=== PATIENT | female | born 1965 | race Caucasian/White ===

== ENCOUNTER 2024-05-05 08:36 | Emergency (ER) | payer OTHER, SELFPAY ==
[2024-05-05 08:41] VITALS: BP 135/113; PULSE 97; TEMP 36.6; O2SAT 93; BMI 23.3
--- NOTE | 2024-05-05 09:03 | ED_ITS ---
HPI - Extremity Problem General Chief complaint: Extremity Problem, Nontraumatic Stated complaint: UPPER EXTREMITY PAIN Time Seen by Provider: 05/05/24 08:42 Source: patient and caregiver Mode of arrival: walk-in Limitations: no limitations History of Present Illness HPI Narrative: 58-year-old female presents to the emergency department for pain in her right tricep area. She has had it for 1 to 2 weeks and there was no specific injury recently. She had broken her collarbone about a year and a half ago and did not have surgery for it. She has been seen for this issue twice at another emergency department and she states that they told her to take a muscle relaxer. She does not have pain in the neck or clavicular area. Related Data Previous Rx's ?Medication ?Instructions ?Recorded acetaminophen 300 mg-codeine 30 mg 1 tab PO Q6H PRN pain 5 days #20 05/05/24 tablet tabs Allergies Allergy/AdvReac Type Severity Reaction Status Date / Time Penicillins AdvReac Mild Hives Verified 05/05/24 08:46 Review of Systems ROS Narrative A ten point review of systems is negative except as noted above. PFSH PFSH Social History Little interest or pleasure in doing things: not at all Feeling down, depressed, or hopeless: not at all Exam Narrative Exam Narrative: Nurses note and vital signs reviewed and patient is not hypoxic. General: The patient appears well and in no apparent distress. Patient is resting comfortably on cart. Skin: Warm, dry, no pallor noted. There is no rash noted. Head: Normocephalic, atraumatic Eye: Normal conjunctiva, no drainage Ears, Nose, Mouth, and Throat: oral mucosa is moist. Nares patent. Cardiovascular: Regular Rate and Rhythm Respiratory: Patient is in no distress, no accessory muscle use, lungs are clear to auscultation, no wheezing, rales or rhonchi Back: non-tender GI: Soft and nontender Musculoskeletal: The right arm is examined. There is no bruise or rash or abrasions. Her right shoulder, right elbow, and right wrist all have full range of motion. Radial pulse 2+. There is no bruising swelling or mass in the tricep area. Neurological: A&O, normal speech Psychiatric: Cooperative Constitutional Vital Signs, click to edit/add: Last Vital Signs Temp 97.9 F 05/05/24 08:41 Pulse 97 H 05/05/24 08:41 Resp 18 05/05/24 08:41 BP 135/113 H 05/05/24 08:41 Pulse Ox 93 L 05/05/24 08:41 O2 Del Method Room Air 05/05/24 08:41 Course Vital Signs Vital signs: Vital Signs Temperature 97.9 F 05/05/24 08:41 Pulse Rate 97 H 05/05/24 08:41 Respiratory Rate 18 05/05/24 08:41 Blood Pressure 135/113 H 05/05/24 08:41 Pulse Oximetry 93 L 05/05/24 08:41 Oxygen Delivery Method Room Air 05/05/24 08:41 Temperature 97.9 F 05/05/24 08:41 Pulse Rate 97 H 05/05/24 08:41 Respiratory Rate 18 05/05/24 08:41 Blood Pressure 135/113 H 05/05/24 08:41 Pulse Oximetry 93 L 05/05/24 08:41 Oxygen Delivery Method Room Air 05/05/24 08:41 MDM - Extremity (Nontraumatic) MDM Narrative Medical decision making narrative: X-rays negative. She also had an x-ray of her right shoulder which showed an old clavicular fracture. She is placed in a sling, application checked by me and found to be appropriate, she is neurovascular intact. She was cautioned about using range of motion so that she does not get a frozen shoulder and she is going to follow-up with the orthopedist to whom she was referred a few days ago. Treatment diagnosis and follow-up were discussed with the patient. Differential Diagnosis Differential diagnosis: Likely other (Fracture, muscle strain, shoulder arthritis) Imaging Data Right humerus: Radiologist's impression: ITS Impressions Humerus X-Ray 05/05/24 10:11 IMPRESSION: No acute abnormality Electronically authenticated by: YANIRA APARICIO Date: 05/05/2024 10:34 Discharge Plan Discharge Chief Complaint: Extremity Problem, Nontraumatic Clinical Impression: Arm pain, right Patient Disposition: Home, Self-Care Time of Disposition Decision: 10:42 Condition: Good Mode of Transportation: Private Vehicle Prescriptions / Home Meds: New acetaminophen-codeine 300-30 mg tablet 1 tab PO Q6H PRN (Reason: pain) 5 Days Qty: 20 0RF Print Language: Japanese Instructions: Arm Pain (ED) Referrals: Duane,Adrianne, [employer] [Primary Care Provider] - 1 week
--- NOTE | 2024-05-05 10:11 | XR_ITS ---
[address] [address] Patient Name: ZANE CARLOS MRN: [id number] date: 1965 Sex: F Assigned Patient Location: ER Current Patient Location: ER Accession/Order Number: [id number] Exam Date: 05/05/2024 10:05 Report Date: 05/05/2024 10:34 At the request of: YANIV WELSH Procedure: XR humerus RT PROCEDURE: XR humerus RT COMPARISON: None. HISTORY: Atraumatic pain FINDINGS: BONES:No acute fracture or dislocation. Remote right clavicle and posterior lateral rib fractures SOFT TISSUES:Negative. No visible soft tissue swelling. EFFUSION:None visible. OTHER: Negative. XR/XR humerus RT IMPRESSION: No acute abnormality Electronically authenticated by: YANIRA APARICIO Date: 05/05/2024 10:34
== END 2024-05-05 10:55 | disposition home or self-care (01) ==
PROVIDERS: Emergency Provider Emergency Medicine; PCP Nurse Practitioner
DX: M79.621 Pain in right upper arm (principal)
CPT/HCPCS: 73060; 99283

== ENCOUNTER 2024-05-06 06:36 | Emergency (ER) | payer OTHER, SELFPAY ==
[2024-05-06] VITALS (14 sets, daily range): BP systolic 117–121; BP diastolic 74–86; PULSE 91–99; TEMP 36.7; O2SAT 92–94; BMI 23.3
--- NOTE | 2024-05-06 06:40 | CT_ITS ---
The [address] [address] Patient Name: ZANE CARLOS MRN: [id number] date: 1965 Sex: F Assigned Patient Location: ED.MAIN Current Patient Location: Accession/Order Number: [id number] Exam Date: 05/06/2024 07:02 Report Date: 05/06/2024 07:43 At the request of: RIK BENAVIDES Procedure: CT stroke head/brain wo con EXAM: CT cervical spine wo con, CT stroke head/brain wo con HISTORY: Fall. Altered mental status. COMPARISON: None. TECHNIQUE: Contiguous transaxial images obtained from skullbase through cervical spine without administration of intravenous contrast. Coronal and sagittal reformations were obtained. Dose reduction: mA and/or kV are were adjusted by automated exposure control software based upon patients height and weight. FINDINGS: There is straightening of the cervical spine with mild loss of cervical lordosis. There is no prevertebral soft tissue swelling or acute cervical spine fracture. There is multilevel degenerative disc disease of the cervical spine that is most pronounced from C4-5 through C6-7 where it is severe. There is minimal anterolisthesis of C3 on C4 and minimal retrolisthesis of C4 on C5 and C5 on C6. There is uncovertebral joint osteoarthritis, most pronounced at C4-5, C5-6, and C6-7. There is atlantodental articulation osteoarthritis. There is multilevel and bilateral facet joint osteoarthritis. Uncovertebral and facet joint osteoarthritis contribute to neural foraminal narrowing. Neural foraminal narrowing is noted on the right from C3-4 through C6-7. Neural foraminal narrowing is noted on the left from C3-4 through C6-7. There is atlantodental articulation osteoarthritis. There is bilateral carotid artery atherosclerosis. There is upper lobe centrilobular and paraseptal emphysema with left apical pleural parenchymal scarring. CT/CT stroke head/brain wo con IMPRESSION: 1. No acute cervical spine fracture. 2. Multilevel degenerative disc disease of the cervical spine that is most pronounced from C4-5 to C6-7 where it is severe. There are associated minimal degenerative listheses as described. 3. Uncovertebral and facet joint osteoarthritis contribute to neural foraminal narrowing from C3-4 through C6-7 bilaterally. 4. Carotid artery atherosclerosis. EXAM: CT stroke head/brain wo con HISTORY: Fall. Altered mental status. TECHNIQUE: Contiguous transaxial images were obtained from skull base to vertex without administration of intravenous contrast. Dose reduction: mA and/or kV are were adjusted by automated exposure control software based upon patients height and weight. FINDINGS: There is no focal scalp soft tissue swelling or acute calvarial fracture. The visualized globes and orbits are grossly normal. Visualized paranasal sinuses are clear. Bilateral mastoid air cells are clear. The ventricles and sulci are normal and symmetric bilaterally. There is no intraparenchymal hemorrhage, extraaxial fluid collection, mass lesion, or acute large territory ischemia by noncontrast CT. There is intracranial atherosclerosis. IMPRESSION: 1. No acute intracranial hemorrhage or acute large territory ischemia by noncontrast CT. 2. Intracranial atherosclerosis. If the patient has a focal neurologic deficit or there is clinical suspicion for acute cerebrovascular accident, brain MRI would be recommended for further evaluation. Electronically authenticated by: ALFREDO CERON Date: 05/06/2024 07:43
--- NOTE | 2024-05-06 06:40 | ECG_ITS ---
The [facility] Test Date: 2024-05-06 Pat Name: ZANE CARLOS Department: Room: - Gender: Female Packing Checker: : 1965 Requested By: [id number] Order Number: [id number] Reading MD: ALEXANDER GILLIAM Measurements Intervals [place] Rate: 91 P: 45 MO: 164 QRS: 17 QRSD: 78 T: 37 QT: 342 QTc: 391 Interpretive Statements 1100 Sinus rhythm 8102 Low QRS voltage in chest leads 9120 atypical ECG No previous ECG available for comparison Electronically Signed On 05-07-2024 16:31:48 EST by ALEXANDER GILLIAM
--- NOTE | 2024-05-06 06:40 | XR_ITS ---
The [address] [address] Patient Name: ZANE CARLOS MRN: [id number] date: 1965 Sex: F Assigned Patient Location: ED.MAIN Current Patient Location: ER Accession/Order Number: [id number] Exam Date: 05/06/2024 07:17 Report Date: 05/06/2024 07:32 At the request of: RIK BENAVIDES Procedure: XR chest 1V EXAMINATION: XR chest 1V HISTORY: AMS COMPARISON: No relevant comparison available. TECHNIQUE: AP portable FINDINGS: LUNGS: Mild bibasilar infiltrates, left greater than right VASCULATURE: No increased pulmonary vasculature. PLEURA: No pneumothorax, effusion, or pleural thickening. CARDIAC: No cardiomegaly or cardiac silhouette abnormality. MEDIASTINUM: No visible mass or adenopathy. BONES: Remote right mid clavicle and right posterior rib fractures OTHER: Negative. XR/XR chest 1V IMPRESSION: Mild bibasilar infiltrates, left greater than right Electronically authenticated by: YANIRA APARICIO Date: 05/06/2024 07:32
--- NOTE | 2024-05-06 06:43 | CT_ITS ---
The [address] [address] Patient Name: ZANE CARLOS MRN: [id number] date: 1965 Sex: F Assigned Patient Location: ER Current Patient Location: ER Accession/Order Number: [id number] Exam Date: 05/06/2024 07:02 Report Date: 05/06/2024 07:43 At the request of: RIK BENAVIDES Procedure: CT cervical spine wo con EXAM: CT cervical spine wo con, CT stroke head/brain wo con HISTORY: Fall. Altered mental status. COMPARISON: None. TECHNIQUE: Contiguous transaxial images obtained from skullbase through cervical spine without administration of intravenous contrast. Coronal and sagittal reformations were obtained. Dose reduction: mA and/or kV are were adjusted by automated exposure control software based upon patients height and weight. FINDINGS: There is straightening of the cervical spine with mild loss of cervical lordosis. There is no prevertebral soft tissue swelling or acute cervical spine fracture. There is multilevel degenerative disc disease of the cervical spine that is most pronounced from C4-5 through C6-7 where it is severe. There is minimal anterolisthesis of C3 on C4 and minimal retrolisthesis of C4 on C5 and C5 on C6. There is uncovertebral joint osteoarthritis, most pronounced at C4-5, C5-6, and C6-7. There is atlantodental articulation osteoarthritis. There is multilevel and bilateral facet joint osteoarthritis. Uncovertebral and facet joint osteoarthritis contribute to neural foraminal narrowing. Neural foraminal narrowing is noted on the right from C3-4 through C6-7. Neural foraminal narrowing is noted on the left from C3-4 through C6-7. There is atlantodental articulation osteoarthritis. There is bilateral carotid artery atherosclerosis. There is upper lobe centrilobular and paraseptal emphysema with left apical pleural parenchymal scarring. CT/CT cervical spine wo con IMPRESSION: 1. No acute cervical spine fracture. 2. Multilevel degenerative disc disease of the cervical spine that is most pronounced from C4-5 to C6-7 where it is severe. There are associated minimal degenerative listheses as described. 3. Uncovertebral and facet joint osteoarthritis contribute to neural foraminal narrowing from C3-4 through C6-7 bilaterally. 4. Carotid artery atherosclerosis. EXAM: CT stroke head/brain wo con HISTORY: Fall. Altered mental status. TECHNIQUE: Contiguous transaxial images were obtained from skull base to vertex without administration of intravenous contrast. Dose reduction: mA and/or kV are were adjusted by automated exposure control software based upon patients height and weight. FINDINGS: There is no focal scalp soft tissue swelling or acute calvarial fracture. The visualized globes and orbits are grossly normal. Visualized paranasal sinuses are clear. Bilateral mastoid air cells are clear. The ventricles and sulci are normal and symmetric bilaterally. There is no intraparenchymal hemorrhage, extraaxial fluid collection, mass lesion, or acute large territory ischemia by noncontrast CT. There is intracranial atherosclerosis. IMPRESSION: 1. No acute intracranial hemorrhage or acute large territory ischemia by noncontrast CT. 2. Intracranial atherosclerosis. If the patient has a focal neurologic deficit or there is clinical suspicion for acute cerebrovascular accident, brain MRI would be recommended for further evaluation. Electronically authenticated by: ALFREDO CERON Date: 05/06/2024 07:43
--- NOTE | 2024-05-06 06:46 | ED.AMS1 ---
HPI - Altered Mental Status General Chief Complaint: Altered Mental Status Stated Complaint: GENERAL WEAKNESS Time Seen by Provider: 05/06/24 06:40 Source: patient Mode of arrival: ambulance History of Present Illness HPI narrative: 58-year-old female to the emergency department with chief complaint of altered mental status. EMS reports that the patient was found lying on the floor in her home. Her called 911. She had slurred speech and was not responding appropriately. She seemed to be very tired. She was in this emergency department yesterday for arm pain and was prescribed Tylenol with codeine. Patient denies any pain or injury. Related Data Previous Rx's ?Medication ?Instructions ?Recorded acetaminophen 300 mg-codeine 30 mg 1 tab PO Q6H PRN pain 5 days #20 05/05/24 tablet tabs Allergies Allergy/AdvReac Type Severity Reaction Status Date / Time Penicillins AdvReac Mild Hives Verified 05/06/24 06:44 Review of Systems ROS Status of ROS 10 or more systems reviewed and unremarkable except as noted in history and below PFSH PFSH Social History Little interest or pleasure in doing things: not at all Feeling down, depressed, or hopeless: not at all Exam Narrative Exam Narrative: VITALS: I have reviewed the triage vital signs. GENERAL: Well developed, well appearing adult female in no acute distress. NEURO: Alert and oriented x1. Slurred speech. Slow to respond. Moves all extremities. Face is symmetric and expressive. Motor strength and sensation are grossly intact in the upper and lower extremities bilaterally. EYES: PERRL. No scleral icterus or conjunctival injection. No discharge. HENT: Normocephalic, atraumatic. Hearing is grossly intact. Nares grossly patent and without discharge. Mucous membranes moist. NECK: No JVD. Patient moves neck without restriction. No midline cervical, thoracic, or lumbar tenderness. CARDIO: Rhythm regular. Normal rate. No murmur, rub, or gallop. Pulses equal bilaterally in the upper and lower extremity. No lower extremity edema. PULM: Lungs clear to auscultation in all clement. No wheezes, rales, or rhonchi. No conversational dyspnea. No splinting, stridor, or accessory muscle use. GI/: Abdomen is soft and non-tender. Normoactive bowel sounds. EXTREMITIES: Symmetric muscle bulk. No joint swelling. No clubbing, cyanosis, or deformity. SKIN: Warm and dry. Normal turgor. No rash or lesions appreciated. PSYCH: Strange affect Constitutional Vital Signs, click to edit/add: Last Vital Signs Temp 98.0 F 05/06/24 06:39 Pulse 92 H 05/06/24 06:39 Resp 16 05/06/24 06:39 BP 117/86 05/06/24 06:39 Pulse Ox 94 L 05/06/24 06:39 O2 Del Method Room Air 05/06/24 06:39 Course Vital Signs Vital signs: Vital Signs Temperature 98.0 F 05/06/24 06:39 Pulse Rate 92 H 05/06/24 06:39 Respiratory Rate 16 05/06/24 06:39 Blood Pressure 117/86 05/06/24 06:39 Pulse Oximetry 94 L 05/06/24 06:39 Oxygen Delivery Method Room Air 05/06/24 06:39 Temperature 98.0 F 05/06/24 06:39 Pulse Rate 92 H 05/06/24 06:39 Respiratory Rate 16 05/06/24 06:39 Blood Pressure 117/86 05/06/24 06:39 Pulse Oximetry 94 L 05/06/24 06:39 Oxygen Delivery Method Room Air 05/06/24 06:39 MDM - Altered Mental Status MDM Narrative Medical decision making narrative: 58-year-old female to the emergency department with chief complaint of altered mental status, found lying on the ground at home. Vital stable, the patient is afebrile. She has no evidence of traumatic injury on exam. CT head and cervical spine ordered. Basic labs. Chest x-ray. Care was signed out to Dr. Garrison. Medical Records Attestation: I reviewed the patient's medical records. Discharge Plan Discharge Chief Complaint: Altered Mental Status Clinical Impression: Altered mental status Patient Disposition: Still a Patient Prescriptions / Home Meds: No Action acetaminophen-codeine 300-30 mg tablet 1 tab PO Q6H PRN (Reason: pain) 5 Days Qty: 20 0RF Print Language: Malian Referrals: Adrianne Zepeda DE[employer] CLAIM EXAMINER [Primary Care Provider] - 1 week
--- OUTSIDE RECORDS SUMMARY | 2024-05-06 06:51 | XMS_ITS | CCD ---
Author Organization [facility] CliniSyal Care Team Providers Care Bag Worker Name Role Phone Jocelyn Walden Primary Care Provider [phone] Braden Lebron Attending Provider Jocelyn Walden Primary Care Unavailable Jai Neil Attending Unavailable Jai Neil Admitting Unavailable Jocelyn Walden MD Primary Care Provider [phone] Jocelyn Walden MD Unavailable [phone] [employer] SCRUB NURSE, Yoselin Unavailable Jocelyn Walden MD Primary Care Provider Jocelyn Clement RN Unavailable Unavailable Kampfer LOAN INSPECTOR-OPERATIONS OFFICER AFLOAT, Yoselin A Primary Care Provider JOE DICK Referring Unavailable KAMPFER, YOSELIN A Primary Care Unavailable JOE DICK Referring Unavailable KAMPFER, YOSELIN A Primary Care Unavailable LETTYFERYOSELIN Attending Unavailable KAMJOSIE, YOSELIN Referring Unavailable JOCELYN WALDEN Attending Unavailable YOSELIN ALEGRIA Attending Unavailable NEEL RODRIGUEZ Attending Unavailab le YOSELIN ALEGRIA Attending Unavailable KAMPFER, YOSELIN Referring Unavailable KAMPFER, YOSELIN Attending Unavailable KAMPYOSELIN MCKEON Attending Unavailable BRODY BERGER Attending Unavailable JOCELYN WALDEN Referring Unavailable JOCELYN WALDEN Primary Care Unavailable JOCELYN WALDEN Primary Care Unavailable JOE DICK Attending Unavailable NENO LANE Admitting Unavailable CARDIOLOGY, [facility] Consulting Unavailable JEREMÍAS QUINTERO Admitting Unavailable JEREMÍAS QUINTERO Attending Unavailable JOCELYN WALDEN Referring Unavailable JOCELYN WALDEN Primary Care Unavailable KAMPFER, YOSELIN A Primary Care Unavailable BRADEN POPE Attending Unavailable YOSELIN ALEGRIA Primary Care Unavailable YOSELIN ALEGRIA Primary Care Unavailable JEREMÍAS QUINTERO Attending Unavailable JEREMÍAS QUINTERO Referring Unavailable JOCELYN WALDEN Primary Care Unavailable AMERICO HECTOR Attending Unavailable JOCELYN WALDEN Primary Care Unavailable Unavailable Unavailable Unavailable Allergies Allergy Classification Reported Allergen(s) Allergy Type Date of Onset Reaction(s) Facility (20 sources) Penicillins; Translations: [Penicillins] Allergy to substance 08-21-2018 [facility] Medications Current Medications Medication Drug Class(es) Dates Sig (Normalized) Sig (Original) acetaminophen 325 mg oral tablet (1 source) Start: 03-06-2024 take 1 tablet by mouth every four hours as needed for headache and fever and pain 650 mg, oral, Every 4 hours PRN, headaches, temperature greater than 38 C, mild pain - pain scale 1-3, Starting on Sat03/06/24 at 1017, Scheduling/ADT, [Warning: Total Acetaminophen not to exceed more than 4 grams (4000 mg) in 24 hours] [id number] 200 actuat albuterol 0.09 mg/actuat metered dose inhaler (20 sources) beta2-Adrenergic Agonist Start: 09-11-2023 End: 03-18-2024 take 1 puff(s) by inhalation every four hours for wheezing albuterol HFA 90 mcg/act inhaler Indications: Chronic obstructive pulmonary disease, unspecified (CMS/HCC) Inhale 1 puff every 4 (four) hours if needed for wheezing 54 g 1 03/18/2024 Active Start: 06-12-2020 Albuterol Sulf ate Active 1 INH INHALATION EVERY 4-6 HOURS 8.5 June 12, 2020 1:00am albuterol 108 (90 Base) MCG/ACT inhaler (1 source) take 1 puff(s) by inhalation every four hours for wheezing albuterol 108 (90 Base) MCG/ACT inhaler Inhale 1 puff every 4 (four) hours if needed for shortness of breath or wheezing. 0 Active amitriptyline hydrochloride 25 mg oral tablet (20 sources) Tricyclic Antidepressant Start: take 1 tablet by mouth once daily at bedtime amitriptyline (Elavil) 25 MG tablet Indications: Moderate episode of recurrent major depressive disorder (CMS/HCC) TAKE 1 TABLET BY MOUTH EVERY DAY AT BEDTIME FOR 90 DAYS 90 tablet 06/24/2023 Active Start: 05-27-2023 take 1 tablet by mona th once daily at bedtime amitriptyline (Elavil) 25 MG tablet Indications: Moderate episode of recurrent major depressive disorder (HCC) (CMS/HCC) TAKE 1 TABLET BY MOUTH EVERY DAY AT BEDTIME FOR 90 DAYS 90 tablet 1 05/27/2023 Active Start: 02-15-2022 amitriptyline (ELAVIL) 10 mg tablet Indications: Fibromyalgia One capsule at 8 PM each night 30 tablet 2 02/15/2022 Active apixaban 5 mg oral tablet (14 sources) Factor Xa Inhibitor Start: 03-07-2024 take 1 tablet by mouth in the morning, then take 1 tablet by mouth at bedtime apixaban (ELIQUIS) 5 mg tablet Take 1 tablet (5 mg total) by mouth in the morning and 1 tablet (5 mg total) before bedtime. 60 tablet 03/07/2024 Active ARIPiprazole 10 mg oral tablet (20 sources) Atypical Antipsychotic Start: 04-10-2024 ARIPiprazole (Abilify) 10 MG tablet Indications: Moderate episode of recurrent major depressive disorder (CMS/HCC) TAKE 1 TABLET EVERY MORNING 90 tablet 1 04/10/2024 Active Start: 01-08-2020 End: 04-10-2024 ARIPiprazole (Abilify) 10 MG tablet Indications: Moderate episode of recurrent major depressive disorder (CMS/HCC) TAKE 1 TABLET EVERY MORNING 90 tablet 1 11/21/2023 Active aspirin 325 mg delayed release oral tablet (18 sources) Platelet Aggregation Inhibitor, Nonsteroidal Anti-inflammatory Drug Start: 03-06-2024 take 325 mg by mouth once daily 325 mg, oral, Daily, First dose on Sat03/06/24 at 1045, Do not crush or chew. Start: 01-08-2020 End: 09-07-2023 take 1 tablet by mouth in the morning aspirin 325 MG tablet Indications: Type 2 diabetes mellitus with diabetic peripheral angiopathy without gangrene, without long-term current use of insulin (CMS/HCC) Take 1 tablet (325 mg) by mouth in the morning. 90 tablet 1 03/11/2023 09/07/2023 Active aspirin 500 mg / caffeine 32.5 mg oral tablet (2 sources) Platelet Aggregation Inhibitor, Nonsteroidal Anti-inflammatory Drug, Central Nervous System Stimulant, Methylxanthine Start: 01-08-2020 End: 06-13-2020 Aspirin-Caffeine (Dex Back And Body) 500-32.5 mg Tablet Active 1 TAB PO As Directed January 08, 2020 1:47pm atorvastatin 10 mg oral tablet (1 source) HMG-CoA Reductase Inhibitor Start: 03-06-2024 take 10 mg by mouth once daily 10 mg, oral, Nightly, First dose on Sat03/06/24 at 2200, Look-alike/sound-ali ke medication - verify indication for use. busPIRone hydrochloride 15 mg oral tablet (20 sources) Start: 12-18-2023 End: 03-11-2024 take 1 tablet by mouth in the morning busPIRone (Buspar) 15 MG tablet Indications: Anxiety Take 1 tablet (15 mg) by mouth in the morning and 1 tablet (15 mg) before bedtime. 180 tablet 1 03/11/2024 Active Start: 07-30-2020 End: 10-12-2023 busPIRone (Buspar) 15 MG tab let Indications: Anxiety TAKE 1 TABLET IN THE MORNING AND 1 TABLET BEFORE BEDTIME. 180 tablet 1 04/15/2023 10/12/2023 Active Start: 01-08-2020 End: 06-13-2020 take 15 mg by mouth twice daily Buspirone Active 15 MG PO Twice daily January 08, 2020 1:41pm calcium carbonate 1250 mg oral tablet (1 source) Start: 07-30-2020 Calcium Carbonate (Oyster Shell Calcium 500) 500 mg calcium (1,250 mg) Tablet Active 500 MG PO Twice daily July 30, 2020 12:00am 100 ml calcium gluconate 20 mg/ml injection (1 source) Start: 03-06-2024 take 4-4.3 mg intravenously every hour as needed 2,000 mg, intravenous, at 50 mL/hr, Administer over 2 Hours, As needed, ionized calcium 4 to 4.3 mg/dL, Starting on Sat03/06/24 at 1017, Scheduling/ADT, IV Administration of calcium via a central or deep vein preferred. Avoid administration in small hand veins VESICANT (RED) calcium gluconate 3,000 mg in sodium chloride 0.9 % 100 mL IVPB (1 source) Start: 03-06-2024 take 3.5-3.9 mg intravenously every hour as needed 3,000 mg, intravenous, at 43.3 mL/hr, Administer over 3 Hours, As needed, ionized calcium 3.5 to 3.9 mg/dL, Starting on Sat03/06/24 at 1017, Scheduling/ADT, IV Administration of calcium via a central or deep vein preferred. Avoid administration in small hand veins VESICANT (RED) calcium gluconate 4,000 mg in sodium chloride 0.9 % 250 mL IVPB (1 source) Start: 03-06-2024 take 3.4 mg intravenously every hour as needed 4,000 mg, intravenous, at 72.5 mL/hr, Administer over 4 Hours, As needed, ionized calcium 3.4 mg/dL or less, Starting on Sat03/06/24 at 1017, Scheduling/ADT, IV administration of calcium via a central or deep vein is preferred. Avoid administration in small hand veins. VESICANT (RED) cholecalciferol 0.025 mg oral tablet (20 sources) Vitamin D Start: 05-14-2023 cholecalciferol (Vitamin D3) 25 MCG (1000 UT) tablet Indications: Fibromyalgia TAKE 1 TABLET EVERY MORNING 90 tablet 1 05/14/2023 Active diazePAM 5 mg oral tablet (1 source) Benzodiazepine Start: 06-13-2020 take 5 mg by mouth four times daily Diazepam Active 5 MG PO Four times daily 30 June 13, 2020 1:00am 24 hr dilTIAZem hydrochloride 180 mg extended release oral capsule (16 sources) Calcium Channel Vika Start: 03-08-2024 take 1 capsule by mouth every twenty-four hours in the morning dilTIAZem CD (CARDIZEM CD) 180 mg 24 hr capsule Take 1 capsule (180 mg total) by mouth in the morning. 30 capsule 03/08/2024 Active Start: 03-06-2024 End: 03-06-2024 180 mg, oral, Daily, First d ose (after last reorder) on Sat03/06/24 at 1300, Hold for systolic blood pressure less than 100 or heart rate less than 60 Look-alike/sound-alike medication - verify indication for use. Do not crush or chew. dilTIAZem (CARDIZEM) infusion 125 mg/125 mL in sodium chloride 0.7% (1 mg/mL premix) (1 source) Start: 03-06-2024 5-15 mg/hr (5- 15 mL/hr), intravenous, Continuous, Starting on Sat03/06/24 at 0635, Initiate diltiazem infusion at 5 mg/hr. Titrate by 5 mg/hr every 15 minutes to achieve heart rate less than 110 hold if sbp docusate sodium 50 mg / sennosides, mcfp 8.6 mg oral tablet (2 sources) Start: 03-06-2024 take 1 tablet by mona every twelve hours as needed for constipation 1 tablet, oral, Every 12 hours PRN, constipation, Starting on Sat03/06/24 at 1017, Scheduling/ADT Start: 06-12-2020 take 2 tablets by mo [facility] twice daily Sennosides-Docusate Sodium (Stool Softener-Stimulant Laxat) 8.6-50 mg Tablet Active 2 TAB PO Twice daily June 12, 2020 1:00am available over the counter - may discontinue once pain meds reduced/ discontinued DULoxetine 60 mg delayed release oral capsule (20 sources) Serotonin and Norepinephrine Reuptake Inhibitor Start: 04-10-2024 DULoxetine (Cymbalta ) [address] capsule Indications: Lumbosacral spondylosis without myelopathy , Anxiety , Episode of recurrent major depressive disorder, unspecified depression episode severity (CMS/HCC) TAKE 1 CAPSULE EVERY MORNING AND TAKE 1 CAPSULE BEFORE BEDTIME. DO NOT CRUSH OR CHEW 180 capsule 1 04/10/2024 Active Start: 02-03-2024 End: 04-10-2024 take 1 capsule by mouth in the morning DULoxetine (Cymbalta) [address] capsule Indications: Lumbosacral spondylosis without myelopathy , Anxiety , Episode of recurrent major depressive disorder, unspecified depression episode severity (CMS/HCC) Take 1 capsule (60 mg) by mouth in the morning and 1 capsule (60 mg) before bedtime. Do not crush or chew.. 180 capsule 1 02/03/2024 04/10/2024 Discontinued Start: 02-03-2024 take 1 capsule by mo [facility] in the morning DULoxetine (Cymbalta) [address] capsule Indications: Lumbosacral spondylosis without myelopathy , Anxiety , Episode of recurrent major depressive disorder, unspecified depression episode severity (CMS/HCC) Take 1 capsule (60 mg) by mouth in the morning and 1 capsule (60 mg) before bedtime. Do not crush or chew.. 180 capsule 1 02/03/2024 Active Start: 12-04-2023 End: 02-03-2024 take 1 capsule by mouth in the morning DULoxetine (Cymbalta) [address] capsule Indications: Lumbosacral spondylosis without myelopathy , Anxiety , Episode of recurrent major depressive disorder, unspecified depression episode severity (CMS/HCC) Take 1 capsule (60 mg) by mouth in the morning and 1 capsule (60 mg) before bedtime. Do not crush or chew.. 180 capsule 1 12/04/2023 02/03/2024 Discontinued (Reorder) Start: 01-08-2020 End: 10-12-2023 DULoxetine (Cymbalta) [address] capsule Indications: Lumbosacral spondylosis without myelopathy , Anxiety , Episode of recurrent major depressive disorder, unspecified depression episode severity (CMS/HCC) TAKE 1 CAPSULE IN THE MORNING AND 1 CAPSULE BEFORE BEDTIME 180 capsule 1 04/15/2023 10/12/2023 Active 0.6 ml enoxaparin sodium 100 mg/ml prefilled syringe (3 sources) Low Molecular Weight Heparin Start: 03-07-2024 60 mg (rounded from 57.7 mg = 1 mg/kg 57.7 kg), subcutaneous, Every 12 hours, First dose (after last reorder) on Sat03/07/24 at 1800, Scheduling/ADT, Look-alike/sound-alike medication - verify indication for use. Start: 03-06-2024 End: 03-07-2024 70 mg (rounded from 72.6 mg = 1 mg/kg 72.6 kg), subcutaneous, Every 12 hours, First dose on Sat03/06/24 at 1030, Scheduling/ADT, Look-alike/sound-alike medication - verify indication for use. Ergocalciferol (1 source) Provitamin D2 Compound Start: 07-30-2020 take 1000 [IU] by mouth once daily Ergocalciferol (Vitamin D2) Active 1000 UNIT PO Daily July 30, 2020 12:00am escitalopram 10 mg oral tablet (20 sources) Serotonin Reuptake Inhibitor Start: 03-06-2024 take 20 mg by mouth once daily 20 mg, oral, Daily, First dose on Sat03/06/24 at 1045, Look-alike/sound-ali ke medication - verify indication for use. Start: 01-08-2020 End: 01-16-2024 escitalopram (Lexapro) 20 MG tablet Indications: Moderate episode of recurrent major depressive disorder (CMS/HCC) TAKE 1 TABLET EVERY MORNING 90 tablet 1 01/16/2024 Active ferrous sulfate 325 mg oral tablet (20 sources) Start: 04-30-2023 take 1 tablet by mouth once daily ferrous sulfate 325 (65 Fe) MG tablet Indications: Iron deficiency anemia, unspecified iron deficiency anemia type TAKE 1 TABLET BY MOUTH EVERY DAY FOR 90 DAYS 90 tablet 1 04/30/2023 Active fluconazole 150 mg oral tablet (2 sources) Azole Antifungal Start: 02-03-2024 End: 02-03-2024 take 1 tablet by mouth once fluconazole (Diflucan) 150 MG tablet Indications: Candidiasis Take 1 tablet (150 mg) by mouth 1 (one) time for 1 dose 1 tablet 02/03/2024 02/03/2024 Active Start: 12-31-2023 End: 12-31-2023 take 1 tablet by mouth once fluconazole (Diflucan) 150 MG tablet Indications: Candidiasis Take 1 tablet (150 mg) by mouth 1 (one) time for 1 dose 1 tablet 12/31/2023 12/31/2023 Active 60 actuat fluticasone propionate 0.25 mg/actuat / salmeterol 0.05 mg/actuat dry powder inhaler (20 sources) Corticosteroid, beta2-Adrenergic Agonist Start: 01-01-2024 End: 02-19-2024 take 1 puff(s) by inhalation in the morning Fluticasone-Salmeterol 250-50 MCG/ACT aerosol powder Indications: COPD (chronic obstructive pulmonary disease) with chronic bronchitis (CMS/HCC) Inhale 1 puff in the morning and 1 puff before bedtime. 180 each 1 01/03/2024 Active Start: 10-01-2023 End: 01-01-2024 Fluticasone-Salmeterol (Wixe la Inhub) 250-50 MCG/ACT aerosol powder Indications: COPD (chronic obstructive pulmonary disease) with chronic bronchitis (CMS/HCC) Inhale 1 Inhalation in the morning and 1 Inhalation before bedtime. 3 each 10/01/2023 01/01/2024 Discontinued gabapentin 400 mg oral capsule (20 sources) Anti-epileptic Agent Start: 06-12-2020 End: 02-05-2024 gabapentin (Neurontin) 400 MG capsule Indications: Lumbosacral spondylosis without myelopathy TAKE 1 CAPSULE IN THE MORNING, 1 CAPSULE IN THE EVENING, AND 1 CAPSULE BEFORE BEDTIME. 270 capsule 1 08/27/2023 Active Start: 01-08-2020 End: 06-13-2020 take 800 mg by mouth three times daily Gabapentin Active 800 MG PO Three times daily January 08, 2020 1:41pm glucagon (rdna) 1 mg injection (1 source) Antihypoglycemic Agent Start: 03-06-2024 1 mg, i ntramuscular, As needed, low blood sugar, blood glucose less than 70 mg/dL and unconscious or NPO without IV access., Starting on Sat03/06/24 at 1017, Scheduling/ADT, If conscious and not NPO, immediately follow with meal tray or high protein (7Grams) snack if tray not available. If NPO, initiate IV 5% Dextrose/Water at 100 mL/hr and contact prescriber for additional orders. If blood glucose is not greater than 70 mg/dL after initial treatment, repeat treatment. 150 ml glucose 50 mg/ml injection (3 sources) Start: 03-06-2024 15 g, oral, As needed, low blood sugar, blood glucose less than 70 mg/dL, Starting on Sat03/06/24 at 1017, Scheduling/ADT, If patient conscious and taking PO. If blood glucose is not greater than 70 mg/dL after initial treatment, repeat treatment. Start: 03-06-2024 25 mL, intrave nous, As needed, low blood sugar, blood glucose less than 70 mg/dL and unconscious or NPO with IV access, Starting on Sat03/06/24 at 1017, Scheduling/ADT, Push over 1-3 minutes STAT. If conscious and not NPO, immediately follow with meal tray or high protein (7 grams) snack if tray not available. If NPO, initiate 5% dextrose in water at 100 mL/hr and contact prescriber for additional orders. If blood glucose is not greater than 70 mg/dL after initial treatment, repeat treatment. VESICANT (RED) Warning: HYPERTONIC solution. Start: 03-06-2024 take 70 mg intraveno usly every hour 100 mL/hr, intravenous, Continuous PRN, blood glucose less than 70 mg/dL, Starting on Sat03/06/24 at 1017, Scheduling/ADT, Use immediately following dextrose 50% or glucagon treatment for patients who are unconscious or NPO. Contact prescriber for additional orders. If blood glucose is not greater than 70 mg/dL after initial treatment, repeat treatment. 12 hr guaiFENesin 600 mg extended release oral tablet (1 source) Start: 08-03-2020 take 1 tablet by mouth twice daily, then take 1 tablet by mouth every twelve hours Guaifenesin (Mucinex) 600 mg Tablet Extended Release 12hr Active 600 MG PO Twice daily 22 02August 03, 2020 12:00am hydrOXYzine pamoate 50 mg oral capsule (20 sources) Antihistamine Start: 02-01-2023 hydrOXYzine pa moate (Vistaril) 50 MG capsule Indications: Anxiety TAKE 1 CAPSULE EVERY 8 HOURS 270 capsule 1 09/23/2023 Active Start: 01-08-2020 End: 06-13-2020 take 50 mg by mouth three times daily Hydroxyzine Pamoate Active 50 MG PO Three times daily January 08, 2020 1:41pm ibuprofen 800 mg oral tablet (20 sources) Nonsteroidal Anti-inflammatory Drug Start: 05-01-2024 take 1 tablet by mouth every six hours as needed for pain ibuprofen (MOTRIN) 800 mg tablet Take 1 tablet (800 mg total) by mouth every 6 (six) hours as needed for pain. 21 tablet 05/01/2024 Active Start: 09-11-2023 End: 12-26-2023 take 1 tablet by mouth three times daily as needed for pain ibuprofen (IBU) 800 MG tablet Indications: Cervical radiculopathy , Cervical spine pain Take 1 tablet (800 mg) by mouth 3 (three) times a day as needed for mild pain 270 tablet 12/26/2023 Active Start: 05-27-2023 End: 08-25-2023 take 1 tablet by mouth three times daily as needed for pain ibuprofen 800 MG tablet Indications: Cervical spine pain Take 1 tablet (800 mg) by mouth 3 (three) times a day as needed for mild pain 270 tablet 0 05/27/2023 08/25/2023 Active Start: 01-08-2020 take 800 mg by mouth three times daily Ibuprofen Active 800 MG PO Three times daily January 08, 2020 1:41pm 3 ml insulin lispro 100 unt/ml pen injector (2 sources) Insulin Analog Start: 03-07-2024 inject 400 mg by subcutaneous injection once daily, then inject 2 [IU] by subcutaneous injection 15 minutes after mealtime 2-8 Units, subcutaneous, Nightly, First dose on 03/07/24 at 2200, Bedtime hyperglycemia dosing. For blood glucose 201-250 mg/dL, give 2 units. For blood glucose 251-300 mg/dL, give 4 units. For blood glucose 301-350 mg/dL, give 6 units. For blood glucose 351-400 mg/dL, give 8 units. Give even if NPO or meals skipped. Do NOT give more often then every 4 hours when NPO. Notify prescriber if blood glucose greater than 400 mg/dL. Look-alike/sound-alike medication - verify indication for use. Prime with 2 units of insulin prior to administration. Prandial/supplemental Insulin. Pre-filled pens stable 28 days at room temperature. Insulin lispro should be administered within 15 minutes before or immediately after a meal. Start: 03-07-2024 inject 400 mg by sub cutaneous injection three times daily at mealtime, then inject 2 [IU] by subcutaneous injection 15 minutes after mealtime 2-10 Units, subcutaneous, 3 times daily with meals, First dose on 03/07/24 at 1200, Daytime hyperglycemia dosing. For blood glucose 151-200 mg/dL, give 2 units. For blood glucose 201-250 mg/dL, give 4 units. For blood glucose 251-300 mg/dL, give 6 units. For blood glucose 301-350 mg/dL, give 8 units. For blood glucose 351-400 mg/dL, give 10 units. Give even if NPO or meals skipped. Do NOT give more often then every 4 hours when NPO. Notify prescriber if blood glucose greater than 400 mg/dL. Look-alike/sound-alike medication - verify indication for use. Prime with 2 units of insulin prior to administration. Prandial/supplemental Insulin. Pre-filled pens stable 28 days at room temperature. Insulin lispro should be administered within 15 minutes before or immediately after a meal. levalbuterol 0.417 mg/ml inhalation solution (1 source) beta2-Adrenergic Agonist Start: 03-06-2024 take 1.25 mg by inhalation every six hours as needed for wheezing and dyspnea 1.25 mg, nebulization, Every 6 hours PRN, wheezing, shortness of breath, Starting on Sat03/06/24 at 1017, Scheduling/ADT, Ordered in place of albuterol due to: tachycardia, Implement INPATIENT/ED Bronchodilator Clinical Practice Guidelines? Yes levoFLOXacin 750 mg oral tablet (1 source) Quinolone Antimicrobial Start: 08-03-2020 take 750 mg by mouth every twenty-four hours Levofloxacin Active 750 MG PO Q24H 3 August 03, 2020 12:00am levothyroxine sodium 0.075 mg oral tablet (20 sources) l-Thyroxine Start: 03-06-2024 75 mcg, oral, Daily, First dose on Sat03/06/24 at 1045, Look-alike/sound-al kecia medication. Verify indication for use Administer on empty stomach at least ONE hour before or TWO hours after food Enteral Feeding: For 7 days or less of tube feeding- do NOT hold tube feedings, after 7 days- hold tube feedings ONE hour before and ONE hour after administration DOES NOT APPLY TO NEONATES Monitor thyroid function tests weekly Start: 05-14-2023 levothyroxine (Synthroid, Levoxyl) 75 MCG tablet Indications: Acquired hypothyroidism (CMS/HCC) TAKE 1 TABLET EVERY MORNING BEFORE A MEAL 90 tablet 3 12/23/2023 Active Start: 05-18-2020 take 175 ug by mouth once daily Levothyroxine Active 175 MCG PO Daily May 18, 2020 5:06pm Start: 01-08-2020 End: 05-18-2020 take 150 ug by mouth once daily Levothyroxine Discontinued 150 MCG PO Daily January 08, 2020 1:41pm May 18, 2020 4:22pm lidocaine 0.05 mg/mg medicated patch (1 source) Antiarrhythmic, Amide Local Anesthetic Start: 05-01-2024 apply 1 dose transdermal route once daily, then apply 1 dose transdermal route every twelve hours lidocaine (LIDODERM) 5 % Indications: Closed displaced fracture of right clavicle, unspecified part of clavicle, sequela Place 1 patch on the skin daily. Remove & Discard patch within 12 hours or as directed by MD Gomez patch 05/01/2024 Active 50 ml magnesium sulfate 40 mg/ml injection (2 sources) Start: 03-06-2024 2,000 mg, intravenous, at 25 mL/hr, Administer over 120 Minutes, As needed, Magnesium level 1.7 to 1.9 mg/dL, or Ionized Magnesium level 0.45 to 0.5 mmol/L., Starting on Sat03/06/24 at 1017, Scheduling/ADT, Recheck magnesium level 4 hours after infusion complete. With each magnesium result continue the replacement orders as needed. Start: 03-06-2024 4,000 mg, intr avenous, at 25 mL/hr, Administer over 240 Minutes, As needed, Magnesium level 1.6 mg/dL or less, or Ionized Magnesium level 0.44 mmol/L or less, Starting on Sat03/06/24 at 1017, Scheduling/ADT, Recheck magnesium level 4 hours after infusion complete. With each magnesium result continue the replacement orders as needed. metFORMIN hydrochloride 500 mg oral tablet (20 sources) Biguanide Start: 10-09-2023 End: 03-11-2024 take 1 tablet by mouth in the morning metFORMIN (Glucophage) 500 MG tablet Indications: Type 2 diabetes mellitus with diabetic peripheral angiopathy without gangrene, without long-term current use of insulin (CMS/HCC) Take 1 tablet (500 mg) by mouth in the morning and 1 tablet (500 mg) in the evening. Take with meals. 180 tablet 1 03/11/2024 Active Start: 06-10-2023 metFORMIN (Glu cophage) 500 MG tablet Indications: Type 2 diabetes mellitus with diabetic peripheral angiopathy without gangrene, without long-term current use of insulin (CMS/HCC) TAKE 1 TABLET IN THE MORNING AND 1 TABLET IN THE EVENING WITH MEALS. 180 tablet 0 06/10/2023 Active Start: 01-08-2020 End: 06-10-2023 metFORMIN (Glucophage) 500 M G tablet Indications: Type 2 diabetes mellitus with diabetic peripheral angiopathy without gangrene, without long-term current use of insulin (CMS/HCC) TAKE 1 TABLET IN THE MORNING AND 1 TABLET IN THE EVENING WITH MEALS. 180 tablet 0 01/14/2023 06/10/2023 Discontinued methocarbamol 500 mg oral tablet (20 sources) Muscle Relaxant Start: 02-15-2022 take 1 tablet by mouth once daily at bedtime methocarbamoL (ROBAXIN) 500 mg tablet Indications: Fibromyalgia Take 1 tablet (500 mg total) by mouth once daily at bedtime. 30 tablet 5 02/15/2022 Active methylPREDNISolone (2 sources) Corticosteroid Start: 05-03-2024 methylPREDNISolone (MEDROL, VEDA,) 4 mg tablet follow package directions 21 tablet 05/03/2024 Active Start: 03-06-2024 End: 03-06-2024 125 mg, intravenous, Once, O n 03/06/24 at 0630, For 1 dose, May alter blood glucose or insulin requirements. Look-alike/sound-alike medication - verify indication for use. metroNIDAZOLE 500 mg oral tablet (6 sources) Nitroimidazole Antimicrobial Start: 02-03-2024 End: 02-10-2024 take 1 tablet by mouth in the morning metroNIDAZOLE (Flagyl) 500 MG tablet Indications: Bacterial vaginosis Take 1 tablet (500 mg) by mouth in the morning and 1 tablet (500 mg) before bedtime. Do all this for 7 days. 14 tablet 02/03/2024 02/10/2024 Active Start: 12-31-2023 End: 01-07-2024 take 1 tablet by mouth in the morning metroNIDAZOLE (Flagyl) 500 MG tablet Indications: Bacterial vaginosis Take 1 tablet (500 mg) by mouth in the morning and 1 tablet (500 mg) before bedtime. Do all this for 7 days. 14 tablet 12/31/2023 01/07/2024 Active omeprazole 40 mg delayed release oral capsule (20 sources) Proton Pump Inhibitor Start: 10-29-2023 End: 03-25-2024 omeprazole (PriLOSEC) [address] capsule Indications: Gastroesophageal reflux disease without esophagitis TAKE 1 CAPSULE EVERY MORNING BEFORE A MEAL (DO NOT CRUSH OR CHEW) 90 capsule 1 03/25/2024 Active Start: 01-08-2020 End: 10-12-2023 take 1 capsule by mouth before mealtime omeprazole (PriLOSEC) [address] capsule Indications: Gastroesophageal reflux disease without esophagitis Take 1 capsule (40 mg) by mouth in the morning. Take before meals. 90 capsule 3 10/12/2022 10/12/2023 Active ondansetron 4 mg disintegrating oral tablet (1 source) Serotonin-3 Receptor Antagonist Start: 03-06-2024 take 1 tablet by mouth (buccal) every six hours as needed for nausea and vomiting 4 mg, buccal, Every 6 hours PRN, nausea, vomiting, Starting on Sat03/06/24 at 1017, Scheduling/ADT 12 hr orphenadrine citrate 100 mg extended release oral tablet (1 source) Muscle Relaxant Start: 05-01-2024 take 1 tablet by mouth twice daily as needed for pain orphenadrine (NORFLEX) 100 mg 12 hr tablet Indications: Closed displaced fracture of right clavicle, unspecified part of clavicle, sequela Take 1 tablet (100 mg total) by mouth 2 (two) times a day as needed for pain. 14 tablet 05/01/2024 Active oxyCODONE hydrochloride 5 mg oral tablet (1 source) Opioid Agonist Start: 06-13-2020 take 5 mg by mouth every six hours Oxycodone Active 5 MG PO Every 6 hours 70 14 June 13, 2020 pantoprazole 40 mg delayed release oral tablet (1 source) Proton Pump Inhibitor Start: 03-06-2024 40 mg, oral, Daily, First dose on Sat03/06/24 at 1030, Look-alike/sound-al kecia medication - verify indication for use. If patient is receiving enteral feeding, consider alternative PPI or continue IV pantoprazole until the delayed-release tablet can be taken orally, Indication: GERD Potassium Chloride (3 sources) Start: 03-06-2024 potassium chloride (K-TAB,KLOR-CON) CR tablet 30-40 mEq Start: 03-06-2024 End: 03-06-2024 40 mEq, oral, Once, On Sat05/06/23 at 0115, For 1 dose, Do not crush or chew. Start: 08-03-2020 take 20 mEq by mouth twice aureliano ly Potassium Chloride Active 20 MEQ PO Twice daily 60 August 03, 2020 12:00am simvastatin 10 mg oral tablet (20 sources) HMG-CoA Reductase Inhibitor Start: 01-08-2020 simvastatin (Zocor) 10 MG tablet Indications: Hyperlipidemia, unspecified hyperlipidemia type (CMS/HCC) TAKE 1 TABLET AT BEDTIME 90 tablet 1 10/24/2023 Active sulfamethoxazole 800 mg / trimethoprim 160 mg oral tablet (1 source) Dihydrofolate Reductase Inhibitor Antibacterial, Sulfonamide Antimicrobial Start: 04-22-2024 End: 04-29-2024 take 1 tablet by mouth once in the morning sulfamethoxazole-tr imethoprim (BACTRIM DS) 800-160 mg per tablet Take 1 tablet by mouth in the morning and 1 tablet before bedtime. Do all this for 7 days. 14 tablet 04/22/2024 04/29/2024 Active zolpidem tartrate 10 mg oral tablet (5 sources) gamma-Aminobutyric Acid-ergic Agonist Start: 07-30-2020 take 10 mg by mouth once daily at bedtime Zolpidem Active 10 MG PO Daily at bedtime July 30, 2020 12:00am Start: 01-08-2020 End: 06-13-2020 take 10 mg by mouth once daily at bedtime Zolpidem Active 10 MG PO Daily at bedtime January 08, 2020 1:41pm End: 03-06-2024 take 1 tablet by mouth once daily as needed for sleep zolpidem (AMBIEN) 5 mg tablet Take 1 tablet (5 mg total) by mouth nightly as needed for sleep. 03/06/2024 Discontinued Completed/Discontinued Medications Medication Drug Class(es) Dates Sig (Normalized) Sig (Original) acetaminophen 325 mg / HYDROcodone bitartrate 5 mg oral tablet (1 source) Opioid Agonist Start: 05-31-2020 End: 06-13-2020 take 1 tablet by mouth every four to six hours Hydrocodone-Acetami nophen ([place]) 5-325 mg tablet Discontinued 1 TAB PO EVERY 4-6 HOURS 50 May 31, 2020 June 13, 2020 12:46pm albuterol 0.833 mg/ml / ipratropium bromide 0.167 mg/ml inhalation solution (1 source) Anticholinergic, beta2-Adrenergic Agonist Start: 03-06-2024 End: 03-06-2024 3 mL, nebulization, Once, On Sat03/06/24 at 0130, For 1 dose, Implement INPATIENT/ED Bronchodilator Clinical Practice Guidelines? Yes azithromycin 500 mg oral tablet (1 source) Macrolide Antimicrobial Start: 06-12-2020 End: 07-30-2020 take 500 mg by mouth once daily Azithromycin Discontinued 500 MG PO Daily 5 June 12, 2020 1:00am July 30, 2020 11:29pm bumetanide 2 mg oral tablet (14 sources) Loop Diuretic Start: 06-13-2020 End: 03-16-2024 Bumetanide Discontinued 2 MG PO As Directed 0 June 13, 2020 12:45pm July 30, 2020 11:41pm take one tab twice daily for 5 days then once a day until you see your PCP Start: 01-08-2020 End: 06-13-2020 take 2 mg by mouth once daily Bumetanide Active 2 MG P O Daily January 08, 2020 1:41pm cyclobenzaprine hydrochloride 10 mg oral tablet (3 sources) Muscle Relaxant Start: 07-30-2020 End: 07-30-2020 Cyclobenzaprine Discontinued MG TABLET July 30, 2020 12:00am July 30, 2020 11:42pm Start: 01-08-2020 take 10 mg by mouth twice daily Cyclobenzaprine Active 10 MG PO Twice daily January 08, 2020 1:41pm iohexoL (OMNIPAQUE) 350 mg iodine/mL injection 100 mL (1 source) Start: 03-06-2024 End: 03-06-2024 100 mL, intravenous, Once in imaging, contrast, Starting on Sat03/06/24 at 0441, For 1 dose, VESICANT (RED) lisinopril 5 mg oral tablet (20 sources) Angiotensin Converting Enzyme Inhibitor Start: 04-09-2023 End: 04-08-2024 take 1 tablet by mouth in the morning lisinopril 5 MG tablet Indications: Essential hypertension (CMS/HCC) Take 1 tablet (5 mg) by mouth in the morning. 30 tablet 04/09/2023 03/16/2024 Discontinued (Med list cleanup) Start: 01-08-2020 End: 03-07-2024 take 10 mg by mouth once daily Lisinopril Active 10 MG PO Daily January 08, 2020 1:41pm magnesium oxide 400 mg oral tablet (2 sources) Start: 03-06-2024 End: 03-06-2024 take 400 mg by mouth once 400 mg, oral, Once, On Sat03/06/24 at 0115, For 1 dose Start: 08-03-2020 take 400 mg by mouth once satinder y Magnesium Oxide Active 400 MG PO Daily August 03, 2020 12:00am meloxicam 15 mg oral tablet (4 sources) Nonsteroidal Anti-inflammatory Drug Start: 03-13-2022 End: 03-06-2024 meloxicam (MOBIC) 15 mg tablet Indications: Fibromyalgia One tablet daily with food 30 tablet 2 03/13/2022 03/06/2024 Discontinued Start: 01-29-2020 End: 05-18-2020 take 15 mg by mouth once daily Meloxicam Discontinued 15 MG PO Daily January 29, 2020 3:13pm May 18, 2020 4:22pm 1 ml morphine sulfate 4 mg/ml injection (1 source) Opioid Agonist Start: 03-06-2024 End: 03-06-2024 4 mg, intravenous, Once, On Sat03/06/24 at 0355, For 1 dose, Look-alike/sound-alike medication - verify indication for use. predniSONE 10 mg oral tablet (3 sources) Start: 03-16-2024 End: 03-21-2024 take 1 tablet by mouth in the morning predniSONE (Deltasone) 10 MG tablet Indications: Nasal congestion Take 1 tablet (10 mg) by mouth in the morning and 1 tablet (10 mg) before bedtime. Do all this for 5 days. 10 tablet 03/16/2024 03/21/2024 Start: 06-12-2020 End: 07-30-2020 Prednisone Discontinued 10 M G PO Daily June 12, 2020 1:00am July 30, 2020 11:27pm 4tab x3day, then 3tab x3day, then 2tab x3day, then 1tab x3day 1000 ml sodium chloride 9 mg/ml injection (5 sources) Start: 03-06-2024 End: 03-07-2024 take 125 mL intravenously every hour 125 mL/hr, intravenous, Continuous, Starting on Sat03/06/24 at 1130, For 1 day Start: 03-06-2024 End: 03-06-2024 1,000 mL, intravenous, at 98 4 mL/hr, Administer over 61 Minutes, Once, On Sat03/06/24 at 0705, For 1 dose Start: 03-06-2024 End: 03-06-2024 80 mL, intravenous, Once in imaging, pre/post contrast, Starting on Sat03/06/24 at 0441, For 1 dose Start: 03-06-2024 10 mL, intrave nous, As needed, line care, Starting on Sat03/06/24 at 0441 Problems Active Problems Problem Classification Problem Date Documented Date Episodic/Chronic Alcohol-related disorders (1 source) Alcohol intoxication Onset: 03-05-2024 Chronic Alcohol-related disorders (2 sources) Alcohol intoxication; Translations: [Alcohol use, unspecified with intoxication, uncomplicated] Onset: 03-05-2024 03-06-2024 Episodic Anxiety disorders (20 sources) Anxiety; Translations: [Anxiety disorder, unspecified] Onset: 10-31-2022 10-31-2022 Chronic Cardiac dysrhythmias (16 sources) Atrial fibrillation; Translations: [Unspecified atrial fibrillation] Onset: 03-05-2024 03-06-2024 Chronic Cardiac dysrhythmias (1 source) Tachycardia, unspecified; Translations: [Tachycardia, unspecified] Onset: 03-05-2024 Episodic Chronic obstructive pulmonary disease and bronchiectasis (20 sources) Chronic obstructive lung disease; Translations: [Chronic obstructive pulmonary disease, unspecified] Onset: 08-05-2020 Resolved: 09-11-2023 06-09-2020 Chronic Chronic ulcer of skin (20 sources) Non-pressure chronic ulcer of other part of left foot with fat layer exposed; Translations: [Ulcer of other part of foot] Onset: 08-29-2017 Resolved: 12-11-2022 12-11-2022 Chronic Deficiency and other anemia (8 sources) Anemia; Translations: [Anemia, unspecified] Onset: 03-16-2024 08-03-2020 Episodic Diabetes mellitus with complications (20 sources) Type 2 diabetes mellitus with peripheral angiopathy; Translations: [Type 2 diabetes mellitus with diabetic peripheral angiopathy without gangrene] Onset: 10-12-2022 06-08-2023 Chronic Diabetes mellitus without complication (20 sources) Diabetes mellitus; Translations: [Type 2 diabetes mellitus without complications] Onset: 06-22-2016 Resolved: 09-11-2023 12-11-2022 Chronic Disorders of lipid metabolism (20 sources) Hyperlipidemia; Translations: [Hyperlipidemia, unspecified] Onset: 10-31-2022 10-31-2022 Chronic Diverticulosis and diverticulitis (20 sources) Diverticulosis of colon; Translations: [Diverticulosis of large intestine without perforation or abscess without bleeding] Onset: 10-31-2022 10-31-2022 Chronic Epilepsy; convulsions (7 sources) Neurological finding; Translations: [Unspecified convulsions] Onset: 03-05-2024 03-07-2024 Episodic Esophageal disorders (20 sources) Gastroesophageal reflux disease without esophagitis; Translations: [Gastro-esophageal reflux disease without esophagitis] Onset: 10-12-2022 10-12-2022 Chronic Essential hypertension (20 sources) Hypertensive disorder; Translations: [Essential (primary) hypertension] Onset: 10-31-2022 06-09-2020 Chronic Fracture of upper limb (20 sources) Closed fracture of shaft of clavicle; Translations: [Displaced fracture of shaft of right clavicle, initial encounter for closed fracture] Onset: 10-31-2022 Resolved: 09-11-2023 10-31-2022 Episodic Immunizations and screening for infectious disease (1 source) Raised antibody titer; Translations: [Raised antibody titer] Onset: 01-16-2023 Episodic Inflammatory diseases of female pelvic organs (2 sources) Bacterial vaginosis; Translations: [Acute vaginitis] 12-31-2023 Episodic Mood disorders (20 sources) Recurrent major depressive episodes, moderate ; Translations: [Major depressive disorder, recurrent, moderate] Onset: 10-31-2022 10-31-2022 Chronic Mycoses (2 sources) Candidiasis; Translations: [Candidiasis, unspecified] 12-31-2023 Episodic Nonmalignant breast conditions (2 sources) Breast lump; Translations: [Unspecified lump in unspecified breast] Onset: 03-05-2024 03-06-2024 Episodic Other aftercare (2 sources) Post-discharge follow-up; Translations: [Encounter for follow-up examination after completed treatment for conditions other than malignant neoplasm] 03-11-2024 Episodic Other circulatory disease (20 sources) Raynaud's disease; Translations: [Raynaud's syndrome without gangrene] Onset: 10-31-2022 10-31-2022 Chronic Other circulatory disease (20 sources) Thromboangiitis obliterans; 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]] Onset: 10-31-2022 10-31-2022 Chronic Other congenital anomalies (20 sources) Congenital anomaly of spine; Translations: [Other congenital malformations of spine, not associated with scoliosis] Onset: 10-31-2022 10-31-2022 Chronic Other connective tissue disease (1 source) Pain in upper limb Onset: 05-03-2024 Episodic Other liver diseases (20 sources) Steatosis of liver; Translations: [Fatty (change of) liver, not elsewhere classified] Onset: 10-31-2022 10-31-2022 Chronic Other liver diseases (1 source) Liver cyst; Translations: [Other specified diseases of liver] 03-06-2024 Chronic Other liver diseases (1 source) Other specified diseases of liver; Translations: [Other specified diseases of liver] Onset: 03-05-2024 Chronic Other nervous system disorders (1 source) Other chronic pain; Translations: [Other chronic pain] Onset: 05-03-2024 Chronic Other non-traumatic joint disorders (1 source) Pain in right shoulder; Translations: [Pain in right shoulder] Onset: 05-03-2024 Episodic Other non-traumatic joint disorders (1 source) Shoulder pain Onset: 05-01-2024 Episodic Other nutritional; endocrine; and metabolic disorders (2 sources) Weight loss; Translations: [Abnormal weight loss] 03-11-2024 Episodic Other screening for suspected conditions (not mental disorders or infectious disease) (8 sources) MRI scan abnormal; Translations: [Abnormal findings on diagnostic imaging of other specified body structures] Onset: 03-16-2024 01-08-2020 Chronic Other upper respiratory disease (2 sources) Nasal congestion; Translations: [Nasal congestion] 03-16-2024 Episodic Residual codes; unclassified (1 source) MRI scan abnormal; Translations: [Abnormal magnetic resonance imaging study] Episodic Residual codes; unclassified (1 source) Disorientation, unspecified; Translations: [Disorientation, unspecified] Onset: 04-22-2024 Episodic Residual codes; unclassified (1 source) Clouded consciousness Onset: 04-22-2024 Episodic Respiratory failure; insufficiency; arrest (adult) (16 sources) Acute respiratory failure; Translations: [Acute respiratory failure with hypoxia] Onset: 03-06-2024 Resolved: 04-09-2024 06-09-2020 Episodic Secondary malignancies (8 sources) Secondary malignant neoplastic disease; Translations: [Secondary malignant neoplasm of unspecified site] Onset: 03-16-2024 05-31-2020 Chronic Spondylosis; intervertebral disc disorders; other back problems (20 sources) Lumbar spondylosis; Translations: [Spondylosis without myelopathy or radiculopathy, lumbar region] Onset: 07-24-2022 05-22-2023 Chronic Systemic lupus erythematosus and connective tissue disorders (20 sources) Lupus erythematosus; Translations: [Systemic lupus erythematosus, unspecified] Onset: 06-22-2016 07-31-2020 Chronic Thyroid disorders (20 sources) Hypothyroidism; Translations: [Hypothyroidism, unspecified] Onset: 10-31-2022 06-09-2020 Chronic Unclassified (20 sources) Patient on antidepressant monitoring plan Onset: 11-11-2023 11-11-2023 Unclassified (1 source) ill Onset: 03-05-2024 Urinary tract infections (1 source) Urinary tract infection, site not specified; Translations: [Urinary tract infection, site not specified] Onset: 04-22-2024 Episodic Past or Other Problems Problem Classification Problem Date Documented Date Episodic/Chronic Congestive heart failure; nonhypertensive (20 sources) Acute diastolic heart failure; Translations: [Acute diastolic (congestive) heart failure] Onset: 08-05-2020 Resolved: 12-11-2022 08-03-2020 Chronic Deficiency and other anemia (2 sources) Iron deficiency anemia; Translations: [Iron deficiency anemia, unspecified] 12-30-2023 Episodic Fluid and electrolyte disorders (18 sources) Disorder of electrolytes; Translations: [Other disorders of electrolyte and fluid balance, not elsewhere classified] Onset: 03-16-2024 Resolved: 04-09-2024 06-13-2020 Episodic Gastritis and duodenitis (20 sources) Gastritis; Translations: [Gastritis, unspecified, without bleeding] Onset: 10-31-2022 10-31-2022 Episodic Menopausal disorders (20 sources) Premature menopause; Translations: [Asymptomatic premature menopause] Onset: 10-31-2022 Resolved: 09-11-2023 10-31-2022 Chronic Mood disorders (20 sources) Mood disorders Onset: 12-01-2019 Resolved: 09-10-2023 12-01-2019 Other acquired deformities (20 sources) Lumbar spondylolisthesis; Translations: [Spondylolisthesis, lumbar region] Onset: 10-31-2022 06-11-2020 Episodic Other connective tissue disease (20 sources) Fibromyalgia; Translations: [Fibromyalgia] Onset: 10-31-2022 10-31-2022 Episodic Other female genital disorders (2 sources) Vaginal discharge; Translations: [Other specified noninflammatory disorders of vagina] 12-30-2023 Episodic Other lower respiratory disease (2 sources) Cough; Translations: [Subacute cough] 12-30-2023 Episodic Other nutritional; endocrine; and metabolic disorders (20 sources) Hypomagnesemia; Translations: [Hypomagnesemia] Onset: 10-31-2022 Resolved: 04-09-2024 10-31-2022 Chronic Other nutritional; endocrine; and metabolic disorders (20 sources) Morbid obesity; Translations: [Morbid (severe) obesity due to excess calories] Onset: 10-31-2022 Resolved: 09-11-2023 10-31-2022 Chronic Other nutritional; endocrine; and metabolic disorders (20 sources) Obese class I; Translations: [Obesity, unspecified] Onset: 03-06-2020 Resolved: 09-11-2023 12-11-2022 Chronic Pneumonia (except that caused by tuberculosis or sexually transmitted disease) (8 sources) Infective pneumonia; Translations: [Pneumonia, unspecified organism] Onset: 03-16-2024 Resolved: 04-09-2024 07-31-2020 Episodic Residual codes; unclassified (20 sources) History of hysterectomy for benign disease; Translations: [Acquired absence of both cervix and uterus] Onset: 10-31-2022 10-31-2022 Episodic Residual codes; unclassified (20 sources) Insomnia; Translations: [Insomnia, unspecified] Onset: 04-01-2018 12-11-2022 Episodic Spondylosis; intervertebral disc disorders; other back problems (20 sources) Disorder of sacrum; Translations: [Sacrococcygeal disorders, not elsewhere classified] Onset: 11-13-2022 Resolved: 09-11-2023 05-22-2023 Episodic Results Test Name Value Interpretation Reference Range Facility XR CLAVICLE RTon 05-01-2024 XR CLAVICLE RT XR CLAVICLE RT History: Right shoulder pain, decreased range of motion. History of clavicular fracture. EXAM: Right clavicle 2 views COMPARISON: 06/21/2021, 02/22/2021. IMPRESSION: Nonunion displaced mid right clavicle fracture, approximately 2.4 cm displacement, similar to prior exam. Minimal callus formation. No acute fracture or dislocation. No osseous destruction. 038 Finalized by Kade Coronado MD on 05/01/2024 2:36 PM Normal [facility] XR SHOULDER RT MIN 2 VWSon 1 07-02-2023 XR SHOULDER RT MIN 2 VWS XR SHOULDER RT MIN 2 VWS Comparison March 02, 2021 XR SHOULDER RT MIN 2 VWS injury remote injury in 2020 with diminished range of motion and pain Impression: 1. Stable appearance of fracture morphology of the clavicle which is not healed. Glenohumeral joint unremarkable. AC joint unremarkable.. Stable positioning and alignment. 950 Finalized by Fabio Mckoy MD on 05/01/2024 2:34 PM Normal [facility] ACETAMINOPHENon 04-22-2024 Acetaminophen [Mass/Vol] 2.8 ug/mL Low 10.0-30.0 [facility] Comment on above: Result Comment: Refe rence ranges are for therapeutic limits. Performed By: #### H A1C #### [facility] ([id number]) [address] [place] [address], [address] [place] [address] #### CMP, 11346-3, 71208-3, 73787-3, 98951-8, 5643-2, CBCA #### [facility] ([id number]) [address] [place] [address], [place] [address] AMMONIAon 04-22-2024 Ammonia (P) [Moles/Vol] 18 umol/L Normal 11-35 [facility] Comment on above: Performed By: #### H A1C #### [facility] ([id number]) [address] [place] [address], [address] [place] [address] #### CMP, 31099-7, 92284-7, 96507-5, 50287-7, 5643-2, CBCA #### [facility] ([id number]) [address] [place] [address]20 CBC AND AUTO DIFFon 12-18-20 24 ABSOLUTE BASOPHIL 0.1 X10E9/L Normal 0.0-0.2 [facility] Comment on above: Performed By: #### H A1C #### [facility] ([id number]) [address], [address] [place] [address] #### CMP, 07860-4, 62317-2, 20991-7, 06743-6, 5643-2, CBCA #### [facility] ([id number]) [address] [place] [address] 51098 ABSOLUTE NEUTROPHIL 4.9 X10E9/L Normal 1.5-6.6 [facility] Comment on above: Performed By: #### H A1C #### [facility] ([id number]) [address] [place] [address], [address] [place] [address] #### CMP, 36705-3, 31075-0, 73758-0, 54786-4, 5643-2, CBCA #### [facility] ([id number]) [address] [place] [address]34 Basophils/100 WBC (Bld) 1.2 % Normal [facility] Comment on above: Performed By: #### H A1C #### [facility] ([id number]) [address] [place] [address], [address] [place] [address] #### CMP, 20725-5, 55546-8, 02066-8, 98254-4, 5643-2, CBCA #### [facility] ([id number]) [address] [place] [address] Eosinophils (Bld) [#/Vol] 0.5 10*3/uL High 0.0-0.4 [facility] Comment on above: Performed By: #### H A1C #### [facility] ([id number]) [address], [address] [place] [address] #### CMP, 01298-3, 20485-4, 73787-5, 53312-9, 5643-2, CBCA #### [facility] ([id number]) [address] [place] [address]952 Eosinophils/100 WBC (Bld) 6.0 % Normal [facility] Comment on above: Performed By: #### H A1C #### [facility] ([id number]) [address], [address] [place] [address] #### CMP, 47109-9, 12193-7, 29976-7, 97419-2, 5643-2, CBCA #### [facility] ([id number]) [address] [place] [address] Erythrocyte distribution width (RBC) [Ratio] 14.8 % Normal 11.5-15.0 [facility] Comment on above: Performed By: #### H A1C #### [facility] ([id number]) [address] [place] [address], [address] [place] [address] #### CMP, 59867-2, 97802-6, 35888-9, 52619-0, 5643-2, CBCA #### [facility] ([id number]) [address] [place] [address] 14989 Hematocrit (Bld) [Volume fraction] 38.2 % Normal 35-47 [facility] Comment on above: Performed By: #### H A1C #### [facility] ([id number]) [address] [place] [address], [address] [place] [address] #### CMP, 27024-0, 24716-4, 44419-6, 44967-6, 5643-2, CBCA #### [facility] ([id number]) [address] [place] [address] 11918 Hemoglobin (Bld) [Mass/Vol] 12.5 g/dL Normal 11.7-15. 5 [facility] Comment on above: Performed By: #### H A1C #### [facility] ([id number]) [address], [address] [place] [address] #### CMP, 45440-3, 63590-5, 78974-8, 66447-5, 5643-2, CBCA #### [facility] ([id number]) [address] [place] [address] 21818 Lymphocytes (Bld) [#/Vol] 2.0 10*3/uL Normal 1.0-3.5 [facility] Comment on above: Performed By: #### H A1C #### [facility] ([id number]) [address], [address] [place] [address] #### CMP, 39024-6, 81326-3, 00230-1, 25519-8, 5643-2, CBCA #### [facility] ([id number]) [address] [place] [address] 99153 Lymphocytes/100 WBC (Bld) 25.7 % Normal [facility] Comment on above: Performed By: #### H A1C #### [facility] ([id number]) [address], [address] [place] [address] #### CMP, 87036-3, 52412-7, 43315-9, 71920-7, 5643-2, CBCA #### [facility] ([id number]) [address] [place] [address] 77545 MCH (RBC) [Entitic mass] 29.6 pg Normal 27-34 [facility] Comment on above: Performed By: #### H A1C #### [facility] ([id number]) [address], [address] [place] [address] #### CMP, 77386-0, 18924-1, 01154-0, 26457-9, 5643-2, CBCA #### [facility] ([id number]) [address] [place] [address] 68500 MCHC (RBC) [Mass/Vol] 32.6 g/dL Normal 32-36 [facility] Comment on above: Performed By: #### H A1C #### [facility] ([id number]) [address] [place] [address], [address] [place] [address] #### CMP, 74371-6, 21587-2, 50797-6, 18672-0, 5643-2, CBCA #### [facility] ([id number]) [address] [place] [address] 02432 MCV (RBC) [Entitic vol] 91 fL Normal 80-100 [facility] Comment on above: Performed By: #### H A1C #### [facility] ([id number]) [address] [place] [address], [address] [place] [address] #### CMP, 84502-1, 18126-7, 08843-2, 47372-0, 5643-2, CBCA #### [facility] ([id number]) [address] [place] [address] 70766 Monocytes (Bld) [#/Vol] 0.4 10*3/uL Normal 0-0.9 [facility] Comment on above: Performed By: #### H A1C #### [facility] ([id number]) [address] [place] [address], [address] [place] [address] #### CMP, 77056-4, 70589-9, 00600-5, 49269-3, 5643-2, CBCA #### [facility] ([id number]) [address] [place] [address] 68617 Monocytes/100 WBC (Bld) 5.1 % Normal [facility] Comment on above: Performed By: #### H A1C #### [facility] ([id number]) [address], [address] [place] [address] #### CMP, 38046-2, 24827-9, 59744-9, 90963-4, 5643-2, CBCA #### [facility] ([id number]) [address] [place] [address] 91372 Neutrophils/100 WBC (Bld) 62.0 % Normal [facility] Comment on above: Performed By: #### H A1C #### [facility] ([id number]) [address], [address] [place] [address] #### CMP, 89971-7, 82859-1, 95456-7, 17437-8, 5643-2, CBCA #### [facility] ([id number]) [address] [place] [address] 99145 Platelet mean volume (Bld) [Entitic vol] 7.2 fL Normal 7-12 [facility] Comment on above: Performed By: #### H A1C #### [facility] ([id number]) [address], [address] [place] [address] #### CMP, 99191-9, 51463-8, 21018-8, 75014-7, 5643-2, CBCA #### [facility] ([id number]) [address] [place] [address] 52386 Platelets (Bld) [#/Vol] 337 10*3/uL Normal 150-450 [facility] Comment on above: Performed By: #### H A1C #### [facility] ([id number]) [address], [address] [place] [address] #### CMP, 77966-7, 33817-6, 57938-1, 08294-0, 5643-2, CBCA #### [facility] ([id number]) [address] [place] [address] 71997 RBC COUNT 4.22 X10E12/L Normal 3.80-5.20 [facility] Comment on above: Performed By: #### H A1C #### [facility] ([id number]) [address] [place] [address], [address] [place] [address] #### CMP, 87528-3, 52066-9, 58411-1, 66092-8, 5643-2, CBCA #### [facility] ([id number]) [address] [place] [address] 56986 WBC (Bld) [#/Vol] 7.9 10*3/uL Normal 4.0-11.0 [facility] Comment on above: Performed By: #### H A1C #### [facility] ([id number]) [address] [place] [address], [address] [place] [address] #### CMP, 88398-1, 14021-1, 38457-3, 48874-4, 5643-2, CBCA #### [facility] ([id number]) [address] [place] [address] 61077 COMPREHENSIVE METABOLIC PANE Noe 04-22-2024 Albumin [Mass/Vol] 3.7 g/dL Normal 3.2-5.3 [facility] Comment on above: Performed By: #### H A1C #### [facility] ([id number]) [address] [place] [address], [address] [place] [address] #### CMP, 20037-9, 90478-5, 26871-2, 42745-0, 5643-2, CBCA #### [facility] ([id number]) [address] [place] [address] 82797 ALP [Catalytic activity/Vol] 87 U/L Normal 39-130 [facility] Comment on above: Performed By: #### H A1C #### [facility] ([id number]) [address] [facility], [address] [place] [address] #### CMP, 00358-4, 82131-8, 80760-4, 92861-9, 5643-2, CBCA #### [facility] ([id number]) [address] [place] [address] 68495 ALT [Catalytic activity/Vol] 20 U/L Normal 0-31 [facility] Comment on above: Performed By: #### H A1C #### [facility] ([id number]) [address] [place] [address], [address] [place] [address] #### CMP, 68060-0, 04156-9, 65324-8, 35450-9, 5643-2, CBCA #### [facility] ([id number]) [address] [place] [address] 87119 Anion gap [Moles/Vol] 11 mmol/L Normal 5-15 [facility] Comment on above: Performed By: #### H A1C #### [facility] ([id number]) [address] [place] [address], [address] [place] [address] #### CMP, 89484-1, 87556-0, 69357-9, 80567-3, 5643-2, CBCA #### [facility] ([id number]) [address] [place] [address] 67973 AST [Catalytic activity/Vol] 22 U/L Normal 0-41 [facility] Comment on above: Performed By: #### H A1C #### [facility] ([id number]) [facility] [facility], [address] [place] [address] #### CMP, 91490-9, 22912-8, 70519-0, 86077-1, 5643-2, CBCA #### [facility] ([id number]) [address] [place] [address] 02315 Bilirubin [Mass/Vol] 0.4 mg/dL Normal 0.3-1.2 [facility] Comment on above: Performed By: #### H A1C #### [facility] ([id number]) [address] [facility], [address] [place] [address] #### CMP, 26595-1, 01569-0, 22719-4, 24762-8, 5643-2, CBCA #### [facility] ([id number]) [address] [place] [address] 85243 Calcium [Mass/Vol] 9.1 mg/dL Normal 8.5-10.5 [facility] Comment on above: Performed By: #### H A1C #### [facility] ([id number]) [address] [facility], [address] [place] [address] #### CMP, 70357-5, 89721-7, 12077-4, 59099-3, 5643-2, CBCA #### [facility] ([id number]) [address] [place] [address] 40962 Chloride [Moles/Vol] 103 mmol/L Normal 98-109 [facility] Comment on above: Performed By: #### H A1C #### [facility] ([id number]) [address] [facility], [address] [place] [address] #### CMP, 90521-7, 51186-4, 44927-9, 58845-7, 5643-2, CBCA #### [facility] ([id number]) [address] [place] [address] 55301 CO2 [Moles/Vol] 24 mmol/L Normal 22-32 [facility] Comment on above: Performed By: #### H A1C #### [facility] ([id number]) [address], [address] [place] [address] #### CMP, 75572-5, 73880-6, 69544-4, 54037-8, 5643-2, CBCA #### [facility] ([id number]) [address] [place] [address] Creatinine [Mass/Vol] 0.98 mg/dL Normal 0.40-1.00 [facility] Comment on above: Result Comment: METH OD TRACEABLE TO IDMS STANDARD Performed By: #### H A1C #### [facility] ([id number]) [address] [facility], [address] [place] [address] #### CMP, 38466-3, 15689-1, 09748-8, 95463-3, 5643-2, CBCA #### [facility] ([id number]) [address] [place] [address] 89529 GFR/1.73 sq M.predicted among non-blacks MDRD (S/P/Bld) [Vol rate/Area] 66 mL/min/{1.73_m2} Normal >59 [facility] Comment on above: Result Comment: Reported eGFR is based on the CKD-EPI 2020 equation that does not use a race coefficient. Performed By: #### H A1C #### [facility] ([id number]) [address], [address] [place] [address] #### CMP, 79670-4, 69054-0, 84517-1, 71402-9, 5643-2, CBCA #### [facility] ([id number]) [address] [place] [address] 01712 Glucose [Mass/Vol] 106 mg/dL High 65-99 [facility] Comment on above: Performed By: #### H A1C #### [facility] ([id number]) [address], [address] [place] [address] #### CMP, 83673-3, 49420-6, 87981-0, 72991-7, 5643-2, CBCA #### [facility] ([id number]) [address] [place] [address] 51850 Potassium [Moles/Vol] 3.9 mmol/L Normal 3.5-5.0 [facility] Comment on above: Performed By: #### H A1C #### [facility] ([id number]) [address] [facility], [address] [place] [address] #### CMP, 51705-3, 80527-7, 98138-0, 55816-3, 5643-2, CBCA #### [facility] ([id number]) [address] [place] [address] 14632 Protein [Mass/Vol] 6.9 g/dL Normal 6.0-8.0 [facility] Comment on above: Performed By: #### H A1C #### [facility] ([id number]) [address] [facility], [address] [place] [address] #### CMP, 19109-7, 16799-5, 06578-4, 13537-3, 5643-2, CBCA #### [facility] ([id number]) [address] [place] [address] 83905 Sodium [Moles/Vol] 138 mmol/L Normal 134-146 [facility] Comment on above: Performed By: #### H A1C #### [facility] ([id number]) [address] [facility], [address] [place] [address] #### CMP, 28156-7, 91778-7, 93455-2, 02675-2, 5643-2, CBCA #### [facility] ([id number]) [address] [place] [address] 40211 Urea nitrogen [Mass/Vol] 35 mg/dL High 5-23 [facility] Comment on above: Performed By: #### H A1C #### [facility] ([id number]) [address], [address] [place] [address] #### CMP, 17389-3, 63241-7, 45750-7, 55647-0, 5643-2, CBCA #### [facility] ([id number]) [address] [place] [address], [place] [address] CT BRAIN WO CONTon 4 CT BRAIN WO CONT CT BRAIN WO CONT STUDY: CT HEAD WITHOUT CONTRAST CLINICAL HISTORY: Mental status change. Confusion. COMPARISON: 03/06/2024 TECHNIQUE: CT head was performed without contrast utilizing 2.5 mm axial reconstruction with images reviewed in bone and brain windows. Automated exposure control was utilized. FINDINGS: Noncontrast CT scan examination of the brain revealed normal ventricular size and configuration. There is no evidence of mass, mass effect or midline shift is no evidence of intracranial bleeding. Satisfactory hector-white matter differentiation is appreciated. 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 Otherwise, sinuses and mastoid air cells are well-aerated and without focal abnormalities. Mild vascular calcification is visualized bilaterally. If there is persistent concern, MRI may be more helpful in further evaluation. IMPRESSION: 1. No evidence of an acute intracranial process. No interval change since prior study. All CT scans at this facility use dose modulation, iterative reconstruction, and/or weight based dosing when appropriate to reduce radiation dose to as low as reasonably achievable. 081 Finalized by Shavonne Jimenez MD on 04/22/2024 7:34 PM Normal [facility] DRUG SCREEN, URINEon 024 AMPHETAMINE/METHAMP Negative [facility]G [facility] Comment on above: Result Comment: AMPH /METH screening cut off = 1000 ng/mL Performed By: #### H A1C #### [facility] ([id number]) [address], [address] [place] [address] #### CMP, 20683-6, 02718-2, 01237-0, 49884-8, 5643-2, CBCA #### [facility] ([id number]) [address] [place] [address] 83914 BARBITURATES Negative Normal NEG [facility] Comment on above: Result Comment: Meryl iturates screening cut off value = 200 ng/mL Performed By: #### H A1C #### [facility] ([id number]) [address] [facility], [address] [place] [address] #### CMP, 28000-3, 47348-6, 76011-6, 09191-4, 5643-2, CBCA #### [facility] ([id number]) [address] [place] [address] 81068 BENZODIAZEPINES Negative Normal NEG [facility] Comment on above: Result Comment: Maged odiazepines screening cut off value = 200 ng/mL Performed By: #### H A1C #### [facility] ([id number]) [address] [facility], [address] [place] [address] #### CMP, 41814-2, 88951-0, 82256-6, 46634-8, 5643-2, CBCA #### [facility] ([id number]) [address] [place] [address] 17790 CANNABINOIDS Negative Normal NEG [facility] Comment on above: Result Comment: Anil abinoids/THC screening cut off value = 50 ng/mL Performed By: #### H A1C #### [facility] ([id number]) [address] [facility], [address] [place] [address] #### CMP, 17694-2, 46415-3, 28733-7, 14576-4, 5643-2, CBCA #### [facility] ([id number]) [address] [place] [address] 65822 COCAINE METABOLITE Negative Normal NEG [facility] Comment on above: Result Comment: Coca ine screening cut off value = 300 ng/mL Performed By: #### H A1C #### [facility] ([id number]) [address] [place] [address], [address] [place] [address] #### CMP, 03680-3, 12977-5, 68933-6, 85075-9, 5643-2, CBCA #### [facility] ([id number]) [address] [place] [address] 33754 ECSTASY Negative Normal NEG [facility] Comment on above: Result Comment: Ecst asy screening cut off value = 500 ng/mL This report is intended for use in clinical monitoring or management of patients. Performed By: #### H A1C #### [facility] ([id number]) [address] [place] [address], [address] [place] [address] #### CMP, 10383-4, 88612-5, 43660-5, 23266-3, 5643-2, CBCA #### [facility] ([id number]) [address] [place] [address] 99152 METHADONE Negative Normal NEG [facility] Comment on above: Result Comment: Meth adone screening cut off value = 300 ng/mL. Performed By: #### H A1C #### [facility] ([id number]) [address] [place] [address], [address] [place] [address] #### CMP, 61754-9, 38489-3, 08979-4, 82908-6, 5643-2, CBCA #### [facility] ([id number]) [address] [place] [address] 22167 OPIATES Negative Normal NEG [facility] Comment on above: Result Comment: Opia shruti screening cut off value = 300 ng/mL NOTE: This test is used for the detection of codeine, hydrocodone (>1000 ng/mL), morphine and hydromorphone (>900 ng/mL) in urine. Performed By: #### H A1C #### [facility] ([id number]) [address] [place] [address], [address] [place] [address] #### CMP, 92276-5, 88848-8, 31546-5, 91522-4, 5643-2, CBCA #### [facility] ([id number]) [address] [place] [address] 65788 OXYCODONE Negative Normal NEG [facility] Comment on above: Result Comment: Oxyc odone screening cut off value = 300 ng/mL NOTE: This test is used for the detection of oxycodone and oxymorphone in urine. Performed By: #### H A1C #### [facility] ([id number]) [address] [place] [address], [address] [place] [address] #### CMP, 19848-3, 96692-0, 35891-1, 00830-7, 5643-2, CBCA #### [facility] ([id number]) [address] [place] [address] 31416 PHENCYCLIDINE Negative Normal NEG [facility] Comment on above: Result Comment: Phen cyclidine screening cut off value = 25 ng/mL Performed By: #### H A1C #### [facility] ([id number]) [address] [place] [address], [address] [place] [address] #### CMP, 80467-8, 61689-3, 25309-2, 68749-7, 5643-2, CBCA #### [facility] ([id number]) [address] [place] [address] 06136 ETHANOLon 04-22-2024 Ethanol [Mass/Vol] mg/dL Normal 0.00-0.08 [facility] Comment on above: Result Comment: This report is intended for use in clinical monitoring or management of patients. Performed By: #### H A1C #### [facility] ([id number]) [address] [place] [address], [address] [place] [address] #### CMP, 55829-4, 09802-5, 11721-6, 28135-8, 5643-2, CBCA #### [facility] ([id number]) [address] [place] [address] 06469 Lactate (P violette) [Moles/Vol]o n 04-22-2024 LACTATE W/REFLEX 1.9 mmol/L Normal 0.4-2.0 [facility] Comment on above: Result Comment: Result did not trigger repeat Lactate, re-order if needed. Performed By: #### H A1C #### [facility] ([id number]) [address] [facility], [address] [place] [address] #### CMP, 52989-1, 37989-3, 80021-9, 57635-6, 5643-2, CBCA #### [facility] ([id number]) [address] [place] [address] 56702 MAGNESIUMon 04-22-2024 Magnesium [Mass/Vol] 1.5 mg/dL Low 1.8-2.6 [facility] Comment on above: Performed By: #### H A1C #### [facility] ([id number]) [address] [facility], [address] [place] [address] #### CMP, 47383-7, 98462-8, 75944-9, 60576-4, 5643-2, CBCA #### [facility] ([id number]) [address] [place] [address] 52217 Salicylates [Mass/Vol]on SALICYLATE <4.0 Normal 2.0-25.0 [facility] Comment on above: Result Comment: Refe rence ranges are for therapeutic limits. Performed By: #### H A1C #### [facility] ([id number]) [address], [address] [place] [address] #### CMP, 38093-3, 31961-2, 04979-5, 43277-2, 5643-2, CBCA #### [facility] ([id number]) [address] [place] [address] 18588 Troponin I.cardiac High sens itivity method [Mass/Vol]on 04-22-2024 1 HOUR TROP I, HIGH SENSITIVITY 3 ng/L Normal <16 [facility] Comment on above: Performed By: #### H A1C #### [facility] ([id number]) [address] [place] [address], [address] [place] [address] #### CMP, 66794-2, 66674-9, 85770-6, 76932-0, 5643-2, CBCA #### [facility] ([id number]) [address] [place] [address] 89449 TROPONIN I, HIGH SENSITIVITY 3 ng/L Normal <16 [facility] Comment on above: Performed By: #### H A1C #### [facility] ([id number]) [address] [place] [address], [address] [place] [address] #### CMP, 36630-8, 91406-7, 58103-0, 71755-7, 5643-2, CBCA #### [facility] ([id number]) [address] [place] [address] 04222 URINE CULTUREon 04-22-2024 Bacteria identified Cx Nom (U) CULTURE RESULTS <10,000 ORGANISMS/ML NORMAL URO GENITAL CLEMENTE Normal [facility] Comment on above: Performed By: #### H A1C #### [facility] ([id number]) [address] [facility], [address] [place] [address] #### CMP, 28508-6, 30565-8, 22438-6, 51927-2, 5643-2, CBCA #### [facility] ([id number]) [address] [place] [address] 41442 URN MACROSCOPIC NURon 2023 BILIRUBIN EMMANUEL Negative Normal NEG [facility] Comment on above: Performed By: #### H A1C #### [facility] ([id number]) [address] [place] [address], [address] [place] [address] #### CMP, 37850-7, 36941-6, 22635-6, 20231-9, 5643-2, CBCA #### [facility] ([id number]) [address] [place] [address] 91532 BLOOD/HGB EMMANUEL Negative Normal NEG [facility] Comment on above: Performed By: #### H A1C #### [facility] ([id number]) [address] [place] [address], [address] [place] [address] #### CMP, 04728-0, 39027-9, 07719-8, 65010-1, 5643-2, CBCA #### [facility] ([id number]) [address] [place] [address] 85406 GLUCOSE EMMANUEL Negative Normal NEG [facility] Comment on above: Performed By: #### H A1C #### [facility] ([id number]) [address] [place] [address], [address] [place] [address] #### CMP, 33202-8, 27167-0, 54742-3, 57246-2, 5643-2, CBCA #### [facility] ([id number]) [address] [place] [address] 82985 KETONES EMMANUEL Negative Normal NEG [facility] Comment on above: Performed By: #### H A1C #### [facility] ([id number]) [address] [place] [address], [address] [place] [address] #### CMP, 50336-6, 79601-9, 05505-4, 38360-4, 5643-2, CBCA #### [facility] ([id number]) [address] [place] [address] 97163 LEUKOCYTE ESTERASE EMMANUEL Small Abnormal NEG [facility] Comment on above: Performed By: #### H A1C #### [facility] ([id number]) [address] [place] [address], [address] [place] [address] #### CMP, 94656-8, 26018-5, 34958-1, 64003-1, 5643-2, CBCA #### [facility] ([id number]) [address] [place] [address] 15315 NITRITE EMMANUEL Negative Normal NEG [facility] Comment on above: Performed By: #### H A1C #### [facility] ([id number]) [address] [place] [address], [address] [place] [address] #### CMP, 73493-2, 21323-2, 79208-5, 52182-5, 5643-2, CBCA #### [facility] ([id number]) [address] [place] [address] 30090 PH EMMANUEL 6.5 Normal 5.0-8.5 [facility] Comment on above: Performed By: #### H A1C #### [facility] ([id number]) [address] [place] [address], [address] [place] [address] #### CMP, 09331-9, 24346-7, 27421-4, 07998-3, 5643-2, CBCA #### [facility] ([id number]) [address] [place] [address] 70386 PROTEIN EMMANUEL 30 mg/dL Abnormal NEG [facility] Comment on above: Performed By: #### H A1C #### [facility] ([id number]) [address] [place] [address], [address] [place] [address] #### CMP, 44903-5, 28718-3, 32032-0, 82740-1, 5643-2, CBCA #### [facility] ([id number]) [address] [place] [address] 65590 SPECIFIC GRAVITY EMMANUEL 1.025 Normal 1.003-1 .03 5 [facility] Comment on above: Performed By: #### H A1C #### [facility] ([id number]) [address], [address] [place] [address] #### CMP, 66029-5, 64694-5, 69714-0, 24656-0, 5643-2, CBCA #### [facility] ([id number]) [address] [place] [address] 11649 UROBILINOGEN EMMANUEL 0.2 eu/dL Normal <1.1 [facility] Comment on above: Performed By: #### H A1C #### [facility] ([id number]) [address] [facility], [address] [place] [address] #### CMP, 79921-3, 81540-9, 28386-5, 62138-8, 5643-2, CBCA #### [facility] ([id number]) [address] [place] [address] 28987 VENOUS BLOOD GASon 4 BREN'S TEST Normal [facility] Comment on above: Performed By: #### H A1C #### [facility] ([id number]) [address], [address] [place] [address] #### CMP, 32161-8, 64173-5, 99629-0, 41082-6, 5643-2, CBCA #### [facility] ([id number]) [address] [place] [address] 08028 Base excess Calc (Bld) [Moles/Vol] 0.0 mmol/L Normal 0.0-2.0 [facility] Comment on above: Performed By: #### H A1C #### [facility] ([id number]) [address] [facility], [address] [place] [address] #### CMP, 20729-0, 25261-1, 24791-1, 37321-1, 5643-2, CBCA #### [facility] ([id number]) [address] [place] [address] 83986 Body temperature 98.6 [degF] Normal 37.0 [facility] Comment on above: Performed By: #### H A1C #### [facility] ([id number]) [address] [facility], [address] [place] [address] #### CMP, 63341-6, 43771-5, 37509-9, 61335-3, 5643-2, CBCA #### [facility] ([id number]) [address] [place] [address] 38988 HCO3 (Bld) [Moles/Vol] 25.5 mmol/L High 20.0-24.0 [facility] Comment on above: Performed By: #### H A1C #### [facility] ([id number]) [address] [facility], [address] [place] [address] #### CMP, 31166-9, 34622-3, 99051-4, 93418-0, 5643-2, CBCA #### [facility] ([id number]) [address] [place] [address] 83642 INSP. O2 CONC. 21 % Normal [facility] Comment on above: Performed By: #### H A1C #### [facility] ([id number]) [address], [address] [place] [address] #### CMP, 01363-0, 63656-7, 87488-5, 94161-4, 5643-2, CBCA #### [facility] ([id number]) [address] [place] [address] 93412 Oxygen saturation in Blood 82.0 % Normal >80.0 [facility] Comment on above: Performed By: #### H A1C #### [facility] ([id number]) [address] [facility], [address] [place] [address] #### CMP, 92069-2, 92890-2, 45754-5, 98356-3, 5643-2, CBCA #### [facility] ([id number]) [address] [place] [address] 53676 OXYGEN SOURCE RoomAir Normal [facility] Comment on above: Performed By: #### H A1C #### [facility] ([id number]) [address] [facility], [address] [place] [address] #### CMP, 52264-2, 07404-5, 25432-3, 51551-4, 5643-2, CBCA #### [facility] ([id number]) [address] [place] [address] 61645 PCO2, VENOUS 42.7 MMHG Normal 35-50 [facility] Comment on above: Performed By: #### H A1C #### [facility] ([id number]) [address] [facility], [address] [place] [address] #### CMP, 33399-0, 45211-5, 93136-7, 25675-7, 5643-2, CBCA #### [facility] ([id number]) [address] [place] [address] 44332 PH, VENOUS 7.384 Normal 7.320-7.42 0 [facility] Comment on above: Performed By: #### H A1C #### [facility] ([id number]) [address] [facility], [address] [place] [address] #### CMP, 45926-1, 44021-3, 19982-3, 10084-3, 5643-2, CBCA #### [facility] ([id number]) [address] [place] [address] PO2, VENOUS 47 MMHG Normal 30-50 [facility] Comment on above: Performed By: #### H A1C #### [facility] ([id number]) [address] [place] [address], [address] [place] [address] #### CMP, 33660-6, 91237-3, 14853-2, 84020-3, 5643-2, CBCA #### [facility] ([id number]) [address] [place] [address] 99481 SAMPLE SITE N/A Normal [facility] Comment on above: Performed By: #### H A1C #### [facility] ([id number]) [address] [place] [address], [address] [place] [address] #### CMP, 21006-4, 93294-3, 21296-3, 36276-1, 5643-2, CBCA #### [facility] ([id number]) [address] [place] [address] 33649 SAMPLE TYPE VENOUS Normal [facility] Comment on above: Performed By: #### H A1C #### [facility] ([id number]) [address] [place] [address], [address] [place] [address] #### CMP, 38261-8, 10717-1, 91136-4, 34863-0, 5643-2, CBCA #### [facility] ([id number]) [address] [place] [address] 65600 XR CHEST 1 VWon 04-22-2024 XR CHEST 1 VW XR CHEST 1 VW Single view chest XR CHEST 1 VW History: confusion Comparison: March 06 Impression: * Prominent bronchovascular markings similar prior study. This appears to be chronic process without focal consolidation. 950 Finalized by Fabio Mckoy MD on 04/22/2024 7:19 PM Normal [facility] BI MAMMOGRAM SCREENING TOMOS YNTHESIS BILATERALon 03-10-2024 BI MAMMOGRAM SCREENING TOMOSYNTHESIS BILATERAL This is a summary report. The complete report is available in the patient's medical record. If you cannot access the medical record, please contact the sending organization for a detailed fax or copy. Examination: BI MAMMOGRAM SCREENING TOMOSYNTHESIS BILATERAL Clinical History: screening Technique: Screening digital mammography study of both breasts was performed with 2-D and 3-D tomosynthesis imaging. Study was compared to the prior exam dated 12/13/2022. Findings: There is no evidence of interval dominant spiculated mass, grouped microcalcificatio ns, or skin thickening which would be suggestive of malignancy. A few benign-appearing calcifications are seen bilaterally. IMPRESSION: Impression: No specific evidence of malignancy seen in either breast. BIRADS 2 - Benign DENSITY: There are scattered areas of fibroglandular density FOLLOW-UP: Routine Screening Mamm ELECTRONICALLY SIGNED BY: Ovi Gaxiola M.D. Normal Not Available CBC AND AUTO DIFFon 03-07-20 24 ABSOLUTE BASOPHIL 0.0 X10E9/L Normal 0.0-0.2 [facility] Comment on above: Performed By: #### H A1C #### [facility] ([id number]) [address] [facility], [address] [place] [address] #### CMP, 41863-7, 40364-1, 87165-4, 93900-0, 5643-2, CBCA #### [facility] ([id number]) [address] [place] [address] 35707 ABSOLUTE NEUTROPHIL 7.2 X10E9/L High 1.5-6.6 [facility] Comment on above: Performed By: #### H A1C #### [facility] ([id number]) [address] [facility], [address] [place] [address] #### CMP, 25467-3, 61966-1, 25904-0, 55937-6, 5643-2, CBCA #### [facility] ([id number]) [address] [place] [address] 16522 Basophils/100 WBC (Bld) 0.1 % Normal [facility] Comment on above: Performed By: #### H A1C #### [facility] ([id number]) [address], [address] [place] [address] #### CMP, 52369-0, 41615-7, 58108-4, 86780-6, 5643-2, CBCA #### [facility] ([id number]) [address] [place] [address] 22392 Eosinophils (Bld) [#/Vol] 0.0 10*3/uL Normal 0.0-0.4 [facility] Comment on above: Performed By: #### H A1C #### [facility] ([id number]) [address], [address] [place] [address] #### CMP, 21460-2, 92636-8, 43744-9, 84050-2, 5643-2, CBCA #### [facility] ([id number]) [address] [place] [address] 98013 Eosinophils/100 WBC (Bld) 0.0 % Normal [facility] Comment on above: Performed By: #### H A1C #### [facility] ([id number]) [address], [address] [place] [address] #### CMP, 50412-9, 52402-0, 68171-1, 81346-8, 5643-2, CBCA #### [facility] ([id number]) [address] [place] [address] 24926 Erythrocyte distribution width (RBC) [Ratio] 14.6 % Normal 11.5-15.0 [facility] Comment on above: Performed By: #### H A1C #### [facility] ([id number]) [address], [address] [place] [address] #### CMP, 85236-2, 72414-2, 61370-3, 64244-4, 5643-2, CBCA #### [facility] ([id number]) [address] [place] [address] 78063 Hematocrit (Bld) [Volume fraction] 37.4 % Normal 35-47 [facility] Comment on above: Performed By: #### H A1C #### [facility] ([id number]) [address], [address] [place] [address] #### CMP, 26222-9, 08697-4, 57588-0, 56806-3, 5643-2, CBCA #### [facility] ([id number]) [address] [place] [address] 60856 Hemoglobin (Bld) [Mass/Vol] 12.3 g/dL Normal 11.7-15. 5 [facility] Comment on above: Performed By: #### H A1C #### [facility] ([id number]) [address], [address] [place] [address] #### CMP, 53514-9, 74591-4, 83281-3, 72579-0, 5643-2, CBCA #### [facility] ([id number]) [address] [place] [address] 42489 Lymphocytes (Bld) [#/Vol] 0.8 10*3/uL Low 1.0-3.5 [facility] Comment on above: Performed By: #### H A1C #### [facility] ([id number]) [address], [address] [place] [address] #### CMP, 38384-0, 43040-0, 29965-8, 41057-5, 5643-2, CBCA #### [facility] ([id number]) [address] [place] [address] 33626 Lymphocytes/100 WBC (Bld) 9.1 % Normal [facility] Comment on above: Performed By: #### H A1C #### [facility] ([id number]) [address], [address] [place] [address] #### CMP, 28313-4, 67048-1, 65306-0, 12152-9, 5643-2, CBCA #### [facility] ([id number]) [address] [place] [address] 91229 MCH (RBC) [Entitic mass] 30.9 pg Normal 27-34 [facility] Comment on above: Performed By: #### H A1C #### [facility] ([id number]) [address] [facility], [address] [place] [address] #### CMP, 28974-2, 70636-1, 89630-7, 51967-4, 5643-2, CBCA #### [facility] ([id number]) [address] [place] [address] 83939 MCHC (RBC) [Mass/Vol] 33.0 g/dL Normal 32-36 [facility] Comment on above: Performed By: #### H A1C #### [facility] ([id number]) [address], [address] [place] [address] #### CMP, 06727-0, 24158-6, 28284-6, 39104-7, 5643-2, CBCA #### [facility] ([id number]) [address] [place] [address] 75224 MCV (RBC) [Entitic vol] 94 fL Normal 80-100 [facility] Comment on above: Performed By: #### H A1C #### [facility] ([id number]) [address], [address] [place] [address] #### CMP, 72279-1, 99252-5, 45765-1, 80187-6, 5643-2, CBCA #### [facility] ([id number]) [address] [place] [address] 74340 Monocytes (Bld) [#/Vol] 0.6 10*3/uL Normal 0-0.9 [facility] Comment on above: Performed By: #### H A1C #### [facility] ([id number]) [address] [facility], [address] [place] [address] #### CMP, 75083-2, 65995-5, 29942-1, 67112-5, 5643-2, CBCA #### [facility] ([id number]) [address] [place] [address] 33532 Monocytes/100 WBC (Bld) 6.9 % Normal [facility] Comment on above: Performed By: #### H A1C #### [facility] ([id number]) [address] [facility], [address] [place] [address] #### CMP, 51629-8, 74479-1, 96899-6, 87063-6, 5643-2, CBCA #### [facility] ([id number]) [address] [place] [address] 90790 Neutrophils/100 WBC (Bld) 83.9 % Normal [facility] Comment on above: Performed By: #### H A1C #### [facility] ([id number]) [address], [address] [place] [address] #### CMP, 38271-0, 29464-4, 19745-1, 44314-5, 5643-2, CBCA #### [facility] ([id number]) [address] [place] [address] 28891 Platelet mean volume (Bld) [Entitic vol] 7.5 fL Normal 7-12 [facility] Comment on above: Performed By: #### H A1C #### [facility] ([id number]) [address] [facility], [address] [place] [address] #### CMP, 88928-0, 75382-6, 39353-4, 54021-0, 5643-2, CBCA #### [facility] ([id number]) [address] [place] [address] 82089 Platelets (Bld) [#/Vol] 367 10*3/uL Normal 150-450 [facility] Comment on above: Performed By: #### H A1C #### [facility] ([id number]) [address] [facility], [address] [place] [address] #### CMP, 88034-3, 20424-3, 59583-1, 22107-0, 5643-2, CBCA #### [facility] ([id number]) [address] [place] [address] 26770 RBC COUNT 3.99 X10E12/L Normal 3.80-5.20 [facility] Comment on above: Performed By: #### H A1C #### [facility] ([id number]) [address] [place] [address], [address] [place] [address] #### CMP, 01611-8, 92759-2, 14517-8, 90798-8, 5643-2, CBCA #### [facility] ([id number]) [address] [place] [address] 09790 WBC (Bld) [#/Vol] 8.6 10*3/uL Normal 4.0-11.0 [facility] Comment on above: Performed By: #### H A1C #### [facility] ([id number]) [address] [facility], [address] [place] [address] #### CMP, 95955-7, 07495-6, 24176-0, 86421-1, 5643-2, CBCA #### [facility] ([id number]) [address] [place] [address] [place] [address] CBC auto differentialon Basophils (Bld) [#/Vol] 0 10*3/uL [facility] Basophils/100 WBC (Bld) 0.1 % [facility] Eosinophils (Bld) [#/Vol] 0 10*3/uL [facility] Eosinophils/100 WBC (Bld) 0 % [facility] Erythrocyte distribution width (RBC) [Ratio] 14.6 % 11.5 - 15.0 % [facility] Hematocrit (Bld) [Volume fraction] 37.4 % 35 - 47 % [facility] Hemoglobin (Bld) [Mass/Vol] 12.3 g/dL 11.7 - 15.5 g/dL [facility] Interpretation and review of laboratory results Abnormal [facility] Lymphocytes (Bld) [#/Vol] 0.8 10*3/uL Low [facility] Lymphocytes/100 WBC (Bld) 9.1 % [facility] MCH (RBC) [Entitic mass] 30.9 pg 27 - 34 pg [facility] MCHC (RBC) [Mass/Vol] 33 g/dL 32 - 3 6 g/dL [facility] MCV (RBC) [Entitic vol] 94 fL 80 - 100 fL [facility] Monocytes (Bld) [#/Vol] 0.6 10*3/uL [facility] Monocytes/100 WBC (Bld) 6.9 % [facility] Neutrophils (Bld) [#/Vol] 7.2 10*3/uL High [facility] Neutrophils/100 WBC (Bld) 83.9 % [facility] Platelet mean volume (Bld) [Entitic vol] 7.5 fL 7 - 12 fL [facility] Platelets (Bld) [#/Vol] 367 10*3/uL [facility] RBC (Bld) [#/Vol] 3.99 10*6/uL [facility] WBC corrected for nucl RBC Auto (Bld) [#/Vol] 8.6 [facility] COMPREHENSIVE METABOLIC PANE Noe 03-07-2024 Albumin [Mass/Vol] 2.9 g/dL Low 3.2-5.3 [facility] Comment on above: Performed By: #### H A1C #### [facility] ([id number]) [address], [address] [place] [address] #### CMP, 36156-7, 27016-7, 90019-4, 71681-8, 5643-2, CBCA #### [facility] ([id number]) [address] [place] [address] 84958 ALP [Catalytic activity/Vol] 82 U/L Normal 39-130 [facility] Comment on above: Performed By: #### H A1C #### [facility] ([id number]) [address] [facility], [address] [place] [address] #### CMP, 33314-3, 80149-8, 67881-8, 72060-5, 5643-2, CBCA #### [facility] ([id number]) [address] [place] [address] 27786 ALT [Catalytic activity/Vol] 16 U/L Normal 0-31 [facility] Comment on above: Performed By: #### H A1C #### [facility] ([id number]) [address] [facility], [address] [place] [address] #### CMP, 23434-1, 01653-7, 20432-3, 53383-8, 5643-2, CBCA #### [facility] ([id number]) [address] [place] [address] 91222 Anion gap [Moles/Vol] 6 mmol/L Normal 5-15 [facility] Comment on above: Performed By: #### H A1C #### [facility] ([id number]) [address] [facility], [address] [place] [address] #### CMP, 47885-4, 79123-7, 09355-2, 99899-8, 5643-2, CBCA #### [facility] ([id number]) [address] [place] [address] 01011 AST [Catalytic activity/Vol] 16 U/L Normal 0-41 [facility] Comment on above: Performed By: #### H A1C #### [facility] ([id number]) [address] [facility], [address] [place] [address] #### CMP, 52904-7, 76287-5, 28823-9, 60043-3, 5643-2, CBCA #### [facility] ([id number]) [address] [place] [address] 34976 Bilirubin [Mass/Vol] 0.3 mg/dL Normal 0.3-1.2 [facility] Comment on above: Performed By: #### H A1C #### [facility] ([id number]) [address] [facility], [address] [place] [address] #### CMP, 81305-0, 15369-4, 50124-9, 52599-2, 5643-2, CBCA #### [facility] ([id number]) [address] [place] [address] 43642 Calcium [Mass/Vol] 8.3 mg/dL Low 8.5-10.5 [facility] Comment on above: Performed By: #### H A1C #### [facility] ([id number]) [address] [facility], [address] [place] [address] #### CMP, 12746-6, 49353-3, 64264-5, 97087-4, 5643-2, CBCA #### [facility] ([id number]) [address] [place] [address] 98283 Chloride [Moles/Vol] 108 mmol/L Normal 98-109 [facility] Comment on above: Performed By: #### H A1C #### [facility] ([id number]) [address] [facility], [address] [place] [address] #### CMP, 89375-4, 61491-2, 11505-8, 25693-6, 5643-2, CBCA #### [facility] ([id number]) [address] [place] [address] 61388 CO2 [Moles/Vol] 24 mmol/L Normal 22-32 [facility] Comment on above: Performed By: #### H A1C #### [facility] ([id number]) [address] [facility], [address] [place] [address] #### CMP, 11204-6, 34242-8, 58262-7, 29588-4, 5643-2, CBCA #### [facility] ([id number]) [address] [place] [address] Creatinine [Mass/Vol] 0.67 mg/dL Normal 0.40-1.00 [facility] Comment on above: Result Comment: METH OD TRACEABLE TO IDMS STANDARD Performed By: #### H A1C #### [facility] ([id number]) [address] [place] [address], [address] [place] [address] #### CMP, 24421-9, 10615-8, 43457-2, 40277-7, 5643-2, CBCA #### [facility] ([id number]) [address] [place] [address]82 eGFR (CKD-EPI) NON-RACE DEPENDENT >90 Normal >59 [facility] Comment on above: Result Comment: Reported eGFR is based on the CKD-EPI 2020 equation that does not use a race coefficient. Performed By: #### H A1C #### [facility] ([id number]) [address] [facility], [address] [place] [address] #### CMP, 79628-2, 33421-4, 01607-1, 95390-1, 5643-2, CBCA #### [facility] ([id number]) [address] [place] [address] Glucose [Mass/Vol] 164 mg/dL High 65-99 [facility] Comment on above: Performed By: #### H A1C #### [facility] ([id number]) [address] [facility], [address] [place] [address] #### CMP, 64443-5, 15661-4, 23096-0, 13164-8, 5643-2, CBCA #### [facility] ([id number]) [address] [place] [address] Potassium [Moles/Vol] 3.9 mmol/L Normal 3.5-5.0 [facility] Comment on above: Performed By: #### H A1C #### [facility] ([id number]) [address] [facility], [address] [place] [address] #### CMP, 29086-3, 13178-2, 96443-1, 83207-1, 5643-2, CBCA #### [facility] ([id number]) [address] [place] [address]93 Protein [Mass/Vol] 5.9 g/dL Low 6.0-8.0 [facility] Comment on above: Performed By: #### H A1C #### [facility] ([id number]) [address], [address] [place] [address] #### CMP, 20462-8, 98014-3, 81704-9, 27626-1, 5643-2, CBCA #### [facility] ([id number]) [address] [place] [address] 22392 Sodium [Moles/Vol] 138 mmol/L Normal 134-146 [facility] Comment on above: Performed By: #### H A1C #### [facility] ([id number]) [address] [facility] [facility], [address] [place] [address] #### CMP, 38626-6, 95550-2, 12338-1, 66585-5, 5643-2, CBCA #### [facility] ([id number]) [address] [place], [place] [address] Urea nitrogen [Mass/Vol] 16 mg/dL Normal 5-23 [facility] Comment on above: Performed By: #### H A1C #### [facility] ([id number]) [address] [facility] [facility], [address] [place] [address] #### CMP, 35759-5, 31346-2, 17913-5, 85661-0, 5643-2, CBCA #### [facility] ([id number]) [address] [facility] [place], [place] [address] Comprehensive metabolic pane noe 03-07-2024 Albumin [Mass/Vol] 2.9 g/dL Low 3.2 - 5.3 g/dL [facility] ALP [Catalytic activity/Vol] 82 U/L 39 - 130 U/L [facility] ALT No additional P-5'-P [Catalytic activity/Vol] 16 U/L 0 - 31 U/L [facility] Anion gap [Moles/Vol] 6 mmol/L 5 - 15 mmol/L [facility] AST [Catalytic activity/Vol] 16 U/L 0 - 41 U/L [facility] Bilirubin [Mass/Vol] 0.3 mg/dL 0.3 - 1 .2 [facility]/dL [facility] [facility] Calcium [Mass/Vol] 8.3 mg/dL Low 8.5 - 10. 5 mg/dL [facility] Chloride [Moles/Vol] 108 mmol/L 98 - 10 9 mmol/L [facility] CO2 [Moles/Vol] 24 mmol/L 22 - 32 mmol/L [facility] Creatinine [Mass/Vol] 0.67 mg/dL 0.40 - 1.00 mg/dL [facility] Comment on above: METHOD TRACEABLE TO IDWI STANDARD eGFR (CKD-EPI)non-race dependent - PINF [facility] Comment on above: Reported eGFR is based on the CKD-EPI 2020 equation that does not use a race coefficient. Glucose [Mass/Vol] 164 mg/dL High 65 - 99 mg/dL [facility] Interpretation and review of laboratory results Abnormal [facility] Potassium [Moles/Vol] 3.9 mmol/L 3.5 - 5.0 mmol/L [facility] Protein [Mass/Vol] 5.9 g/dL Low 6.0 - 8.0 g/dL [facility] Sodium [Moles/Vol] 138 mmol/L 134 - 146 mmol/L [facility] Urea nitrogen [Mass/Vol] 16 mg/dL 5 - 23 mg/dL [facility] Glucose Glucometer (BldC) [M ass/Vol]on 03-07-2024 Glucose [Mass/Vol] 119 mg/dL High 65 - 99 mg/dL [facility] Interpretation and review of laboratory results Abnormal [facility] Glucose [Mass/Vol] 119 mg/dL High 65-99 [facility] Glucose [Mass/Vol] 247 mg/dL High 65 - 99 mg/dL [facility] Interpretation and review of laboratory results Abnormal [facility] Glucose [Mass/Vol] 247 mg/dL High 65-99 [facility] MAGNESIUMon 03-07-2024 Magnesium [Mass/Vol] 2.0 mg/dL Normal 1.8-2.6 [facility] Comment on above: Performed By: #### H A1C #### [facility] ([id number]) [address] [place] [address], [address] [place] [address] #### CMP, 18463-3, 39466-6, 55418-1, 50879-1, 5643-2, CBCA #### [facility] ([id number]) [address] [facility], [place] [address] Magnesiumon 03-07-2024 Magnesium [Mass/Vol] 2 mg/dL 1.8 - 2 .6 mg/dL [facility] No Panel Informationon 03-07 [facility] CBC AND AUTO DIFFon 03-06-20 ABSOLUTE BASOPHIL 0.1 X10E9/L Normal 0.0-0.2 [facility] Comment on above: Performed By: #### H A1C #### [facility] ([id number]) [address] [facility], [address] [place] [address] #### CMP, 32674-4, 57728-0, 89831-6, 26830-4, 5643-2, CBCA #### [facility] ([id number]) [address] [place] [address] ABSOLUTE NEUTROPHIL 6.1 X10E9/L Normal 1.5-6.6 [facility] Comment on above: Performed By: #### H A1C #### [facility] ([id number]) [address] [facility], [address] [place] [address] #### CMP, 50964-9, 83089-0, 90118-6, 22085-0, 5643-2, CBCA #### [facility] ([id number]) [address] [place] [address] 20324 Basophils/100 WBC (Bld) 0.9 % Normal [facility] Comment on above: Performed By: #### H A1C #### [facility] ([id number]) [address] [facility], [address] [place] [address] #### CMP, 01303-1, 58448-0, 70135-5, 47557-8, 5643-2, CBCA #### [facility] ([id number]) [address] [place] [address]16[address] Eosinophils (Bld) [#/Vol] 0.4 10*3/uL Normal 0.0-0.4 [facility] Comment on above: Performed By: #### H A1C #### [facility] ([id number]) [address], [address] [place] [address] #### CMP, 53096-7, 40640-5, 05898-1, 94495-4, 5643-2, CBCA #### [facility] ([id number]) [address] [place] [address] 30696 Eosinophils/100 WBC (Bld) 4.2 % Normal [facility] Comment on above: Performed By: #### H A1C #### [facility] ([id number]) [address] [facility] [facility], [address] [place] [address] #### CMP, 30691-9, 53913-2, 08898-4, 74762-8, 5643-2, CBCA #### [facility] ([id number]) [address] [place] [address] 47691 Erythrocyte distribution width (RBC) [Ratio] 14.5 % Normal 11.5-15.0 [facility] Comment on above: Performed By: #### H A1C #### [facility] ([id number]) [address] [facility] [facility], [address] [place] [address] #### CMP, 95675-9, 52242-8, 46971-1, 59021-1, 5643-2, CBCA #### [facility] ([id number]) [address] [place] [address]261 Hematocrit (Bld) [Volume fraction] 38.0 % Normal 35-47 [facility] Comment on above: Performed By: #### H A1C #### [facility] ([id number]) [address], [address] [place] [address] #### CMP, 16629-1, 61176-3, 55448-2, 18223-7, 5643-2, CBCA #### [facility] ([id number]) [address] [place] [address] Hemoglobin (Bld) [Mass/Vol] 12.6 g/dL Normal 11.7-15. 5 [facility] Comment on above: Performed By: #### H A1C #### [facility] ([id number]) [address], [address] [place] [address] #### CMP, 46410-8, 06562-4, 89970-3, 05026-0, 5643-2, CBCA #### [facility] ([id number]) [address] [place] [address] Lymphocytes (Bld) [#/Vol] 2.6 10*3/uL Normal 1.0-3.5 [facility] Comment on above: Performed By: #### H A1C #### [facility] ([id number]) [address], [address] [place] [address] #### CMP, 79679-9, 87534-8, 81303-2, 87586-5, 5643-2, CBCA #### [facility] ([id number]) [address] [place] [address] 07443 Lymphocytes/100 WBC (Bld) 27.2 % Normal [facility] Comment on above: Performed By: #### H A1C #### [facility] ([id number]) [address] [facility], [address] [place] [address] #### CMP, 42932-1, 38045-1, 15847-4, 82212-5, 5643-2, CBCA #### [facility] ([id number]) [address] [place] [address]4416 MCH (RBC) [Entitic mass] 31.0 pg Normal 27-34 [facility] Comment on above: Performed By: #### H A1C #### [facility] ([id number]) [address], [address] [place] [address] #### CMP, 51333-1, 31680-1, 80291-5, 84583-1, 5643-2, CBCA #### [facility] ([id number]) [address] [place] [address] 25645 MCHC (RBC) [Mass/Vol] 33.3 g/dL Normal 32-36 [facility] Comment on above: Performed By: #### H A1C #### [facility] ([id number]) [address], [address] [place] [address] #### CMP, 73238-3, 35161-3, 37185-0, 28858-3, 5643-2, CBCA #### [facility] ([id number]) [address] [place] [address] 57847 MCV (RBC) [Entitic vol] 93 fL Normal 80-100 [facility] Comment on above: Performed By: #### H A1C #### [facility] ([id number]) [address], [address] [place] [address] #### CMP, 64192-6, 42546-0, 72735-3, 99221-0, 5643-2, CBCA #### [facility] ([id number]) [address] [place] [address]1993 Monocytes (Bld) [#/Vol] 0.3 10*3/uL Normal 0-0.9 [facility] Comment on above: Performed By: #### H A1C #### [facility] ([id number]) [address], [address] [place] [address] #### CMP, 53931-1, 11576-2, 85483-7, 29165-5, 5643-2, CBCA #### [facility] ([id number]) [address] [place] [address] 83204 Monocytes/100 WBC (Bld) 3.5 % Normal [facility] Comment on above: Performed By: #### H A1C #### [facility] ([id number]) [address], [address] [place] [address] #### CMP, 80496-9, 10117-0, 14801-2, 24926-0, 5643-2, CBCA #### [facility] ([id number]) [address] [place] [address] 31432 Neutrophils/100 WBC (Bld) 64.2 % Normal [facility] Comment on above: Performed By: #### H A1C #### [facility] ([id number]) [address] [facility], [address] [place] [address] #### CMP, 35287-5, 50275-4, 49469-1, 94829-7, 5643-2, CBCA #### [facility] ([id number]) [address] [place] [address] 41602 Platelet mean volume (Bld) [Entitic vol] 7.1 fL Normal 7-12 [facility] Comment on above: Performed By: #### H A1C #### [facility] ([id number]) [address], [address] [place] [address] #### CMP, 42705-5, 54933-1, 70686-7, 28492-8, 5643-2, CBCA #### [facility] ([id number]) [address] [place] [address]6528 Platelets (Bld) [#/Vol] 340 10*3/uL Normal 150-450 [facility] Comment on above: Performed By: #### H A1C #### [facility] ([id number]) [address], [address] [place] [address] #### CMP, 12133-2, 45921-1, 41729-8, 41073-6, 5643-2, CBCA #### [facility] ([id number]) [address] [place] [address] RBC COUNT 4.07 X10E12/L Normal 3.80-5.20 [facility] Comment on above: Performed By: #### H A1C #### [facility] ([id number]) [address] [place] [address], [address] [place] [address] #### CMP, 75978-6, 08307-4, 70965-0, 39326-0, 5643-2, CBCA #### [facility] ([id number]) [address] [place] [address] 09041 WBC (Bld) [#/Vol] 9.5 10*3/uL Normal 4.0-11.0 [facility] Comment on above: Performed By: #### H A1C #### [facility] ([id number]) [address] [place] [address], [address] [place] [address] #### CMP, 90880-7, 26427-2, 88221-9, 08830-0, 5643-2, CBCA #### [facility] ([id number]) [address] [place] [address] 52701 CBC auto differentialon 11-0 Basophils (Bld) [#/Vol] 0.1 10*3/uL [facility] Basophils/100 WBC (Bld) 0.9 % P [facility] Eosinophils (Bld) [#/Vol] 0.4 10*3/uL [facility] Eosinophils/100 WBC (Bld) 4.2 % [facility] Erythrocyte distribution width (RBC) [Ratio] 14.5 % 11.5 - 15.0 % [facility] Hematocrit (Bld) [Volume fraction] 38 % 35 - 47 % [facility] Hemoglobin (Bld) [Mass/Vol] 12.6 g/dL 11.7 - 15.5 g/dL [facility] Lymphocytes (Bld) [#/Vol] 2.6 10*3/uL [facility] Lymphocytes/100 WBC (Bld) 27.2 % [facility] MCH (RBC) [Entitic mass] 31 pg 27 - 34 pg [facility] MCHC (RBC) [Mass/Vol] 33.3 g/dL 32 - 3 6 g/dL [facility] MCV (RBC) [Entitic vol] 93 fL 80 - 100 fL [facility] Monocytes (Bld) [#/Vol] 0.3 10*3/uL [facility] Monocytes/100 WBC (Bld) 3.5 % [facility] Neutrophils (Bld) [#/Vol] 6.1 10*3/uL [facility] Neutrophils/100 WBC (Bld) 64.2 % [facility] Platelet mean volume (Bld) [Entitic vol] 7.1 fL 7 - 12 fL [facility] Platelets (Bld) [#/Vol] 340 10*3/uL [facility] RBC (Bld) [#/Vol] 4.07 10*6/uL [facility] WBC corrected for nucl RBC Auto (Bld) [#/Vol] 9.5 [facility] COMPREHENSIVE METABOLIC PANE Noe 03-06-2024 Albumin [Mass/Vol] 2.9 g/dL Low 3.2-5.3 [facility] Comment on above: Performed By: #### H A1C #### [facility] ([id number]) [address] [place] [address], [address] [place] [address] #### CMP, 09077-4, 82935-7, 14063-6, 19564-7, 5643-2, CBCA #### [facility] ([id number]) [address] [place] [address], [place] [address] ALP [Catalytic activity/Vol] 82 U/L Normal 39-130 [facility] Comment on above: Performed By: #### H A1C #### [facility] ([id number]) [address] [place] [address], [address] [place] [address] #### CMP, 07439-2, 95290-7, 08909-3, 39609-3, 5643-2, CBCA #### [facility] ([id number]) [address] [place] [address] 46348 ALT [Catalytic activity/Vol] 15 U/L Normal 0-31 [facility] Comment on above: Performed By: #### H A1C #### [facility] ([id number]) [address], [address] [place] [address] #### CMP, 03608-8, 76272-9, 69853-7, 44327-5, 5643-2, CBCA #### [facility] ([id number]) [address] [place] [address] 33547 Anion gap [Moles/Vol] 12 mmol/L Normal 5-15 [facility] Comment on above: Performed By: #### H A1C #### [facility] ([id number]) [address], [address] [place] [address] #### CMP, 99385-4, 20671-1, 37627-3, 51330-8, 5643-2, CBCA #### [facility] ([id number]) [address] [place] [address] 66272 AST [Catalytic activity/Vol] 20 U/L Normal 0-41 [facility] Comment on above: Performed By: #### H A1C #### [facility] ([id number]) [address], [address] [place] [address] #### CMP, 05161-0, 87439-5, 75248-8, 74658-6, 5643-2, CBCA #### [facility] ([id number]) [address] [place] [address] 83326 Bilirubin [Mass/Vol] 0.6 mg/dL Normal 0.3-1.2 [facility] Comment on above: Performed By: #### H A1C #### [facility] ([id number]) [address], [address] [place] [address] #### CMP, 41462-7, 03624-7, 64552-3, 58966-7, 5643-2, CBCA #### [facility] ([id number]) [address] [place] [address] 79733 Calcium [Mass/Vol] 8.5 mg/dL Normal 8.5-10.5 [facility] Comment on above: Performed By: #### H A1C #### [facility] ([id number]) [address] [facility], [address] [place] [address] #### CMP, 33573-7, 31407-0, 16329-9, 50615-9, 5643-2, CBCA #### [facility] ([id number]) [address] [place] [address] 09200 Chloride [Moles/Vol] 98 mmol/L Normal 98-109 [facility] Comment on above: Performed By: #### H A1C #### [facility] ([id number]) [address], [address] [place] [address] #### CMP, 36810-4, 93951-5, 75383-7, 30785-9, 5643-2, CBCA #### [facility] ([id number]) [address] [place] [address] 49204 CO2 [Moles/Vol] 20 mmol/L Low 22-32 [facility] Comment on above: Performed By: #### H A1C #### [facility] ([id number]) [address], [address] [place] [address] #### CMP, 08525-4, 25988-1, 78762-6, 07317-6, 5643-2, CBCA #### [facility] ([id number]) [address] [place] [address] Creatinine [Mass/Vol] 0.59 mg/dL Normal 0.40-1.00 [facility] Comment on above: Result Comment: METH OD TRACEABLE TO IDMS STANDARD Performed By: #### H A1C #### [facility] ([id number]) [address] [facility] [facility], [address] [place] [address] #### CMP, 06077-4, 62830-4, 77111-4, 52620-8, 5643-2, CBCA #### [facility] ([id number]) [address] [place] [address] 72564 eGFR (CKD-EPI) NON-RACE DEPENDENT >90 Normal >59 [facility] Comment on above: Result Comment: Reported eGFR is based on the CKD-EPI 2020 equation that does not use a race coefficient. Performed By: #### H A1C #### [facility] ([id number]) [address] [facility], [address] [place] [address] #### CMP, 15504-1, 61470-7, 32780-3, 05846-1, 5643-2, CBCA #### [facility] ([id number]) [address] [place] [address] 15283 Glucose [Mass/Vol] 98 mg/dL Normal 65-99 [facility] Comment on above: Performed By: #### H A1C #### [facility] ([id number]) [address] [facility], [address] [place] [address] #### CMP, 61783-4, 55398-9, 74606-2, 66412-1, 5643-2, CBCA #### [facility] ([id number]) [address] [place] [address] 55385 Potassium [Moles/Vol] 3.1 mmol/L Low 3.5-5.0 [facility] Comment on above: Performed By: #### H A1C #### [facility] ([id number]) [address], [address] [place] [address] #### CMP, 55192-9, 44915-3, 28034-5, 94030-9, 5643-2, CBCA #### [facility] ([id number]) [address] [place] [address] 41445 Protein [Mass/Vol] 6.1 g/dL Normal 6.0-8.0 [facility] Comment on above: Performed By: #### H A1C #### [facility] ([id number]) [address] [facility], [address] [place] [address] #### CMP, 15800-2, 65771-0, 80767-9, 04118-3, 5643-2, CBCA #### [facility] ([id number]) [address] [place] [address] 64554 Sodium [Moles/Vol] 130 mmol/L Low 134-146 [facility] Comment on above: Performed By: #### H A1C #### [facility] ([id number]) [address], [address] [place] [address] #### CMP, 72214-9, 07527-6, 03968-0, 46358-0, 5643-2, CBCA #### [facility] ([id number]) [address] [place] [address] 60301 Urea nitrogen [Mass/Vol] 9 mg/dL Normal 5-23 [facility] Comment on above: Performed By: #### H A1C #### [facility] ([id number]) [address], [address] [place] [address] #### CMP, 56675-0, 67122-2, 24353-3, 46026-1, 5643-2, [facility] #### [facility] ([id number]) [address] [facility], [place] [address] CT BRAIN WO CONTon 4 CT BRAIN WO CONT CT BRAIN WO CONT STUDY: CT HEAD WITHOUT CONTRAST CLINICAL HISTORY: Mental status change, unknown cause; Episode of unresponsiveness transient alteration of awareness COMPARISON: None. TECHNIQUE: CT head was performed without contrast utilizing 2.5 mm axial reconstruction with images reviewed in bone and brain windows. Automated exposure control was utilized. FINDINGS: There is no intracranial mass, mass effect or shift of midline structures. No extra-axial fluid collection. Hector-white differentiation is preserved. No CT evidence of large vessel vascular distribution of acute infarct, acute ischemia or hemorrhage. No depressed or widely calvarial fracture. Paranasal sinuses are well aerated. Please note, MRI is more sensitive for the evaluation of acute or occult process is indicated. IMPRESSION: 1. No evidence of an acute intracranial process. All CT scans at this facility use dose modulation, iterative reconstruction, and/or weight based dosing when appropriate to reduce radiation dose to as low as reasonably achievable. 907 Finalized by Aaron Prater MD on 03/06/2024 7:56 AM Normal [facility] CT CTA CHESTon 03-06-[address] CTA CHEST 03/06/2024 4:41 AM INDICATION: Pulmonary embolism (PE) suspected, high prob COMPARISON: None TECHNIQUE: Contrast-enhanced CT images of the chest were obtained. 3-D images were also post processed at a separate workstation to further define anatomy and potential pathology. All CT scans at this facility use dose modulation, iterative reconstruction, and/or weight based dosing when appropriate to reduce radiation dose to as low as reasonably achievable. FINDINGS: LUNGS/PLEURA: Mosaic attenuation throughout the lungs. Patchy posterior basilar airspace disease, possibly atelectasis. Few anterior predominant lung cysts and multiple smaller anterior and posterior lung cysts and questionable areas of reticulation. No definite pleural effusion. CENTRAL AIRWAYS: Patent trachea and mainstem bronchi. VASCULATURE: Mild atheromatous disease of the thoracic aorta without aneurysm. Main pulmonary artery is borderline enlarged. Evaluation limited of pulmonary arteries due to contrast bolus timing. No definite large pulmonary embolism. HEART/PERICARDIUM : The heart is not enlarged. Trace pericardial effusion. Mild coronary artery calcified atheromatous disease. MEDIASTINUM: Prominent mediastinal and hilar lymph nodes. LOWER NECK: Unremarkable. CHEST WALL: Focal nodular area of the left breast measuring approximately 14 mm. UPPER ABDOMEN: Low attenuation areas of the liver, possibly cysts, however location can be seen with focal fatty infiltration. OSSEOUS STRUCTURES: Multiple chronic appearing right-sided rib fractures. IMPRESSION: 1. Limited exam without definite large pulmonary embolism. 2. Findings within the lungs as described, underlying interstitial lung disease could be considered. Nonemergent high-resolution chest CT with inspiration and expiration recommended. 3. Focal nodular area of the left breast. Further evaluation with nonemergent mammogram recommended. 4. Nonspecific low attenuation areas of the liver, possibly cysts, however location can be seen with focal fatty infiltration. Further evaluation with MRI could be obtained as clinically indicated. 721 Finalized by Amadou Land DO on 03/06/2024 5:40 AM Normal [facility] CT Chest WO and CT angiogram Coronary arteries W contrast Sonia 03-06-2024 CT CTA CHEST 03/06/2024 4:41 AM INDICATION: Pulmonary embolism (PE) suspected, high prob COMPARISON: None TECHNIQUE: Contrast-enhanced CT images of the chest were obtained. 3-D images were also post processed at a separate workstation to further define anatomy and potential pathology. All CT scans at this facility use dose modulation, iterative reconstruction, and/or weight based dosing when appropriate to reduce radiation dose to as low as reasonably achievable. FINDINGS: LUNGS/PLEURA: Mosaic attenuation throughout the lungs. Patchy posterior basilar airspace disease, possibly atelectasis. Few anterior predominant lung cysts and multiple smaller anterior and posterior lung cysts and questionable areas of reticulation. No definite pleural effusion. CENTRAL AIRWAYS: Patent trachea and mainstem bronchi. VASCULATURE: Mild atheromatous disease of the thoracic aorta without aneurysm. Main pulmonary artery is borderline enlarged. Evaluation limited of pulmonary arteries due to contrast bolus timing. No definite large pulmonary embolism. HEART/PERICARDIUM : The heart is not enlarged. Trace pericardial effusion. Mild coronary artery calcified atheromatous disease. MEDIASTINUM: Prominent mediastinal and hilar lymph nodes. LOWER NECK: Unremarkable. CHEST WALL: Focal nodular area of the left breast measuring approximately 14 mm. UPPER ABDOMEN: Low attenuation areas of the liver, possibly cysts, however location can be seen with focal fatty infiltration. OSSEOUS STRUCTURES: Multiple chronic appearing right-sided rib fractures. IMPRESSION: 1. Limited exam without definite large pulmonary embolism. 2. Findings within the lungs as described, underlying interstitial lung disease could be considered. Nonemergent high-resolution chest CT with inspiration and expiration recommended. 3. Focal nodular area of the left breast. Further evaluation with nonemergent mammogram recommended. 4. Nonspecific low attenuation areas of the liver, possibly cysts, however location can be seen with focal fatty infiltration. Further evaluation with MRI could be obtained as clinically indicated. 721 Finalized by Amadou Land DO on 03/06/2024 5:40 AM SECTRAPACS Amadou Land DO - 03/06/2024 CT CTA CHEST 03/06/2024 4:41 AM INDICATION: Pulmonary embolism (PE) suspected, high prob COMPARISON: None TECHNIQUE: Contrast-enhanced CT images of the chest were obtained. 3-D images were also post processed at a separate workstation to further define anatomy and potential pathology. All CT scans at this facility use dose modulation, iterative reconstruction, and/or weight based dosing when appropriate to reduce radiation dose to as low as reasonably achievable. FINDINGS: LUNGS/PLEURA: Mosaic attenuation throughout the lungs. Patchy posterior basilar airspace disease, possibly atelectasis. Few anterior predominant lung cysts and multiple smaller anterior and posterior lung cysts and questionable areas of reticulation. No definite pleural effusion. CENTRAL AIRWAYS: Patent trachea and mainstem bronchi. VASCULATURE: Mild atheromatous disease of the thoracic aorta without aneurysm. Main pulmonary artery is borderline enlarged. Evaluation limited of pulmonary arteries due to contrast bolus timing. No definite large pulmonary embolism. HEART/PERICARDIUM : The heart is not enlarged. Trace pericardial effusion. Mild coronary artery calcified atheromatous disease. MEDIASTINUM: Prominent mediastinal and hilar lymph nodes. LOWER NECK: Unremarkable. CHEST WALL: Focal nodular area of the left breast measuring approximately 14 mm. UPPER ABDOMEN: Low attenuation areas of the liver, possibly cysts, however location can be seen with focal fatty infiltration. OSSEOUS STRUCTURES: Multiple chronic appearing right-sided rib fractures. IMPRESSION: 1. Limited exam without definite large pulmonary embolism. 2. Findings within the lungs as described, underlying interstitial lung disease could be considered. Nonemergent high-resolution chest CT with inspiration and expiration recommended. 3. Focal nodular area of the left breast. Further evaluation with nonemergent mammogram recommended. 4. Nonspecific low attenuation areas of the liver, possibly cysts, however location can be seen with focal fatty infiltration. Further evaluation with MRI could be obtained as clinically indicated. 721 Finalized by Amadou Land DO on 03/06/2024 5:40 AM [facility]narrative[facility] and CT angiogram Coronary arteries W contrast IVOrdered By: Amadou Land on 03-06-2024 [employer] Work Phone: CT Head WO contraston 2023 STUDY: CT HEAD WITHOUT CONTRAST CLINICAL HISTORY: Mental status change, unknown cause; Episode of unresponsiveness transient alteration of awareness COMPARISON: None. TECHNIQUE: CT head was performed without contrast utilizing 2.5 mm axial reconstruction with images reviewed in bone and brain windows. Automated exposure control was utilized. FINDINGS: There is no intracranial mass, mass effect or shift of midline structures. No extra-axial fluid collection. Hector-white differentiation is preserved. No CT evidence of large vessel vascular distribution of acute infarct, acute ischemia or hemorrhage. No depressed or widely calvarial fracture. Paranasal sinuses are well aerated. Please note, MRI is more sensitive for the evaluation of acute or occult process is indicated. IMPRESSION: 1. No evidence of an acute intracranial process. All CT scans at this facility use dose modulation, iterative reconstruction, and/or weight based dosing when appropriate to reduce radiation dose to as low as reasonably achievable. 907 Finalized by Aaron Prater MD on 03/06/2024 7:56 AM [facility] Aaron Prater MD - 03/06/2024 STUDY: CT HEAD WITHOUT CONTRAST CLINICAL HISTORY: Mental status change, unknown cause; Episode of unresponsiveness transient alteration of awareness COMPARISON: None. TECHNIQUE: CT head was performed without contrast utilizing 2.5 mm axial reconstruction with images reviewed in bone and brain windows. Automated exposure control was utilized. FINDINGS: There is no intracranial mass, mass effect or shift of midline structures. No extra-axial fluid collection. Hector-white differentiation is preserved. No CT evidence of large vessel vascular distribution of acute infarct, acute ischemia or hemorrhage. No depressed or widely calvarial fracture. Paranasal sinuses are well aerated. Please note, MRI is more sensitive for the evaluation of acute or occult process is indicated. IMPRESSION: 1. No evidence of an acute intracranial process. All CT scans at this facility use dose modulation, iterative reconstruction, and/or weight based dosing when appropriate to reduce radiation dose to as low as reasonably achievable. 907 Finalized by Aaron Prater MD on 03/06/2024 7:56 AM [employer] Radiology Study observation (narrative) [employer] CT Head WO contrastOrdered B y: Aaron Prater on 03-06-2024 [employer] Work Phone: Cardiac echo study Procedure Ordered By: Mouna Cm on 03-06-2024 Aortic root 3.9 cm [employer] Work Phone: AV peak gradient 5.95 mmHg [employer] Work Phone: AV peak yuli 122 cm/s [employer] Work Phone: E wave deceleration time 155 msec [employer] Work Phone: E/A ratio 0.92 [employer] Work Phone: EF - 3D Echo 59 % [employer] Work Phone: Energy loss index 19.34 [facility] Phone: Est. RA pressure 15 mmHg [employer] Work Phone: FS 40 % 28 - 44 % [employer] Work Phone: Interventricular Septum Diastolic Thickness by 2D 8 cm [employer] Work Phone: IVS 0.8 cm 0.6 - 1.1 cm [employer] Work Phone: LA volume 42.5 cm3 [employer] Work Phone: LA Volume Index 26.4 mL/m2 [employer] Work Phone: Left Ventricle Mass [phone] 25 g [employer] Work Phone: LV ESV A2C 46.6 mL [employer] Work Phone: LV ESV A4C 36.7 mL [employer] Work Phone: LV RWT 2D 38.3 [employer] Work Phone: LVIDd 4.7 cm 3.89 - 5.40 cm [employer] Work Phone: LVIDs 2.8 cm 2.31 - 3.50 cm [facility] Work Phone: LVOT diameter 2.1 cm [facility] Work Phone: LVOT peak yuli 0.89 m/s [facility] Work Phone: MV E' average 7 cm/s [facility] Work Phone: MV Peak A Yuli 89.2 cm/s [facility] Work Phone: MV Peak E Yuli 82 cm/s [facility] Work Phone: MV pressure 1/2 time 45 ms [facility] Work Phone: MV TDI E' (medial) 6.96 cm/s [facility] [employer] Work Phone: MV valve area p 1/2 method 4.89 cm2 [facility] Work Phone: PW 0.9 cm 0.6 - 1.1 cm [facility] Work Phone: RA area 14.3 cm2 [facility] Work Phone: RV diastolic dimension (basal) 29 mm [employer] Work Phone: RV Peak Systolic Pressure 37 mmHg [employer] Work Phone: TAPSE 1.61 cm [facility] Work Phone: TDI 7.29 cm/s [facility] Work Phone: TR max yuli 2.3 m/s [facility] Work Phone: TR peak gradient 22 mmHg [employer] Work Phone: TR Peak Yuli 2.3 m/s [employer] Work Phone: ZLVIDD 0.25 [employer] Work Phone: ZLVIDS -0.12 [employer] Work Phone: [employer] Work Phone: Cardiac echo study Procedure on 03-06-2024 Left Ventricle: Left ventricle appears normal in size. Systolic function is normal with an ejection fraction of 55-60%. The quantitative EF by 3D imaging is 59%. No obvious regional wall motion abnormalities. There is no diastolic dysfunction and normal left atrial pressure. Right Ventricle: Systolic function is mildly reduced. Left Ventricle Left ventricle appears normal in size. Wall thickness is normal. Systolic function is normal with an ejection fraction of 55-60%. The quantitative EF by 3D imaging is 59%. No obvious regional wall motion abnormalities. There is no diastolic dysfunction and normal left atrial pressure. Lateral E' is 7.29 cm/s. Medial E' is 6.96 cm/s. Average E' is 7.0 cm/s. Right Ventricle Right ventricular size appears normal. The right ventricular basal diameter is 29.0 mm. Systolic function is mildly reduced. Left Atrium Left atrium volume index is normal. The left atrial volume index is 26.4 mL/m2. Right Atrium Right atrium is normal in size. The right atrial area is 14.3 cm2. IVC/SVC The right atrial pressure is estimated at 15 mmHg. IVC appears dilated with increased right atrial pressure. There is no collapse with deep inspiration. Mitral Valve Mitral valve structure is normal. There is iodkr-tc-aqwk regurgitation. There is no evidence of mitral valve stenosis. Tricuspid Valve Tricuspid valve appears to be normal. There is trace to mild regurgitation. RVSP calculated at 37 mmHg. RVSP is based on RA pressure of 15 mmHg. Aortic Valve The aortic valve is trileaflet. There is no regurgitation or stenosis. Pulmonic Valve The pulmonic valve was not well visualized. There is trace regurgitation. Ascending Aorta The aortic root is normal in size. Pericardium There is no pericardial effusion. Study Details A complete echo was performed using complete 2D, color flow Doppler and spectral Doppler. Overall the study quality was adequate. Wall Scoring Baseline Score Index: 1.00 The left ventricular wall motion is normal. [employer] Radiology Study observation (narrative) [facility] Comprehensive metabolic pane noe 03-06-2024 Albumin [Mass/Vol] 2.9 g/dL Low 3.2 - 5.3 g/dL [facility] ALP [Catalytic activity/Vol] 82 U/L 39 - 130 U/L [facility] ALT No additional P-5'-P [Catalytic activity/Vol] 15 U/L 0 - 31 U/L [facility] Anion gap [Moles/Vol] 12 mmol/L 5 - 15 mmol/L [facility] AST [Catalytic activity/Vol] 20 U/L 0 - 41 U/L [facility] Bilirubin [Mass/Vol] 0.6 mg/dL 0.3 - 1 .2 mg/dL [facility] Calcium [Mass/Vol] 8.5 mg/dL 8.5 - 10. 5 mg/dL [facility] Chloride [Moles/Vol] 98 mmol/L 98 - 10 9 mmol/L [facility] CO2 [Moles/Vol] 20 mmol/L Low 22 - 32 mmol/L [facility] Creatinine [Mass/Vol] 0.59 mg/dL 0.40 - 1.00 mg/dL [facility] Comment on above: METHOD TRACEABLE TO [facility] STANDARD eGFR (CKD-EPI)non-race dependent - PINF [facility] Comment on above: Reported eGFR is based on the CKD-EPI 2020 equation that does not use a race coefficient. Glucose [Mass/Vol] 98 mg/dL 65 - 99 mg/dL [facility] Potassium [Moles/Vol] 3.1 mmol/L Low 3.5 - 5.0 mmol/L [facility] Protein [Mass/Vol] 6.1 g/dL 6.0 - 8.0 g/dL [facility] Sodium [Moles/Vol] 130 mmol/L Low 134 - 146 mmol/L [facility] Urea nitrogen [Mass/Vol] 9 mg/dL 5 - 23 mg/dL [facility] Critical Careon 03-06-2024 Joe Dick MD 03/06/2024 6:53 AM Critical Care Performed by: Joe Dick MD Authorized by: Joe Dick MD Critical care provider statement: Critical care time (minutes): 31 Critical care time was exclusive of: Separately billable procedures and treating other patients Critical care was necessary to treat or prevent imminent or life-threatening deterioration of the following conditions: Cardiac failure and respiratory failure Critical care was time spent personally by me on the following activities: Development of treatment plan with patient or surrogate, evaluation of patient's response to treatment, examination of patient, obtaining history from patient or surrogate, ordering and performing treatments and interventions, ordering and review of laboratory studies, ordering and review of radiographic studies, pulse oximetry, re-evaluation of patient's condition and review of old charts I assumed direction of critical care for this patient from another provider in my specialty: no Care discussed with: admitting provider [facility] D-Dimeron 03-06-2024 Fibrin D-dimer DDU (PPP) [Mass/Vol] 2232 High [facility] Comment on above: Results >=255ng/mL DDU: Results may be indicative of the presence of VTE. The use of the Wells score and further diagnostic tests should be considered. Elevated D-Dimer levels can also be associated with DIC, neoplasm, , trauma and liver disease. Elevated levels of rheumatoid factor may lead to an overestimation of the D-Dimer level. DRUG SCREEN, URINEon 024 AMPHETAMINE/METHAMP Negative Normal NEG [facility] Comment on above: Result Comment: AMPH /METH screening cut off = 1000 ng/mL Performed By: #### H A1C #### [facility] ([id number]) [address] [place] [address], [address] [place] [address] #### CMP, 93630-0, 19947-5, 52961-6, 82042-1, 5643-2, CBCA #### [facility] ([id number]) [address] [place] [address], [place] [address] BARBITURATES Negative Normal NEG [facility] Comment on above: Result Comment: Meryl iturates screening cut off value = 200 ng/mL Performed By: #### H A1C #### [facility] ([id number]) [address], [address] [place] [address] #### CMP, 16203-3, 23943-1, 90000-6, 51897-3, 5643-2, CBCA #### [facility] ([id number]) [address] [place] [address] BENZODIAZEPINES Negative Normal NEG [facility] Comment on above: Result Comment: Maged odiazepines screening cut off value = 200 ng/mL Performed By: #### H A1C #### [facility] ([id number]) [address] [facility], [address] [place] [address] #### CMP, 85152-1, 29969-9, 20067-0, 74403-1, 5643-2, CBCA #### [facility] ([id number]) [address] [place] [address] CANNABINOIDS Negative Normal NEG [facility] Comment on above: Result Comment: Anil abinoids/THC screening cut off value = 50 ng/mL Performed By: #### H A1C #### [facility] ([id number]) [address] [facility], [address] [place] [address] #### CMP, 20698-0, 35747-3, 71567-3, 87778-1, 5643-2, CBCA #### [facility] ([id number]) [address] [place] [address] COCAINE METABOLITE Negative Normal NEG [facility] Comment on above: Result Comment: Coca ine screening cut off value = 300 ng/mL Performed By: #### H A1C #### [facility] ([id number]) [address] [facility], [address] [place] [address] #### CMP, 26700-2, 72163-8, 24104-7, 54312-9, 5643-2, CBCA #### [facility] ([id number]) [address] [place] [address] ECSTASY Negative Normal NEG [facility] Comment on above: Result Comment: Ecst asy screening cut off value = 500 ng/mL This report is intended for use in clinical monitoring or management of patients. Performed By: #### H A1C #### [facility] ([id number]) [address] [place] [address], [address] [place] [address] #### CMP, 52202-7, 32165-5, 21756-1, 84457-1, 5643-2, CBCA #### [facility] ([id number]) [address] [place] [address] METHADONE Negative Normal NEG [facility] Comment on above: Result Comment: Meth adone screening cut off value = 300 ng/mL. Performed By: #### H A1C #### [facility] ([id number]) [address] [place] [address], [address] [place] [address] #### CMP, 20658-0, 42048-3, 94985-5, 61199-0, 5643-2, CBCA #### [facility] ([id number]) [address] [place] [address] OPIATES Negative Normal NEG [facility] Comment on above: Result Comment: Opia shruti screening cut off value = 300 ng/mL NOTE: This test is used for the detection of codeine, hydrocodone (>1000 ng/mL), morphine and hydromorphone (>900 ng/mL) in urine. Performed By: #### H A1C #### [facility] ([id number]) [address] [place] [address], [address] [place] [address] #### CMP, 46589-0, 19637-2, 12166-1, 97649-2, 5643-2, CBCA #### [facility] ([id number]) [address] [place] [address] OXYCODONE Negative Normal NEG [facility] Comment on above: Result Comment: Oxyc odone screening cut off value = 300 ng/mL NOTE: This test is used for the detection of oxycodone and oxymorphone in urine. Performed By: #### H A1C #### [facility] ([id number]) [address] [place] [address], [address] [place] [address] #### CMP, 16738-4, 88188-2, 33445-7, 27531-1, 5643-2, CBCA #### [facility] ([id number]) [address] [place] [address] PHENCYCLIDINE Negative Normal NEG [facility] Comment on above: Result Comment: Phen cyclidine screening cut off value = 25 ng/mL Performed By: #### H A1C #### [facility] ([id number]) [address] [place] [address], [address] [place] [address] #### CMP, 10103-6, 53001-6, 22000-3, 36775-3, 5643-2, CBCA #### [facility] ([id number]) [address] [place] [address] Drug Screen, Urineon 024 Amphetamines Screen method >1000 ng/mL Ql (U) Negative Negative^N [facility] Comment on above: AMPH/METH screening cut off = 1000 ng/mL Barbiturates Screen Ql (U) Negative N egative^N egative [facility] Comment on above: Barbiturates screeni ng cut off value = 200 ng/mL Benzodiazepines Ql (U) Negative Negat lissette^N egative [facility] Comment on above: Benzodiazepines scre ening cut off value = 200 ng/mL Cocaine Ql (U) Negative Negative^N egative [facility] Comment on above: Cocaine screening cu t off value = 300 ng/mL Methadone Screen Ql (U) Negative Nega tive^N egative [facility] Comment on above: Methadone screening cut off value = 300 ng/mL. Methylenedioxymethamphetamin e Screen Ql (U) Negative Negative^N [facility] Comment on above: Ecstasy screening cu t off value = 500 ng/mL This report is intended for use in clinical monitoring or management of patients. Opiates Screen Ql (U) Negative Negati ve^N [facility] Comment on above: Opiates screening cu t off value = 300 ng/mL NOTE: This test is used for the detection of codeine, hydrocodone (>1000 ng/mL), morphine and hydromorphone (>900 ng/mL) in urine. oxyCODONE Ql (U) Negative Negative^N [facility] Comment on above: Oxycodone screening cut off value = 300 ng/mL NOTE: This test is used for the detection of oxycodone and oxymorphone in urine. Phencyclidine Screen method >25 ng/mL Ql (U) Negative Negative^N [facility] Comment on above: Phencyclidine screen ing cut off value = 25 ng/mL Tetrahydrocannabinol Screen method >50 ng/mL Ql (U) Negative Negative^N [facility] Comment on above: Cannabinoids/THC scr eening cut off value = 50 ng/mL [facility] ECG 12 leadon 03-06-2024 [facility] EEG[facility] 03-06-2024 Images from the original result were not included. EEG REPORT (Routine) EEG Service Date: 03/06/2024 HISTORY: Chandni Puri is a 58 y.o. left-handed female with seizures. The study is to assist clinical diagnosis and management. CURRENT MEDICATIONS: Tylenol, Elavil, aspirin, Abilify, Lipitor, BuSpar, Cardizem, Cymbalta, Lovenox, Lexapro, Neurontin, glucagon, Xopenex, Synthroid, Zofran, Protonix, Senokot TECHNICAL DESCRIPTION: This is a 25 channel digital scalp EEG that was performed utilizing [employer] 10/20 Montage System for electrode placement. Digital EEG data was collected from 25 channels. Multi-reformatted montages were used during the EEG analysis. One additional channel was used to monitor EKG during the EEG study. EEG INTERPRETATION: Duration and Quality: - Duration: 27 minutes - Quality: Poor quality for digital EEG - Artifacts: Large and well recognized; sustained artifacts from diaphoresis and movement Status of Patient: - Awake and Drowsy Background: - Anterior: Rhythmic activity with a frequency of 18-20 Hz and amplitude 7-10 V was seen in the bilateral anterior regions. - Posterior: Rhythmic activity with a frequency of 7-8 Hz and amplitude of 30-40 V was seen intermittently in the bilateral posterior head regions. Response to Photic Stimulation: - There was no sustained driving in response to photic stimulation at all the tested frequencies. Response to Hyperventilation: - Not performed due to clinical condition/limitat ion Sleep: - The patient spent 60-70% of the recording time in sleep and reached stage I, which was evidenced by the presence of attenuation of wakeful background, slow horizontal ocular motion, and vertex sharp transients. Significant Findings: - Sustained regional slowing: Not identified - Asymmetry: Not identified - Generalized slowing: Not identified - Epileptiform discharge(s): Not identified - Electrographic seizure(s): Not identified - Diffusely increased 12-14 Hz Rhythmic activity with amplitude of 20-30 uV maximum in the bilateral frontocentral regions Events: - Clinical: Not identified - EEG: Not identified EEG CLASSIFICATION: Abnormal (Awake, Drowsy, and Sleep) - Background slow - Excessive fast diffuse CLINICAL CORRELATION: This study is abnormal. It shows evidences to indicate excessive sleepiness and/or mild diffuse encephalopathy. There are additional findings to suggest possible medication effects. Clinical correlation is recommended. José Espino MD, PhD Neurology/Clinica l Neurophysiology MANUALLY TRANSCRIBED RESULTS EEGOrdered By: José Espino on 03-06-2024 [facility] Work Phone: Ethanolon 03-06-2024 Ethanol [Mass/Vol] 0.14 g/dL High 0.00 - 0.08 g/dL [facility] Comment on above: This report is intended for use in clinical monitoring or management of patients. Ethanol [Mass/Vol]on 024 ETHANOL 0.14 g/dL High 0.00-0.08 [facility] Comment on above: Result Comment: This report is intended for use in clinical monitoring or management of patients. Performed By: #### H A1C #### [facility] ([id number]) [address] [place] [address], [address] [place] [address] #### CMP, 14938-5, 49722-7, 70007-7, 87673-9, 5643-2, CBCA #### [facility] ([id number]) [address] [place] [address] Fibrin D-dimer DDU (PPP) [Ma ss/Vol]on 03-06-2024 Interpretation and review of laboratory results Abnormal [facility] D DIMER 2232 ng/mL DDU High <255 [facility] Comment on above: Result Comment: Results >=255ng/mL DDU: Results may be indicative of the presence of VTE. The use of the Wells score and further diagnostic tests should be considered. Elevated D-Dimer levels can also be associated with DIC, neoplasm, , trauma and liver disease. Elevated levels of rheumatoid factor may lead to an overestimation of the D-Dimer level. Performed By: #### H A1C #### [facility] ([id number]) [address] [place] [address], [address] [address] #### CMP, 89112-4, 42205-4, 73673-6, 78497-0, 5643-2, CBCA #### [facility] ([id number]) [address] [place] [address] HGB A1C (GLYCO-HGB)on 2023 Glucose [Mass/Vol] 126 mg/dL Normal [facility] Comment on above: Performed By: #### H A1C #### [facility] ([id number]) [address] [place] [address], [address] [place] [address] #### CMP, 62975-3, 33302-9, 62877-9, 87949-9, 5643-2, CBCA #### [facility] ([id number]) [address] [place] [address] HbA1c (Bld) [Mass fraction] 6.0 % High 4.4-5.6 [facility] Comment on above: Result Comment: NOTE ADA Guidelines Result HgbA1c Normal : less than 5.7 % Prediabetes : 5.7 % to 6.4 % Diabetes : > 6.4 % Use with caution in patients with abnormal hemoglobin variants as the half-life of red blood cells and in vivo glycation rates are affected. Performed By: #### H A1C #### [facility] ([id number]) [address] [place] [address], [address] [place] [address] #### CMP, 59912-3, 14945-1, 68992-4, 93248-9, 5643-2, CBCA #### [facility] ([id number]) [address] [place] [address] Hemoglobin A1con 03-06-2024 Average glucose Estimated from glycated hemoglobin (Bld) [Mass/Vol] 126 mg/dL [facility] HbA1c (Bld) [Mass fraction] 6 % High 4.4 - 5.6 % [facility] Comment on above: NOTE ADA Guidelines Result HgbA1c Normal : less than 5.7 % Prediabetes : 5.7 % to 6.4 % Diabetes : > 6.4 % Use with caution in patients with abnormal hemoglobin variants as the half-life of red blood cells and in vivo glycation rates are affected. Interpretation and review of laboratory results Abnormal [facility] Lactate (P violette) [Moles/Vol]o n 03-06-2024 [facility] LACTATE W/REFLEX 2.0 mmol/L Normal 0.4-2.0 [facility] Comment on above: Result Comment: Result did not trigger repeat Lactate, re-order if needed. Performed By: #### H A1C #### [facility] ([id number]) [address] [facility], [address] [place] [address] #### CMP, 80172-0, 34079-2, 61517-6, 80722-9, 5643-2, CBCA #### [facility] ([id number]) [address] [place] [address] Lactate w/ Reflexon 03-06-20 Lactate (P violette) [Moles/Vol] 2 mmol/L 0.4 - 2.0 mmol/L [facility] Comment on above: Result did not trigger repeat Lactate, re-order if needed. MAGNESIUMon 03-06-2024 Magnesium [Mass/Vol] 2.1 mg/dL Normal 1.8-2.6 [facility] Comment on above: Performed By: #### H A1C #### [facility] ([id number]) [address] [facility], [address] [place] [address] #### CMP, 15498-0, 88419-9, 09620-8, 98191-5, 5643-2, CBCA #### [facility] ([id number]) [address] [place] [address] Magnesium [Mass/Vol] 1.6 mg/dL Low 1.8-2.6 [facility] Comment on above: Performed By: #### H A1C #### [facility] ([id number]) [address] [facility], [address] [place] [address] #### CMP, 69808-4, 88344-1, 68494-1, 87315-0, 5643-2, CBCA #### [facility] ([id number]) [address] [place] [address] Magnesium [Mass/Vol] 1.3 mg/dL Low 1.8-2.6 [facility] Comment on above: Performed By: #### H A1C #### [facility] ([id number]) [address] [facility], [address] [place] [address] #### CMP, 21080-8, 20502-7, 87490-7, 06643-8, 5643-2, CBCA #### [facility] ([id number]) [address] [place] [address] Magnesiumon 03-06-2024 Magnesium [Mass/Vol] 2.1 mg/dL 1.8 - 2 .6 mg/dL [facility] Magnesium [Mass/Vol] 1.6 mg/dL Low 1.8 - 2 .6 mg/dL [facility] Magnesium [Mass/Vol] 1.3 mg/dL Low 1.8 - 2 .6 mg/dL [facility] Magnesium [Mass/Vol]on 03-06 [facility] Interpretation and review of laboratory results Abnormal [facility] Natriuretic peptide B [Mass/ Vol]on 03-06-2024 Natriuretic peptide B (Bld) [Mass/Vol] 48 pg/mL NINF - 100.0 pg/mL [facility] Natriuretic peptide B (Bld) [Mass/Vol] 48 pg/mL Normal <100.0 [facility] Comment on above: Performed By: #### H A1C #### [facility] ([id number]) [address] [place] [address], [address] [place] [address] #### [facility], 75325-7, 47714-7, 81979-8, 15152-2, 5643-2, CBCA #### [facility] ([id number]) [address] [place] [address] No Panel Informationon 03-06 [facility] Interpretation and review of laboratory results Abnormal [facility] PHOSPHORUSon 03-06-2024 Phosphate [Mass/Vol] 4.5 mg/dL Normal 2.4-4.9 [facility] Comment on above: Performed By: #### H A1C #### [facility] ([id number]) [address] [place] [address], [address] [place] [address] #### CMP, 09401-9, 17956-1, 95140-7, 36214-0, 5643-2, CBCA #### [facility] ([id number]) [address] [facility], [place] [address] POCT Nursing Urine Macroscop ic UAon 03-06-2024 Bilirubin Ql (U) Negative Negative^N egative [facility] Glucose [Mass/Vol] Negative Negative^ N egative mg/dL [facility] Hemoglobin Ql (U) Negative Negative^N egative [facility] Ketones (U) [Mass/Vol] Negative Negat lissette^N egative mg/dL [facility] Leukocyte esterase Test strip Ql (U) Negative Negative^N egative [facility] Nitrite Ql (U) Negative Negative^N egative [facility] pH (U) 6.5 [pH] 5.0 - 8.5 [facility] Protein Ql (U) Negative Negative^N egative mg/dL [facility] Specific gravity (U) [Rel density] 1.01 1.003 - 1.035 [facility] Urobilinogen Qn (U) 0.2 NINF [facility] POTASSIUMon 03-06-2024 Potassium [Moles/Vol] 4.5 mmol/L Normal 3.5-5.0 [facility] Comment on above: Performed By: #### H A1C #### [facility] ([id number]) [address] [facility], [address] [place] [address] #### CMP, 04371-1, 74030-7, 47435-8, 07141-0, 5643-2, CBCA #### [facility] ([id number]) [address] [place] [address], [place] [address] Phosphoruson 03-06-2024 Phosphate [Mass/Vol] 4.5 mg/dL 2.4 - 4 .9 mg/dL [facility] Potassiumon 03-06-2024 Potassium [Moles/Vol] 4.5 mmol/L 3.5 - 5.0 mmol/L [facility] Potassium [Moles/Vol]on [facility] Procalcitoninon 03-06-2024 Procalcitonin IA [Mass/Vol] ng/mL NINF - 0.05 ng/mL [facility] Comment on above: NOTE <0.50 ng/mL - Low risk of severe sepsis and/or septic shock. <2.00 ng/mL - Recommend retesting within 6-24 hours. >2.00 ng/mL - High risk of sepsis and/or septic shock. Procalcitonin IA [Mass/Vol]o n 03-06-2024 [facility] PROCALCITONIN <0.05 Normal <0.05 [facility] Comment on above: Result Comment: NOTE <0.50 ng/mL - Low risk of severe sepsis and/or septic shock. <2.00 ng/mL - Recommend retesting within 6-24 hours. >2.00 ng/mL - High risk of sepsis and/or septic shock. Performed By: #### H A1C #### [facility] ([id number]) [address] [place] [address], [address] [place] [address] #### CMP, 22657-4, 98990-3, 68955-1, 37238-8, 5643-2, CBCA #### [facility] ([id number]) [address] [place] [address], [place] [address] RESP PATHOGENS/[id number] 03-06-2024 Respiratory pathogens DNA and RNA panel MAXINE+non-probe (Nph) SPECIMEN SOURCE NASO PHARYNX ADENOVIRUS Not detected (qualifier value) CORONAVIRUS 229E Not detected (qualifier value) CORONAVIRUS HKU1 Not detected (qualifier value) CORONAVIRUS NL63 Not detected (qualifier value) CORONAVIRUS OC43 Not detected (qualifier value) HUMAN METAPNEUVIRUS Not detected (qualifier value) RHINO/ENTEROVIRUS Not detected (qualifier value) INFLUENZA A Not detected (qualifier value) INFLUENZA B Not detected (qualifier value) PARAINFLUENZA 1 Not detected (qualifier value) PARAINFLUENZA 2 Not detected (qualifier value) PARAINFLUENZA 3 Not detected (qualifier value) PARAINFLUENZA 4 Not detected (qualifier value) RESP SYNCYTIAL VIRUS Not detected (qualifier value) BORD PARAPERTUSSIS Not detected (qualifier value) BORDETELLA PERTUSSIS Not detected (qualifier value) CHLAM.PNEUMONIAE Not detected (qualifier value) MYCO. PNEUMONIAE Not detected (qualifier value) SARS CoV 2 Not detected (qualifier value) NOTE The BioFire Respiratory Panel 2.1 (RP2.1) is a multiplexed nucleic acid test intended for the simultaneous qualitative detection and differentiation of nucleic acid from multiple viral and bacterial respiratory organisms, including nucleic acid from Severe Acute Respiratory Syndrome Coronavirus 2 (SARS-CoV-2), in nasopharyngeal swabs obtained from individuals suspected of COVID-19 by their healthcare provider. Testing is limited to laboratories certified under the Clinical Laboratory Improvement Amendments of 1988 (CLIA), to perform high complexity or moderate complexity tests. SARS-CoV-2 RNA and nucleic acids from the other respiratory viral and bacterial organisms identified by this test are generally detectable in nasopharyngeal swabs during the acute phase of infection. The detection and identification of specific viral and bacterial nucleic acids from individuals exhibiting signs and/or symptoms of respiratory infection is indicative of the presence of the identified microorganism and aids in the diagnosis of respiratory infection if used in conjunction with other clinical and epidemiological information. Positive results are indicative of the presence of the identified organism, but do not rule out co-infection with other pathogens. The agent(s) detected by the BioFire RP2.1 may not be the definite cause of disease and clinical correlation with patient history and other diagnostic information is necessary to determine patient infection status. Negative results in the setting of a respiratory illness may be due to infection with pathogens not detected by this test, or lower respiratory tract infection that may not be detected by a nasopharyngeal specimen. Negative results do not preclude SARS-CoV-2 infection and should not be used as the sole basis for patient management decisions. Negative ELISA-CoV-2 results must be combined with clinical observations, patient history and epidemiological information. Negative results for other organisms identified by the test may require additional laboratory testing when evaluating a patient with possible respiratory tract infection. Normal [facility] Comment on above: Performed By: #### H A1C #### [facility] ([id number]) [address] [facility], [address] [place] [id number] #### CMP, 59416-2, 49822-1, 38198-4, 93248-6, 5643-2, CBCA #### [facility] ([id number]) [address] [facility], [place] [address] Respiratory pathogens DNA an d RNA panel MAXINE+non-probe (Nph)on 03-06-2024 Adenovirus DNA MAXINE+non-probe Ql (Nph) Not detected Not Detected^N ot Detected [facility] B. parapertussis [id number] DNA MAXINE+non-probe Ql (Nph) Not detected Not Detected^N ot Detected [facility] B. pertussis toxin promoter region MAXINE+non-probe Ql (Nph) Not detected Not Detected^N ot Detected [facility] C. pneumoniae DNA MAXINE+non-probe Ql (Nph) Not detected Not Detected^N ot Detected [facility] FLUAV RNA MAXINE+non-probe Ql (Nph) Not detected Not Detected^N ot Detected [facility] FLUBV RNA MAXINE+non-probe Ql (Nph) Not detected Not Detected^N ot Detected [facility] HCoV 229E RNA MAXINE+non-probe Ql (Nph) Not detected Not Detected^N ot Detected [facility] HCoV HKU1 RNA MAXINE+non-probe Ql (Nph) Not detected Not Detected^N ot Detected [facility] HCoV NL63 RNA MAXINE+non-probe Ql (Nph) Not detected Not Detected^N ot Detected [facility] HCoV OC43 RNA MAXINE+non-probe Ql (Nph) Not detected Not Detected^N ot Detected [facility] hMPV RNA MAXINE+non-probe Ql (Nph) Not detected Not Detected^N ot Detected [facility] M. pneumoniae DNA MAXINE+non-probe Ql (Nph) Not detected Not Detected^N ot Detected [facility] Parainfluenza virus 1 RNA MAXINE+non-probe Ql (Nph) Not detected Not Detected^N ot Detected [facility] Parainfluenza virus 2 RNA MAXINE+non-probe Ql (Nph) Not detected Not Detected^N ot Detected [facility] Parainfluenza virus 3 RNA MAXINE+non-probe Ql (Nph) Not detected Not Detected^N ot Detected [facility] Parainfluenza virus 4 RNA MAXINE+non-probe Ql (Nph) Not detected Not Detected^N ot Detected [facility] Rhinovirus+Enterovirus RNA MAXINE+non-probe Ql (Nph) Not detected Not Detected^N ot Detected [facility] RSV RNA MAXINE+non-probe Ql (Nph) Not detected Not Detected^N ot Detected [facility] SARS-CoV-2 (COVID-19) RNA MAXINE+probe Ql (Resp) Not detected Not Detected^N ot Detected [facility] Comment on above: NOTE The Kuotus Respiratory Panel 2.1 (RP2.1) is a multiplexed nucleic acid test intended for the simultaneous qualitative detection and differentiation of nucleic acid from multiple viral and bacterial respiratory organisms, including nucleic acid from Severe Acute Respiratory Syndrome Coronavirus 2 (SARS-CoV-2), in nasopharyngeal swabs obtained from individuals suspected of COVID-19 by their healthcare provider. Testing is limited to laboratories certified under the Clinical Laboratory Improvement Amendments of 1988 (CLIA), to perform high complexity or moderate complexity tests. SARS-CoV-2 RNA and nucleic acids from the other respiratory viral and bacterial organisms identified by this test are generally detectable in nasopharyngeal swabs during the acute phase of infection. The detection and identification of specific viral and bacterial nucleic acids from individuals exhibiting signs and/or symptoms of respiratory infection is indicative of the presence of the identified microorganism and aids in the diagnosis of respiratory infection if used in conjunction with other clinical and epidemiological information. Positive results are indicative of the presence of the identified organism, but do not rule out co-infection with other pathogens. The agent(s) detected by the BioFire RP2.1 may not be the definite cause of disease and clinical correlation with patient history and other diagnostic information is necessary to determine patient infection status. Negative results in the setting of a respiratory illness may be due to infection with pathogens not detected by this test, or lower respiratory tract infection that may not be detected by a nasopharyngeal specimen. Negative results do not preclude SARS-CoV-2 infection and should not be used as the sole basis for patient management decisions. Negative ELISA-CoV-2 results must be combined with clinical observations, patient history and epidemiological information. Negative results for other organisms identified by the test may require additional laboratory testing when evaluating a patient with possible respiratory tract infection. Specimen source Nom (Body fld) NASO PHARYNX [facility] Troponin I, High Sensitivity on 03-06-2024 Troponin I.cardiac High sensitivity method [Mass/Vol] 4 ng/L [facility] ng/L [facility] Troponin I, High Sensitivity 1 Houron 03-06-2024 Troponin I.cardiac High sensitivity method [Mass/Vol] 4 ng/L NINF - 16 ng/L [facility] Troponin I.cardiac High sens itivity method [Mass/Vol]on 03-06-2024 [facility] 1 HOUR TROP I, HIGH SENSITIVITY 4 ng/L Normal <16 [facility] Comment on above: Performed By: #### H A1C #### [facility] ([id number]) [address] [facility], [address] [place] [address] #### CMP, 89525-1, 23055-3, 34976-1, 23041-2, 5643-2, CBCA #### [facility] ([id number]) [address] [place] [address] [facility] TROPONIN I, HIGH SENSITIVITY 4 ng/L Normal <16 [facility] Comment on above: Performed By: #### H A1C #### [facility] ([id number]) [address] [facility], [address] [place] [address] #### CMP, 67078-9, 69288-5, 47655-2, 72768-4, 5643-2, CBCA #### [facility] ([id number]) [address] [place] [address] URN MACROSCOPIC NURon 2023 BILIRUBIN EMMANUEL Negative Normal NEG [facility] Comment on above: Performed By: #### H A1C #### [facility] ([id number]) [address] [facility] [facility], [address] [place] [address] #### CMP, 20315-7, 35496-5, 49668-5, 19539-7, 5643-2, CBCA #### [facility] ([id number]) [address] [place] [address] BLOOD/HGB EMMANUEL Negative Normal NEG [facility] Comment on above: Performed By: #### H A1C #### [facility] ([id number]) [address] [facility], [address] [place] [address] #### CMP, 32842-2, 86527-0, 12160-2, 74362-2, 5643-2, CBCA #### [facility] ([id number]) [address] [place] [address] GLUCOSE EMMANUEL Negative Normal NEG [facility] Comment on above: Performed By: #### H A1C #### [facility] ([id number]) [address] [facility], [address] [place] [address] #### CMP, 87369-0, 61047-5, 12752-8, 35489-4, 5643-2, CBCA #### [facility] ([id number]) [address] [place] [address] KETONES EMMANUEL Negative Normal NEG [facility] Comment on above: Performed By: #### H A1C #### [facility] ([id number]) [address] [facility], [address] [place] [address] #### CMP, 12255-0, 76712-3, 70082-0, 42436-6, 5643-2, CBCA #### [facility] ([id number]) [address] [place] [address] LEUKOCYTE ESTERASE EMMANUEL Negative Normal NEG [facility] Comment on above: Performed By: #### H A1C #### [facility] ([id number]) [address] [facility], [address] [place] [address] #### CMP, 06915-7, 35271-3, 80697-8, 93811-9, 5643-2, CBCA #### [facility] ([id number]) [address] [place] [address] NITRITE EMMANUEL Negative Normal NEG [facility] Comment on above: Performed By: #### H A1C #### [facility] ([id number]) [address] [facility], [address] [place] [address] #### CMP, 90399-9, 05675-6, 75410-8, 35742-1, 5643-2, CBCA #### [facility] ([id number]) [address] [place] [address] PH EMMANUEL 6.5 Normal 5.0-8.5 [facility] Comment on above: Performed By: #### H A1C #### [facility] ([id number]) [address] [place] [address], [address] [place] [address] #### CMP, 40461-4, 38391-0, 98013-4, 27347-1, 5643-2, CBCA #### [facility] ([id number]) [address] [place] [address] PROTEIN EMMANUEL Negative Normal NEG [facility] Comment on above: Performed By: #### H A1C #### [facility] ([id number]) [address] [place] [address], [address] [place] [address] #### CMP, 99878-9, 27520-6, 11593-7, 42162-9, 5643-2, CBCA #### [facility] ([id number]) [address] [place] [address] SPECIFIC GRAVITY EMMANUEL 1.010 Normal 1.003-1 .03 5 [facility] Comment on above: Performed By: #### H A1C #### [facility] ([id number]) [address] [place] [address], [address] [place] [address] #### CMP, 18343-7, 96759-8, 54871-3, 31148-0, 5643-2, CBCA #### [facility] ([id number]) [address] [place] [address] UROBILINOGEN EMMANUEL 0.2 eu/dL Normal <1.1 [facility] Comment on above: Performed By: #### H A1C #### [facility] ([id number]) [address] [facility], [address] [place] [address] #### CMP, 04850-5, 23588-2, 22465-3, 73564-8, 5643-2, CBCA #### [facility] ([id number]) [address] [place] [address] XR CHEST 1 VWon 03-06-2024 XR CHEST 1 VW XR CHEST 1 VW HISTORY: Shortness of breath COMPARISON: Chest x-ray 03/02/2021 FINDINGS: Portable AP upright view of the chest was performed. Cardiac silhouette is within normal limits. Lungs demonstrate no focal airspace consolidation or significant vascular congestion. No pleural fluid collection or pneumothorax. Healed right rib fractures. IMPRESSION: * No acute abnormality. 227 Finalized by Gume Jiang MD on 03/06/2024 12:56 AM Normal [facility] XR Chest Single viewon 03-06 HISTORY: Shortness of breath COMPARISON: Chest x-ray 03/02/2021 FINDINGS: Portable AP upright view of the chest was performed. Cardiac silhouette is within normal limits. Lungs demonstrate no focal airspace consolidation or significant vascular congestion. No pleural fluid collection or pneumothorax. Healed right rib fractures. IMPRESSION: * No acute abnormality. 227 Finalized by Gume Jiang MD on 03/06/2024 12:56 AM [facility] Gume Jiang MD - 03/06/2024 HISTORY: Shortness of breath COMPARISON: Chest x-ray 03/02/2021 FINDINGS: Portable AP upright view of the chest was performed. Cardiac silhouette is within normal limits. Lungs demonstrate no focal airspace consolidation or significant vascular congestion. No pleural fluid collection or pneumothorax. Healed right rib fractures. IMPRESSION: * No acute abnormality. 227 Finalized by Gume Jiang MD on 03/06/2024 12:[address] [facility] Radiology Study observation (narrative) [facility] XR Chest Single viewOrdered By: Gume Jiang on 03-06-2024 [facility] Work Phone: SURESWAB(R) ADVANCED VAGINIT IS PLUS, TMAon 12-31-2023 C. glabrata RNA MAXINE+probe Ql (Vag fld) Not detected NOT DETECTED [facility] Comment on above: Joyce species C. albicans, C. tropicalis, C. parapsilosis, and/or C. dubliniensis can be detected, but not differentiated, in the Joyce spp. result. C. trachomatis rRNA MAXINE+probe Ql (Unsp spec) Not detected NOT DETECTED [facility] Joyce sp rRNA Probe Ql (Vag fld) Detected Abnormal NOT DETECTED [facility] Interpretation and review of laboratory results Abnormal [facility] Lactobacillus crispatus+gasseri+jensenii + Gardnerella vaginalis + Atopobium vaginae rRNA MAXINE+probe Ql (Vag fld) Positive Abnormal NEGATIVE [facility] N. gonorrhoeae rRNA MAXINE+probe Ql (Unsp spec) Not detected NOT DETECTED [facility] Comment on above: For additional infor mation, please refer to [email or web address] (This link is being provided for information/ educational purposes only.) T. vaginalis rRNA MAXINE+probe Ql (Unsp spec) Not detected NOT DETECTED [facility] Organization Information Site ID: QPT Name: [employer] [facility] Address: [address] [place] [address], [address] [place] [id number] Director: Jude [facility] LUNG SCREENING LOW DOSEon 09-16-2023 CT LUNG SCREENING LOW DOSE This is a sum maribel report. The complete report is available in the patient's medical record. If you cannot access the medical record, please contact the sending organization for a detailed fax or copy. PROCEDURE: Without IV contrast axial helical 1.25 mm slice thickness low dose images of the chest performed for lung cancer screening. ? FINDINGS: Severe centrilobular emphysema with extensive bullous formation, greatest involvement right upper lobe/apex. No suspicious lung nodule or mass. No significant parenchymal consolidation. Low volume non-specific mediastinal lymph nodes, largest aggregate AP window, 1.1 x 2.2 cm. No pleural or pericardial effusion. Mild pericardial thickening. Multiple united and non-united right anterolateral, posterolateral rib fractures. Unremarkable upper abdominal images. IMPRESSION: ? Benign findings, severe centrilobular emphysema and bullous formation ? LUNG- RADS: CATEGORIES Category 0: Incomplete: Additional imaging Categories 1 &2: Negative/Benign: Continue annual screening Category 3: Probable benign: 6 months LDCT Category 3s: Clinically significant or potentially clinically significant findings Category 4A/B Suspicious: 4A: 3 month LDCT; PET/CT when >8 mm solid nodule component exists 4B: Chest CT w/wo contrast; PET/CT and/or biopsy ? TRANSCRIBED BY: ELECTRONICALLY SIGNED BY: Constantino Watters MD Normal Not Available Glucose Glucometer (BldC) [M ass/Vol]on 06-07-2023 Glucose [Mass/Vol] 92 mg/dL Normal 65-99 [facility] CHANEL Antinuclear Antibodieson 01-16-2023 Antinuclear Abs, IFA Positive Critically abnormal . [facility] Comment on above: Result Comment: Nega tive <1:80 Borderline 1:80 Positive >1:80 Performed By: #### A NA, CH50, C3, C4 #### [facility] , #### CREAT, ESR, CBC, CRP, ADDONUAPLUS, CK, CUU, PTH #### [facility] [address] Homogeneous Pattern 1:640 High . [facility] Comment on above: Result Comment: ICAP nomenclature: [id number] Performed By: #### A NA, CH50, C3, C4 #### [facility] , #### CREAT, ESR, CBC, CRP, ADDONUAPLUS, CK, CUU, PTH #### [facility] [address] Note 1 Normal . [facility] Comment on above: Result Comment: For more information about Hep-2 cell patterns use ANApatterns.org, the official website for the International Consensus on Antinuclear Antibody (CHANEL) Patterns (ICAP). --- A positive CHANEL result may occur in healthy individuals (low titer) or be associated with a variety of diseases. See interpretation chart which is not all inclusive: Pattern Antigen Detected Suggested Disease Association Homogeneous DNA(ds,ss), SLE - High titers Nucleosomes, Histones Drug-induced SLE Speckled Sm, [employer], SCL-70, SLE,MCTD,PSS (diffuse form), SS-A/SS-B Sjogrens Nucleolar SCL-70, PM-1/SCL High titers Scleroderma, PM/DM Centromere Centromere PSS (limited form) w/Crest syndrome variable Nuclear Dot [id number] Primary Biliary Cirrhosis Nuclear GP210, Primary Biliary Cirrhosis Membrane eitan A,B,C Performed at: [facility] [place] [id number] Media Liaison Officer: John Rainey PhD, Phone: [phone] Performed By: #### A NA, CH50, C3, C4 #### [facility] , #### CREAT, ESR, CBC, CRP, ADDONUAPLUS, CK, CUU, PTH #### [facility] [address] [place] [address] C-Reactive Proteinon 023 CRP [Mass/Vol] mg/L Normal 0.0-0.5 [facility] Comment on above: Result Comment: PERF ORMED BY: [place] [address] PATHOLOGIST [employer] ATTORNEY DARY CLEMENTE M.D. Performed By: #### A NA, CH50, C3, C4 #### [facility] , #### CREAT, ESR, CBC, CRP, ADDONUAPLUS, CK, CUU, PTH #### [facility] [address] [place] [address] Complement C3on 01-16-2023 Complement C3 107 mg/dL Normal 82-167 [facility] Comment on above: Result Comment: Perf ormed at: [address] [id number] Media Liaison Officer: John Rainey PhD, Phone: [phone] Performed By: #### A NA, CH50, C3, C4 #### [facility] , #### CREAT, ESR, CBC, CRP, ADDONUAPLUS, CK, CUU, PTH #### [address] Complement C4on 01-16-2023 Complement C4 21 mg/dL Normal 12-38 [facility] Comment on above: Result Comment: PERF ORMED BY: [place] [address] PATHOLOGIST [employer] ATTORNEY DARY CLEMENTE M.D. Performed By: #### A NA, CH50, C3, C4 #### [facility] , #### CREAT, ESR, CBC, CRP, ADDONUAPLUS, CK, CUU, PTH #### [address] Complement Total (CH50)on Complement Total (CH50) >60 Normal >41 F [facility] Comment on above: Result Comment: Age Male Female 1 - 30 days Not Estab. Not Estab. 31 days - 6 months >32 >20 7 months - 17 years >39 >39 >17 years >41 >41 NOTE: The adult ( >17 years ) reference interval range is used to flag abnormals on this report. If the patient is 17 years old or younger, use the table above to determine out of range values. Performed at: - [facility] [id number] Media Liaison Officer: Jonh Rainey PhD, Phone: [phone] PERFORMED BY: [place] [address] PATHOLOGIST [employer] ATTORNEY DARY CLEMENTE M.D. Performed By: #### A NA, CH50, C3, C4 #### [facility] , #### CREAT, ESR, CBC, CRP, ADDONUAPLUS, CK, CUU, PTH #### [address] Complete Blood Count Auto Di ffon 01-16-2023 Basophils (Bld) [#/Vol] 0.1 10*3/uL Normal 0.0-0.2 [facility] Comment on above: Performed By: #### A NA, CH50, C3, C4 #### [facility] , #### CREAT, ESR, CBC, CRP, ADDONUAPLUS, CK, CUU, PTH #### [facility] [address] [place] [address] [place] Basophils/100 WBC (Bld) 0.8 % Normal . F [facility] Comment on above: Performed By: #### A NA, CH50, C3, C4 #### [facility] , #### CREAT, ESR, CBC, CRP, ADDONUAPLUS, CK, CUU, PTH #### [address] Eosinophils (Bld) [#/Vol] 0.6 10*3/uL High 0.0-0.45 [facility] Comment on above: Performed By: #### A NA, CH50, C3, C4 #### [facility] , #### CREAT, ESR, CBC, CRP, ADDONUAPLUS, CK, CUU, PTH #### [place] [address] [place] Eosinophils/100 WBC (Bld) 6.9 % Normal . [facility] Comment on above: Performed By: #### A NA, CH50, C3, C4 #### [facility] , #### CREAT, ESR, CBC, CRP, ADDONUAPLUS, CK, CUU, PTH #### [facility] [address] [place] [address] [place] Erythrocyte distribution width (RBC) [Ratio] 14.5 % Normal 11.9-15.3 [facility] Comment on above: Performed By: #### A NA, CH50, C3, C4 #### [facility] , #### CREAT, ESR, CBC, CRP, ADDONUAPLUS, CK, CUU, PTH #### [address] Hematocrit (Bld) [Volume fraction] 39.9 % Normal 34.0-46.4 [facility] Comment on above: Performed By: #### A NA, CH50, C3, C4 #### [facility] , #### CREAT, ESR, CBC, CRP, ADDONUAPLUS, CK, CUU, PTH #### [address] Hemoglobin (Bld) [Mass/Vol] 13.0 g/dL Normal 11.8-15. 4 [facility] Comment on above: Performed By: #### A NA, CH50, C3, C4 #### [facility] , #### CREAT, ESR, CBC, CRP, ADDONUAPLUS, CK, CUU, PTH #### [address] Lymphocytes (Bld) [#/Vol] 2.1 10*3/uL Normal 1.00-4.8 [facility] Comment on above: Performed By: #### A NA, CH50, C3, C4 #### [facility] , #### CREAT, ESR, CBC, CRP, ADDONUAPLUS, CK, CUU, PTH #### [address] Lymphocytes/100 WBC (Bld) 23.6 % Normal . [facility] Comment on above: Performed By: #### A NA, CH50, C3, C4 #### [facility] , #### CREAT, ESR, CBC, CRP, ADDONUAPLUS, CK, CUU, PTH #### [address] MCH (RBC) [Entitic mass] 30.7 pg Normal 24.7-34.3 [facility] Comment on above: Performed By: #### A NA, CH50, C3, C4 #### [facility] , #### CREAT, ESR, CBC, CRP, ADDONUAPLUS, CK, CUU, PTH #### [address] MCV (RBC) [Entitic vol] 94.4 fL Normal 80-100 F [facility] Comment on above: Performed By: #### A NA, CH50, C3, C4 #### [facility] , #### CREAT, ESR, CBC, CRP, ADDONUAPLUS, CK, CUU, PTH #### [address] Mean Corpuscular HGB Conc 32.5 g/dL Normal 32.0-35.0 [facility] Comment on above: Performed By: #### A NA, CH50, C3, C4 #### [facility] , #### CREAT, ESR, CBC, CRP, ADDONUAPLUS, CK, CUU, PTH #### [address] Monocytes (Bld) [#/Vol] 0.2 10*3/uL Normal 0.0-0.8 [facility] Comment on above: Performed By: #### A NA, CH50, C3, C4 #### [facility] , #### CREAT, ESR, CBC, CRP, ADDONUAPLUS, CK, CUU, PTH #### [address] Monocytes/100 WBC (Bld) 2.6 % Normal . [facility] Comment on above: Performed By: #### A NA, CH50, C3, C4 #### [facility] , #### CREAT, ESR, CBC, CRP, ADDONUAPLUS, CK, CUU, PTH #### [address] Neutrophils (Bld) [#/Vol] 5.8 10*3/uL Normal 1.8-7.7 [facility] Comment on above: Performed By: #### A NA, CH50, C3, C4 #### [facility] , #### CREAT, ESR, CBC, CRP, ADDONUAPLUS, CK, CUU, PTH #### [address] Neutrophils/100 WBC (Bld) 66.1 % Normal . [facility] Comment on above: Performed By: #### A NA, CH50, C3, C4 #### [facility] , #### CREAT, ESR, CBC, CRP, ADDONUAPLUS, CK, CUU, PTH #### [address] NRBC% 0.1 /100{WBC} Normal 0-0.5 [facility] Comment on above: Performed By: #### A NA, CH50, C3, C4 #### [facility] , #### CREAT, ESR, CBC, CRP, ADDONUAPLUS, CK, CUU, PTH #### [address] Platelet mean volume (Bld) [Entitic vol] 6.9 fL Normal 6.3-10.7 [facility] Comment on above: Performed By: #### A NA, CH50, C3, C4 #### [facility] , #### CREAT, ESR, CBC, CRP, ADDONUAPLUS, CK, CUU, PTH #### [place] [address] [place] Platelets (Bld) [#/Vol] 324 10*3/uL Normal 150-450 [facility] Comment on above: Performed By: #### A NA, CH50, C3, C4 #### [facility] , #### CREAT, ESR, CBC, CRP, ADDONUAPLUS, CK, CUU, PTH #### [place] [address] [place] RBC (Bld) [#/Vol] 4.23 10*6/uL Normal 3.60-5.00 [facility] Comment on above: Performed By: #### A NA, CH50, C3, C4 #### [facility] , #### CREAT, ESR, CBC, CRP, ADDONUAPLUS, CK, CUU, PTH #### [address] WBC (Bld) [#/Vol] 8.8 10*3/uL Normal 3.8-11.6 [facility] Comment on above: Performed By: #### A NA, CH50, C3, C4 #### [facility] , #### CREAT, ESR, CBC, CRP, ADDONUAPLUS, CK, CUU, PTH #### [address] Creatine Kinaseon 01-16-2023 CK [Catalytic activity/Vol] 42 U/L Normal 30-223 [facility] Comment on above: Result Comment: PERF ORMED BY: [place] [address] PATHOLOGIST [employer] ATTORNEY DARY CLEMENTE M.D. Performed By: #### A NA, CH50, C3, C4 #### [facility] , #### CREAT, ESR, CBC, CRP, ADDONUAPLUS, CK, CUU, PTH #### [address] Creatinineon 01-16-2023 Creatinine [Mass/Vol] 0.99 mg/dL Normal 0.60-1.20 [facility] Comment on above: Performed By: #### A NA, CH50, C3, C4 #### [facility] , #### CREAT, ESR, CBC, CRP, ADDONUAPLUS, CK, CUU, PTH #### [address] GFR/1.73 sq M.predicted MDRD (S/P/Bld) [Vol rate/Area] mL/min/{1.73_m2} Normal [facility] Comment on above: Performed By: #### A NA, CH50, C3, C4 #### [facility] , #### CREAT, ESR, CBC, CRP, ADDONUAPLUS, CK, CUU, PTH #### [facility] [address] [place] [address] [place] Dipstick and Microscopicon 0 01-16-2023 Appearance (U) Cloudy Critically abnormal Clear [facility] Comment on above: Order Comment: Name Collection Type:: Clean-Voided Midstream Performed By: #### A NA, CH50, C3, C4 #### [facility] , #### CREAT, ESR, CBC, CRP, ADDONUAPLUS, CK, CUU, PTH #### [facility] [address] [place] [address] [place] Bacteria,Urine 4+ High None Seen [facility] Comment on above: Order Comment: Name Collection Type:: Clean-Voided Midstream Performed By: #### A NA, CH50, C3, C4 #### [facility] , #### CREAT, ESR, CBC, CRP, ADDONUAPLUS, CK, CUU, PTH #### [facility] [address] [place] [address] [place] Bilirubin,Urine Negative Normal Negative [facility] Comment on above: Order Comment: Name Collection Type:: Clean-Voided Midstream Performed By: #### A NA, CH50, C3, C4 #### [facility] , #### CREAT, ESR, CBC, CRP, ADDONUAPLUS, CK, CUU, PTH #### [facility] [address] [place] [address] [place] Calcium Oxalate Crystals,Urine 2+ Normal [facility] Comment on above: Order Comment: Name Collection Type:: Clean-Voided Midstream Performed By: #### A NA, CH50, C3, C4 #### [facility] , #### CREAT, ESR, CBC, CRP, ADDONUAPLUS, CK, CUU, PTH #### [address] Color (U) Dark Yellow Critically abnormal Yellow [facility] Comment on above: Order Comment: Name Collection Type:: Clean-Voided Midstream Performed By: #### A NA, CH50, C3, C4 #### [facility] , #### CREAT, ESR, CBC, CRP, ADDONUAPLUS, CK, CUU, PTH #### [address] Glucose Ql (U) Normal Normal Normal [facility] Comment on above: Order Comment: Name Collection Type:: Clean-Voided Midstream Performed By: #### A NA, CH50, C3, C4 #### [facility] , #### CREAT, ESR, CBC, CRP, ADDONUAPLUS, CK, CUU, PTH #### [address] Hyaline Casts,Urine None Seen Normal 0-8 [facility] Comment on above: Order Comment: Name Collection Type:: Clean-Voided Midstream Performed By: #### A NA, CH50, C3, C4 #### [facility] , #### CREAT, ESR, CBC, CRP, ADDONUAPLUS, CK, CUU, PTH #### [address] Ketones Ql (U) Trace High Negative [facility] Comment on above: Order Comment: Name Collection Type:: Clean-Voided Midstream Performed By: #### A NA, CH50, C3, C4 #### [facility] , #### CREAT, ESR, CBC, CRP, ADDONUAPLUS, CK, CUU, PTH #### [address] Leukocyte esterase Test strip Ql (U) 3+ High Negative [facility] Comment on above: Order Comment: Name Collection Type:: Clean-Voided Midstream Performed By: #### A NA, CH50, C3, C4 #### [facility] , #### CREAT, ESR, CBC, CRP, ADDONUAPLUS, CK, CUU, PTH #### [address] Nitrite,Urine Positive High Negative [facility] Comment on above: Order Comment: Name Collection Type:: Clean-Voided Midstream Performed By: #### A NA, CH50, C3, C4 #### [facility] , #### CREAT, ESR, CBC, CRP, ADDONUAPLUS, CK, CUU, PTH #### [address] Occult Blood,Urine Negative Normal Negative [facility] Comment on above: Order Comment: Name Collection Type:: Clean-Voided Midstream Performed By: #### A NA, CH50, C3, C4 #### [facility] , #### CREAT, ESR, CBC, CRP, ADDONUAPLUS, CK, CUU, PTH #### [address] Other Casts,Urine None Seen Normal None Seen [facility] Comment on above: Order Comment: Name Collection Type:: Clean-Voided Midstream Result Comment: PERF ORMED BY: [place] [address] PATHOLOGIST [employer] ATTORNEY DARY CLEMENTE M.D. Performed By: #### A NA, CH50, C3, C4 #### [facility] , #### CREAT, ESR, CBC, CRP, ADDONUAPLUS, CK, CUU, PTH #### [address] pH (U) 5.5 [pH] Normal 5.0-9.0 [facility] Comment on above: Order Comment: Name Collection Type:: Clean-Voided Midstream Performed By: #### A NA, CH50, C3, C4 #### [facility] , #### CREAT, ESR, CBC, CRP, ADDONUAPLUS, CK, CUU, PTH #### [facility] [address] [place] [address] Protein (U) [Mass/Vol] 30 mg/dL High Negative [facility] Comment on above: Order Comment: Name Collection Type:: Clean-Voided Midstream Performed By: #### A NA, CH50, C3, C4 #### [facility] , #### CREAT, ESR, CBC, CRP, ADDONUAPLUS, CK, CUU, PTH #### [address] RBC,Urine 1-2 Normal 0-4 [facility] Comment on above: Order Comment: Name Collection Type:: Clean-Voided Midstream Performed By: #### A NA, CH50, C3, C4 #### [facility] , #### CREAT, ESR, CBC, CRP, ADDONUAPLUS, CK, CUU, PTH #### [address] Specificy Gazelle,Urine 1.032 High 1.00 1-1.03 0 [facility] Comment on above: Order Comment: Name Collection Type:: Clean-Voided Midstream Performed By: #### A NA, CH50, C3, C4 #### [facility] , #### CREAT, ESR, CBC, CRP, ADDONUAPLUS, CK, CUU, PTH #### [address] Squamous Epithelial Cell,Urine None Seen Normal 0-2 [facility] Comment on above: Order Comment: Name Collection Type:: Clean-Voided Midstream Performed By: #### A NA, CH50, C3, C4 #### [facility] , #### CREAT, ESR, CBC, CRP, ADDONUAPLUS, CK, CUU, PTH #### [facility] [address] Urobilinogen,Urine Normal Normal Normal [facility] Comment on above: Order Comment: Name Collection Type:: Clean-Voided Midstream Performed By: #### A NA, CH50, C3, C4 #### [facility] , #### CREAT, ESR, CBC, CRP, ADDONUAPLUS, CK, CUU, PTH #### [address] WBC,Urine Innumerable High 0-4 [facility] Comment on above: Order Comment: Name Collection Type:: Clean-Voided Midstream Performed By: #### A NA, CH50, C3, C4 #### [facility] , #### CREAT, ESR, CBC, CRP, ADDONUAPLUS, CK, CUU, PTH #### [address] Erythrocyte Sedimentation Ra alberto 01-16-2023 ESR (Bld) [Velocity] 18 mm/h Normal 0-29 [facility] Comment on above: Result Comment: PERF ORMED BY: [place] [address] PATHOLOGIST [employer] ATTORNEY DARY CLEMENTE M.D. Performed By: #### A NA, CH50, C3, C4 #### [facility] , #### CREAT, ESR, CBC, CRP, ADDONUAPLUS, CK, CUU, PTH #### [address] Parathyroid Hormone Intacton 01-16-2023 Parathyroid Hormone Intact 19.5 pg/mL Normal 12-88 [facility] Comment on above: Result Comment: PERF ORMED BY: [place] [address] PATHOLOGIST [employer] ATTORNEY DARY CLEMENTE M.D. Performed By: #### A NA, CH50, C3, C4 #### [facility] , #### CREAT, ESR, CBC, CRP, ADDONUAPLUS, CK, CUU, PTH #### [facility] [address] Urine Cultureon 01-16-2023 Bacteria identified Cx Nom (U) ORGANISM: Klebsiella pneumoniae (O:KLEPNE) [place] Count >100,000 Aerobic MARISA Charge ([id number]) -------- SUSCEPTIBILITY ------- ORGANISM: O:KLEPNE ANTIBIOTIC INTERPRETATION MARISA Amikacin S <16 Amoxacillin/K Clavulanate S <8 Ampicillin/Sulbac cano S <4 Aztreonam S <4 Cefazolin S <2 Cefepime S <2 Ceftazidime S <1 Ceftazidime/Aviba ctam S <4 Ceftolozane/Tazob actam S <2 Ceftriaxone S <1 Cefuroxime S <4 Ciprofloxacin S <0.25 Ertapenem S <0.5 Gentamicin S <2 Levofloxacin S <0.5 Meropenem S <1 Meropenem/Vaborba ctam S <2 Nitrofurantoin I 64 Piperacillin/Tazo bactam S <8 Tetracycline S <4 Tigecycline S <2 Tobramycin S <2 Trimethoprim/Sulf amethoxazole S <0.5 S = SUSCEPTIBLE I = INTERMEDIATE R = RESISTANT BLANK = DATA NOT AVAILABLE, OR DRUG NOT ADVISABLE OR TESTED R* = RESISTANCE DUE TO EXTENDED SPECTRUM BETA-LACTAMASES ESBL = EXTENDED SPECTRUM BETA-LACTAMASE TFG = THYMIDINE-DEPENDE NT STRAIN SABINE = BETA-LACTAMASE POSITIVE IB = INDUCIBLE BETA-LACTAMASE. APPEARS IN PLACE OF 'S' WITH SPECIES KNOWN TO POSSESS INDUCIBLE BETA-LACTAMASES. POTENTIALLY THEY MAY BECOME RESISTANT TO ALL B-LACTAM DRUGS. PERFORMED BY: [facility] [address] [place] [address] PATHOLOGIST [employer] ATTORNEY DARY CLEMENTE M.D. Normal [facility] Comment on above: Performed By: #### A NA, CH50, C3, C4 #### [facility] , #### CREAT, ESR, CBC, CRP, ADDONUAPLUS, CK, CUU, PTH #### [facility] [address] Free T4on 10-04-2021 Free T4 [Mass/Vol] 1.4 ng/dL Normal 0.8-1.8 Suki j[facility]on [place] [employer] Comment on above: Order Comment: [facility] performed at: [employer] [facility], [address] [place] [address], [address] [place] [address], [address] [place] [address], Data Warehouse Specialist: Jude Zimmer MD [facility] Date/Time: [facility] Results Received Date/Time: [facility] Reported Date/Time: Performed By: #### 3 6127, FT4 #### [facility] [address] [place] [address] Q - TSH WITH REFLEX TO FREE T4on 10-04-2021 TSH W/REFLEX TO FT4 0.02 mIU/L Low 0.40-4.50 Graham weber [place] [employer] Comment on above: Order Comment: [facility] performed at: [employer] [facility], [address] [facility], [address] [place] [address], [address] [place] [address], Data Warehouse Specialist: Jude Zimmer MD [facility] Date/Time: [facility] Results Received Date/Time: [facility] Reported Date/Time: Performed By: #### 3 6127, FT4 #### [facility] [address] [place] [id number] Free T4on 09-01-2021 Free T4 [Mass/Vol] 2.2 ng/dL High 0.8-1.8 Suki jameson [place] [employer] Comment on above: Order Comment: [facility] performed at: [employer] [facility], [address] [place] [address], [address] [place] [address], [address] [place] [address], Data Warehouse Specialist: Jude Zimmer MD [facility] Date/Time: [id number] [facility] Results Received Date/Time: [facility] Reported Date/Time: Performed By: #### 3 6127, FT4 #### [facility] [address] [place] [address] Q - TSH WITH REFLEX TO FREE T4on 09-01-2021 TSH W/REFLEX TO FT4 0.01 mIU/L Low 0.40-4.50 [facility] Hosiery Repairer Comment on above: Order Comment: [facility] performed at: [facility], [address], [address] [facility], [place], [address], Data Warehouse Specialist: Jude Zimmer MD [facility] Date/Time: [id number] [facility] Results Received Date/Time: [facility] Reported Date/Time: Performed By: #### 3 6127, FT4 #### [facility] [address] [place] [address] SCREENING MAMMOGRAM W/KB, BILATERAL*on 08-15-2021 SCREENING MAMMOGRAM W/KB, BILATERAL* COMPARISON: Dating back to July 11, 2016 TECHNIQUE: 2D and 3D Tomosynthesis of the right and left breasts was performed. FINDINGS: Breast composition demonstrates scattered fibroglandular densities. Stable. No suspicious microcalcificatio ns, asymmetry, architectural distortion or associated features are present. IMPRESSION: BI RADS 1 : NEGATIVE MAMMOGRAM Board Certified Radiologist. Accredited by the ACR and FDA. MAMMOGRAPHY IS VERY IMPORTANT TO YOUR HEALTH. THE CURRENT [place] [employer] AND [employer] GUIDELINES RECOMMENDS ANNUAL MAMMOGRAPHY BEGINNING AT AGE 40. THIS FACILITY USES A REMINDER SYSTEM TO ENSURE ALL PATIENTS RECEIVE REMINDER NOTIFICATIONS AT THE APPROPRIATE TIME BASED ON THE RECOMMENDATIONS OF THIS EXAM. Report reported and signed by Constantino Watters on 08/15/2021 1528 Normal [facility] [employer] CLAVICLE RIGHTon 07-17-2021 CLAVICLE RIGHT [facility] Department of Radiology [address] [place] [address] ====== Patient Name: CHANDNI BARON: 1965 Sex: F Age: Race: White Pt. 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 COMPARISON: None FINDINGS: Mild osteopenia. Significant displaced fragment of the mid shaft of the right clavicle. There is heterotopic bone noted in the fracture. And around the margins of the fracture fragments. There is significant approximately 2.5 cm distraction between the major fragments. Minimal callus formation. No rib fractures. IMPRESSION: Markedly displaced fracture of the right mid clavicle with heterotopic bone developing within the soft tissue post fracture bed. Electronically signed: Eddie Figueroa. Transcribed by: [email or web address], User Resident: Electronically Signed by: EDDIE FIGUEROA @ 07/17/2021 11:29 AM Normal [facility] Comment on above: Order Comment: Evalu ate Complete Blood Count with Au to Diffon 06-21-2021 Basophils (Bld) [#/Vol] 0.09 10*3/uL Normal 0.00-0.20 [facility] Hosiery Repairer Comment on above: Performed By: #### T SH, LIPD, MG, CBCAD, CMP #### [facility] [address] [place], [place] [id number] Basophils/100 WBC (Bld) 1.4 % Normal N [facility] Comment on above: Performed By: #### T SH, LIPD, MG, CBCAD, CMP #### [facility] [address] [place], [place] [id number] Eosinophils (Bld) [#/Vol] 0.26 10*3/uL Normal 0.02-0.5 0 [facility] Comment on above: Performed By: #### T SH, LIPD, MG, CBCAD, CMP #### [facility] [address] [place], [place] [id number] Eosinophils/100 WBC (Bld) 4.0 % Normal [facility] Comment on above: Performed By: #### T SH, LIPD, MG, CBCAD, CMP #### [facility] [address] [place], [place] [id number] Erythrocyte distribution width (RBC) [Ratio] 19.2 % High 11.0-15.0 [facility] Comment on above: Performed By: #### T SH, LIPD, MG, CBCAD, CMP #### [facility] [address] [place], [place] [id number] Hematocrit (Bld) [Volume fraction] 35.5 % Normal 35.0-47.0 [facility] Specialist Comment on above: Performed By: #### T SH, LIPD, MG, CBCAD, CMP #### [facility] [address] [place], [place] [id number] Hemoglobin (Bld) [Mass/Vol] 10.4 g/dL Low 11.6-15. 5 [facility] Specialist Comment on above: Performed By: #### T SH, LIPD, MG, CBCAD, CMP #### [facility] [address] [place], [place] [id number] Lymphocytes (Bld) [#/Vol] 1.7 10*3/uL Normal 0.9-3.9 [facility] Comment on above: Performed By: #### T SH, LIPD, MG, CBCAD, CMP #### [facility] [address] [place], [place] [id number] Lymphocytes/100 WBC (Bld) 25.6 % Normal [facility] Specialist Comment on above: Performed By: #### T SH, LIPD, MG, CBCAD, CMP #### [facility] [address] [place], [place] [id number] MCH (RBC) [Entitic mass] 23.1 pg Low 27.0-33.0 [facility] Specialist Comment on above: Performed By: #### T SH, LIPD, MG, CBCAD, CMP #### [facility] [address] [place], [place] [id number] MCHC (RBC) [Mass/Vol] 29.3 g/dL Low 32.0-36.0 [facility] Comment on above: Performed By: #### T SH, LIPD, MG, CBCAD, CMP #### [facility] [address] [place], [place] [id number] MCV (RBC) [Entitic vol] 79 fL Low 80-100 [facility] Specialist Comment on above: Performed By: #### T SH, LIPD, MG, CBCAD, CMP #### [facility] [address] [place], [place] [id number] Monocytes (Bld) [#/Vol] 0.5 10*3/uL Normal 0.2-0.9 [facility] Specialist Comment on above: Performed By: #### T SH, LIPD, MG, CBCAD, CMP #### [facility] [address] [place], [place] [id number] Monocytes/100 WBC (Bld) 8.1 % Normal [facility] Comment on above: Performed By: #### T SH, LIPD, MG, CBCAD, CMP #### [facility] [address] [place], [place] [id number] Neutrophils (Bld) [#/Vol] 4.0 10*3/uL Normal 1.5-7.8 [facility] Specialist Comment on above: Performed By: #### T SH, LIPD, MG, CBCAD, CMP #### [facility] [address] [place], [place] [id number] Neutrophils/100 WBC (Bld) 60.6 % Normal [place] Hosiery Repairer Comment on above: Performed By: #### T SH, LIPD, MG, CBCAD, CMP #### [facility] [address] [place], [place] [id number] Platelet mean volume (Bld) [Entitic vol] 9.70 fL Normal 7.50-12.50 [facility] Specialist Comment on above: Performed By: #### T SH, LIPD, MG, CBCAD, CMP #### [facility] [address] [place], [place] [id number] Platelets (Bld) [#/Vol] 427 10*3/uL High 140-400 [facility] Specialist Comment on above: Performed By: #### T SH, LIPD, MG, CBCAD, CMP #### [facility] [address] [place], [place] [id number] RBC (Bld) [#/Vol] 4.51 10*6/uL Normal 3.90-5.20 [facility] Hosiery Repairer Comment on above: Performed By: #### T SH, LIPD, MG, CBCAD, CMP #### [facility] [address] [place], [place] [id number] RDW-SD 54.2 fL High 37.0-50.0 [facility] Specialist Comment on above: Performed By: #### T SH, LIPD, MG, CBCAD, CMP #### [facility] [address] [place], [place] [id number] WBC (Bld) [#/Vol] 6.6 10*3/uL Normal 3.8-11.0 [facility] Hosiery Repairer Comment on above: Performed By: #### T SH, LIPD, MG, CBCAD, CMP #### [facility] [address] [place], [place] [id number] Comprehensive Metabolic Pane noe 06-21-2021 Albumin [Mass/Vol] 4.4 g/dL Normal 3.6-5.1 [facility] Hosiery Repairer Comment on above: Performed By: #### T SH, LIPD, MG, CBCAD, CMP #### [facility] [address] [place], [place] [id number] Albumin/Globulin [Mass ratio] 1.9 {ratio} Normal 1.0-2.5 [facility] Comment on above: Performed By: #### T SH, LIPD, MG, CBCAD, CMP #### [facility] [address] [facility] [place] [place] [id number] ALP [Catalytic activity/Vol] 131 U/L High 35-119 [facility] Comment on above: Performed By: #### T SH, LIPD, MG, CBCAD, CMP #### [facility] [address] [facility] [place] [place] [id number] ALT [Catalytic activity/Vol] 14 U/L Normal 6-33 [facility] Comment on above: Result Comment: 04/05 Female reference range changed. Performed By: #### T SH, LIPD, MG, CBCAD, CMP #### [facility] [address] [place], [place] [id number] Anion gap [Moles/Vol] 20 mmol/L Normal 12-20 [facility] Comment on above: Result Comment: Effe ctive 05/11/2019 reference range changed. Performed By: #### T SH, LIPD, MG, CBCAD, CMP #### [facility] [address] [facility] [place] [id number] AST [Catalytic activity/Vol] 16 U/L Normal 9-34 [facility] Comment on above: Performed By: #### T SH, LIPD, MG, CBCAD, CMP #### [facility] [address] [place], [place] [id number] BUN/CREA 16 Ratio Normal 6-22 [facility] Comment on above: Performed By: #### T SH, LIPD, MG, CBCAD, CMP #### [facility] [address] [facility] [place] [id number] Calcium [Mass/Vol] 9.9 mg/dL Normal 8.6-10.2 [facility] Comment on above: Performed By: #### T SH, LIPD, MG, CBCAD, CMP #### [facility] [address] [place] [id number] Chloride [Moles/Vol] 101 mmol/L Normal 98-107 [facility] Comment on above: Performed By: #### T SH, LIPD, MG, CBCAD, CMP #### [facility] [address] [place], [place] [id number] CO2 [Moles/Vol] 25 mmol/L Normal 20-31 [facility] Comment on above: Performed By: #### T SH, LIPD, MG, CBCAD, CMP #### [facility] [address] [place], [place] [id number] Creatinine [Mass/Vol] 0.8 mg/dL Normal 0.6-1.4 [facility] Comment on above: Performed By: #### T SH, LIPD, MG, CBCAD, CMP #### [facility] [address] [place], [place] [id number] eGFRAA 97 mL/min/1.73m2 Normal >60 [facility] Comment on above: Performed By: #### T SH, LIPD, MG, CBCAD, CMP #### [facility] [address] [place], [place] [id number] eGFRNAA 80 mL/min/1.73m2 Normal >60 [facility] Comment on above: Performed By: #### T SH, LIPD, MG, CBCAD, CMP #### [facility] [address] [place], [place] [id number] Globulin (S) [Mass/Vol] 2.3 g/dL Normal 1.9-3.7 [facility] Comment on above: Performed By: #### T SH, LIPD, MG, CBCAD, CMP #### [facility] [address] [place], [place] [id number] Glucose [Mass/Vol] 107 mg/dL High 65-99 [facility] Comment on above: Result Comment: For FASTING Glucose --- ADA reference ranges: Normal 65-99 mg/dl Prediabetes 100-125 Diabetes >/= 126 Performed By: #### T SH, LIPD, MG, CBCAD, CMP #### [facility] [address] [place], [place] [id number] Potassium [Moles/Vol] 5.1 mmol/L Normal 3.5-5.5 [facility] Comment on above: Performed By: #### T SH, LIPD, MG, CBCAD, CMP #### [facility] [address] [place], [place] [id number] Protein [Mass/Vol] 6.7 g/dL Normal 6.1-8.1 [facility] Hosiery Repairer Comment on above: Performed By: #### T SH, LIPD, MG, CBCAD, CMP #### [facility] [address] [place], [place] [id number] Sodium [Moles/Vol] 141 mmol/L Normal 135-146 [facility] Hosiery Repairer Comment on above: Performed By: #### T SH, LIPD, MG, CBCAD, CMP #### [facility] [address] [place], [place] [id number] TBIL <0.3 Normal [facility] Specialist Comment on above: Performed By: #### T SH, LIPD, MG, CBCAD, CMP #### [facility] [address] [place], [place] [id number] Urea nitrogen [Mass/Vol] 12 mg/dL Normal 7-25 [facility] Hosiery Repairer Comment on above: Performed By: #### T SH, LIPD, MG, CBCAD, CMP #### [facility] [address] [place], [place] [id number] Hemoglobin A1Con 06-21-2021 EAG 136.98 Normal [facility] Specialist Comment on above: Performed By: #### A 1C #### [facility] [address] [place], [place] [id number] HbA1c (Bld) [Mass fraction] 6.4 % High 4.0-6.0 [facility] Specialist Comment on above: Performed By: #### A 1C #### [facility] [address] [place], [place] [id number] Iron Profileon 06-21-2021 %FESAT 7 % Low 11-50 [facility] Hosiery Repairer Comment on above: Performed By: #### 3 6127, FT4 #### [facility] [address] [place] [address] FE 30 ug/dL Low 40-190 [facility] Hosiery Repairer Comment on above: Result Comment: Refe rence range change 03/22/2017. Prior reference range F 37-145 ug/dL, M 59-158 ug/dL. Performed By: #### 3 6127, FT4 #### [facility] [address] [place] [address] TIBC 408 ug/dL Normal 250-450 [facility] Specialist Comment on above: Performed By: #### 3 6127, FT4 #### [facility] [address] [place] [address] UIBC 378 ug/dL High 112-347 [facility] Specialist Comment on above: Performed By: #### 3 6127, FT4 #### [facility] [address] [place] [address] Lipid Panelon 06-21-2021 Cholesterol [Mass/Vol] 149 mg/dL Normal 125-200 [facility] Comment on above: Result Comment: Low risk < 200mg/dL Borderline risk 201-239 mg/dl High risk > or equal to 240 Performed By: #### T SH, LIPD, MG, CBCAD, CMP #### [facility] [address] [place], [place] [id number] Cholesterol in HDL [Mass/Vol] 55 mg/dL Normal >40 [facility] Specialist Comment on above: Result Comment: High Cardiovascular Risk HDL <40 mg/dL Low Cardiovascular Risk HDL > or equal to 60 mg/dl Performed By: #### T SH, LIPD, MG, CBCAD, CMP #### [facility] [address] [place], [place] [id number] Cholesterol in LDL [Mass/Vol] 75 mg/dL Normal [facility] Comment on above: Result Comment: LDL ATP III CLASSIFICATION LDL less than 100 mg/dl Optimal LDL 100-129 mg/dl Near or above optimal LDL 130-159 Borderline high LDL 160-189 High LDL greater than 189 mg/dl Very High Performed By: #### T SH, LIPD, MG, CBCAD, CMP #### [facility] [address] [place], [place] [id number] Cholesterol in VLDL [Mass/Vol] 19 mg/dL Normal [facility] Comment on above: Performed By: #### T SH, LIPD, MG, CBCAD, CMP #### [facility] [address] [place], [place] [id number] Cholesterol.total/Cholestero l in HDL [Mass ratio] 3 {ratio} Normal [facility] Specialist Comment on above: Performed By: #### T SH, LIPD, MG, CBCAD, CMP #### [facility] [address] [place], [place] [id number] Triglyceride [Mass/Vol] 95 mg/dL Normal 30-150 N [facility] Comment on above: Result Comment: TRIG ATPIII CLASSIFICATIONS TRIG less than 150 mg/dl Normal TRIG 150-199 mg/dl Borderline High TRIG 200-500 mg/dl High TRIG greather than 500 mg/dl Very High Performed By: #### T SH, LIPD, MG, CBCAD, CMP #### [facility] [address] [place], [place] [id number] Magnesiumon 06-21-2021 Magnesium [Mass/Vol] 1.8 mg/dL Normal 1.5-2.3 [facility] Comment on above: Performed By: #### T SH, LIPD, MG, CBCAD, CMP #### [facility] [address] [place], [place] [id number] Q - ALK PHOSPHATASE ISOENZYM ESon 06-21-2021 ALP [Catalytic activity/Vol] 109 U/L Normal 37-153 [facility] Specialist Comment on above: Order Comment: [facility] performed at: [employer] [facility], [address] [place] [address], [address] [place] [address], [phone], Data Warehouse Specialist: Jude Zimmer MD [facility] Date/Time: [facility] Results Received Date/Time: [facility] Reported Date/Time: Performed By: #### 3 6127, FT4 #### [facility] [address] [place] [address] BONE ISOENZYMES 26 % Low 28-66 [facility] Specialist Comment on above: Order Comment: [facility] performed at: [employer] [facility], [address] [place] [address], [address] [place] [address], [phone], Data Warehouse Specialist: Jude Zimmer MD [facility] Date/Time: [facility] Results Received Date/Time: [facility] Reported Date/Time: Performed By: #### 3 6127, FT4 #### [facility] [address] [place] [address] INTESTINAL ISOENZYMES 0 % Low 1-24 [facility] Specialist Comment on above: Order Comment: [facility] performed at: [employer] [facility], [address], [address] [place] [address], [address] [place] [address], Data Warehouse Specialist: Jude Zimmer MD [facility] Date/Time: [facility] Results Received Date/Time: [facility] Reported Date/Time: Performed By: #### 3 6127, FT4 #### [facility] [address] [place] [address] LIVER ISOENZYMES 74 % High 25-69 [facility] Hosiery Repairer Comment on above: Order Comment: [facility] performed at: [employer] [facility], [address] [place] [address], [address] [place] [address], [address] [place] [address], Data Warehouse Specialist: Jude Zimmer MD [facility] Date/Time: [facility] Results Received Date/Time: [facility] Reported Date/Time: Performed By: #### 3 6127, FT4 #### [facility] [address] [place] [address] MACROHEPATIC ISOENZYMES 0 % Normal <=0 N [facility] Hosiery Repairer Comment on above: Order Comment: [facility] performed at: [employer] [facility], [address] , [address] [place] [address], [address] [place] [address], Data Warehouse Specialist: Jude Zimmer MD [facility] Date/Time: [facility] Results Received Date/Time: [facility] Reported Date/Time: Performed By: #### 3 6127, FT4 #### [facility] [address] [place] [address] PLACENTAL ISOENZYMES 0 % Normal <=0 [facility] Hosiery Repairer Comment on above: Order Comment: [facility] performed at: [employer], [address], [address] [facility], [place], [address], Data Warehouse Specialist: Jude Zimmer MD [facility] Date/Time: [facility] Results Received Date/Time: [facility] Reported Date/Time: Performed By: #### 3 6127, FT4 #### [facility] [address] [place] [address] TSHon 06-21-2021 TSH Qn m[IU]/L Low [facility] Hosiery Repairer Comment on above: Performed By: #### T SH, LIPD, MG, CBCAD, CMP #### [facility] [address] [place], [place] [id number] Automated basophil %on 05-18 Basophils/100 WBC (Bld) 2.4 % [facility] Automated basophil counton 0 05-18-2020 Basophils (Bld) [#/Vol] 0.2 10*3/uL 0.0-0.2 [facility] Automated blood lymphocyte c ount (number/volume)on 05-18-2020 Lymphocytes (Bld) [#/Vol] 2.1 10*3/uL 1.00-4.8 [facility] Automated blood lymphocyte c ount as percentage of total leukocyteson 05-18-2020 Lymphocytes/100 WBC (Bld) 33.8 % [facility] Automated blood monocyte cou nton 05-18-2020 Monocytes (Bld) [#/Vol] 0.5 10*3/uL 0.0-0.8 [facility] Automated blood platelet cou nt (count/volume)on 05-18-2020 Platelets (Bld) [#/Vol] 336 10*3/uL 150-450 [facility] Automated blood platelet darcie n volume measurementon 05-18-2020 Platelet mean volume (Bld) [Entitic vol] 7.1 fL 6.3-10.7 [facility] Automated eosinophil %on Eosinophils/100 WBC (Bld) 5.1 % [facility] Automated eosinophil counton 05-18-2020 Eosinophils (Bld) [#/Vol] 0.3 10*3/uL 0.0-0.45 [facility] Automated erythrocyte distri bution width ratioon 05-18-2020 Erythrocyte distribution width (RBC) [Ratio] 16.9 % 11.9-15.3 [facility] Automated erythrocyte mean c orpuscular hemoglobin (mass per erythrocyte)on 05-18-2020 MCH (RBC) [Entitic mass] 24.8 pg 24.7-34.3 [facility] Automated erythrocyte mean c orpuscular hemoglobin concentration measurement (mass/volon 05-18-2020 MCHC (RBC) [Mass/Vol] 31.0 g/dL 32.0-35.0 [facility] Automated erythrocyte mean c orpuscular volumeon 05-18-2020 MCV (RBC) [Entitic vol] 80.1 fL 80-100 [facility] Automated monocyte %on 05-18 Monocytes/100 WBC (Bld) 8.0 % F [facility] Automated neutrophil %on Neutrophils/100 WBC (Bld) 50.7 % [facility] Blood erythrocytes automated count (number/volume)on 05-18-2020 RBC (Bld) [#/Vol] 4.26 10*6/uL 3.60-5.00 [facility] Blood hemoglobin measurement (mass/volume)on 05-18-2020 Hemoglobin (Bld) [Mass/Vol] 10.5 g/dL 11.8-15. 4 [facility] Blood leukocytes automated c ount (number/volume)on 05-18-2020 WBC (Bld) [#/Vol] 6.3 10*3/uL 3.8-11.6 [facility] Blood neutrophil count by au tomated method (number/volume)on 05-18-2020 Neutrophils (Bld) [#/Vol] 3.2 10*3/uL 1.8-7.7 [facility] Estimated glomerular filtrat ion rate (GFR) non- Americanon 05-18-2020 GFR/1.73 sq M predicted among non-blacks MDRD (S/P/Bld) [Vol rate/Area] 52 mL/min/{1.73_m2} [facility] Hematocrit [Volume Fraction] of Blood by Automated counton 05-18-2020 Hematocrit (Bld) [Volume fraction] 34.1 % 34.0-46.4 [facility] Otheron 05-18-2020 GFR/1.73 sq M.predicted MDRD (S/P/Bld) [Vol rate/Area] mL/min/{1.73_m2} [facility] Comment on above: GFR estimated refere nce range: According to KDOQI guidelines, <60 ml/min/1.73m2 is sufficient to diagnose a patient with chronic kidney disease. Nucleated RBC/100 WBC (Bld) [Ratio] 0.0 % 0-0.5 [facility] Creatinine Clearance (Chem N/A [facility] Serum or plasma calcium dilip urement (mass/volume)on 05-18-2020 Calcium [Mass/Vol] 9.2 mg/dL 8.2-10.2 [facility] Serum or plasma chloride darcie surement (moles/volume)on 05-18-2020 Chloride [Moles/Vol] 99 mmol/L 95-114 [facility] Serum or plasma creatinine m easurement with calculation of estimated glomerular filtron 05-18-2020 Creatinine [Mass/Vol] 1.10 mg/dL 0.44-1.03 [facility] Serum or plasma glucose dilip urement (mass/volume)on 05-18-2020 Glucose [Mass/Vol] 86 mg/dL 70-100 [facility] Comment on above: ADA recommended refe rence rangeRandom Glucose Reference Range is dependent on time and content of last meal. Glucose of more than 200 mg/dL in a nonstressed, ambulatory subject supports the diagnosis of Diabetes Mellitus. Serum or plasma potassium me asurement (moles/volume)on 05-18-2020 Potassium [Moles/Vol] 4.7 mmol/L 3.5-5.1 [facility] Serum or plasma sodium measu rement (moles/volume)on 05-18-2020 Sodium [Moles/Vol] 138 mmol/L 136-146 [facility] Serum or plasma total carbon dioxide measurement (moles/volume)on 05-18-2020 CO2 [Moles/Vol] 26.7 mmol/L 22.0-30.[address] [facility] Serum or plasma urea nitroge n measurement (mass/volume)on 05-18-2020 Urea nitrogen [Mass/Vol] 19 mg/dL 01-26 [facility] Otheron 03-29-2020 POC Estimated GFR > 60 [facility] Comment on above: GFR estimated refere nce range: According to KDOQI guidelines, <60 ml/min/1.73m2 is sufficient to diagnose a patient with chronic kidney disease. POC Estimated GFR Non- Amer 52 [facility] Whole blood creatinine measu rementon 03-29-2020 Creatinine [Mass/Vol] 1.1 mg/dL 0.6-1.3 [facility] Comment on above: ER/ESD physician is notified/shown all ISTAT results.Critical values may be confirmed by laboratory testing ifdeemed necessary by ER attending doctor. Erythrocyte sedimentation ra te by Photometric methodon 02-29-2020 ESR Photometric method (Bld) [Velocity] 13 mm/hr [facility] Serum or plasma C reactive p rotein measurement (mass/volume)on 02-29-2020 CRP [Mass/Vol] 0.6 mg/dL 0.0-1.0 [facility] Vital Signs Date Time Vital Sign Value Performing Clinician Facility 03-16-2024 16:29-0500 Body height 165.1 cm Yoselin Ronquillojosie SCRUB NURSE Work Phone: [facility] 03-16-2024 16:29-0500 Body mass index (BMI) [Ratio] 23.73 kg/m2 Yoselin Airam SCRUB NURSE Work Phone: [facility] 03-16-2024 16:29-0500 Body weight 64.68 kg Yoselinpablo Alegria SCRUB NURSE Work Phone: [facility] 03-16-2024 16:29-0500 Diastolic blood pressure 70 mm[Hg] Yoselin Alegria SCRUB NURSE Work Phone: [facility] 03-16-2024 16:29-0500 Heart rate 95 /min Yoselin Alegria SCRUB NURSE Work Phone: [facility] 03-16-2024 16:29-0500 Respiratory rate 20 /min Yoselin Alegria SCRUB NURSE Work Phone: [facility] 03-16-2024 16:29-0500 SaO2% (BldA) [Mass fraction] 94 % Yoselin Alegria SCRUB NURSE Work Phone: [facility] 03-16-2024 16:29-0500 Systolic blood pressure 124 mm[Hg] Yoselin Alegria SCRUB NURSE Work Phone: [facility] 03-11-2024 13:07-0500 Body height 165.1 cm Yoselin Alegria SCRUB NURSE Work Phone: [facility] 03-11-2024 13:07-0500 Body mass index (BMI) [Ratio] 23.63 kg/m2 Yoselin Alegria SCRUB NURSE Work Phone: [facility] 03-11-2024 13:07-0500 Body weight 64.41 kg Yoselin Alegria SCRUB NURSE Work Phone: [facility] 03-11-2024 13:07-0500 Diastolic blood pressure 70 mm[Hg] oYselin Alegria SCRUB NURSE Work Phone: [facility] 03-11-2024 13:07-0500 Heart rate 78 /min Yoselin Alegria SCRUB NURSE Work Phone: [facility] 03-11-2024 13:07-0500 SaO2% (BldA) [Mass fraction] 95 % Yoselin Alegria SCRUB NURSE Work Phone: [facility] 03-11-2024 13:07-0500 Systolic blood pressure 120 mm[Hg] Yoselin Alegria SCRUB NURSE Work Phone: [facility] 03-07-2024 15:05-0400 Body temperature 97.59 [degF] Neno Lane MD Work Phone: [facility] 03-07-2024 15:05-0400 Diastolic blood pressure 62 mm[Hg] Neno Lane MD Work Phone: [facility] 03-07-2024 15:05-0400 Heart rate 76 /min Neno Lane MD Work Phone: [facility] 03-07-2024 15:05-0400 Respiratory rate 19 /min Neno Lane MD Work Phone: [facility] 03-07-2024 15:05-0400 SaO2% (BldA) [Mass fraction] 90 % Neno Lane MD Work Phone: [facility] 03-07-2024 15:05-0400 Systolic blood pressure 90 mm[Hg] Neno Lane MD Work Phone: [facility] 03-07-2024 00:00-0400 Body mass index (BMI) [Ratio] 21.18 kg/m2 Neno Lane MD Work Phone: [facility] 03-07-2024 00:00-0400 Body weight 57.[address] MD Work Phone: [facility] 03-06-2024 10:01-0400 Body height 165.[address] MD Work Phone: [facility] 12-30-2023 10:32-0400 Body height 165.1 cm Yoselin Alegria SCRUB NURSE Work Phone: [facility] 12-30-2023 10:32-0400 Body mass index (BMI) [Ratio] 23.43 kg/m2 Yoselin Alegria SCRUB NURSE Work Phone: [facility] 12-30-2023 10:32-0400 Body weight 63.87 kg Yoselin Alegria SCRUB NURSE Work Phone: [facility] 12-30-2023 10:32-0400 Diastolic blood pressure 80 mm[Hg] Yoselin Alegria SCRUB NURSE Work Phone: [facility] 12-30-2023 10:32-0400 Heart rate 87 /min Yoselin Alegria SCRUB NURSE Work Phone: [facility] 12-30-2023 10:32-0400 SaO2% (BldA) [Mass fraction] 95 % Yoselin Alegria SCRUB NURSE Work Phone: [facility] 12-30-2023 10:32-0400 Systolic blood pressure 130 mm[Hg] Yoselin Alegria SCRUB NURSE Work Phone: [facility] 05-22-2023 10:41-0500 Diastolic blood pressure 73 mm[Hg] Brody Verhoff PA-C Work Phone: [facility] 05-22-2023 10:41-0500 Heart rate 85 /min Brody Verhoff PA-C Work Phone: [employer] [facility] 05-22-2023 10:41-0500 SaO2% (BldA) [Mass fraction] 94 % Brody Verhoff PA-C Work Phone: [facility] 05-22-2023 10:41-0500 Systolic blood pressure 100 mm[Hg] Brody [employer] PA-C Work Phone: [facility] Encounters Encounter Date Encounter Type Care Provider Facility Start: 05-05-2024 End: 05-05-2024 Telephone encounter AnaM aría Garcia [facility] Start: 05-03-2024 End: 05-03-2024 Emergency department patient visit [facility] [place] Start: 05-01-2024 End: 05-01-2024 Emergency department patient visit [facility] [place] Start: 04-24-2024 End: 04-24-2024 Telephone encounter Jocelyn Ceballos [facility] Start: 04-22-2024 End: 04-22-2024 Emergency department patient visit [facility] [place] Start: 04-10-2024 End: 04-10-2024 Refill Yoselin Alegria SCRUB NURSE Work Phone: [facility] Comment on above: Moderate episode of recurrent major depressive disorder (CMS/HCC); Lumbosacral spondylosis without myelopathy; Anxiety; Episode of recurrent major depressive disorder, unspecified depression episode severity (CMS/HCC) Start: 03-25-2024 End: 03-25-2024 Refill Jocelyn Walden MD Work Phone: [facility] Comment on above: Cervical radiculopat hy; Cervical spine pain Gastroesophageal ref lux disease without esophagitis Start: 03-16-2024 End: 03-16-2024 Office outpatient visit 15 minutes Yoselin Alegria NP Work Phone: [facility] Comment on above: Nasal congestion (Pr imary Dx); Chronic obstructive pulmonary disease, unspecified COPD type (CMS/HCC) Start: 03-16-2024 End: 03-16-2024 ambulatory YOSELIN ALEGRIA Not Available Start: 03-16-2024 End: 03-16-2024 Bamboo flowsheet Yoselin Alegria SCRUB NURSE Work Phone: [facility] Start: 03-16-2024 End: 03-16-2024 Bamboo flowsheet Yoselin Alegria NP Work Phone: [facility] Start: 03-14-2024 End: 03-16-2024 Telephone encounter Fabiana Faulkner MA [facility] Start: 03-12-2024 End: 03-12-2024 ambulatory [facility] Start: 03-11-2024 End: 03-11-2024 Bamboo flowsheet Yoselin Alegria SCRUB NURSE Work Phone: [facility] Start: 03-11-2024 End: 03-11-2024 Bamboo flowsheet Yoselin Alegria SCRUB NURSE Work Phone: [facility] Start: 03-11-2024 End: 03-11-2024 Transitional care manage srvc 7 day discharge Yoselin Alegria NP Work Phone: [facility] Comment on above: Hospital discharge f ollow-up (Primary Dx); Paroxysmal atrial fibrillation (CMS/HCC); Seizure-like activity (CMS/HCC); Hypokalemia; Acquired hypothyroidism (CMS/HCC); Essential hypertension (CMS/HCC); COPD exacerbation (CMS/HCC); Type 2 diabetes mellitus with diabetic peripheral angiopathy without gangrene, without long-term current use of insulin (CMS/HCC); Anxiety; Pulmonary emphysema, unspecified emphysema type ([facility]/HCC); Weight loss Start: 03-11-2024 End: 03-11-2024 ambulatory YOSELIN ALEGRIA Not Available Start: 03-10-2024 End: 03-10-2024 ambulatory YOSELIN ALEGRIA Not Available Start: 03-05-2024 End: 03-07-2024 ambulatory JOCELYN WALDEN [facility] Start: 03-05-2024 End: 03-07-2024 Emergency department patient visit Joe Dick MD Work Phone: [facility] Comment on above: Acute hypoxic respir atory failure (CMS-HCC) (Primary Dx); COPD exacerbation ([facility]-HCC); Atrial fibrillation, new onset ([facility]-HCC); Breast nodule; Liver cyst; Alcoholic intoxication without complication ([facility]-HCC); Atrial fibrillation by electrocardiography ([facility]-HCC); Seizure-like activity ([facility]-HCC) Start: 02-19-2024 End: 02-19-2024 Refill Jocelyn Walden MD Work Phone: [facility] Comment on above: Chronic obstructive pulmonary disease, unspecified (CMS/HCC); COPD (chronic obstructive pulmonary disease) with chronic bronchitis ([facility]/HCC) Start: 02-05-2024 End: 02-05-2024 Refill Jocelyn Walden MD Work Phone: [facility] Comment on above: Lumbosacral spondylo sis without myelopathy Start: 02-03-2024 End: 02-03-2024 Refcomfort Walden MD Work Phone: [facility] Comment on above: Bacterial vaginosis (Primary Dx); Lumbosacral spondylosis without myelopathy; Anxiety; Episode of recurrent major depressive disorder, unspecified depression episode severity ([facility]/HCC); Candidiasis Start: 01-16-2024 End: 01-16-2024 Refcomfort Walden MD Work Phone: [facility] Comment on above: Moderate episode of recurrent major depressive disorder (HCC) ([facility]/HCC) Start: 01-07-2024 End: 01-07-2024 Telephone encounter Yulissa Blue MA [facility] Start: 01-02-2024 End: 01-03-2024 Refill Mina Avalos MA [facility] Comment on above: 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 (CMS/HCC) Start: 01-01-2024 End: 01-01-2024 Refill Jocelyn Walden MD Work Phone: [facility] Comment on above: 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 (CMS/HCC) Start: 12-31-2023 End: 12-31-2023 Orders Only Yoselin Alegria SCRUB NURSE Work Phone: [facility] Comment on above: Bacterial vaginosis; Candidiasis Start: 12-30-2023 End: 12-30-2023 Bamboo flowsheet Yoselin Alegria SCRUB NURSE Work Phone: [facility] Start: 12-30-2023 End: 12-31-2023 Bamboo flowsheet Yoselin Alegria SCRUB NURSE Work Phone: [facility] Start: 12-30-2023 End: 12-31-2023 External Result Encounter Yoselin Alegria SCRUB NURSE Work Phone: [facility] Unsolicited Start: 12-30-2023 End: 12-30-2023 Office outpatient visit 25 minutes Yoselin Alegria SCRUB NURSE Work Phone: [facility] Comment on above: Vaginal discharge (P rimary Dx); Iron deficiency anemia, unspecified iron deficiency anemia type; Subacute cough Start: 12-30-2023 End: 12-30-2023 ambulatory YOSELIN ALEGRIA Not Available Start: 12-26-2023 End: 12-30-2023 Refill Jocelyn Walden MD Work Phone: [facility] Comment on above: Cervical radiculopat hy; Cervical spine pain Start: 12-23-2023 End: 12-23-2023 Telephone encounter Meme Anand MA [facility] Start: 12-12-2023 End: 12-12-2023 ambulatory NEEL RODRIGUEZ Not Available Start: 11-05-2023 End: 11-05-2023 ambulatory YOSELIN ALEGRIA Not Available Start: 09-16-2023 End: 09-16-2023 ambulatory YOSELIN ALEGRIA Not Available Start: 09-10-2023 End: 09-10-2023 ambulatory YOSELIN ALEGRIA Not Available Start: 06-08-2023 Refill Jocelyn valdes MD Work Phone: [facility] Comment on above: Type 2 diabetes anoop itus with diabetic peripheral angiopathy without gangrene, without long-term current use of insulin ([facility]) Start: 06-08-2023 End: 06-08-2023 ambulatory AMERICO HECTOR [facility] Start: 06-07-2023 End: 06-07-2023 ambulatory JEREMÍAS Kathleen QUINTERO [facility] Start: 05-22-2023 End: 05-22-2023 [facility]ulatory [facility] Start: 05-22-2023 End: 05-22-2023 Office outpatient visit 25 minutes Brody Berger PA-C Work Phone: [facility] Comment on above: Disorder of sacrum ( Primary Dx); Lumbar spondylosis; Lumbosacral spondylosis without myelopathy Start: 04-09-2023 End: 04-09-2023 ambulatory JOCELYN WALDEN Not Available Start: 01-16-2023 End: 01-16-2023 ambulatory Jocelyn Walden Facility:[facility] Start: 05-18-2020 End: 05-18-2020 Patient encounter procedure Jocelyn Walden -Pre-Surgica l Testing Start: 04-22-2020 End: 04-22-2020 Patient encounter procedure [facility]ocelyn Walden [facility] Start: 03-29-2020 End: 03-29-2020 Patient encounter procedure Jocelyn Walden -MRI Strub R d Start: 02-29-2020 End: 02-29-2020 Patient encounter procedure Jocelyn Coronelhman -Lab Main Ca mpus Procedures Date Procedure Procedure Detail Performing Clinician Start: 03-10-2024 Mammography Yoselin Stephen steve SCRUB NURSE Work Phone: Start: 03-07-2024 Gluc bld gluc mntr d ev cleared fda spec home use Neno Lane MD Work Phone: Start: 03-07-[address] EV[address] MD Work Phone: Start: 03-07-2024 Gluc bld gluc mntr d ev cleared fda spec home use Neno Lane MD Work Phone: Start: 03-07-2024 Comprehensive metabo lic panel Christopher Zavaleta LOAN INSPECTOR-OPERATIONS OFFICER [employer] Work Phone: Start: 03-06-2024 Assay of magnesium Janessa Lane MD Work Phone: Start: 03-06-2024 Echo tthrc r-t 2d w/wom-mode compl spec&colr d Yvonne Rivas MD Work Phone: Start: 03-06-2024 EEG Christopher burris LOAN INSPECTOR-OPERATIONS OFFICER [employer] Work Phone: Start: 03-06-2024 RESP PATHOGENS PANEL/SARS-COV-2 Christopher Zavaleta LOAN INSPECTOR-OPERATIONS OFFICER [employer] Work Phone: Start: 03-06-2024 Assay of magnesium Jj Zavaleta LOAN INSPECTOR-OPERATIONS OFFICER [employer] Work Phone: Start: 03-06-2024 Ct head/brain w/o co ntrast material Joe Dick MD Work Phone: Start: 03-06-2024 Ct angiography chest w/contrast/noncontrast Joe Dick MD Work Phone: Start: 03-06-2024 Urnls dip stick/tabl et rgnt auto w/o microscopy Joe Dick MD Work Phone: Start: 03-06-2024 Drug tst prsmv instr mnt chem analyzers pr date Joe Dick MD Work Phone: Start: 03-06-2024 End: 03-06-2024 Ecg routine ecg w/least 12 lds trcg only w/o i&r Joe Dick MD Work Phone: Start: 03-06-2024 Assay of troponin quantitative Joe Dick MD Work Phone: Start: 03-06-2024 PM ED CRITICAL CARE Koko melony Dick MD Work Phone: Start: 03-06-2024 Radiologic exam ches t single view Joe Dick MD Work Phone: Start: 03-06-2024 Comprehensive metabo lic panel Joe Dick MD Work Phone: Start: 03-06-2024 Ethanol [Mass/volume ] in Serum or Plasma Joe Dick MD Work Phone: Start: 03-05-2024 Ecg routine ecg w/le ast 12 lds trcg only w/o i&r Joe Dick MD Work Phone: Start: 12-30-2023 SURESWAB(R) ADVANCED VAGINITIS PLUS, TMA Yoselin Airam SCRUB NURSE Work Phone: Start: 12-13-2022 Mammography Jocelyn quiroz MD Work Phone: Start: 12-11-2022 Microalbumin [Mass/v olume] in Urine by Test strip Jocelyn Ceballos CMA Start: 04-22-2020 Dual energy X-ray ph oton absorptiometry Jocelyn Walden Start: 03-29-2020 MRI of lumbar spine with contrast Jocelyn Walden Start: 03-29-2020 XR pre/post mri xray Jensen Walden Start: 08-21-2018 Colonoscopy Jocelyn quiroz MD Work Phone: Plan of Treatment Date Care Activity Detail Author Start: 08-21-2028 Screening for malignant neoplasm of colon [facility] Start: 01-12-2026 Glaucoma screening Diabetes: Retinopathy Screening [facility] Start: 05-03-2025 Adult BMI Screening Adult BMI Screening [facility] Start: 05-03-2025 Tobacco Screening Tobacco Screening [facility] Start: 04-22-2025 Adult BMI Screening Adult BMI Screening [facility] Start: 04-22-2025 Tobacco Screening Tobacco Screening [facility] Start: 03-10-2025 Screening for malignant neoplasm of breast Mammogram [facility] Start: 11-02-2024 Influenza vaccination Influenza Vaccine (#1) [facility] Comment on above: Postponed from 01/05/2024 (Patient Refus ed) Start: 09-22-2024 Urine screening for protein Diabetes: Urine Protein Screening [facility] Start: 09-09-2024 Medicare Annual Wellness (AWV) Medicare Annual Wellness (AWV) [facility] Start: 09-03-2024 Hemoglobin A1c measurement Diabetes: Hemoglobin A1C [facility] Start: 06-02-2024 End: 06-02-2024 Patient encounter procedure 06/02/2024 11:15 AM EST Office Visit [facility] [address] [place] [id number] Yvonne Rivas MD [address] [place] [address] [facility] Start: 05-22-2024 Tobacco Screening Tobacco Screening [facility] Start: 05-07-2024 End: 05-07-2024 Patient encounter procedure 05/07/2024 1:00 PM EST Office Visit [facility] [address] [place] [phone] Emelyn Martin MD [address] [place] [address] [facility] Start: 04-27-2024 End: 04-27-2024 Patient encounter procedure 04/27/2024 10:15 AM EST Office Visit [facility] [address] [place] [address] Yvonne Rivas MD [address] [place] [address] [facility] Start: 04-13-2024 End: 04-13-2024 Patient encounter procedure 04/13/2024 8:00 AM EST Office Visit [facility] [address] [facility] [address] [place] [phone] Neena Monk NP [address] [facility] [address] [place] [address] [facility] Start: 03-12-2024 Hemoglobin A1c measurement Diabetes: Hemoglobin A1C [facility] Start: 03-11-2024 End: 03-11-2024 Patient encounter procedure [facility] Comment on above: Arrived Start: 03-07-2024 End: 03-07-2025 Event monitor Event monitor Cardiac Services Routine Acute hypoxic respiratory failure ([facility]-HCC) Atrial fibrillation by electrocardiography ([facility]-HCC) Expected: 03/07/2024, Expires: 03/07/2025 [facility] Comment on above: Expected: 03/07/2024, Expires: Start: 01-05-2024 COVID-19 Vaccine ( season) COVID-19 Vaccine ( season) [facility] Start: 01-05-2024 Influenza vaccination [facility] Start: 12-30-2023 End: 12-29-2024 CBC W Auto Differential panel - Blood CBC and differential Lab Routine Iron deficiency anemia, unspecified iron deficiency anemia type Expected: 12/30/2023 (Approximate), Expires: 12/29/2024 [facility] Comment on above: Expected: 12/30/2023 (Approximate), Expi res: 12/29/2024 Start: 12-30-2023 End: 12-29-2024 Iron + transferrin + TIBC Iron + transferrin + TIBC Lab Routine Iron deficiency anemia, unspecified iron deficiency anemia type Expected: 12/30/2023 (Approximate), Expires: 12/29/2024 [facility] Comment on above: Expected: 12/30/2023 (Approximate), Expi res: 12/29/2024 Start: 12-30-2023 End: 12-29-2024 SURESWAB(R) ADVANCED VAGINITIS PLUS, TMA SURESWAB(R) ADVANCED VAGINITIS PLUS, TMA Pathology and Cytology Routine Vaginal discharge Expected: 12/30/2023 (Approximate), Expires: 12/29/2024 [facility] Work Phone: Comment on above: Expected: 12/30/2023 (Approximate), Expi res: 12/29/2024 Start: 12-30-2023 End: 12-29-2024 XR Chest 2 Views XR chest 2 views Imaging Routine Subacute cough Expected: 12/30/2023, Expires: 12/29/2024 [facility] Comment on above: Expected: 12/30/2023, Expires: Start: 12-30-2023 End: 12-30-2023 Patient encounter procedure 12/30/2023 11:45 AM EDT Office Visit [facility] [address] [place] [phone] Arrived [facility] Comment on above: Arrived Start: 12-30-2023 End: 12-30-2023 Patient encounter procedure 12/30/2023 10:30 AM EDT Office Visit [facility] [address] [place] [phone] Yoselin Alegria, MIKE [address] [place] [address] Arrived [facility] Comment on above: Arrived Start: 12-14-2023 Screening for malignant neoplasm of breast Mammogram [facility] Start: 12-12-2023 Medicare Annual Wellness (AWV) Medicare Annual Wellness (AWV) [facility] Start: 12-12-2023 Urine screening for protein [facility] Start: 11-14-2023 Adult BMI Screening Adult BMI Screening [facility] Start: 09-22-2023 Glaucoma screening Diabetes: Retinopathy Screening [facility] Start: 07-10-2023 End: 07-10-2023 Patient encounter procedure 07/10/2023 9:15 AM EST Office Visit [facility] [address] [place] [address] Brody Berger PA-C [address] [place] [address] [facility] Start: 06-13-2023 Hemoglobin A1c measurement Diabetes: Hemoglobin A1C [facility] Start: 06-07-2023 End: 06-07-2023 Admission to same day surgery center 06/07/2023 9:10 AM EST - 06/07/2023 9:15 AM EST Surgery [facility] [address] [place] [address] Jeremías Quintero MD [address] [place] [address] INJECTION BLOCK SACROILIAC JOINT Bilateral SI Joint [facility] Comment on above: INJECTION BLOCK SACROILIAC JOINT Bilater al SI Joint Start: 06-07-2023 End: 06-07-2023 INJECTION BLOCK SACROILIAC JOINT INJECTION BLOCK SACROILIAC JOINT Disorder of sacrum 06/07/2023 9:10 AM EST [facility] Start: 06-07-2023 Subsequent hospital visit by physician 06/07/2023 9:10 AM EST Hospital Encounter [facility] [address] [place] [address] Jeremías Quintero MD [address] [place] [address] [facility] Start: 01-04-2023 COVID-19 Vaccine ( season) COVID-19 Vaccine ( season) [facility] Start: 04-12-2020 Administration of varicella zoster vaccine Zoster (Shingles) Vaccine (2 of 2) [facility] Start: 07-21-1983 DTaP,Tdap and Td Vaccines (1 - Tdap) DTaP,Tdap and Td Vaccines (1 - Tdap) [facility] Start: 1982 Adult BMI Follow Up Plan Adult BMI Follow Up Plan [facility] Start: 1982 Diabetic foot examination Diabetic Foot Exam [facility] Start: 1976 Depression Screening Depression Screening [facility] Start: 1964 Glaucoma screening Diabetic Ophthalmology Exam [facility] Start: 1964 Screening for malignant neoplasm of colon [facility] Bedside Glucose *Place/Obtain serum glucose if >500(>600 MRH) per glucometer. Bedside Glucose *Place/Obtain serum glucose if >500(>600 MRH) per glucometer. Point of Care Testing Routine 4X Daily (AC and at bedtime) until discontinued starting 03/07/2024, 2 completed [employer] [employer] [facility] Comment on above: 4X Daily (AC and at bedtime) until disco ntinued starting 03/07/2024, 2 completed CBC W Auto Different ial panel - Blood CBC auto differential Lab Routine Lab max of 3 days, Daily, for lab use only until discontinued starting 03/07/2024, 1 completed [employer] Comment on above: Lab max of 3 days, Daily, for lab use on ly until discontinued starting 03/07/2024, 1 completed Comprehensive metabo lic 2000 panel - Serum or Plasma Comprehensive metabolic panel Lab Routine Lab max of 3 days, Daily, for lab use only until discontinued starting 03/07/2024, 1 completed [employer] Comment on above: Lab max of 3 days, Daily, for lab use on ly until discontinued starting 03/07/2024, 1 completed Magnesium [Mass/volu me] in Serum or Plasma Magnesium Lab Routine Lab max of 3 days, Daily, for lab use only until discontinued starting 03/07/2024, 1 completed [employer] Comment on above: Lab max of 3 days, Daily, for lab use on ly until discontinued starting 03/07/2024, 1 completed Oxygen Therapy - Maintain SpO2: 90%; *[facility] Guidelines for O2: Yes; Document: \[email or web address]\ep ic\EPIC_Reference\Order s\Respiratory Care Guidelines\CPG Oxygen 2022.pdf Oxygen Therapy - Maintain SpO2: 90%; *[employer] [facility] Guidelines for O2: Yes; Document: \[email or web address]\[email or web address]\EP IC_Reference\Orders\Respirat ory Care Guidelines\CPG Oxygen 2022.pdf Respiratory Care Routine As Needed until discontinued starting 03/06/2024 [facility] Work Phone: Comment on above: As Needed until discontinued starting Immunizations Immunization Date Immunization Notes Care Provider Fa cility 09-10-2023 zoster vaccine recombinant Meme Anand MA [facility] 04-09-2023 influenza, injectabl e, quadrivalent, preservative free Jocelyn Walden MD Work Phone: [facility] 04-09-2023 Pneumococcal Conjuga te PCV 20 Jocelyn Walden MD Work Phone: [facility] 04-09-2023 influenza virus vacc ine, unspecified formulation Meme Anand MA [facility] 04-17-2022 influenza, injectabl e, quadrivalent, preservative free Jocelyn Walden MD Work Phone: [facility] 04-17-2022 Moderna SARS-CoV-2 50mcg/0.5mL Booster Jocelyn Walden MD Work Phone: [facility] 04-25-2021 Pfizer Purple Cap SARS-CoV-2 Vaccination Jocelyn Walden MD Work Phone: [facility] 03-03-2021 influenza, injectabl e, quadrivalent, preservative free Jocelyn Walden MD Work Phone: [facility] 09-29-2020 Pfizer Purple Cap SARS-CoV-2 Vaccination Jocelyn Walden MD Work Phone: [facility] 09-08-2020 Pfizer Purple Cap SARS-CoV-2 Vaccination Jocelyn Walden MD Work Phone: [facility] 03-06-2020 influenza, injectabl e, quadrivalent, preservative free Jocelyn Walden MD Work Phone: [facility] 02-16-2020 zoster vaccine recombinant Jocelyn Walden MD Work Phone: [facility] 02-16-2020 zoster vaccine, unspecified formulation Brody Berger PA-C Work Phone: [facility] 01-19-2019 influenza, injectabl e, quadrivalent, contains preservative Jocelyn Walden MD Work Phone: [facility] 01-19-2019 influenza, injectabl e, quadrivalent, preservative free Jocelyn Walden MD Work Phone: [facility] 05-09-2018 Influenza, injectabl e, Madin Elena Canine Kidney, preservative free, quadrivalent Jocelyn Walden MD Work Phone: [facility] 04-16-2017 influenza, injectabl e, quadrivalent, preservative free Jocelyn Walden MD Work Phone: [facility] 04-16-2017 pneumococcal polysaccharide vaccine, 23 valent Jocelyn Walden MD Work Phone: [facility] Payers Date Payer Category Payer Medicaid [id number] 2023 Self-pay [id number] 2022 Medicare [id number] 2022 Medicare (Managed Care) 1.2. [id number] 2022 Medicare HMO [id number] 2022 Private Health Insurance [id number] 1964 Unknown [id number] 2.16.8 40.1.158355.3.579.2.1286 1964 Unknown [id number] 2.16.8 40.1.223640.3.579.2.1286 1964 Unknown [id number] 2.16.84 0.1.161429.3.579.2.1259 1964 Unknown [id number] 2.16.84 0.1.353710.3.579.2.9 1964 Unknown [id number] 2.16.84 0.1.554195.3.579.2.125 1964 Unknown [id number] 2.16.84 0.1.533153.3.579.2.1258 1964 Unknown [id number] 2.16.84 0.1.930290.3.579.2.1258 1964 Unknown [id number] 2.16.84 0.1.457676.3.579.2.1258 1964 Unknown [id number] 2.16.84 0.1.959012.3.579.2.1258 1964 Unknown [id number] 2.16.84 0.1.543897.3.579.2.1258 1964 Unknown [id number] 2.16.84 0.1.373085.3.579.2.1258 1964 Unknown [id number] 2.16.840 .1.362758.3.579.2.1258 1964 Unknown [id number] 2.16.8 40.1.153873.3.579.2.128 1964 Unknown [id number] 2.16.8 40.1.367030.3.579.2.1285 1964 Unknown [id number] 2.16.8 40.1.926364.3.579.2.128 1964 Unknown [id number] 2.16.8 40.1.718850.3.579.2.1285 1964 Unknown [id number] 2.16.8 40.1.837569.3.579.2.128 1964 Unknown [id number] 2.16.8 40.1.897585.3.579.2.1286 1964 Unknown [id number] 2.16.8 40.1.514116.3.579.2.1286 1964 Unknown [id number] 2.16.8 40.1.968901.3.579.2.1286 1965 Unknown [id number] Unknown [id number] Unknown [id number] Social History Date Type Detail Facility Start: 05-18-2020 Tobacco smoking stat [facility] Current Heavy tobacco smoker [facility] Start: 1965 Sex Assigned At Female F [facility] Start: 08-30-2022 End: 10-31-2022 Tobacco smoking status MAIS Ex-smoker [facility] History of tobacco use Current smoker [facility] Start: 08-30-2022 End: 11-05-2023 Tobacco use and exposure Smokeless tobacco non-user [facility] Start: 05-22-2023 End: 05-03-2024 Alcohol intake Current drinker of alcohol (finding) [facility] Start: 06-15-2020 End: 05-22-2023 History of Social function [facility] Start: 06-15-2020 End: 05-22-2023 Tobacco use panel [facility] Adolescent depressio n screening assessment 0 [facility] Start: 1965 Sex Assigned At Not on file P [facility] Start: 05-06-1978 End: 05-06-2018 History of tobacco use Cigarette Smoker [facility] Start: 05-06-1978 End: 03-11-2024 Tobacco smoking status MAIS Occasional tobacco smoker [facility] Start: 12-12-2023 End: 12-30-2023 Alcoholic beverage intake Ex-drinker (finding) [facility] Start: 11-05-2023 Tobacco Comment 1-2 cigarettes every 2-3 days. [facility] Start: 08-26-2024 Alcohol Comment caffeine intak e: 1 coffee and 2 sodas daily [facility] Has the electric, ga s, oil, or water company threatened to shut off services in your home in past 12Mo No [facility] Start: 12-07-2014 [facility]finding[facility] Start: 11-05-2023 Alcohol Comment caffeine intak e: 2 cups of coffee daily [facility] Medical Equipment Procedure Code Equipment Code Equipment Origin al Text Equipment Identifier Dates Fusion, spine, lumbar, XLIF XLIF 1 LEVEL MAS REDUCTION FDA Start: 06-09-2020 Fusion, spine, lumbar, XLIF Bone-screw internal spinal fixation system, non-sterile [id number] FDA Start: 06-09-2020 Fusion, spine, lumbar, XLIF Bone-screw internal spinal fixation system, non-sterile [id number] FDA Start: 06-09-2020 Fusion, spine, lumbar, XLIF Spinal fusion graft kit [id number] FDA Start: 06-09-2020 Fusion, spine, lumbar, XLIF Bone matrix implant, human-derived ()[id number] FDA Start: 06-09-2020 Fusion, spine, lumbar, XLIF Metallic spinal fusion cage, non-sterile ()[id number] FDA Start: 06-09-2020 Fusion, spine, lumbar, XLIF Bone-screw internal spinal fixation system, non-sterile [id number] FDA Start: 06-09-2020 Fusion, spine, lumbar, XLIF Bone-screw internal spinal fixation system, non-sterile ()[id number] FDA Start: 06-09-2020 Mesh Partx Prgrp Pc Flp Rt Amari - [id number] - [id number] Start: 12-14-2019 Mesh Perfix Ligh t Plug Med Rpl [id number] - [id number] - [id number] Start: 12-14-2019 Goals Date Patient Goal Desired Activity /State Personal health goal Functional Status Date Assessment Result Facility [facility] Clinical Notes 05-22-2023 to 05-05-2024 Telephone Encounter - Ana María Garcia CMA - 05/05/2024 8:54 AM ESTTelephone Encounter - Ana María Garcia CMA - 05/05/2024 8:54 AM ESTTelephone Encounter - Jocelyn Ceballos CMA - 04/24/2024 9:02 AM EST Note Date & Type Note Facility 05-05-2024 Miscellaneous Notes Left message for patient to remind them to bring their most current medication list with them to their appointment. documented in this encounter [facility] 05-05-2024 Telephone encounter Note Left message for patient to remind them to bring their most current medication list with them to their appointment. [facility] 04-24-2024 Miscellaneous Notes Left message for patient to remind them to bring their most current medication list with them to their appointment. documented in this encounter [facility] 04-24-2024 Telephone encounter Note Left message for patient to remind them to bring their most current medication list with them to their appointment. [facility] 03-16-2024 History of Present illness Narrative Images from the original note were not included. Chandni Puri is a 58 y.o. female presents with chief complaint of Follow-up (Patient presents today for cough and congestion. Patient thinks she might have bronchitis.) HPI: HPI Presents to the office with complaints of possible bronchitis. Has been experiencing nasal congestion/drainage, cough, and sputum production. She stopped using her inhaler. Not using her supplemental oxygen either. SUBJECTIVE: MEDICATIONS: Current Outpatient Medications Medication Instructions albuterol HFA 90 mcg/act inhaler 1 puff, Inhalation, Every 4 hours PRN amitriptyline (Elavil) 25 MG tablet TAKE 1 TABLET BY MOUTH EVERY DAY AT BEDTIME FOR 90 DAYS apixaban (ELIQUIS) 5 mg, 2 times daily ARIPiprazole (ABILIFY) 10 mg, Oral, Every morning aspirin 325 mg, Daily busPIRone (BUSPAR) 15 mg, Oral, 2 times daily cholecalciferol (Vitamin D3) 25 MCG (1000 UT) tablet Oral, Every morning dilTIAZem CD (CARDIZEM CD) 180 mg, Daily RT DULoxetine (CYMBALTA) 60 mg, Oral, 2 times daily, Do not crush or chew. escitalopram (Lexapro) 20 MG tablet TAKE 1 TABLET EVERY MORNING ferrous sulfate 325 (65 Fe) MG tablet TAKE 1 TABLET BY MOUTH EVERY DAY FOR 90 DAYS Fluticasone-Salmeterol 250-50 MCG/ACT aerosol powder 1 puff, Inhalation, 2 times daily gabapentin (NEURONTIN) 400 mg, Oral, 3 times daily hydrOXYzine pamoate (Vistaril) 50 MG capsule TAKE 1 CAPSULE EVERY 8 HOURS ibuprofen (IBU) 800 mg, Oral, 3 times daily PRN levothyroxine (Synthroid, Levoxyl) 75 MCG tablet TAKE 1 TABLET EVERY MORNING BEFORE A MEAL metFORMIN (GLUCOPHAGE) 500 mg, Oral, 2 times daily with meals methocarbamol (Robaxin) 500 MG tablet TAKE 1 TABLET AT BEDTIME omeprazole (PRILOSEC) 40 mg, Oral, Daily before breakfast, Do not crush or chew. simvastatin (ZOCOR) 10 mg, Oral, Nightly ALLERGIES: Allergies Allergen Reactions Penicillins Rash Other Reaction(s): Unknown SURGICAL HISTORY: Past Surgical History: Procedure Laterality Date ANKLE SURGERY Right 2004 CHOLECYSTECTOMY COLONOSCOPY 08/2018 CT ANGIOGRAM HEART CORONARY 03/06/2024 CT ANGIOGRAM TAVR 03/06/2024 ESOPHAGOSCOPY / EGD 08/2018 with bx. HERNIA REPAIR 12/2019 right inguinal hernia repair with mesh HYSTERECTOMY POSTERIOR FUSION LUMBAR SPINE W/ CORPECTOMY 06/2020 TONSILLECTOMY FAMILY HISTORY: Family History Problem Relation Name Age of Onset COPD Mother Hypertension Mother Heart disease Mother Stroke Mother COPD Father Other (colangiocarcinoma) Sibling Other (spine) Sibling Diabetes Sibling SOCIAL HISTORY: Social History Tobacco Use Smoking status: Some Days Average packs/day: 0.3 packs/day for 40.0 years (10.0 ttl pk-yrs) Types: Cigarettes Start date: 1978 Last attempt to quit: 2019 Years since quittin.8 Smokeless tobacco: Never Tobacco comments: 1-2 cigarettes every 2-3 days. Vaping Use Vaping status: Some Days Substances: Nicotine Devices: Disposable Substance Use Topics Alcohol use: Not Currently Comment: caffeine intake: 1 coffee and 2 sodas daily Drug use: Never Depression: Not at risk (03/11/2024) PHQ-2 PHQ-2 Score: 2 REVIEW OF SYMPTOMS: Review of Systems OBJECTIVE: Visit Vitals BP 124/70 (BP Location: Left arm, Patient Position: Sitting, BP Cuff Size: Adult) Pulse 95 Resp 20 Ht 5' 5 Wt 142 lb 9.6 oz SpO2 (!) 88% BMI 23.73 kg/m Smoking Status Some Days BSA 1.72 m Physical Exam Vitals reviewed. Constitutional: Appearance: Normal appearance. HENT: Head: Normocephalic and atraumatic. Right Ear: Tympanic membrane normal. Left Ear: Tympanic membrane normal. Nose: Rhinorrhea present. Mouth/Throat: Mouth: Mucous membranes are moist. Eyes: Pupils: Pupils are equal, round, and reactive to light. Cardiovascular: Rate and Rhythm: Normal rate and regular rhythm. Pulses: Normal pulses. Heart sounds: Normal heart sounds. Pulmonary: Effort: Pulmonary effort is normal. Breath sounds: Normal breath sounds. Musculoskeletal: Cervical back: Normal range of motion and neck supple. Skin: General: Skin is warm and dry. Capillary Refill: Capillary refill takes less than 2 seconds. Findings: No rash. Neurological: General: No focal deficit present. Mental Status: She is alert and oriented to person, place, and time. ASSESSMENT AND PLAN: Assessment/Plan Diagnoses and all orders for this visit: Nasal congestion - predniSONE (Deltasone) 10 MG tablet; Take 1 tablet (10 mg) by mouth in the morning and 1 tablet (10 mg) before bedtime. Do all this for 5 days. Chronic obstructive pulmonary disease, unspecified COPD type (CMS/HCC) -She does not appear to be in a COPD flare up. Instructed to utilize her inhalant therapy as prescribed. She does have home oxygen as well she should be utilizing. Will send in a few days of steroids just in case. Instructed to notiyf office if symptoms persist or worsen documented in this encounter [facility] 03-16-2024 Telephone encounter Note Pt called back and scheduled appointment. [facility] 03-16-2024 Miscellaneous Notes Pt called back and scheduled appointment. Pt called back to check on status of this request and was upset that she would have to pay another copay to come in when she had just been in. Patient declined appointment and said goodbye and hung up. Pt called and said that she feels like her cold is breaking and she needs an antibiotic. Wondering if she can get one? documented in this encounter [facility] 03-16-2024 Telephone encounter Note Pt called back to check on status of this request and was upset that she would have to pay another copay to come in when she had just been in. Patient declined appointment and said goodbye and hung up. [facility] 03-14-2024 Telephone encounter Note Pt called and said that she feels like her cold is breaking and she needs an antibiotic. Wondering if she can get one? [facility] 03-11-2024 History of Present illness Narrative Images from the original note were not included. Chandni Puri is a 58 y.o. female presents with chief complaint of ER Follow-up HPI: HPI Presents to the office for hospital follow-up. Seen in ER for seizure like activity, went into a fib with RVR, evaluated by cardiology, discharged with yessi and merlyn. EEG in the hospital was abnormal, was told to follow up with neurology, has not scheduled with them. Smokes a pack a day, not interested in quitting, was sent home with oxygen but is no longer using it. Denies any SOB or wheezing. Has been intentionally eating healthier, more active, she has been walking frequently. Verbally states the weight loss has been intentional Flowsheet Row Patient Outreach from 03/10/2024 in [facility] with Adrianne Hayes LPN [facility] Information ED, Hospital or Senior Living Facility Discharge? Hospital Patient has been contacted within two business days of discharge Yes Diagnosis Acute hypoxic resp failure, COPD exacerbation, A Fib new onset, breast nodule, liver cyst, alcoholic intoxication without complication, seizure-like activity. Discharge Date 03/07/24 Discharged To: Home Setting Discharge Hospital [facility] Engagement Call Start Time 1410 Admission Date 03/05/24 Medications Discharge medications reviewed and reconciled from hospital? Yes [start eliquis, diltiazem] Is the patient having any side effects they believe may be caused by any medication additions or changes? No Does the patient have all medications ordered at discharge? Yes Nursing Interventions No intervention needed Is the patient taking all medications as directed (includes completed medication regime)? Yes Nursing Interventions Nurse provided patient education Appointments Does the patient have a primary care provider? Yes [[facility] 03/11/2024 with Yoselin] Nursing Interventions Verified appointment date/time/provider Has the patient kept scheduled appointments due by today? Yes Self Management What Durable Medical Equipment (DME) was ordered? Home Oxygen Has all Durable Medical Equipment (DME) been delivered? Yes Patient Teaching Does the patient have access to their discharge instructions? Yes Nursing Interventions Reviewed instructions with patient What is the patient's perception of their health status since discharge? Improving Is the patient/caregiver able to teach back the hierarchy of who to call/visit for symptoms/problems? PCP, Specialist, Home Health nurse, Urgent Care, ED, 911 Yes Wrap Up Wrap Up Additional Comments Had labs, CTA chest, CT brain, CXR, UA, EKG, Echo, EEG Call End Time 1420 SUBJECTIVE: MEDICATIONS: Current Outpatient Medications Medication Instructions albuterol HFA 90 mcg/act inhaler 1 puff, Inhalation, Every 4 hours PRN amitriptyline (Elavil) 25 MG tablet TAKE 1 TABLET BY MOUTH EVERY DAY AT BEDTIME FOR 90 DAYS apixaban (ELIQUIS) 5 mg, 2 times daily ARIPiprazole (ABILIFY) 10 mg, Oral, Every morning aspirin 325 mg, Daily bumetanide (Bumex) 2 MG tablet 2 times daily PRN busPIRone (BUSPAR) 15 mg, Oral, 2 times daily cholecalciferol (Vitamin D3) 25 MCG (1000 UT) tablet Oral, Every morning dilTIAZem CD (CARDIZEM CD) 180 mg, Daily RT DULoxetine (CYMBALTA) 60 mg, Oral, 2 times daily, Do not crush or chew. escitalopram (Lexapro) 20 MG tablet TAKE 1 TABLET EVERY MORNING ferrous sulfate 325 (65 Fe) MG tablet TAKE 1 TABLET BY MOUTH EVERY DAY FOR 90 DAYS Fluticasone-Salmeterol 250-50 MCG/ACT aerosol powder 1 puff, Inhalation, 2 times daily gabapentin (NEURONTIN) 400 mg, Oral, 3 times daily hydrOXYzine pamoate (Vistaril) 50 MG capsule TAKE 1 CAPSULE EVERY 8 HOURS ibuprofen (IBU) 800 mg, Oral, 3 times daily PRN levothyroxine (Synthroid, Levoxyl) 75 MCG tablet TAKE 1 TABLET EVERY MORNING BEFORE A MEAL lisinopril 5 mg, Oral, Daily metFORMIN (GLUCOPHAGE) 500 mg, Oral, 2 times daily with meals methocarbamol (Robaxin) 500 MG tablet TAKE 1 TABLET AT BEDTIME omeprazole (PRILOSEC) 40 mg, Oral, Daily before breakfast, Do not crush or chew. simvastatin (ZOCOR) 10 mg, Oral, Nightly REVIEW OF SYMPTOMS: Review of Systems Constitutional: Negative. HENT: Negative. Eyes: Negative. Respiratory: Negative. Cardiovascular: Negative. Gastrointestinal: Negative. Genitourinary: Negative. Musculoskeletal: Negative. Skin: Negative. Neurological: Negative. OBJECTIVE: Visit Vitals BP 120/70 (BP Location: Left arm, Patient Position: Sitting, BP Cuff Size: Adult) Pulse 78 Ht 5' 5 Wt 142 lb SpO2 95% BMI 23.63 kg/m Smoking Status Some Days BSA 1.72 m Physical Exam Vitals reviewed. Constitutional: Appearance: Normal appearance. HENT: Head: Normocephalic and atraumatic. Mouth/Throat: Mouth: Mucous membranes are moist. Eyes: Pupils: Pupils are equal, round, and reactive to light. Cardiovascular: Rate and Rhythm: Normal rate and regular rhythm. Pulses: Normal pulses. Heart sounds: Normal heart sounds. Pulmonary: Effort: Pulmonary effort is normal. Breath sounds: Normal breath sounds. Chest: Breasts: Right: Normal. No mass, nipple discharge or tenderness. Left: Normal. No mass, nipple discharge or tenderness. Comments: Bruising noted to sternum Musculoskeletal: Cervical back: Normal range of motion and neck supple. Skin: General: Skin is warm and dry. Capillary Refill: Capillary refill takes less than 2 seconds. Findings: No rash. Neurological: General: No focal deficit present. Mental Status: She is alert and oriented to person, place, and time. ASSESSMENT AND PLAN: Assessment/Plan Diagnoses and all orders for this visit: Hospital discharge follow-up -Hospital records reviewed. Paroxysmal atrial fibrillation (CMS/HCC) -On cardiazem and eliquis, follow up with cardiology as prescribed Seizure-like activity (CMS/HCC) - Ambulatory referral to Neurology; Future -Refer to neurology for further evaluation. Hypokalemia -Resolved Acquired hypothyroidism (CMS/HCC) -On synthroid Essential hypertension (CMS/HCC) -Well controlled on current regimen COPD exacerbation (CMS/HCC) -Returned to baseline Type 2 diabetes mellitus with diabetic peripheral angiopathy without gangrene, without long-term current use of insulin (CMS/HCC) - metFORMIN (Glucophage) 500 MG tablet; Take 1 tablet (500 mg) by mouth in the morning and 1 tablet (500 mg) in the evening. Take with meals. -Well controlled with medications Anxiety - busPIRone (Buspar) 15 MG tablet; Take 1 tablet (15 mg) by mouth in the morning and 1 tablet (15 mg) before bedtime. -Stable Pulmonary emphysema, unspecified emphysema type (CMS/HCC) -Encourage smoking cessation and use inhalant therapy as prescribed Weight loss -Abnormal finding on chest CT but mammogram was normal. She has been intentionally trying to loose weight. documented in this encounter [facility] 03-07-2024 Nurse Note AVS reviewed with patient and family. Patient supplied with ODEC information and has no additional questions at this time. T [facility] 03-07-2024 Plan of care note Problem: Pain Goal: Patient goal is pain score less than 4, able to rest, and participant in treatment plan as appropriate Description: INTERVENTIONS: 1. Encourage patient or legal technical service representative to report early pain and ask for pain medicine when needed 2. Assess pain using appropriate pain scale and include the scale used when documenting 3. Administer analgesics based on type and severity of pain and evaluate response within appropriate time frame 4. Implement non-pharmacological measures as appropriate and evaluate response 5. Consider cultural and social influences on pain and pain management 6. Notify LIP if interventions ineffective or patient reports new pain 7. Monitor vital signs including pulse ox, end-tidal CO2 based on pain intervention 8. Reassess pain per policy 9. Teach patient or legal technical service representative interventions for comforting Outcome: Adequate for Discharge Problem: Safety Goal: Patient will be injury free during hospitalization Description: INTERVENTIONS: 1. Assess patient's risk for falls and implement fall prevention plan of care per policy 2. Provide and maintain a safe environment 3. Proper use of double Identifiers 4. Medication administration using the 5 rights 5. Hand hygiene 6. Specimens are labeled at the bedside 7. Instruct patient/ patient technical service representative about use of safety devices 8. Include patient/ patient technical service representative in decisions related to safety Outcome: Adequate for Discharge Problem: Infection Goal: Absence of infection during hospitalization Description: Interventions: 1. Assess and monitor for signs and symptoms of infection 2. Monitor lab/diagnostic results 3. Monitor all insertion sites i.e., indwelling lines, tubes and drains 4. Monitor endotracheal (as able) and nasal secretions for changes in amount and color 5. Administer medications as ordered 6. Instruct and encourage patient and family to use good hand hygiene technique 7. Identify and instruct patient/patient technical service representative in use of appropriate isolation precautions for identified infection/symptoms 8. Provide and discuss with patient/patient technical service representative on educational MDRO sheet 9. Encourage and monitor nutritional status daily and consult sulfur chloride operator if indicated 10. Implement neutropenic guidelines as needed 11. Review exposure to history of communicable disease and recent travel history on admission 12. Encourage annual influenza vaccine 13. Encourage pneumonia vaccine Outcome: Adequate for Discharge Problem: Knowledge Deficit Goal: Patient/patient technical service representative demonstrates understanding of disease process, treatment plan, medications, and discharge instructions Description: INTERVENTIONS 1. Complete learning assessment and assess knowledge base 2. Provide teaching at level of understanding 3. Provide teaching via preferred learning method(s) Outcome: Adequate for Discharge Problem: Discharge Planning Goal: Discharge to post-acute care, other facility, or home with appropriate resources Description: Patient's goal is: INTERVENTIONS 1. Conduct assessment to determine patient/family and health care team treatment goals, and need for post-acute services based on payer coverage, community resources, and patient preferences, and barriers to discharge 2. Coordinate with Social work, Care Navigation, and Utilization Review to arrange appropriate level of services according to patient's needs based on patient preference and payer coverage in collaboration with the physician and health care team 3. Address psychosocial, clinical, and financial barriers to discharge as identified in assessment in conjunction with the patient/family and health care team 4. Consult appropriate ancillary services (i.e.. PT/OT/ST, etc) as needed 5. Communicate with and update the patient/family, physician, and health care team regarding progress on the discharge plan 6. Identify discharge learning needs (meds, wound care, etc). 7. Arrange for needed discharge transportation as appropriate Outcome: Adequate for Discharge Problem: Multi-Drug Resistant Organism / Rule-Out Infection Prevention Goal: Prevent transmission of infection Description: INTERVENTIONS 1. Place patient in private room or in room with patient with same disease 2. Discard single-use items 3. Clean reusable equipment between patients 4. Wear gloves for direct and indirect contact with patient or contaminants 5. Change gloves between tasks and procedures 6. Wash hands before and after caring for each patient 7. Wear appropriate personal protective equipment in relation to the indicated isolation type 8. Place appropriate isolation signage on patient's door 9. Provide patient/ patient technical service representative with isolation education. Outcome: Adequate for Discharge Problem: Low Risk Fall Score Description: Art Fall Score of 0 - 24 or indicated by [facility] Assessment Goal: Patient should be free from fall Description: Interventions: 1. [place] to environment 2. Hourly rounds addressing the 4 P's (Pain, Positioning, Possessions, Potty) 3. Clear area of hazards (spills, clutter, electrical cords, unnecessary equipment) 4. Place equipment (bed & TV controls, call light, phone, urinal) within reach 5. Encourage patient to wear glasses and hearing aides as appropriate 6. Maintain bed in lowest position 7. Lock wheels on bed/wheelchair 8. Provide adequate lighting, including night light 9. Assess need for additional bedding, food/fluids, pain med's prior to sleep/routinely 10. Provide gripper slippers or personal non-skid footwear 11. Teach patient and patient technical service representative to maintain environment for safety and engage in all aspects of fall prevention program Outcome: Adequate for Discharge Problem: Moderate - High Risk Fall Score Description: Art Fall Score of =/> 25 or indicated by [facility] Assessment Goal: Patient should be free from fall Description: Interventions: 1. [place] to environment 2. Hourly rounds addressing the 4 P's (Pain, Positioning, Possessions, Potty) 3. Clear area of hazards (spills, clutter, electrical cords, unnecessary equipment) 4. Place equipment (bed & TV controls, call light, phone, urinal) within reach 5. Encourage patient to wear glasses and hearing aides as appropriate 6. Maintain bed in lowest position 7. Lock wheels on bed/wheelchair 8. Provide adequate lighting, including night light 9. Assess need for additional bedding, food/fluids, pain med's prior to sleep/routinely 10. Provide gripper slippers or personal non-skid footwear 11. Teach patient and patient technical service representative to maintain environment for safety and engage in all aspects of fall prevention program 12. Remind patient to call for help before getting out of bed 13. Initiate bed/chair/exit alarms supportive devices as appropriate, (chair wedge, no-skid floor mat, raised edge mattress, hip protectors) 14. Locate patient bed assignment for optimal visualization 15. Evaluate and identify Safe Patient Handling Equipment needs 16. Provide supervision when out of bed or chair 17. Utilize gait belt as needed to assist with ambulation 18. Place adaptive equipment (cane, walker) within reach 19. Request patient technical service representative bring adaptive equipment/mobility aids from home or obtain and provide as needed 20. Consult pharmacy regarding effects of med's affecting mobility, cognition, and alternatives 21. Obtain physician order for PT if risk factors associated with mobility are present 22. Obtain physician order for OT as appropriate 23. Utilize diversional activities 24. Educate patient and patient technical service representative how to maintain a safe environment during visitation times (notify nurse prior to leaving bedside) 25. Consider appropriateness of medical or non-certified medical coding specialist 26. Set up voiding schedule as appropriate (every 2 hours) Outcome: Adequate for Discharge [facility] 03-07-2024 Miscellaneous Notes Problem: Pain Goal: Patient goal is pain score less than 4, able to rest, and participant in treatment plan as appropriate Description: INTERVENTIONS: 1. Encourage patient or legal technical service representative to report early pain and ask for pain medicine when needed 2. Assess pain using appropriate pain scale and include the scale used when documenting 3. Administer analgesics based on type and severity of pain and evaluate response within appropriate time frame 4. Implement non-pharmacological measures as appropriate and evaluate response 5. Consider cultural and social influences on pain and pain management 6. Notify LIP if interventions ineffective or patient reports new pain 7. Monitor vital signs including pulse ox, end-tidal CO2 based on pain intervention 8. Reassess pain per policy 9. Teach patient or legal technical service representative interventions for comforting Outcome: Adequate for Discharge Problem: Safety Goal: Patient will be injury free during hospitalization Description: INTERVENTIONS: 1. Assess patient's risk for falls and implement fall prevention plan of care per policy 2. Provide and maintain a safe environment 3. Proper use of double Identifiers 4. Medication administration using the 5 rights 5. Hand hygiene 6. Specimens are labeled at the bedside 7. Instruct patient/ patient technical service representative about use of safety devices 8. Include patient/ patient technical service representative in decisions related to safety Outcome: Adequate for Discharge Problem: Infection Goal: Absence of infection during hospitalization Description: Interventions: 1. Assess and monitor for signs and symptoms of infection 2. Monitor lab/diagnostic results 3. Monitor all insertion sites i.e., indwelling lines, tubes and drains 4. Monitor endotracheal (as able) and nasal secretions for changes in amount and color 5. Administer medications as ordered 6. Instruct and encourage patient and family to use good hand hygiene technique 7. Identify and instruct patient/patient technical service representative in use of appropriate isolation precautions for identified infection/symptoms 8. Provide and discuss with patient/patient technical service representative on educational MDRO sheet 9. Encourage and monitor nutritional status daily and consult sulfur chloride operator if indicated 10. Implement neutropenic guidelines as needed 11. Review exposure to history of communicable disease and recent travel history on admission 12. Encourage annual influenza vaccine 13. Encourage pneumonia vaccine Outcome: Adequate for Discharge Problem: Knowledge Deficit Goal: Patient/patient technical service representative demonstrates understanding of disease process, treatment plan, medications, and discharge instructions Description: INTERVENTIONS 1. Complete learning assessment and assess knowledge base 2. Provide teaching at level of understanding 3. Provide teaching via preferred learning method(s) Outcome: Adequate for Discharge Problem: Discharge Planning Goal: Discharge to post-acute care, other facility, or home with appropriate resources Description: Patient's goal is: INTERVENTIONS 1. Conduct assessment to determine patient/family and health care team treatment goals, and need for post-acute services based on payer coverage, community resources, and patient preferences, and barriers to discharge 2. Coordinate with Social work, Care Navigation, and Utilization Review to arrange appropriate level of services according to patient's needs based on patient preference and payer coverage in collaboration with the physician and health care team 3. Address psychosocial, clinical, and financial barriers to discharge as identified in assessment in conjunction with the patient/family and health care team 4. Consult appropriate ancillary services (i.e.. PT/OT/ST, etc) as needed 5. Communicate with and update the patient/family, physician, and health care team regarding progress on the discharge plan 6. Identify discharge learning needs (meds, wound care, etc). 7. Arrange for needed discharge transportation as appropriate Outcome: Adequate for Discharge Problem: Multi-Drug Resistant Organism / Rule-Out Infection Prevention Goal: Prevent transmission of infection Description: INTERVENTIONS 1. Place patient in private room or in room with patient with same disease 2. Discard single-use items 3. Clean reusable equipment between patients 4. Wear gloves for direct and indirect contact with patient or contaminants 5. Change gloves between tasks and procedures 6. Wash hands before and after caring for each patient 7. Wear appropriate personal protective equipment in relation to the indicated isolation type 8. Place appropriate isolation signage on patient's door 9. Provide patient/ patient technical service representative with isolation education. Outcome: Adequate for Discharge Problem: Low Risk Fall Score Description: Art Fall Score of 0 - 24 or indicated by [facility] Assessment Goal: Patient should be free from fall Description: Interventions: 1. [place] to environment 2. Hourly rounds addressing the 4 P's (Pain, Positioning, Possessions, Potty) 3. Clear area of hazards (spills, clutter, electrical cords, unnecessary equipment) 4. Place equipment (bed & TV controls, call light, phone, urinal) within reach 5. Encourage patient to wear glasses and hearing aides as appropriate 6. Maintain bed in lowest position 7. Lock wheels on bed/wheelchair 8. Provide adequate lighting, including night light 9. Assess need for additional bedding, food/fluids, pain med's prior to sleep/routinely 10. Provide gripper slippers or personal non-skid footwear 11. Teach patient and patient technical service representative to maintain environment for safety and engage in all aspects of fall prevention program Outcome: Adequate for Discharge Problem: Moderate - High Risk Fall Score Description: Art Fall Score of =/> 25 or indicated by [facility] Assessment Goal: Patient should be free from fall Description: Interventions: 1. [place] to environment 2. Hourly rounds addressing the 4 P's (Pain, Positioning, Possessions, Potty) 3. Clear area of hazards (spills, clutter, electrical cords, unnecessary equipment) 4. Place equipment (bed & TV controls, call light, phone, urinal) within reach 5. Encourage patient to wear glasses and hearing aides as appropriate 6. Maintain bed in lowest position 7. Lock wheels on bed/wheelchair 8. Provide adequate lighting, including night light 9. Assess need for additional bedding, food/fluids, pain med's prior to sleep/routinely 10. Provide gripper slippers or personal non-skid footwear 11. Teach patient and patient technical service representative to maintain environment for safety and engage in all aspects of fall prevention program 12. Remind patient to call for help before getting out of bed 13. Initiate bed/chair/exit alarms supportive devices as appropriate, (chair wedge, no-skid floor mat, raised edge mattress, hip protectors) 14. Locate patient bed assignment for optimal visualization 15. Evaluate and identify Safe Patient Handling Equipment needs 16. Provide supervision when out of bed or chair 17. Utilize gait belt as needed to assist with ambulation 18. Place adaptive equipment (cane, walker) within reach 19. Request patient technical service representative bring adaptive equipment/mobility aids from home or obtain and provide as needed 20. Consult pharmacy regarding effects of med's affecting mobility, cognition, and alternatives 21. Obtain physician order for PT if risk factors associated with mobility are present 22. Obtain physician order for OT as appropriate 23. Utilize diversional activities 24. Educate patient and patient technical service representative how to maintain a safe environment during visitation times (notify nurse prior to leaving bedside) 25. Consider appropriateness of medical or non-certified medical coding specialist 26. Set up voiding schedule as appropriate (every 2 hours) Outcome: Adequate for Discharge Problem: Knowledge Deficit Goal: Patient/patient technical service representative demonstrates understanding of disease process, treatment plan, medications, and discharge instructions Description: INTERVENTIONS 1. Complete learning assessment and assess knowledge base 2. Provide teaching at level of understanding 3. Provide teaching via preferred learning method(s) Outcome: Progressing Note: Evaluation of progress towards goal: Plan of care reviewed, no questions/concerns voiced. All interventions explained prior to initiating. Problem: Pain Goal: Patient goal is pain score less than 4, able to rest, and participant in treatment plan as appropriate Description: INTERVENTIONS: 1. Encourage patient or legal technical service representative to report early pain and ask for pain medicine when needed 2. Assess pain using appropriate pain scale and include the scale used when documenting 3. Administer analgesics based on type and severity of pain and evaluate response within appropriate time frame 4. Implement non-pharmacological measures as appropriate and evaluate response 5. Consider cultural and social influences on pain and pain management 6. Notify LIP if interventions ineffective or patient reports new pain 7. Monitor vital signs including pulse ox, end-tidal CO2 based on pain intervention 8. Reassess pain per policy 9. Teach patient or legal technical service representative interventions for comforting Outcome: Progressing Note: Evaluation of progress towards goal: monitor and treat pain as ordered Problem: Safety Goal: Patient will be injury free during hospitalization Description: INTERVENTIONS: 1. Assess patient's risk for falls and implement fall prevention plan of care per policy 2. Provide and maintain a safe environment 3. Proper use of double Identifiers 4. Medication administration using the 5 rights 5. Hand hygiene 6. Specimens are labeled at the bedside 7. Instruct patient/ patient technical service representative about use of safety devices 8. Include patient/ patient technical service representative in decisions related to safety Outcome: Progressing Note: Evaluation of progress towards goal: remains free from fall/ injury documented in this encounter [facility] 03-07-2024 Nurse Note AVS reviewed with patient and family. Patient supplied with ODEC information and has no additional questions at this time. documented in this encounter [facility] 03-07-2024 History of Present illness Narrative 03/07/24 1426 Home Oxygen Qualification - Resting Method *Complete within 48 Hrs of Discharge SpO2 On Room Air At Rest 90 % Home Oxygen Qualification - Exercise/Ambulation Method SpO2 On Room Air With Exercise/Ambulation 87 % Amount Of O2 Applied During Exercise/Ambulation To Keep SpO2 >88% 2 L/min SpO2 On Applied O2 With Exercise/Ambulation 92 % Home O2 eval started on RA and completed on 2L NC. Pt requires 2L O2 with exertion. RN notified documented in this encounter [facility] 03-07-2024 Hospital course Narrative Images from the original note were not included. [facility] EN[facility] [address] [place] [id number] Hospital Medicine Discharge Summary Patient: Chandni Puri Date of : 1965 Room: Encounter date: 03/07/24 Hospital Day: 3 DATE OF ADMISSION: 03/05/2024 DATE OF DISCHARGE:03/07/2024 DISCHARGE DIAGNOSES Principal Problem: Acute hypoxic respiratory failure ([facility]) Active Problems: Pulmonary emphysema ([facility]) Anxiety Hypothyroidism Type 2 diabetes mellitus ([facility]) Essential hypertension Paroxysmal atrial fibrillation ([facility]) CONSULTANTS none PCP: YOSELIN ALEGRIA, 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 female with PMH of emphysema, anxiety, hypothyroidism, diabetes mellitus type 2, who presents with episode of unresponsiveness. The patient denied headache. But did complain of shortness of breath. Ddimer 2,232, CTA negative for PE but did reveal focal nodular area of the left breast. CT brain negative, CXR negative, troponin negative, lactate 2.0, BNP 48, mag 1.3 potassium 3.1, sodium 130, no leukocytosis, RPP pending, UA negative. Blood alcohol level of 0.14 on arrival, otherwise negative tox screen. Cardiology consulted for atrial fibrillation, on Cardizem gtt. Pt placed on 4L NC. Does not appear to be in acute distress, breathing is not labored. Pt appears comfortable. Denies chest pain, nausea, fever, chills Pt states she had 4 rum and cokes last night with more drinks at the bar. Pt denies daily drinking habits. Patient denies any palpitations, dizziness or near-syncope or presyncope episode that happened at the time of the event. Family members reports some foaming at the mouth. Denies seizure history. States she smokes about a pack a day. Pt denies known history of atrial fibrillation but states she has a history of a PE after an ankle fracture. Not currently anticoagulated at home. Pt receiving lovenox currently. Patient admits to 70 lb weight loss over the last 6 months. Recommend mammogram at discharge based off the findings on CT that suggest focal nodular area to the left breast. Hospital course: Acute hypoxic respiratory failure Pulmonary Emphysema Dyspnea -CXR negative for acute abnormality -D-dimer 2232, CTA negative for PE, but did reveal focal nodular area of the left breast. Recommend mammogram at discharge -Echo pending -troponin negative -BNP 48 -Lactate 2.0 -RPP negative -PRN xopenex ordered -currently on room air, but oxygen saturations noted to drop with activity. Home oxygen evaluation ordered -Encourage incentive spirometry use. Paroxysmal Atrial fibrillation Hx pulmonary embolism -Cardiology consulted -Cardizem gtt stopped, transition to PO Cardizem per cardiology -Currently on Lovenox, discharge on eliquis per cardiology recommendations -Event monitor at discharge -Rate controlled Altered mental status Seizure-like activity -CT brain negative -EEG abnormal- OP follow up with neurology -no history of seizure per patient -currently alert and oriented -Blood alcohol level of 0.14 on arrival Essential hypertension -currently hypotensive hold blood pressure meds for now -Received normal saline 125 mL/hr Diabetes mellitus, type 2 -Takes metformin home -A1c 6.0 -consistent carb diet -adequate blood sugar control Anxiety -resume home meds Hypothyroidism -resume Synthroid Pt instructed to follow up with PCP, cardiology, neurology in one week. Instructed to seek medical attention if symptoms persist or worsen or if you develop chest pain or shortness of breath. A face to face evaluation was conducted regarding home oxygen therapy. Patient has hypoxia due to emphysema , that will improve with oxygen therapy. The patient has had the following ABG and/or pulse oximetry readings: at rest: 90 Oximetry <=88%; activity without oxygen: 87% oximetry <= 88%; activity with oxygen: 92% to demonstrate oxygen improves the hypoxemia exhibited during exercise Discharge Day Progress Note 03/07/24 Hemodynamically stable. No chest pain, shortness of breath, fever, chills, nausea, vomiting, palpitations, or abdominal pain reported. No events reported overnight. Review of Systems Constitutional: Positive for unexpected weight change. Negative for chills and fever. HENT: Negative for ear pain and sore throat. Eyes: Negative for pain and visual disturbance. Respiratory: Negative for cough, chest tightness and shortness of breath. Cardiovascular: Negative for chest pain and palpitations. Gastrointestinal: Negative for abdominal pain and vomiting. Genitourinary: Negative for dysuria and hematuria. Musculoskeletal: Negative for arthralgias and back pain. Skin: Negative for color change and rash. Neurological: Negative for dizziness, seizures, syncope and headaches. All other systems reviewed and are negative. BP 112/71 Pulse 74 Temp 36.7 C (98 F) (Oral) Resp 20 Ht 165.1 cm (5' 5 ) Wt 57.7 kg (127 lb 4.8 oz) SpO2 92% BMI 21.18 kg/m Temp: [36.7 C (98 F)-36.9 C (98.4 F)] 36.7 C (98 F) Pulse: [65-77] 74 Resp: [18-20] 20 BP: (92-112)/(60-71) 112/71 SpO2: [91 %-99 %] 92 % O2 Device: None (Room air) O2 Flow Rate (L/min): [2 L/min-4 L/min] 2 L/min Intake/Output Summary (Last 24 hours) at 03/07/2024 1356 Last data filed at 03/07/2024 0707 Gross per 24 hour Intake 2771.11 ml Output 400 ml Net 2371.11 ml Physical Exam Vitals and nursing note reviewed. Constitutional: General: She is not in acute distress. Appearance: She is well-developed. She is not toxic-appearing. HENT: Head: Normocephalic and atraumatic. Nose: Nose normal. Eyes: Pupils: Pupils are equal, round, and reactive to light. Cardiovascular: Rate and Rhythm: Normal rate and regular rhythm. Heart sounds: Normal heart sounds. No murmur heard. Pulmonary: Effort: Pulmonary effort is normal. No respiratory distress. Breath sounds: Normal breath sounds. No wheezing. Abdominal: General: Bowel sounds are normal. Palpations: Abdomen is soft. Tenderness: There is no abdominal tenderness. Musculoskeletal: General: Normal range of motion. Cervical back: Neck supple. Right lower leg: No edema. Left lower leg: No edema. Lymphadenopathy: Cervical: No cervical adenopathy. Skin: General: Skin is warm and dry. Capillary Refill: Capillary refill takes less than 2 seconds. Findings: No rash. Neurological: Mental Status: She is alert and oriented to person, place, and time. Cranial Nerves: No cranial nerve deficit. Psychiatric: Mood and Affect: Mood normal. Behavior: Behavior normal. Code Status: Full Code Labs Recent Results (from the past 48 hours) CBC auto differential Collection Time: 03/06/24 12:37 AM Result Value Ref Range White Blood Cells 9.5 4.0 - 11.0 X10E9/L RBC count 4.07 3.80 - 5.20 X10E12/L Hemoglobin 12.6 11.7 - 15.5 g/dL Hematocrit 38.0 35 - 47 % MCV 93 80 - 100 fL MCH 31.0 27 - 34 pg MCHC 33.3 32 - 36 g/dL RDW 14.5 11.5 - 15.0 % Platelets 340 150 - 450 X10E9/L MPV 7.1 7 - 12 fL % neutrophils 64.2 % % lymphocytes 27.2 % % monocytes 3.5 % % eosinophils 4.2 % % Basophils 0.9 % Neutrophils Absolute (A) 6.1 1.5 - 6.6 X10E9/L Lymphocytes Absolute 2.6 1.0 - 3.5 X10E9/L Monocytes Absolute 0.3 0 - 0.9 X10E9/L Eosinophils Absolute 0.4 0.0 - 0.4 X10E9/L Basophils Absolute 0.1 0.0 - 0.2 X10E9/L Comprehensive metabolic panel Collection Time: 03/06/24 12:37 AM Result Value Ref Range Sodium 130 (L) 134 - 146 mmol/L Potassium, Bld 3.1 (L) 3.5 - 5.0 mmol/L Chloride 98 98 - 109 mmol/L CO2 20 (L) 22 - 32 mmol/L Anion gap 12 5 - 15 mmol/L BUN 9 5 - 23 mg/dL Creatinine 0.59 0.40 - 1.00 mg/dL Glucose 98 65 - 99 mg/dL Calcium 8.5 8.5 - 10.5 mg/dL Total Protein 6.1 6.0 - 8.0 g/dL Albumin 2.9 (L) 3.2 - 5.3 g/dL Alkaline Phosphatase 82 39 - 130 U/L AST 20 0 - 41 U/L ALT 15 0 - 31 U/L Total bilirubin 0.6 0.3 - 1.2 mg/dL eGFR (CKD-EPI)non-race dependent >90 >59 ml/min/1.73sq.m Ethanol Collection Time: 03/06/24 12:37 AM Result Value Ref Range Ethanol Lvl 0.14 (H) 0.00 - 0.08 g/dL Magnesium Collection Time: 03/06/24 12:37 AM Result Value Ref Range Magnesium 1.3 (L) 1.8 - 2.6 mg/dL Troponin I, High Sensitivity Collection Time: 03/06/24 12:37 AM Result Value Ref Range Troponin I, High Sensitivity 4 <16 ng/L B-type natriuretic peptide Collection Time: 03/06/24 12:37 AM Result Value Ref Range BNP 48 <100.0 pg/mL Lactate w/ Reflex Collection Time: 03/06/24 12:37 AM Result Value Ref Range Lactate w/ Reflex 2.0 0.4 - 2.0 mmol/L D-Dimer Collection Time: 03/06/24 12:37 AM Result Value Ref Range D-dimer 2,232 (H) <255 ng/mL DDU Hemoglobin A1c Collection Time: 03/06/24 12:37 AM Result Value Ref Range Hemoglobin A1C 6.0 (H) 4.4 - 5.6 % Average glucose 126 mg/dL Troponin I, High Sensitivity 1 Hour Collection Time: 03/06/24 1:51 AM Result Value Ref Range 1 Hour Trop I, High Sensitivity 4 <16 ng/L Drug Screen, Urine Collection Time: 03/06/24 3:10 AM Result Value Ref Range Amphetamine/methamphetamine Negative Negative^Negative Barbiturate Screen, Ur Negative Negative^Negative Benzodiazepine Screen, Urine Negative Negative^Negative THC, urine Negative Negative^Negative Cocaine (metabolite) Negative Negative^Negative Opiate Quant, Ur Negative Negative^Negative Phencyclidine Negative Negative^Negative Oxycodone Negative Negative^Negative Methadone Negative Negative^Negative Ecstasy Negative Negative^Negative POCT Nursing Urine Macroscopic UA Collection Time: 03/06/24 3:12 AM Result Value Ref Range Specific gravity EMMANUEL 1.010 1.003 - 1.035 Leukocyte esterase EMMANUEL Negative Negative^Negative Nitrite EMMANUEL Negative Negative^Negative Ph 6.5 5.0 - 8.5 Protein EMMANUEL Negative Negative^Negative mg/dL Urine glucose EMMANUEL Negative Negative^Negative mg/dL Ketones EMMANUEL Negative Negative^Negative mg/dL Urobilinogen EMMANUEL 0.2 <1.1 eu/dL Bilirubin EMMANUEL Negative Negative^Negative Hemoglobin EMMANUEL Negative Negative^Negative Procalcitonin Collection Time: 03/06/24 10:57 AM Result Value Ref Range Procalcitonin <0.05 <0.05 ng/mL Magnesium Collection Time: 03/06/24 10:57 AM Result Value Ref Range Magnesium 1.6 (L) 1.8 - 2.6 mg/dL Potassium Collection Time: 03/06/24 10:57 AM Result Value Ref Range Potassium, Bld 4.5 3.5 - 5.0 mmol/L Phosphorus Collection Time: 03/06/24 10:57 AM Result Value Ref Range Phosphorus 4.5 2.4 - 4.9 mg/dL Resp Pathogens Panel/SARS CoV-2 Collection Time: 03/06/24 1:02 PM Result Value Ref Range Specimen Source NASO PHARYNX Adenovirus Detection by PCR Not Detected Not Detected^Not Detected Coronavirus 229e Not Detected Not Detected^Not Detected Coronavirus hku1 Not Detected Not Detected^Not Detected Coronavirus nl63 Not Detected Not Detected^Not Detected Coronavirus oc43 Not Detected Not Detected^Not Detected Human metapneumovirus Not Detected Not Detected^Not Detected Rhinovirus/enterovirus Not Detected Not Detected^Not Detected Influenza A Not Detected Not Detected^Not Detected Influenza B Not Detected Not Detected^Not Detected Parainfluenza 1 Not Detected Not Detected^Not Detected Parainfluenza 2 Not Detected Not Detected^Not Detected Parainfluenza 3 Not Detected Not Detected^Not Detected Parainfluenza 4 Not Detected Not Detected^Not Detected Respiratory syncytial virus Not Detected Not Detected^Not Detected Bordetella parapertussis Not Detected Not Detected^Not Detected Bordetella pertussis Not Detected Not Detected^Not Detected Chlamydophila pneumophilia Not Detected Not Detected^Not Detected Mycoplasma pneumoniae Not Detected Not Detected^Not Detected SARS COV 2 Not Detected Not Detected^Not Detected Magnesium Collection Time: 03/06/24 9:29 PM Result Value Ref Range Magnesium 2.1 1.8 - 2.6 mg/dL Comprehensive metabolic panel Collection Time: 03/07/24 5:18 AM Result Value Ref Range Sodium 138 134 - 146 mmol/L Potassium, Bld 3.9 3.5 - 5.0 mmol/L Chloride 108 98 - 109 mmol/L CO2 24 22 - 32 mmol/L Anion gap 6 5 - 15 mmol/L BUN 16 5 - 23 mg/dL Creatinine 0.67 0.40 - 1.00 mg/dL Glucose 164 (H) 65 - 99 mg/dL Calcium 8.3 (L) 8.5 - 10.5 mg/dL Total Protein 5.9 (L) 6.0 - 8.0 g/dL Albumin 2.9 (L) 3.2 - 5.3 g/dL Alkaline Phosphatase 82 39 - 130 U/L AST 16 0 - 41 U/L ALT 16 0 - 31 U/L Total bilirubin 0.3 0.3 - 1.2 mg/dL eGFR (CKD-EPI)non-race dependent >90 >59 ml/min/1.73sq.m Magnesium Collection Time: 03/07/24 5:18 AM Result Value Ref Range Magnesium 2.0 1.8 - 2.6 mg/dL CBC auto differential Collection Time: 03/07/24 5:18 AM Result Value Ref Range White Blood Cells 8.6 4.0 - 11.0 X10E9/L RBC count 3.99 3.80 - 5.20 X10E12/L Hemoglobin 12.3 11.7 - 15.5 g/dL Hematocrit 37.4 35 - 47 % MCV 94 80 - 100 fL MCH 30.9 27 - 34 pg MCHC 33.0 32 - 36 g/dL RDW 14.6 11.5 - 15.0 % Platelets 367 150 - 450 X10E9/L MPV 7.5 7 - 12 fL % neutrophils 83.9 % % lymphocytes 9.1 % % monocytes 6.9 % % eosinophils 0.0 % % Basophils 0.1 % Neutrophils Absolute (A) 7.2 (H) 1.5 - 6.6 X10E9/L Lymphocytes Absolute 0.8 (L) 1.0 - 3.5 X10E9/L Monocytes Absolute 0.6 0 - 0.9 X10E9/L Eosinophils Absolute 0.0 0.0 - 0.4 X10E9/L Basophils Absolute 0.0 0.0 - 0.2 X10E9/L Bedside Glucose *Place/Obtain serum glucose if >500(>600 MRH) per glucometer. Collection Time: 03/07/24 11:32 AM Result Value Ref Range Bedside glucose 247 (H) 65 - 99 mg/dL Radiology EEG Result Date: 03/06/2024 Narrative: Images from the original result were not included. EEG REPORT (Routine) EEG Service Date: 03/06/2024 HISTORY: Chandni Puri is a 58 y.o. left-handed female with seizures. The study is to assist clinical diagnosis and management. CURRENT MEDICATIONS: Tylenol, Elavil, aspirin, Abilify, Lipitor, BuSpar, Cardizem, Cymbalta, Lovenox, Lexapro, Neurontin, glucagon, Xopenex, Synthroid, Zofran, Protonix, Senokot TECHNICAL DESCRIPTION: This is a 25 channel digital scalp EEG that was performed utilizing International 10/20 Montage System for electrode placement. Digital EEG data was collected from 25 channels. Multi-reformatted montages were used during the EEG analysis. One additional channel was used to monitor EKG during the EEG study. EEG INTERPRETATION: Duration and Quality: - Duration: 27 minutes - Quality: Poor quality for digital EEG - Artifacts: Large and well recognized; sustained artifacts from diaphoresis and movement Status of Patient: - Awake and Drowsy Background: - Anterior: Rhythmic activity with a frequency of 18-20 Hz and amplitude 7-10 V was seen in the bilateral anterior regions. - Posterior: Rhythmic activity with a frequency of 7-8 Hz and amplitude of 30-40 V was seen intermittently in the bilateral posterior head regions. Response to Photic Stimulation: - There was no sustained driving in response to photic stimulation at all the tested frequencies. Response to Hyperventilation: - Not performed due to clinical condition/limitation Sleep: - The patient spent 60-70% of the recording time in sleep and reached stage I, which was evidenced by the presence of attenuation of wakeful background, slow horizontal ocular motion, and vertex sharp transients. Significant Findings: - Sustained regional slowing: Not identified - Asymmetry: Not identified - Generalized slowing: Not identified - Epileptiform discharge(s): Not identified - Electrographic seizure(s): Not identified - Diffusely increased 12-14 Hz Rhythmic activity with amplitude of 20-30 uV maximum in the bilateral frontocentral regions Events: - Clinical: Not identified - EEG: Not identified EEG CLASSIFICATION: Abnormal (Awake, Drowsy, and Sleep) - Background slow - Excessive fast diffuse CLINICAL CORRELATION: This study is abnormal. It shows evidences to indicate excessive sleepiness and/or mild diffuse encephalopathy. There are additional findings to suggest possible medication effects. Clinical correlation is recommended. José Espino MD, PhD Neurology/Clinical Neurophysiology Echo complete W/O contrast Result Date: 03/06/2024 Narrative: Left Ventricle: Left ventricle appears normal in size. Systolic function is normal with an ejection fraction of 55-60%. The quantitative EF by 3D imaging is 59%. No obvious regional wall motion abnormalities. There is no diastolic dysfunction and normal left atrial pressure. Right Ventricle: Systolic function is mildly reduced. CT brain without contrast Result Date: 03/06/2024 Narrative: STUDY: CT HEAD WITHOUT CONTRAST CLINICAL HISTORY: Mental status change, unknown cause; Episode of unresponsiveness transient alteration of awareness COMPARISON: None. TECHNIQUE: CT head was performed without contrast utilizing 2.5 mm axial reconstruction with images reviewed in bone and brain windows. Automated exposure control was utilized. FINDINGS: There is no intracranial mass, mass effect or shift of midline structures. No extra-axial fluid collection. Hector-white differentiation is preserved. No CT evidence of large vessel vascular distribution of acute infarct, acute ischemia or hemorrhage. No depressed or widely calvarial fracture. Paranasal sinuses are well aerated. Please note, MRI is more sensitive for the evaluation of acute or occult process is indicated. IMPRESSION: 1. No evidence of an acute intracranial process. All CT scans at this facility use dose modulation, iterative reconstruction, and/or weight based dosing when appropriate to reduce radiation dose to as low as reasonably achievable. Finalized by Aaron Prater MD on 03/06/2024 7:[address] angiogram chest Result Date: 03/06/2024 Narrative: CT CTA CHEST 03/06/2024 4:41 AM INDICATION: Pulmonary embolism (PE) suspected, high prob COMPARISON: None TECHNIQUE: Contrast-enhanced CT images of the chest were obtained. 3-D images were also post processed at a separate workstation to further define anatomy and potential pathology. All CT scans at this facility use dose modulation, iterative reconstruction, and/or weight based dosing when appropriate to reduce radiation dose to as low as reasonably achievable. FINDINGS: LUNGS/PLEURA: Mosaic attenuation throughout the lungs. Patchy posterior basilar airspace disease, possibly atelectasis. Few anterior predominant lung cysts and multiple smaller anterior and posterior lung cysts and questionable areas of reticulation. No definite pleural effusion. CENTRAL AIRWAYS: Patent trachea and mainstem bronchi. VASCULATURE: Mild atheromatous disease of the thoracic aorta without aneurysm. Main pulmonary artery is borderline enlarged. Evaluation limited of pulmonary arteries due to contrast bolus timing. No definite large pulmonary embolism. HEART/PERICARDIUM: The heart is not enlarged. Trace pericardial effusion. Mild coronary artery calcified atheromatous disease. MEDIASTINUM: Prominent mediastinal and hilar lymph nodes. LOWER NECK: Unremarkable. CHEST WALL: Focal nodular area of the left breast measuring approximately 14 mm. UPPER ABDOMEN: Low attenuation areas of the liver, possibly cysts, however location can be seen with focal fatty infiltration. OSSEOUS STRUCTURES: Multiple chronic appearing right-sided rib fractures. IMPRESSION: 1. Limited exam without definite large pulmonary embolism. 2. Findings within the lungs as described, underlying interstitial lung disease could be considered. Nonemergent high-resolution chest CT with inspiration and expiration recommended. 3. Focal nodular area of the left breast. Further evaluation with nonemergent mammogram recommended. 4. Nonspecific low attenuation areas of the liver, possibly cysts, however location can be seen with focal fatty infiltration. Further evaluation with MRI could be obtained as clinically indicated. Finalized by Amadou Land DO on 03/06/2024 5:40 AM X-ray chest 1 view Result Date: 03/06/2024 Narrative: HISTORY: Shortness of breath COMPARISON: Chest x-ray 03/02/2021 FINDINGS: Portable AP upright view of the chest was performed. Cardiac silhouette is within normal limits. Lungs demonstrate no focal airspace consolidation or significant vascular congestion. No pleural fluid collection or pneumothorax. Healed right rib fractures. IMPRESSION: * No acute abnormality. Finalized by Gume Jiang MD on 03/06/2024 12:56 AM DISCHARGE INSTRUCTION Disposition: Home Condition: Stable Activity: activity as tolerated Diet: Adult diet Regular Texture; Consistent Carb 255 grams (2000 kcal) Follow up: MAYKEL CUMMINGS within 7-14 days. Cardiology 7-10 days Neurology 7-10 days Labs/Imaging/Pathology: none Discharge Medications: Medication List START taking these medications Instructions Last Dose Given Next Dose Due apixaban 5 mg tablet Commonly known as: ELIQUIS Take 1 tablet (5 mg total) by mouth in the morning and 1 tablet (5 mg total) before bedtime. dilTIAZem CD 180 mg 24 hr capsule Commonly known as: CARDIZEM CD Start taking on: March 08, 2024 Take 1 capsule (180 mg total) by mouth in the morning. CONTINUE taking these medications Instructions Last Dose Given Next Dose Due amitriptyline 10 mg tablet Commonly known as: ELAVIL One capsule at 8 PM each night ARIPiprazole 10 mg tablet Commonly known as: ABILIFY Take 1 tablet (10 mg total) by mouth in the morning. aspirin 325 mg tablet Take 1 tablet (325 mg total) by mouth in the morning. bumetanide 2 mg tablet Commonly known as: BUMEX Take 1 tablet (2 mg total) by mouth 2 (two) times a day before meals. busPIRone 15 mg tablet Commonly known as: BUSPAR Take 1 tablet (15 mg total) by mouth in the morning and 1 tablet (15 mg total) before bedtime. DULoxetine 60 mg capsule Commonly known as: CYMBALTA Take 1 capsule (60 mg total) by mouth in the morning and 1 capsule (60 mg total) before bedtime. escitalopram 20 mg tablet Commonly known as: LEXAPRO Take 1 tablet (20 mg total) by mouth in the morning. gabapentin 400 mg capsule Commonly known as: NEURONTIN Take 1 capsule (400 mg total) by mouth 3 (three) times a day. hydrOXYzine 50 mg capsule Commonly known as: VISTARIL Take 1 capsule (50 mg total) by mouth in the morning and 1 capsule (50 mg total) at noon and 1 capsule (50 mg total) in the evening. levothyroxine 75 MCG tablet Commonly known as: SYNTHROID, LEVOTHROID Take 1 tablet (75 mcg total) by mouth in the morning. metFORMIN 500 mg tablet Commonly known as: GLUCOPHAGE Take 1 tablet (500 mg total) by mouth in the morning and 1 tablet (500 mg total) before bedtime. methocarbamoL 500 mg tablet Commonly known as: ROBAXIN Take 1 tablet (500 mg total) by mouth once daily at bedtime. omeprazole 40 mg capsule Commonly known as: PriLOSEC Take 1 capsule (40 mg total) by mouth in the morning. simvastatin 10 mg tablet Commonly known as: ZOCOR Take 1 tablet (10 mg total) by mouth nightly. STOP taking these medications lisinopriL 10 mg tablet Commonly known as: PRINIVILZESTRIL Where to Get Your Medications These medications were sent to [facility]/pharmacy #[id number] [place] [address] apixaban 5 mg tablet dilTIAZem CD 180 mg 24 hr capsule >30 minutes were spent on discharging this patient. MAYKEL Leigh 03/07/2024 1:56 PM [facility] Internal Medicine 7AM-7PM (all facilities): Stevan or hitesh through [facility]. 7PM-7AM ([facility], [facility]patient [facility]): Stevan proctor, [phone]. 7PM-7AM ([facility], [place], [place] and [facility] Rehab): Stevan or page through [facility]. MAYKEL Leigh 03/07/24 1431 Physician Attestation: I have reviewed the above note authored by the Advance Practice Provider (CLAY) including history, review of systems, physical examination, medical decision making and agree with the assessment & plan. I have personally performed a face to face diagnostic evaluation on this patient. I have reviewed all laboratory findings and imaging reports/films. I have independently evaluated the patient and repeated mcdonald portions of the physical exam. I agree with the CLAY plan as above, unless otherwise noted. NENO LANE MD documented in this encounter [facility] 03-07-2024 Plan of care note Problem: Knowledge Deficit Goal: Patient/patient technical service representative demonstrates understanding of disease process, treatment plan, medications, and discharge instructions Description: INTERVENTIONS 1. Complete learning assessment and assess knowledge base 2. Provide teaching at level of understanding 3. Provide teaching via preferred learning method(s) Outcome: Progressing Note: Evaluation of progress towards goal: Plan of care reviewed, no questions/concerns voiced. All interventions explained prior to initiating. [facility] 03-06-2024 Consult note Formatting of th is note is different from the original. Images from the original note were not included. [facility] [address] [place] [address] HISTORY & PHYSICAL / CONSULT NOTE Chandni Puri PCP: MAYKEL CUMMINGS Date of Admission: 03/05/2024 Date of Consultation: 03/06/2024 12:16 PM Consult for atrial fibrillation with RVR SUBJECTIVE History of Present Illness: Chandni Puri is a 58 y.o. female with history of hypertension, hypothyroidism, type 2 diabetes mellitus, fatty liver disease, emphysema, lupus, PE, TIA, fibromyalgia, GERD. Patient brought to the ED yesterday by family found down. Patient stated that she was home, had a few drinks in the evening. Her brother came to check on her and found her on the ground unresponsive with foaming from her mouth. Called EMS. Patient regained consciousness after EMS arrived and receiving a sternal rub. Patient stated that she was feeling well with no associated symptoms prior to passing out. Denied any dizzy spells or palpitations or heart racing or chest pain or shortness of breath. Denied ever having any cardiac symptoms. Denied ever having any heart problems denied orthopnea or edema. Stated that she smokes average of half pack per day for about 20 years. Drinks a couple of drinks per week usually although yesterday was celebrating Halloween. Denied any recreational drug use. On arrival to the hospital vitals within normal limits. Heart rate jumped up high to the 160s. Initial EKG showing patient is sinus rhythm with PAC. Repeat EKG showed patient atrial fibrillation with RVR. Lab work reviewed. D-dimer in the 1999. Magnesium 1.3. Potassium 3.1 high sensitivity troponin negative x2. BNP normal. Procalcitonin normal. Patient was started on Cardizem infusion and Lovenox 1 milligram/kilogram b.i.d.. Also received Cardizem CD 180 mg this morning. CTA chest limited, no definite evidence of large PE. Noted to have mild coronary calcification. CTA had negative for acute process. At the time patient was seen with resting complained bed. Asymptomatic. Telemetry showing patient in alternating normal sinus rhythm in AFib RVR. Cardizem running at 5 milligram/hour. Previous Medical History: Past Medical History: Diagnosis Date Abnormal Pap smear of cervix Anxiety Arthritis Chronic pain disorder Depression Diabetes mellitus type 2, controlled (CMS-HCC) Emphysema (CMS-HCC) Fatty liver Fibromyalgia, primary GERD (gastroesophageal reflux disease) Hyperlipidemia Hypertension Hyperthyroidism Hypothyroid Low back pain Low back pain Lupus Lupus Neck pain Neck pain Numbness Obesity JOVANA (obstructive sleep apnea) Pulmonary embolism (CMS-HCC) Rheumatoid arthritis (CMS-HCC) TIA (transient ischemic attack) Visual impairment glasses Weakness Previous Surgical History: Past Surgical History: Procedure Laterality Date ANKLE FRACTURE SURGERY BACK SURGERY 06/2020 CHOLECYSTECTOMY COLONOSCOPY N/A 08/21/2018 Performed by Brian West MD at [facility] EGD N/A 08/21/2018 Performed by Brian West MD at [facility] HYSTERECTOMY INJECTION BLOCK NERVE MEDIAL BRANCH Bilat T 5/6,6/7 Bilateral 11/02/2022 Performed by Jeremías Quintero MD at [facility] INJECTION BLOCK NERVE MEDIAL BRANCH: bilat L 1/2 & 3/4 Bilateral 08/17/2022 Performed by Jeremías Quintero MD at [facility] INJECTION BLOCK SACROILIAC JOINT Bilateral 06/07/2023 Performed by Jeremías Quintero MD at [facility] REPAIR HERNIA INGUINAL MESH Right 12/14/2019 Performed by Brian West MD at [facility] TONSILLECTOMY Allergies: Allergies Allergen Reactions Penicillins [facility] Meds: Current Facility-Administered Medications Medication Dose Route Frequency Provider Last Rate Last Admin acetaminophen (TYLENOL) tablet 650 mg 650 mg oral Q4H PRN MAYKEL Leigh amitriptyline (ELAVIL) tablet 10 mg 10 mg oral Nightly MAYKEL Leigh ARIPiprazole (ABILIFY) tablet 10 mg 10 mg oral Daily MAYKEL Leigh 10 mg at 03/06/24 1136 aspirin EC tablet 325 mg 325 [address] oral Daily [address] MD 325 mg at 03/06/24 1136 atorvastatin (LIPITOR) tablet 10 mg 10 mg oral Nightly MAYKEL Leigh busPIRone (BUSPAR) tablet 15 mg 15 mg oral BID MAYKEL Leigh 15 mg at 03/06/24 1136 calcium gluconate 3,000 mg in sodium chloride 0.9 % 100 mL IVPB 3,000 mg intravenous PRN MAYKEL Leigh calcium gluconate 4,000 mg in sodium chloride 0.9 % 250 mL IVPB 4,000 mg intravenous PRN MAYKEL Leigh calcium gluconate IVPB 2000 mg/100 mL (20 mg/mL premix) 2,000 mg intravenous PRN MAYKEL Leigh dextrose (GLUTOSE) 40 % gel 15 g 15 g oral PRN MAYKEL Leigh dextrose 5 % (D5W) infusion 100 mL/hr intravenous Continuous PRN MAYKEL Leigh dextrose 50 % in water (D50W) 50% solution 25 mL 25 mL intravenous PRN MAYKEL Leigh dilTIAZem (CARDIZEM) infusion 125 mg/125 mL in sodium chloride 0.7% (1 mg/mL premix) 5-15 mg/hr intravenous Continuous Joe Dick MD 5 mL/hr at 03/06/24 1141 5 mg/hr at 03/06/24 1141 DULoxetine (CYMBALTA) DR capsule 60 mg 60 mg oral BID MAYKEL Leigh 60 mg at 03/06/24 1136 enoxaparin (LOVENOX) syringe 70 mg 1 mg/kg subcutaneous Q12H MAYKEL Leigh 70 mg at 03/06/24 1136 escitalopram (LEXAPRO) tablet 20 mg 20 mg oral Daily MAYKEL Leigh 20 mg at 03/06/24 1136 gabapentin (NEURONTIN) capsule 400 mg 400 mg oral TID MAYKEL Leigh glucagon HCL injection 1 mg 1 mg intramuscular PRN MAYKEL Leigh levalbuterol (XOPENEX) nebulizer solution 1.25 mg 1.25 mg nebulization Q6H PRN MAYKEL Leigh levothyroxine (SYNTHROID, LEVOTHROID) tablet 75 mcg 75 mcg oral Daily MAYKEL Leigh 75 mcg at 03/06/24 1136 magnesium sulfate IVPB 2000 mg/50 mL in iso-osmotic water (40 mg/mL premix) 2,000 mg intravenous PRN MAYKEL Leigh magnesium sulfate IVPB 4000 mg/100 mL in iso-osmotic water (40 mg/mL premix) 4,000 mg intravenous PRN MAYKEL Leigh ondansetron ODT (ZOFRAN ODT) disintegrating tablet 4 mg 4 mg buccal Q6H PRN MAYKEL Leigh pantoprazole (PROTONIX) EC tablet 40 mg 40 mg oral Daily MAYKEL Leigh 40 mg at 03/06/24 1136 potassium chloride (K-TAB,KLOR-CON) CR tablet 30-40 mEq 30-40 mEq oral PRN MAYKEL Leigh Or potassium chloride (KAYCIEL) 20 mEq/15 mL solution 30-40 mEq 30-40 mEq oral PRN MAYKEL Leigh sennosides-docusate sodium (SENOKOT-S) 8.6-50 mg 1 tablet 1 tablet oral Q12H PRN MAYKEL Leigh sodium chloride 0.9 % flush 10 mL 10 mL intravenous PRN Joe Dick MD 10 mL at 03/06/24 0523 sodium chloride 0.9 % flush 3 mL 3 mL intravenous PRN Joe Dick MD sodium chloride 0.9 % infusion 125 mL/hr intravenous Continuous Christopher Zavaleta APRN-DAMARIS 125 mL/hr at 03/06/24 1128 125 mL/hr at 03/06/24 1128 Home Meds: Prior to Admission medications Medication Sig Start Date End Date Taking? Authorizing Provider amitriptyline (ELAVIL) 10 mg tablet One capsule at 8 PM each night 02/15/22 Yes Jaxon Suarez MD ARIPiprazole (ABILIFY) 10 mg tablet Take 1 tablet (10 mg total) by mouth in the morning. Yes Not In System Ref Prov aspirin 325 mg tablet Take 1 tablet (325 mg total) by mouth in the morning. Yes Not In System Ref Prov busPIRone (BUSPAR) 15 mg tablet Take 1 tablet (15 mg total) by mouth in the morning and 1 tablet (15 mg total) before bedtime. Yes Not In System Ref Prov DULoxetine (CYMBALTA) 60 mg capsule Take 1 capsule (60 mg total) by mouth in the morning and 1 capsule (60 mg total) before bedtime. Yes Not In System Ref Prov escitalopram (LEXAPRO) 20 mg tablet Take 1 tablet (20 mg total) by mouth in the morning. Yes Not In System Ref Prov gabapentin (NEURONTIN) 400 mg capsule Take 1 capsule (400 mg total) by mouth 3 (three) times a day. Yes Not In System Ref Prov hydrOXYzine (VISTARIL) 50 mg capsule Take 1 capsule (50 mg total) by mouth in the morning and 1 capsule (50 mg total) at noon and 1 capsule (50 mg total) in the evening. Yes Not In System Ref Prov levothyroxine (SYNTHROID, LEVOTHROID) 75 MCG tablet Take 1 tablet (75 mcg total) by mouth in the morning. Yes Not In System Ref Prov lisinopril (PRINIVIL,ZESTRIL) 10 mg tablet Take 1 tablet (10 mg total) by mouth in the morning. Yes Not In System Ref Prov metFORMIN (GLUCOPHAGE) 500 mg tablet Take 1 tablet (500 mg total) by mouth in the morning and 1 tablet (500 mg total) before bedtime. Yes Not In System Ref Prov methocarbamoL (ROBAXIN) 500 mg tablet Take 1 tablet (500 mg total) by mouth once daily at bedtime. 02/15/22 Yes Jaxon Suarez MD omeprazole (PriLOSEC) 40 mg capsule Take 1 capsule (40 mg total) by mouth in the morning. Yes Not In System Ref Prov simvastatin (ZOCOR) 10 mg tablet Take 1 tablet (10 mg total) by mouth nightly. Yes Not In System Ref Prov bumetanide (BUMEX) 2 mg tablet Take 1 tablet (2 mg total) by mouth 2 (two) times a day before meals. Patient not taking: Reported on 03/06/2024 Not In System Ref Prov Social History: TOBACCO: reports that she has quit smoking. She has never used smokeless tobacco. ETOH: reports current alcohol use. DRUGS: reports no history of drug use. OCCUPATION: Family History: History reviewed. No pertinent family history. Review of Systems: Constitutional: there has been no unanticipated weight loss, no change in energy level, sleep pattern, or activity level. Eyes: No visual changes or diplopia, no scleral icterus. ENT: No Headaches, hearing loss or vertigo. No sore throat Cardiovascular: See HPI Respiratory: No cough or wheezing, no sputum production, no hematemesis. Gastrointestinal: No abdominal pain, no constipation, no diarrhea, no hematochezia, no melena. Genitourinary: No dysuria, trouble voiding, or hematuria Musculoskeletal: No gait disturbance, weakness or joint complaints Integumentary: No rash or pruritis Neurological: No headache, focal muscle weakness, focal numbness or tingling. Hematologic/Lymphatic: No abnormal bruising or bleeding, blood clots. Allergic/Immunologic: No nasal congestion or hives OBJECTIVE LAST LABS: CBC: Results from last 7 days Lab Units 03/06/24 0037 WBC X10E9/L 9.5 HEMOGLOBIN g/dL 12.6 HEMATOCRIT % 38.0 MCV fL 93 PLATELETS X10E9/L 340 BMP: Results from last 7 days Lab Units 03/06/24 0037 SODIUM mmol/L 130* POTASSIUM mmol/L 3.1* CHLORIDE mmol/L 98 CO2 mmol/L 20* BUN mg/dL 9 CREATININE mg/dL 0.59 CALCIUM mg/dL 8.5 MAGNESIUM mg/dL 1.3* PT/INR: APTT: MAG: Results from last 7 days Lab Units 03/06/2436 MAGNESIUM mg/dL 1.3* D Dimer: Results from last 7 days Lab Units 03/06/2436 D DIMER ng/mL DDU 2,232* Troponin I ProBNP Results from last 7 days Lab Units 03/06/2436 BNP pg/mL 48 Lipid Panel: No results found for: CHOL , TRIG , HDL , CHOLHDLR Liver Panel: No results found for: ALB HgA1C: No results found for: HGBA1C ABG: Lab Results Component Value Date pH 7.462 (H) 07/30/2020 PCO2 33.7 (L) 07/30/2020 PO2 80 07/30/2020 Base,Excess 0.0 07/30/2020 Portable HCO3 24.1 07/30/2020 RADIOLOGY: CT brain without contrast Result Date: 03/06/2024 STUDY: CT HEAD WITHOUT CONTRAST CLINICAL HISTORY: Mental status change, unknown cause; Episode of unresponsiveness transient alteration of awareness COMPARISON: None. TECHNIQUE: CT head was performed without contrast utilizing 2.5 mm axial reconstruction with images reviewed in bone and brain windows. Automated exposure control was utilized. FINDINGS: There is no intracranial mass, mass effect or shift of midline structures. No extra-axial fluid collection. Hector-white differentiation is preserved. No CT evidence of large vessel vascular distribution of acute infarct, acute ischemia or hemorrhage. No depressed or widely calvarial fracture. Paranasal sinuses are well aerated. Please note, MRI is more sensitive for the evaluation of acute or occult process is indicated. IMPRESSION: 1. No evidence of an acute intracranial process. All CT scans at this facility use dose modulation, iterative reconstruction, and/or weight based dosing when appropriate to reduce radiation dose to as low as reasonably achievable. Finalized by Aaron Prater MD on 03/06/2024 7:[address] angiogram chest Result Date: 03/06/2024 CT CTA CHEST 03/06/2024 4:41 AM INDICATION: Pulmonary embolism (PE) suspected, high prob COMPARISON: None TECHNIQUE: Contrast-enhanced CT images of the chest were obtained. 3-D images were also post processed at a separate workstation to further define anatomy and potential pathology. All CT scans at this facility use dose modulation, iterative reconstruction, and/or weight based dosing when appropriate to reduce radiation dose to as low as reasonably achievable. FINDINGS: LUNGS/PLEURA: Mosaic attenuation throughout the lungs. Patchy posterior basilar airspace disease, possibly atelectasis. Few anterior predominant lung cysts and multiple smaller anterior and posterior lung cysts and questionable areas of reticulation. No definite pleural effusion. CENTRAL AIRWAYS: Patent trachea and mainstem bronchi. VASCULATURE: Mild atheromatous disease of the thoracic aorta without aneurysm. Main pulmonary artery is borderline enlarged. Evaluation limited of pulmonary arteries due to contrast bolus timing. No definite large pulmonary embolism. HEART/PERICARDIUM: The heart is not enlarged. Trace pericardial effusion. Mild coronary artery calcified atheromatous disease. MEDIASTINUM: Prominent mediastinal and hilar lymph nodes. LOWER NECK: Unremarkable. CHEST WALL: Focal nodular area of the left breast measuring approximately 14 mm. UPPER ABDOMEN: Low attenuation areas of the liver, possibly cysts, however location can be seen with focal fatty infiltration. OSSEOUS STRUCTURES: Multiple chronic appearing right-sided rib fractures. IMPRESSION: 1. Limited exam without definite large pulmonary embolism. 2. Findings within the lungs as described, underlying interstitial lung disease could be considered. Nonemergent high-resolution chest CT with inspiration and expiration recommended. 3. Focal nodular area of the left breast. Further evaluation with nonemergent mammogram recommended. 4. Nonspecific low attenuation areas of the liver, possibly cysts, however location can be seen with focal fatty infiltration. Further evaluation with MRI could be obtained as clinically indicated. Finalized by Amadou Land DO on 03/06/2024 5:40 AM X-ray chest 1 view Result Date: 03/06/2024 HISTORY: Shortness of breath COMPARISON: Chest x-ray 03/02/2021 FINDINGS: Portable AP upright view of the chest was performed. Cardiac silhouette is within normal limits. Lungs demonstrate no focal airspace consolidation or significant vascular congestion. No pleural fluid collection or pneumothorax. Healed right rib fractures. IMPRESSION: * No acute abnormality. Finalized by Gume Jiang MD on 03/06/2024 12:56 AM PHYSICAL EXAM Admission Weight: Weight: 72.6 kg (160 lb) No intake/output data recorded. Weight change: Wt Readings from Last 3 Encounters: 03/06/24 56.7 kg (125 lb 1.6 oz) 11/13/22 72.1 kg (159 lb) 08/30/22 77.6 kg (171 lb) Vitals: Vitals: 03/06/24 0900 03/06/24 1001 03/06/24 1056 03/06/24 1149 BP: 97/75 97/61 (!) 85/62 104/65 Pulse: 99 83 82 87 Resp: 15 16 Temp: 36.8 C (98.3 F) TempSrc: Oral SpO2: 91% 91% 91% 91% Weight: 56.7 kg (125 lb 1.6 oz) Height: 165.1 cm (5' 5 ) Admit Weight Weight: 72.6 kg (160 lb) Last 3 Weights Last 3 Weight Readings 03/05/24 2352 03/06/24 1001 Weight: 72.6 kg (160 lb) 56.7 kg (125 lb 1.6 oz) Body mass index is 20.82 kg/m . INTAKE/OUTPUT No intake/output data recorded. Intake/Output Summary (Last 24 hours) at 03/06/2024 1216 Last data filed at 03/06/2024 0906 Gross per 24 hour Intake 1000.55 ml Output -- Net 1000.55 ml EKG: No results found. ECHO (Last) No results found. General appearance: Alert oriented and cooperative, in no acute distress Skin: Warm and dry to touch Head: Normocephalic, without obvious abnormality, atraumatic Eyes: Conjunctivae unremarkable, EOMs intact, sclera non icteric Neck: No JVD, no carotid bruit, neck supple, trachea midline Lungs: Clear to ausculation bilaterally, no use of accessory muscles. Heart:: RRR, with normal S1 and S2 , no obvious murmurs Abdomen: Soft, non-tender, bowel sounds normal Extremities: No edema Neurologic: Oriented to time, person and place, affect appropriate, no focal/major motor or sensory defects noted Psychiatric: Appropriate mood, memory and judgment ASSESSMENT New diagnosed atrial fibrillation with RVR Syncope Mild coronary calcification on CTA chest Hypertension Type 2 diabetes mellitus Hx of PE Hx of TIA Lupus Hypokalemia Hypomagnesemia PLAN -patient asymptomatic when seen. Converted to normal sinus rhythm during my visit seen on monitor. -echocardiogram to assess baseline cardiac structure and function. -starting Cardizem CD 180 mg daily. Wean off Cardizem drip. -electrolyte replacement protocol. Maintain potassium at or above 4. Magnesium at or above 2. -continue Lovenox 1 milligram/kilogram b.i.d.. Plan to switch to Eliquis prior to discharge. -plan for event monitor as outpatient. - if any cardiac questions or concerns over the weekend please reach out to on-call cardiology team at [facility]. YVONNE RIVAS MD This note was completed using a voice application services manager system. Every effort was made to ensure accuracy. However, inadvertent computerized application services manager errors may be present. [employer] Work Phone: 03-06-2024 Consult note Formatting of th is note is different from the original. Images from the original note were not included. [facility] [address] [place] [address] HISTORY & PHYSICAL / CONSULT NOTE Chandni Puri PCP: MAYKEL CUMMINGS Date of Admission: 03/05/2024 Date of Consultation: 03/06/2024 12:16 PM Consult for atrial fibrillation with RVR SUBJECTIVE History of Present Illness: Chandni Puri is a 58 y.o. female with history of hypertension, hypothyroidism, type 2 diabetes mellitus, fatty liver disease, emphysema, lupus, PE, TIA, fibromyalgia, GERD. Patient brought to the ED yesterday by family found down. Patient stated that she was home, had a few drinks in the evening. Her brother came to check on her and found her on the ground unresponsive with foaming from her mouth. Called EMS. Patient regained consciousness after EMS arrived and receiving a sternal rub. Patient stated that she was feeling well with no associated symptoms prior to passing out. Denied any dizzy spells or palpitations or heart racing or chest pain or shortness of breath. Denied ever having any cardiac symptoms. Denied ever having any heart problems denied orthopnea or edema. Stated that she smokes average of half pack per day for about 20 years. Drinks a couple of drinks per week usually although yesterday was celebrating Halloween. Denied any recreational drug use. On arrival to the hospital vitals within normal limits. Heart rate jumped up high to the 160s. Initial EKG showing patient is sinus rhythm with PAC. Repeat EKG showed patient atrial fibrillation with RVR. Lab work reviewed. D-dimer in the 1999. Magnesium 1.3. Potassium 3.1 high sensitivity troponin negative x2. BNP normal. Procalcitonin normal. Patient was started on Cardizem infusion and Lovenox 1 milligram/kilogram b.i.d.. Also received Cardizem CD 180 mg this morning. CTA chest limited, no definite evidence of large PE. Noted to have mild coronary calcification. CTA had negative for acute process. At the time patient was seen with resting complained bed. Asymptomatic. Telemetry showing patient in alternating normal sinus rhythm in AFib RVR. Cardizem running at 5 milligram/hour. Previous Medical History: Past Medical History: Diagnosis Date Abnormal Pap smear of cervix Anxiety Arthritis Chronic pain disorder Depression Diabetes mellitus type 2, controlled (CMS-HCC) Emphysema (CMS-HCC) Fatty liver Fibromyalgia, primary GERD (gastroesophageal reflux disease) Hyperlipidemia Hypertension Hyperthyroidism Hypothyroid Low back pain Low back pain Lupus Lupus Neck pain Neck pain Numbness Obesity JOVANA (obstructive sleep apnea) Pulmonary embolism (CMS-HCC) Rheumatoid arthritis (CMS-HCC) TIA (transient ischemic attack) Visual impairment glasses Weakness Previous Surgical History: Past Surgical History: Procedure Laterality Date ANKLE FRACTURE SURGERY BACK SURGERY 06/2020 CHOLECYSTECTOMY COLONOSCOPY N/A 08/21/2018 Performed by Brian West MD at [facility] EGD N/A 08/21/2018 Performed by Brian West MD at [facility] HYSTERECTOMY INJECTION BLOCK NERVE MEDIAL BRANCH Bilat T 5/6,6/7 Bilateral 11/02/2022 Performed by Jeremías Quintero MD at [facility] INJECTION BLOCK NERVE MEDIAL BRANCH: bilat L 1/2 & 3/4 Bilateral 08/17/2022 Performed by Jeremías Quintero MD at [facility] INJECTION BLOCK SACROILIAC JOINT Bilateral 06/07/2023 Performed by Jeremías Quintero MD at [facility] REPA[facility] HERNIA INGUINAL MESH Right 12/14/2019 Performed by Brian West MD at [facility] TONSILLECTOMY Allergies: Allergies Allergen Reactions Penicillins Rash Hospital Meds: Current Facility-Administered Medications Medication Dose Route Frequency Provider Last Rate Last Admin acetaminophen (TYLENOL) tablet 650 mg 650 mg oral Q4H PRN MAYKEL Leigh amitriptyline (ELAVIL) tablet 10 mg 10 mg oral Nightly MAYKEL Leigh ARIPiprazole (ABILIFY) tablet 10 mg 10 mg oral Daily MAYKEL Leigh 10 mg at 03/06/24 1136 aspirin EC tablet 325 mg 325 mg oral Daily Neno Lane MD 325 mg at 03/06/24 1136 atorvastatin (LIPITOR) tablet 10 mg 10 mg oral Nightly MAYKEL Leigh busPIRone (BUSPAR) tablet 15 mg 15 mg oral BID MAYKEL Leigh 15 mg at 03/06/24 1136 calcium gluconate 3,000 mg in sodium chloride 0.9 % 100 mL IVPB 3,000 mg intravenous PRN MAYKEL Leigh calcium gluconate 4,000 mg in sodium chloride 0.9 % 250 mL IVPB 4,000 mg intravenous PRN MAYKEL Leigh calcium gluconate IVPB 2000 mg/100 mL (20 mg/mL premix) 2,000 mg intravenous PRN MAYKEL Leigh dextrose (GLUTOSE) 40 % gel 15 g 15 g oral PRN MAYKEL Leigh dextrose 5 % (D5W) infusion 100 mL/hr intravenous Continuous PRN MAYKEL Leigh dextrose 50 % in water (D50W) 50% solution 25 mL 25 mL intravenous PRN MAYKEL Leigh dilTIAZem (CARDIZEM) infusion 125 mg/125 mL in sodium chloride 0.7% (1 mg/mL premix) 5-15 mg/hr intravenous Continuous Joe Dick MD 5 mL/hr at 03/06/24 1141 5 mg/hr at 03/06/24 1141 DULoxetine (CYMBALTA) DR capsule 60 mg 60 mg oral BID MAYKEL Leigh 60 mg at 03/06/24 1136 enoxaparin (LOVENOX) syringe 70 mg 1 mg/kg subcutaneous Q12H MAYKEL Leigh 70 mg at 03/06/24 1136 escitalopram (LEXAPRO) tablet 20 mg 20 mg oral Daily JANESSA LeighOPERATIONS OFFICER AFLOAT 20 mg at 03/06/24 1136 gabapentin (NEURONTIN) capsule 400 mg 400 mg oral TID MAYKEL Leigh glucagon HCL injection 1 mg 1 mg intramuscular PRN MAYKEL Leigh levalbuterol (XOPENEX) nebulizer solution 1.25 mg 1.25 mg nebulization Q6H PRN MAYKEL Leigh levothyroxine (SYNTHROID, LEVOTHROID) tablet 75 mcg 75 mcg oral Daily Christopher Zavaleta APRN-OPERATIONS OFFICER AFLOAT 75 mcg at 03/06/24 1136 magnesium sulfate IVPB 2000 mg/50 mL in iso-osmotic water (40 mg/mL premix) 2,000 mg intravenous PRN MAYKEL Leigh magnesium sulfate IVPB 4000 mg/100 mL in iso-osmotic water (40 mg/mL premix) 4,000 mg intravenous PRN MAYKEL Leigh ondansetron ODT (ZOFRAN ODT) disintegrating tablet 4 mg 4 mg buccal Q6H PRN MAYKEL Leigh pantoprazole (PROTONIX) EC tablet 40 mg 40 mg oral Daily JANESSA LeighOPERATIONS OFFICER AFLOAT 40 mg at 03/06/24 1136 potassium chloride (K-TAB,KLOR-CON) CR tablet 30-40 mEq 30-40 mEq oral PRN MAYKEL Leigh Or potassium chloride (KAYCIEL) 20 mEq/15 mL solution 30-40 mEq 30-40 mEq oral PRN MAYKEL Leigh sennosides-docusate sodium (SENOKOT-S) 8.6-50 mg 1 tablet 1 tablet oral Q12H PRN MAYKEL Leigh sodium chloride 0.9 % flush 10 mL 10 mL intravenous PRN Joe Dick MD 10 mL at 03/06/24 0523 sodium chloride 0.9 % flush 3 mL 3 mL intravenous PRN Joe Dick MD sodium chloride 0.9 % infusion 125 mL/hr intravenous Continuous MAYKEL Leigh 125 mL/hr at 03/06/24 1128 125 mL/hr at 03/06/24 1128 Home Meds: Prior to Admission medications Medication Sig Start Date End Date Taking? Authorizing Provider amitriptyline (ELAVIL) 10 mg tablet One capsule at 8 PM each night 02/15/22 Yes Jaxon Suarez MD ARIPiprazole (ABILIFY) 10 mg tablet Take 1 tablet (10 mg total) by mouth in the morning. Yes Not In System Ref Prov aspirin 325 mg tablet Take 1 tablet (325 mg total) by mouth in the morning. Yes Not In System Ref Prov busPIRone (BUSPAR) 15 mg tablet Take 1 tablet (15 mg total) by mouth in the morning and 1 tablet (15 mg total) before bedtime. Yes Not In System Ref Prov DULoxetine (CYMBALTA) 60 mg capsule Take 1 capsule (60 mg total) by mouth in the morning and 1 capsule (60 mg total) before bedtime. Yes Not In System Ref Prov escitalopram (LEXAPRO) 20 mg tablet Take 1 tablet (20 mg total) by mouth in the morning. Yes Not In System Ref Prov gabapentin (NEURONTIN) 400 mg capsule Take 1 capsule (400 mg total) by mouth 3 (three) times a day. Yes Not In System Ref Prov hydrOXYzine (VISTARIL) 50 mg capsule Take 1 capsule (50 mg total) by mouth in the morning and 1 capsule (50 mg total) at noon and 1 capsule (50 mg total) in the evening. Yes Not In System Ref Prov levothyroxine (SYNTHROID, LEVOTHROID) 75 MCG tablet Take 1 tablet (75 mcg total) by mouth in the morning. Yes Not In System Ref Prov lisinopril (PRINIVIL,ZESTRIL) 10 mg tablet Take 1 tablet (10 mg total) by mouth in the morning. Yes Not In System Ref Prov metFORMIN (GLUCOPHAGE) 500 mg tablet Take 1 tablet (500 mg total) by mouth in the morning and 1 tablet (500 mg total) before bedtime. Yes Not In System Ref Prov methocarbamoL (ROBAXIN) 500 mg tablet Take 1 tablet (500 mg total) by mouth once daily at bedtime. 02/15/22 Yes Jaxon Suarez MD omeprazole (PriLOSEC) 40 mg capsule Take 1 capsule (40 mg total) by mouth in the morning. Yes Not In System Ref Prov simvastatin (ZOCOR) 10 mg tablet Take 1 tablet (10 mg total) by mouth nightly. Yes Not In System Ref Prov bumetanide (BUMEX) 2 mg tablet Take 1 tablet (2 mg total) by mouth 2 (two) times a day before meals. Patient not taking: Reported on 03/06/2024 Not In System Ref Prov Social History: TOBACCO: reports that she has quit smoking. She has never used smokeless tobacco. ETOH: reports current alcohol use. DRUGS: reports no history of drug use. OCCUPATION: Family History: History reviewed. No pertinent family history. Review of Systems: Constitutional: there has been no unanticipated weight loss, no change in energy level, sleep pattern, or activity level. Eyes: No visual changes or diplopia, no scleral icterus. ENT: No Headaches, hearing loss or vertigo. No sore throat Cardiovascular: See HPI Respiratory: No cough or wheezing, no sputum production, no hematemesis. Gastrointestinal: No abdominal pain, no constipation, no diarrhea, no hematochezia, no melena. Genitourinary: No dysuria, trouble voiding, or hematuria Musculoskeletal: No gait disturbance, weakness or joint complaints Integumentary: No rash or pruritis Neurological: No headache, focal muscle weakness, focal numbness or tingling. Hematologic/Lymphatic: No abnormal bruising or bleeding, blood clots. Allergic/Immunologic: No nasal congestion or hives OBJECTIVE LAST LABS: CBC: Results from last 7 days Lab Units 03/06/24 0037 WBC X10E9/L 9.5 HEMOGLOBIN g/dL 12.6 HEMATOCRIT % 38.0 MCV fL 93 PLATELETS X10E9/L 340 BMP: Results from last 7 days Lab Units 03/06/24 0037 SODIUM mmol/L 130* POTASSIUM mmol/L 3.1* CHLORIDE mmol/L 98 CO2 mmol/L 20* BUN mg/dL 9 CREATININE mg/dL 0.59 CALCIUM mg/dL 8.5 MAGNESIUM mg/dL 1.3* PT/INR: APTT: MAG: Results from last 7 days Lab Units 03/06/24 003 MAGNESIUM mg/dL 1.3* D Dimer: Results from last 7 days Lab Units 03/06/24 003 D DIMER ng/mL DDU 2,232* Troponin I ProBNP Results from last 7 days Lab Units 03/06/24 003 BNP pg/mL 48 Lipid Panel: No results found for: CHOL , TRIG , HDL , CHOLHDLR Liver Panel: No results found for: ALB HgA1C: No results found for: HGBA1C ABG: Lab Results Component Value Date pH 7.462 (H) 07/30/2020 PCO2 33.7 (L) 07/30/2020 PO2 80 07/30/2020 Base,Excess 0.0 07/30/2020 Portable HCO3 24.1 07/30/2020 RADIOLOGY: CT brain without contrast Result Date: 03/06/2024 STUDY: CT HEAD WITHOUT CONTRAST CLINICAL HISTORY: Mental status change, unknown cause; Episode of unresponsiveness transient alteration of awareness COMPARISON: None. TECHNIQUE: CT head was performed without contrast utilizing 2.5 mm axial reconstruction with images reviewed in bone and brain windows. Automated exposure control was utilized. FINDINGS: There is no intracranial mass, mass effect or shift of midline structures. No extra-axial fluid collection. Hector-white differentiation is preserved. No CT evidence of large vessel vascular distribution of acute infarct, acute ischemia or hemorrhage. No depressed or widely calvarial fracture. Paranasal sinuses are well aerated. Please note, MRI is more sensitive for the evaluation of acute or occult process is indicated. IMPRESSION: 1. No evidence of an acute intracranial process. All CT scans at this facility use dose modulation, iterative reconstruction, and/or weight based dosing when appropriate to reduce radiation dose to as low as reasonably achievable. Finalized by Aaron Prater MD on 03/06/2024 7:[address] angiogram chest Result Date: 03/06/2024 CT CTA CHEST 03/06/2024 4:41 AM INDICATION: Pulmonary embolism (PE) suspected, high prob COMPARISON: None TECHNIQUE: Contrast-enhanced CT images of the chest were obtained. 3-D images were also post processed at a separate workstation to further define anatomy and potential pathology. All CT scans at this facility use dose modulation, iterative reconstruction, and/or weight based dosing when appropriate to reduce radiation dose to as low as reasonably achievable. FINDINGS: LUNGS/PLEURA: Mosaic attenuation throughout the lungs. Patchy posterior basilar airspace disease, possibly atelectasis. Few anterior predominant lung cysts and multiple smaller anterior and posterior lung cysts and questionable areas of reticulation. No definite pleural effusion. CENTRAL AIRWAYS: Patent trachea and mainstem bronchi. VASCULATURE: Mild atheromatous disease of the thoracic aorta without aneurysm. Main pulmonary artery is borderline enlarged. Evaluation limited of pulmonary arteries due to contrast bolus timing. No definite large pulmonary embolism. HEART/PERICARDIUM: The heart is not enlarged. Trace pericardial effusion. Mild coronary artery calcified atheromatous disease. MEDIASTINUM: Prominent mediastinal and hilar lymph nodes. LOWER NECK: Unremarkable. CHEST WALL: Focal nodular area of the left breast measuring approximately 14 mm. UPPER ABDOMEN: Low attenuation areas of the liver, possibly cysts, however location can be seen with focal fatty infiltration. OSSEOUS STRUCTURES: Multiple chronic appearing right-sided rib fractures. IMPRESSION: 1. Limited exam without definite large pulmonary embolism. 2. Findings within the lungs as described, underlying interstitial lung disease could be considered. Nonemergent high-resolution chest CT with inspiration and expiration recommended. 3. Focal nodular area of the left breast. Further evaluation with nonemergent mammogram recommended. 4. Nonspecific low attenuation areas of the liver, possibly cysts, however location can be seen with focal fatty infiltration. Further evaluation with MRI could be obtained as clinically indicated. Finalized by Amadou Land DO on 03/06/2024 5:40 AM X-ray chest 1 view Result Date: 03/06/2024 HISTORY: Shortness of breath COMPARISON: Chest x-ray 03/02/2021 FINDINGS: Portable AP upright view of the chest was performed. Cardiac silhouette is within normal limits. Lungs demonstrate no focal airspace consolidation or significant vascular congestion. No pleural fluid collection or pneumothorax. Healed right rib fractures. IMPRESSION: * No acute abnormality. Finalized by Gume Jiang MD on 03/06/2024 12:56 AM PHYSICAL EXAM Admission Weight: Weight: 72.6 kg (160 lb) No intake/output data recorded. Weight change: Wt Readings from Last 3 Encounters: 03/06/24 56.7 kg (125 lb 1.6 oz) 11/13/22 72.1 kg (159 lb) 08/30/22 77.6 kg (171 lb) Vitals: Vitals: 03/06/24 0900 03/06/24 1001 03/06/24 1056 03/06/24 1149 BP: 97/75 97/61 (!) 85/62 104/65 Pulse: 99 83 82 87 Resp: 15 16 Temp: 36.8 C (98.3 F) TempSrc: Oral SpO2: 91% 91% 91% 91% Weight: 56.7 kg (125 lb 1.6 oz) Height: 165.1 cm (5' 5 ) Admit Weight Weight: 72.6 kg (160 lb) Last 3 Weights Last 3 Weight Readings 03/05/24 2352 03/06/24 1001 Weight: 72.6 kg (160 lb) 56.7 kg (125 lb 1.6 oz) Body mass index is 20.82 kg/m . INTAKE/OUTPUT No intake/output data recorded. Intake/Output Summary (Last 24 hours) at 03/06/2024 1216 Last data filed at 03/06/2024 0906 Gross per 24 hour Intake 1000.55 ml Output -- Net 1000.55 ml EKG: No results found. ECHO (Last) No results found. General appearance: Alert oriented and cooperative, in no acute distress Skin: Warm and dry to touch Head: Normocephalic, without obvious abnormality, atraumatic Eyes: Conjunctivae unremarkable, EOMs intact, sclera non icteric Neck: No JVD, no carotid bruit, neck supple, trachea midline Lungs: Clear to ausculation bilaterally, no use of accessory muscles. Heart:: RRR, with normal S1 and S2 , no obvious murmurs Abdomen: Soft, non-tender, bowel sounds normal Extremities: No edema Neurologic: Oriented to time, person and place, affect appropriate, no focal/major motor or sensory defects noted Psychiatric: Appropriate mood, memory and judgment ASSESSMENT New diagnosed atrial fibrillation with RVR Syncope Mild coronary calcification on CTA chest Hypertension Type 2 diabetes mellitus Hx of PE Hx of TIA Lupus Hypokalemia Hypomagnesemia PLAN -patient asymptomatic when seen. Converted to normal sinus rhythm during my visit seen on monitor. -echocardiogram to assess baseline cardiac structure and function. -starting Cardizem CD 180 mg daily. Wean off Cardizem drip. -electrolyte replacement protocol. Maintain potassium at or above 4. Magnesium at or above 2. -continue Lovenox 1 milligram/kilogram b.i.d.. Plan to switch to Eliquis prior to discharge. -plan for event monitor as outpatient. - if any cardiac questions or concerns over the weekend please reach out to on-call cardiology team at [facility]. YVONNE RIVAS MD This note was completed using a voice application services manager system. Every effort was made to ensure accuracy. However, inadvertent computerized application services manager errors may be present. documented in this encounter [facility] 03-06-2024 Plan of care note Problem: Pain Goal: Patient goal is pain score less than 4, able to rest, and participant in treatment plan as appropriate Description: INTERVENTIONS: 1. Encourage patient or legal technical service representative to report early pain and ask for pain medicine when needed 2. Assess pain using appropriate pain scale and include the scale used when documenting 3. Administer analgesics based on type and severity of pain and evaluate response within appropriate time frame 4. Implement non-pharmacological measures as appropriate and evaluate response 5. Consider cultural and social influences on pain and pain management 6. Notify LIP if interventions ineffective or patient reports new pain 7. Monitor vital signs including pulse ox, end-tidal CO2 based on pain intervention 8. Reassess pain per policy 9. Teach patient or legal technical service representative interventions for comforting Outcome: Progressing Note: Evaluation of progress towards goal: monitor and treat pain as ordered Problem: Safety Goal: Patient will be injury free during hospitalization Description: INTERVENTIONS: 1. Assess patient's risk for falls and implement fall prevention plan of care per policy 2. Provide and maintain a safe environment 3. Proper use of double Identifiers 4. Medication administration using the 5 rights 5. Hand hygiene 6. Specimens are labeled at the bedside 7. Instruct patient/ patient technical service representative about use of safety devices 8. Include patient/ patient technical service representative in decisions related to safety Outcome: Progressing Note: Evaluation of progress towards goal: remains free from fall/ injury [facility] 03-06-2024 History and physical note Images from the original note were not included. [facility] INTERNAL [facility]IC[facility] [address] [facility] [id number] Hospital Medicine History & Physical Patient: Chandni Puri Date of : 1965 Room: [facility] GUILLERMO/NONE PCP: MAYKEL CUMMINGS Admission date: 03/05/2024 11:51 PM Encounter date: 03/06/24 Hospital Day: 2 SUBJECTIVE Chandni Puri is a 58 y.o. female with PMH of emphysema, anxiety, hypothyroidism, diabetes mellitus type 2, who presents with episode of unresponsiveness. The patient denies headache. But did complain of shortness of breath. Ddimer 2,232, CTA negative for PE but did reveal focal nodular area of the left breast. CT brain negative, CXR negative, troponin negative, lactate 2.0, BNP 48, mag 1.3 potassium 3.1, sodium 130, no leukocytosis, RPP pending, UA negative. Blood alcohol level of 0.14 on arrival, otherwise negative tox screen. Cardiology consulted for atrial fibrillation, on Cardizem gtt. Pt seen and examined at bedside. Pt is on 4L NC. Does not appear to be in acute distress, breathing is not labored. Pt appears comfortable. Denies chest pain, nausea, fever, chills Pt states she had 4 rum and cokes last night with more drinks at the bar. Pt denies daily drinking habits. Patient denies any palpitations, dizziness or near-syncope or presyncope episode that happened at the time of the event. Family members reports some foaming at the mouth. Denies seizure history. States she smokes about a pack a day. Pt denies known history of atrial fibrillation but states she has a history of a PE after an ankle fracture. Not currently anticoagulated at home. Pt receiving lovenox currently. Patient admits to 70 lb weight loss over the last 6 months. Recommend mammogram at discharge based off the findings on CT that suggest focal nodular area to the left breast. EEG, smoking cessation, breathing txs, Allergies: Penicillins Prior to Admission medications Medication Sig Start Date End Date Taking? Authorizing Provider amitriptyline (ELAVIL) 10 mg tablet One capsule at 8 PM each night 02/15/22 Jaxon Suarez MD ARIPiprazole (ABILIFY) 10 mg tablet Take 1 tablet (10 mg total) by mouth in the morning. Not In System Ref Prov aspirin 325 mg tablet Take 1 tablet (325 mg total) by mouth in the morning. Not In System Ref Prov bumetanide (BUMEX) 2 mg tablet Take 1 tablet (2 mg total) by mouth 2 (two) times a day before meals. Not In System Ref Prov busPIRone (BUSPAR) 15 mg tablet Take 1 tablet (15 mg total) by mouth in the morning and 1 tablet (15 mg total) before bedtime. Not In System Ref Prov DULoxetine (CYMBALTA) 60 mg capsule Take 1 capsule (60 mg total) by mouth in the morning and 1 capsule (60 mg total) before bedtime. Not In System Ref Prov escitalopram (LEXAPRO) 20 mg tablet Take 1 tablet (20 mg total) by mouth in the morning. Not In System Ref Prov gabapentin (NEURONTIN) 400 mg capsule Take 1 capsule (400 mg total) by mouth 3 (three) times a day. Not In System Ref Prov hydrOXYzine (VISTARIL) 50 mg capsule Take 1 capsule (50 mg total) by mouth in the morning and 1 capsule (50 mg total) at noon and 1 capsule (50 mg total) in the evening. Not In System Ref Prov levothyroxine (SYNTHROID, LEVOTHROID) 75 MCG tablet Take 1 tablet (75 mcg total) by mouth in the morning. Not In System Ref Prov lisinopril (PRINIVIL,ZESTRIL) 10 mg tablet Take 1 tablet (10 mg total) by mouth in the morning. Not In System Ref Prov meloxicam (MOBIC) 15 mg tablet One tablet daily with food 03/13/22 Jaxon Suarez MD metFORMIN (GLUCOPHAGE) 500 mg tablet Take 1 tablet (500 mg total) by mouth in the morning and 1 tablet (500 mg total) before bedtime. Not In System Ref Prov methocarbamoL (ROBAXIN) 500 mg tablet Take 1 tablet (500 mg total) by mouth once daily at bedtime. 02/15/22 Jaxon Suarez MD omeprazole (PriLOSEC) 40 mg capsule Take 1 capsule (40 mg total) by mouth in the morning. Not In System Ref Prov simvastatin (ZOCOR) 10 mg tablet Take 1 tablet (10 mg total) by mouth nightly. Not In System Ref Prov zolpidem (AMBIEN) 5 mg tablet Take 1 tablet (5 mg total) by mouth nightly as needed for sleep. Not In System Ref Prov Code Status: No Order Past Medical History: Patient has a past medical history of Abnormal Pap smear of cervix, Anxiety, Arthritis, Chronic pain disorder, Depression, Diabetes mellitus type 2, controlled ([facility]), Emphysema ([facility]), Fatty liver, Fibromyalgia, primary, GERD (gastroesophageal reflux disease), Hyperlipidemia, Hypertension, Hyperthyroidism, Hypothyroid, Low back pain, Low back pain, Lupus, Lupus, Neck pain, Neck pain, Numbness, Obesity, JOVANA (obstructive sleep apnea), Pulmonary embolism ([facility]), Rheumatoid arthritis ([facility]), TIA (transient ischemic attack), Visual impairment, and Weakness. Past Surgical History: Patient has a past surgical history that includes Hysterectomy; Tonsillectomy; Cholecystectomy; Ankle fracture surgery; Esophagogastroduodenoscopy (N/A, 08/21/2018); Colonoscopy (N/A, 08/21/2018); Hernia repair (Right, 12/14/2019); Back surgery (06/2020); Injection Nerve Block (Bilateral, 08/17/2022); Injection Nerve Block (Bilateral, 11/02/2022); and Injection Nerve Block (Bilateral, 06/07/2023). Family History: Patient's family history is not on file. Social History: Patient reports that she has quit smoking. She has never used smokeless tobacco. She reports current alcohol use. She reports that she does not use drugs. Review of Systems Constitutional: Positive for unexpected weight change (70 lbs over 6 months). Negative for chills and fever. HENT: Negative for ear pain and sore throat. Eyes: Negative for pain and visual disturbance. Respiratory: Positive for shortness of breath. Negative for cough. Cardiovascular: Negative for chest pain and palpitations. Gastrointestinal: Negative for abdominal pain, constipation, diarrhea and vomiting. Genitourinary: Negative for decreased urine volume, dysuria, hematuria and urgency. Musculoskeletal: Negative for arthralgias and back pain. Skin: Negative for color change and rash. Neurological: Negative for seizures, syncope, light-headedness and headaches. Psychiatric/Behavioral: Negative for agitation and confusion. All other systems reviewed and are negative. OBJECTIVE BP 97/75 Pulse 99 Temp 37 C (98.6 F) (Oral) Resp 15 Ht 165.1 cm (5' 5 ) Wt 72.6 kg (160 lb) SpO2 91% BMI 26.63 kg/m Temp: [37 C (98.6 F)] 37 C (98.6 F) Heart Rate: [89-165] 99 Resp: [11-26] 15 BP: (79-138)/(64-127) 97/75 SpO2: [87 %-98 %] 91 % O2 Device: Nasal cannula O2 Flow Rate (L/min): [1 L/min-2 L/min] 2 L/min Intake/Output Summary (Last 24 hours) at 03/06/2024 0942 Last data filed at 03/06/2024 0906 Gross per 24 hour Intake 1000.55 ml Output -- Net 1000.55 ml Physical Exam Vitals and nursing note reviewed. Constitutional: General: She is not in acute distress. Appearance: She is well-developed and normal weight. She is not ill-appearing. HENT: Head: Normocephalic and atraumatic. Nose: Nose normal. Eyes: Pupils: Pupils are equal, round, and reactive to light. Cardiovascular: Rate and Rhythm: Tachycardia present. Rhythm irregularly irregular. Heart sounds: Normal heart sounds. No murmur heard. Pulmonary: Effort: Pulmonary effort is normal. No respiratory distress. Breath sounds: Examination of the right-lower field reveals decreased breath sounds. Examination of the left-lower field reveals decreased breath sounds. Decreased breath sounds present. No wheezing, rhonchi or rales. Chest: Chest wall: Tenderness (reproducible, likely musculoskeletal) present. Abdominal: General: Bowel sounds are normal. Palpations: Abdomen is soft. Tenderness: There is no abdominal tenderness. Musculoskeletal: General: Normal range of motion. Cervical back: Neck supple. Right lower leg: No edema. Left lower leg: No edema. Lymphadenopathy: Cervical: No cervical adenopathy. Skin: General: Skin is warm and dry. Capillary Refill: Capillary refill takes less than 2 seconds. Coloration: Skin is pale. Findings: No bruising or rash. Neurological: Mental Status: She is alert and oriented to person, place, and time. Mental status is at baseline. Cranial Nerves: No cranial nerve deficit. Psychiatric: Mood and Affect: Mood normal. Behavior: Behavior normal. Medications Scheduled: Infusions: diltiazem, 5-15 mg/hr, Last Rate: 5 mg/hr (03/06/24 4451) As Needed: sodium chloride sodium chloride Allergies: Penicillins Labs Recent Results (from the past 24 hours) CBC auto differential Collection Time: 03/06/24 12:37 AM Result Value Ref Range White Blood Cells 9.5 4.0 - 11.0 X10E9/L RBC count 4.07 3.80 - 5.20 X10E12/L Hemoglobin 12.6 11.7 - 15.5 g/dL Hematocrit 38.0 35 - 47 % MCV 93 80 - 100 fL MCH 31.0 27 - 34 pg MCHC 33.3 32 - 36 g/dL RDW 14.5 11.5 - 15.0 % Platelets 340 150 - 450 X10E9/L MPV 7.1 7 - 12 fL % neutrophils 64.2 % % lymphocytes 27.2 % % monocytes 3.5 % % eosinophils 4.2 % % Basophils 0.9 % Neutrophils Absolute (A) 6.1 1.5 - 6.6 X10E9/L Lymphocytes Absolute 2.6 1.0 - 3.5 X10E9/L Monocytes Absolute 0.3 0 - 0.9 X10E9/L Eosinophils Absolute 0.4 0.0 - 0.4 X10E9/L Basophils Absolute 0.1 0.0 - 0.2 X10E9/L Comprehensive metabolic panel Collection Time: 03/06/24 12:37 AM Result Value Ref Range Sodium 130 (L) 134 - 146 mmol/L Potassium, Bld 3.1 (L) 3.5 - 5.0 mmol/L Chloride 98 98 - 109 mmol/L CO2 20 (L) 22 - 32 mmol/L Anion gap 12 5 - 15 mmol/L BUN 9 5 - 23 mg/dL Creatinine 0.59 0.40 - 1.00 mg/dL Glucose 98 65 - 99 mg/dL Calcium 8.5 8.5 - 10.5 mg/dL Total Protein 6.1 6.0 - 8.0 g/dL Albumin 2.9 (L) 3.2 - 5.3 g/dL Alkaline Phosphatase 82 39 - 130 U/L AST 20 0 - 41 U/L ALT 15 0 - 31 U/L Total bilirubin 0.6 0.3 - 1.2 mg/dL eGFR (CKD-EPI)non-race dependent >90 >59 ml/min/1.73sq.m Ethanol Collection Time: 03/06/24 12:37 AM Result Value Ref Range Ethanol Lvl 0.14 (H) 0.00 - 0.08 g/dL Magnesium Collection Time: 03/06/24 12:37 AM Result Value Ref Range Magnesium 1.3 (L) 1.8 - 2.6 mg/dL Troponin I, High Sensitivity Collection Time: 03/06/24 12:37 AM Result Value Ref Range Troponin I, High Sensitivity 4 <16 ng/L B-type natriuretic peptide Collection Time: 03/06/24 12:37 AM Result Value Ref Range BNP 48 <100.0 pg/mL Lactate w/ Reflex Collection Time: 03/06/24 12:37 AM Result Value Ref Range Lactate w/ Reflex 2.0 0.4 - 2.0 mmol/L D-Dimer Collection Time: 03/06/24 12:37 AM Result Value Ref Range D-dimer 2,232 (H) <255 ng/mL DDU Troponin I, High Sensitivity 1 Hour Collection Time: 03/06/24 1:51 AM Result Value Ref Range 1 Hour Trop I, High Sensitivity 4 <16 ng/L Drug Screen, Urine Collection Time: 03/06/24 3:10 AM Result Value Ref Range Amphetamine/methamphetamine Negative Negative^Negative Barbiturate Screen, Ur Negative Negative^Negative Benzodiazepine Screen, Urine Negative Negative^Negative THC, urine Negative Negative^Negative Cocaine (metabolite) Negative Negative^Negative Opiate Quant, Ur Negative Negative^Negative Phencyclidine Negative Negative^Negative Oxycodone Negative Negative^Negative Methadone Negative Negative^Negative Ecstasy Negative Negative^Negative POCT Nursing Urine Macroscopic UA Collection Time: 03/06/24 3:12 AM Result Value Ref Range Specific gravity EMMANUEL 1.010 1.003 - 1.035 Leukocyte esterase EMMANUEL Negative Negative^Negative Nitrite EMMANUEL Negative Negative^Negative Ph 6.5 5.0 - 8.5 Protein EMMANUEL Negative Negative^Negative mg/dL Urine glucose EMMANUEL Negative Negative^Negative mg/dL Ketones EMMANUEL Negative Negative^Negative mg/dL Urobilinogen EMMANUEL 0.2 <1.1 eu/dL Bilirubin EMMANUEL Negative Negative^Negative Hemoglobin EMMANUEL Negative Negative^Negative Radiology CT brain without contrast Result Date: 03/06/2024 Narrative: STUDY: CT HEAD WITHOUT CONTRAST CLINICAL HISTORY: Mental status change, unknown cause; Episode of unresponsiveness transient alteration of awareness COMPARISON: None. TECHNIQUE: CT head was performed without contrast utilizing 2.5 mm axial reconstruction with images reviewed in bone and brain windows. Automated exposure control was utilized. FINDINGS: There is no intracranial mass, mass effect or shift of midline structures. No extra-axial fluid collection. Hector-white differentiation is preserved. No CT evidence of large vessel vascular distribution of acute infarct, acute ischemia or hemorrhage. No depressed or widely calvarial fracture. Paranasal sinuses are well aerated. Please note, MRI is more sensitive for the evaluation of acute or occult process is indicated. IMPRESSION: 1. No evidence of an acute intracranial process. All CT scans at this facility use dose modulation, iterative reconstruction, and/or weight based dosing when appropriate to reduce radiation dose to as low as reasonably achievable. Finalized by Aaron Prater MD on 03/06/2024 7:[address] angiogram chest Result Date: 03/06/2024 Narrative: CT CTA CHEST 03/06/2024 4:41 AM INDICATION: Pulmonary embolism (PE) suspected, high prob COMPARISON: None TECHNIQUE: Contrast-enhanced CT images of the chest were obtained. 3-D images were also post processed at a separate workstation to further define anatomy and potential pathology. All CT scans at this facility use dose modulation, iterative reconstruction, and/or weight based dosing when appropriate to reduce radiation dose to as low as reasonably achievable. FINDINGS: LUNGS/PLEURA: Mosaic attenuation throughout the lungs. Patchy posterior basilar airspace disease, possibly atelectasis. Few anterior predominant lung cysts and multiple smaller anterior and posterior lung cysts and questionable areas of reticulation. No definite pleural effusion. CENTRAL AIRWAYS: Patent trachea and mainstem bronchi. VASCULATURE: Mild atheromatous disease of the thoracic aorta without aneurysm. Main pulmonary artery is borderline enlarged. Evaluation limited of pulmonary arteries due to contrast bolus timing. No definite large pulmonary embolism. HEART/PERICARDIUM: The heart is not enlarged. Trace pericardial effusion. Mild coronary artery calcified atheromatous disease. MEDIASTINUM: Prominent mediastinal and hilar lymph nodes. LOWER NECK: Unremarkable. CHEST WALL: Focal nodular area of the left breast measuring approximately 14 mm. UPPER ABDOMEN: Low attenuation areas of the liver, possibly cysts, however location can be seen with focal fatty infiltration. OSSEOUS STRUCTURES: Multiple chronic appearing right-sided rib fractures. IMPRESSION: 1. Limited exam without definite large pulmonary embolism. 2. Findings within the lungs as described, underlying interstitial lung disease could be considered. Nonemergent high-resolution chest CT with inspiration and expiration recommended. 3. Focal nodular area of the left breast. Further evaluation with nonemergent mammogram recommended. 4. Nonspecific low attenuation areas of the liver, possibly cysts, however location can be seen with focal fatty infiltration. Further evaluation with MRI could be obtained as clinically indicated. Finalized by Amadou Land DO on 03/06/2024 5:40 AM X-ray chest 1 view Result Date: 03/06/2024 Narrative: HISTORY: Shortness of breath COMPARISON: Chest x-ray 03/02/2021 FINDINGS: Portable AP upright view of the chest was performed. Cardiac silhouette is within normal limits. Lungs demonstrate no focal airspace consolidation or significant vascular congestion. No pleural fluid collection or pneumothorax. Healed right rib fractures. IMPRESSION: * No acute abnormality. Finalized by Gume Jiang MD on 03/06/2024 12:56 AM HOSPITAL PROBLEM LIST Principal Problem: Acute hypoxic respiratory failure (CMS-HCC) Active Problems: Pulmonary emphysema (CMS-HCC) Anxiety Hypothyroidism Type 2 diabetes mellitus (CMS-HCC) Essential hypertension Paroxysmal atrial fibrillation (CMS-HCC) ASSESSMENT & PLAN Acute hypoxic respiratory failure Pulmonary Emphysema Dyspnea -CXR negative for acute abnormality -D-dimer 2232, CTA negative for PE, but did reveal focal nodular area of the left breast. Recommend mammogram at discharge -Echo pending -troponin negative -BNP 48 -Lactate 2.0 -RPP pending -procalcitonin pending -PRN xopenex ordered -currently 4L NC, wean as tolerated -Encourage incentive spirometry use. Paroxysmal Atrial fibrillation Hx pulmonary embolism -Cardiology consulted -Currently on Cardizem drip -not rate controlled -currently on Lovenox, no anticoagulation at home Altered mental status Seizure-like activity -CT brain negative -EEG ordered -no history of seizure per patient -currently alert and oriented -Blood alcohol level of 0.14 on arrival, -hyponatremia, 130 today Essential hypertension -currently hypotensive hold blood pressure meds for now -normal saline 125 mL/hr Diabetes mellitus, type 2 -Takes metformin home -Check A1c -consistent carb diet -adequate blood sugar control Anxiety -resume home meds Hypothyroidism -resume Synthroid Chart reviewed. Admission orders placed and home medications reconciled. DVT/VTE prophylaxis: SCD and pharmacologic prophylaxis, enoxaparin. GI prophylaxis: add pantoprazole. DC planning: TBD. MAYKEL Leigh 03/06/2024 9:42 AM [facility] 7AM-7PM (all facilities): EpicChat or page through Vocera. 7PM-7AM ([facility], [facility]): EpicChat or page, [phone]. 7PM-7AM ([facility], [place], [place] and [facility] Rehab): EpicChat or page through Vocera. Physician Attestation: I have reviewed the above note authored by the Advance Practice Provider (CLAY) including history, review of systems, physical examination, medical decision making and agree with the assessment & plan. I have personally performed a face to face diagnostic evaluation on this patient. I have reviewed all laboratory findings and imaging reports/films. I have independently evaluated the patient and repeated mcdonald portions of the physical exam. I agree with the CLAY plan as above, unless otherwise noted. NENO LANE MD [facility] 03-06-2024 History and physical note Images from the original note were not included. [facility] INTERNAL MEDICINE [facility] [address] [facility] [id number] Hospital Medicine History & Physical Patient: Chandni Puri Date of : 1965 Room: H GUILLERMO/NONE PCP: MAYKEL CUMMINGS Admission date: 03/05/2024 11:51 PM Encounter date: 03/06/24 Hospital Day: 2 SUBJECTIVE Chandni Puri is a 58 y.o. female with PMH of emphysema, anxiety, hypothyroidism, diabetes mellitus type 2, who presents with episode of unresponsiveness. The patient denies headache. But did complain of shortness of breath. Ddimer 2,232, CTA negative for PE but did reveal focal nodular area of the left breast. CT brain negative, CXR negative, troponin negative, lactate 2.0, BNP 48, mag 1.3 potassium 3.1, sodium 130, no leukocytosis, RPP pending, UA negative. Blood alcohol level of 0.14 on arrival, otherwise negative tox screen. Cardiology consulted for atrial fibrillation, on Cardizem gtt. Pt seen and examined at bedside. Pt is on 4L NC. Does not appear to be in acute distress, breathing is not labored. Pt appears comfortable. Denies chest pain, nausea, fever, chills Pt states she had 4 rum and cokes last night with more drinks at the bar. Pt denies daily drinking habits. Patient denies any palpitations, dizziness or near-syncope or presyncope episode that happened at the time of the event. Family members reports some foaming at the mouth. Denies seizure history. States she smokes about a pack a day. Pt denies known history of atrial fibrillation but states she has a history of a PE after an ankle fracture. Not currently anticoagulated at home. Pt receiving lovenox currently. Patient admits to 70 lb weight loss over the last 6 months. Recommend mammogram at discharge based off the findings on CT that suggest focal nodular area to the left breast. EEG, smoking cessation, breathing txs, Allergies: Penicillins Prior to Admission medications Medication Sig Start Date End Date Taking? Authorizing Provider amitriptyline (ELAVIL) 10 mg tablet One capsule at 8 PM each night 02/15/22 Jaxon Suarez MD ARIPiprazole (ABILIFY) 10 mg tablet Take 1 tablet (10 mg total) by mouth in the morning. Not In System Ref Prov aspirin 325 mg tablet Take 1 tablet (325 mg total) by mouth in the morning. Not In System Ref Prov bumetanide (BUMEX) 2 mg tablet Take 1 tablet (2 mg total) by mouth 2 (two) times a day before meals. Not In System Ref Prov busPIRone (BUSPAR) 15 mg tablet Take 1 tablet (15 mg total) by mouth in the morning and 1 tablet (15 mg total) before bedtime. Not In System Ref Prov DULoxetine (CYMBALTA) 60 mg capsule Take 1 capsule (60 mg total) by mouth in the morning and 1 capsule (60 mg total) before bedtime. Not In System Ref Prov escitalopram (LEXAPRO) 20 mg tablet Take 1 tablet (20 mg total) by mouth in the morning. Not In System Ref Prov gabapentin (NEURONTIN) 400 mg capsule Take 1 capsule (400 mg total) by mouth 3 (three) times a day. Not In System Ref Prov hydrOXYzine (VISTARIL) 50 mg capsule Take 1 capsule (50 mg total) by mouth in the morning and 1 capsule (50 mg total) at noon and 1 capsule (50 mg total) in the evening. Not In System Ref Prov levothyroxine (SYNTHROID, LEVOTHROID) 75 MCG tablet Take 1 tablet (75 mcg total) by mouth in the morning. Not In System Ref Prov lisinopril (PRINIVIL,ZESTRIL) 10 mg tablet Take 1 tablet (10 mg total) by mouth in the morning. Not In System Ref Prov meloxicam (MOBIC) 15 mg tablet One tablet daily with food 03/13/22 Jaxon Suarez MD metFORMIN (GLUCOPHAGE) 500 mg tablet Take 1 tablet (500 mg total) by mouth in the morning and 1 tablet (500 mg total) before bedtime. Not In System Ref Prov methocarbamoL (ROBAXIN) 500 mg tablet Take 1 tablet (500 mg total) by mouth once daily at bedtime. 02/15/22 Jaxon Suarez MD omeprazole (PriLOSEC) 40 mg capsule Take 1 capsule (40 mg total) by mouth in the morning. Not In System Ref Prov simvastatin (ZOCOR) 10 mg tablet Take 1 tablet (10 mg total) by mouth nightly. Not In System Ref Prov zolpidem (AMBIEN) 5 mg tablet Take 1 tablet (5 mg total) by mouth nightly as needed for sleep. Not In System Ref Prov Code Status: No Order Past Medical History: Patient has a past medical history of Abnormal Pap smear of cervix, Anxiety, Arthritis, Chronic pain disorder, Depression, Diabetes mellitus type 2, controlled ([facility]), Emphysema ([facility]), Fatty liver, Fibromyalgia, primary, GERD (gastroesophageal reflux disease), Hyperlipidemia, Hypertension, Hyperthyroidism, Hypothyroid, Low back pain, Low back pain, Lupus, Lupus, Neck pain, Neck pain, Numbness, Obesity, JOVANA (obstructive sleep apnea), Pulmonary embolism ([facility]), Rheumatoid arthritis ([facility]), TIA (transient ischemic attack), Visual impairment, and Weakness. Past Surgical History: Patient has a past surgical history that includes Hysterectomy; Tonsillectomy; Cholecystectomy; Ankle fracture surgery; Esophagogastroduodenoscopy (N/A, 08/21/2018); Colonoscopy (N/A, 08/21/2018); Hernia repair (Right, 12/14/2019); Back surgery (06/2020); Injection Nerve Block (Bilateral, 08/17/2022); Injection Nerve Block (Bilateral, 11/02/2022); and Injection Nerve Block (Bilateral, 06/07/2023). Family History: Patient's family history is not on file. Social History: Patient reports that she has quit smoking. She has never used smokeless tobacco. She reports current alcohol use. She reports that she does not use drugs. Review of Systems Constitutional: Positive for unexpected weight change (70 lbs over 6 months). Negative for chills and fever. HENT: Negative for ear pain and sore throat. Eyes: Negative for pain and visual disturbance. Respiratory: Positive for shortness of breath. Negative for cough. Cardiovascular: Negative for chest pain and palpitations. Gastrointestinal: Negative for abdominal pain, constipation, diarrhea and vomiting. Genitourinary: Negative for decreased urine volume, dysuria, hematuria and urgency. Musculoskeletal: Negative for arthralgias and back pain. Skin: Negative for color change and rash. Neurological: Negative for seizures, syncope, light-headedness and headaches. Psychiatric/Behavioral: Negative for agitation and confusion. All other systems reviewed and are negative. OBJECTIVE BP 97/75 Pulse 99 Temp 37 C (98.6 F) (Oral) Resp 15 Ht 165.1 cm (5' 5 ) Wt 72.6 kg (160 lb) SpO2 91% BMI 26.63 kg/m Temp: [37 C (98.6 F)] 37 C (98.6 F) Heart Rate: [89-165] 99 Resp: [11-26] 15 BP: (79-138)/(64-127) 97/75 SpO2: [87 %-98 %] 91 % O2 Device: Nasal cannula O2 Flow Rate (L/min): [1 L/min-2 L/min] 2 L/min Intake/Output Summary (Last 24 hours) at 03/06/2024 0942 Last data filed at 03/06/2024 0906 Gross per 24 hour Intake 1000.55 ml Output -- Net 1000.55 ml Physical Exam Vitals and nursing note reviewed. Constitutional: General: She is not in acute distress. Appearance: She is well-developed and normal weight. She is not ill-appearing. HENT: Head: Normocephalic and atraumatic. Nose: Nose normal. Eyes: Pupils: Pupils are equal, round, and reactive to light. Cardiovascular: Rate and Rhythm: Tachycardia present. Rhythm irregularly irregular. Heart sounds: Normal heart sounds. No murmur heard. Pulmonary: Effort: Pulmonary effort is normal. No respiratory distress. Breath sounds: Examination of the right-lower field reveals decreased breath sounds. Examination of the left-lower field reveals decreased breath sounds. Decreased breath sounds present. No wheezing, rhonchi or rales. Chest: Chest wall: Tenderness (reproducible, likely musculoskeletal) present. Abdominal: General: Bowel sounds are normal. Palpations: Abdomen is soft. Tenderness: There is no abdominal tenderness. Musculoskeletal: General: Normal range of motion. Cervical back: Neck supple. Right lower leg: No edema. Left lower leg: No edema. Lymphadenopathy: Cervical: No cervical adenopathy. Skin: General: Skin is warm and dry. Capillary Refill: Capillary refill takes less than 2 seconds. Coloration: Skin is pale. Findings: No bruising or rash. Neurological: Mental Status: She is alert and oriented to person, place, and time. Mental status is at baseline. Cranial Nerves: No cranial nerve deficit. Psychiatric: Mood and Affect: Mood normal. Behavior: Behavior normal. Medications Scheduled: Infusions: diltiazem, 5-15 mg/hr, Last Rate: 5 mg/hr (03/06/24 0647) As Needed: sodium chloride sodium chloride Allergies: Penicillins Labs Recent Results (from the past 24 hours) CBC auto differential Collection Time: 03/06/24 12:37 AM Result Value Ref Range White Blood Cells 9.5 4.0 - 11.0 X10E9/L RBC count 4.07 3.80 - 5.20 X10E12/L Hemoglobin 12.6 11.7 - 15.5 g/dL Hematocrit 38.0 35 - 47 % MCV 93 80 - 100 fL MCH 31.0 27 - 34 pg MCHC 33.3 32 - 36 g/dL RDW 14.5 11.5 - 15.0 % Platelets 340 150 - 450 X10E9/L MPV 7.1 7 - 12 fL % neutrophils 64.2 % % lymphocytes 27.2 % % monocytes 3.5 % % eosinophils 4.2 % % Basophils 0.9 % Neutrophils Absolute (A) 6.1 1.5 - 6.6 X10E9/L Lymphocytes Absolute 2.6 1.0 - 3.5 X10E9/L Monocytes Absolute 0.3 0 - 0.9 X10E9/L Eosinophils Absolute 0.4 0.0 - 0.4 X10E9/L Basophils Absolute 0.1 0.0 - 0.2 X10E9/L Comprehensive metabolic panel Collection Time: 03/06/24 12:37 AM Result Value Ref Range Sodium 130 (L) 134 - 146 mmol/L Potassium, Bld 3.1 (L) 3.5 - 5.0 mmol/L Chloride 98 98 - 109 mmol/L CO2 20 (L) 22 - 32 mmol/L Anion gap 12 5 - 15 mmol/L BUN 9 5 - 23 mg/dL Creatinine 0.59 0.40 - 1.00 mg/dL Glucose 98 65 - 99 mg/dL Calcium 8.5 8.5 - 10.5 mg/dL Total Protein 6.1 6.0 - 8.0 g/dL Albumin 2.9 (L) 3.2 - 5.3 g/dL Alkaline Phosphatase 82 39 - 130 U/L AST 20 0 - 41 U/L ALT 15 0 - 31 U/L Total bilirubin 0.6 0.3 - 1.2 mg/dL eGFR (CKD-EPI)non-race dependent >90 >59 ml/min/1.73sq.m Ethanol Collection Time: 03/06/24 12:37 AM Result Value Ref Range Ethanol Lvl 0.14 (H) 0.00 - 0.08 g/dL Magnesium Collection Time: 03/06/24 12:37 AM Result Value Ref Range Magnesium 1.3 (L) 1.8 - 2.6 mg/dL Troponin I, High Sensitivity Collection Time: 11/01/24 12:37 AM Result Value Ref Range Troponin I, High Sensitivity 4 <16 ng/L B-type natriuretic peptide Collection Time: 03/06/24 12:37 AM Result Value Ref Range BNP 48 <100.0 pg/mL Lactate w/ Reflex Collection Time: 03/06/24 12:37 AM Result Value Ref Range Lactate w/ Reflex 2.0 0.4 - 2.0 mmol/L D-Dimer Collection Time: 03/06/24 12:37 AM Result Value Ref Range D-dimer 2,232 (H) <255 ng/mL DDU Troponin I, High Sensitivity 1 Hour Collection Time: 03/06/24 1:51 AM Result Value Ref Range 1 Hour Trop I, High Sensitivity 4 <16 ng/L Drug Screen, Urine Collection Time: 03/06/24 3:10 AM Result Value Ref Range Amphetamine/methamphetamine Negative Negative^Negative Barbiturate Screen, Ur Negative Negative^Negative Benzodiazepine Screen, Urine Negative Negative^Negative THC, urine Negative Negative^Negative Cocaine (metabolite) Negative Negative^Negative Opiate Quant, Ur Negative Negative^Negative Phencyclidine Negative Negative^Negative Oxycodone Negative Negative^Negative Methadone Negative Negative^Negative Ecstasy Negative Negative^Negative POCT Nursing Urine Macroscopic UA Collection Time: 03/06/24 3:12 AM Result Value Ref Range Specific gravity EMMANUEL 1.010 1.003 - 1.035 Leukocyte esterase EMMANUEL Negative Negative^Negative Nitrite EMMANUEL Negative Negative^Negative Ph 6.5 5.0 - 8.5 Protein EMMANUEL Negative Negative^Negative mg/dL Urine glucose EMMANUEL Negative Negative^Negative mg/dL Ketones EMMANUEL Negative Negative^Negative mg/dL Urobilinogen EMMANUEL 0.2 <1.1 eu/dL Bilirubin EMMANUEL Negative Negative^Negative Hemoglobin EMMANUEL Negative Negative^Negative Radiology CT brain without contrast Result Date: 03/06/2024 Narrative: STUDY: CT HEAD WITHOUT CONTRAST CLINICAL HISTORY: Mental status change, unknown cause; Episode of unresponsiveness transient alteration of awareness COMPARISON: None. TECHNIQUE: CT head was performed without contrast utilizing 2.5 mm axial reconstruction with images reviewed in bone and brain windows. Automated exposure control was utilized. FINDINGS: There is no intracranial mass, mass effect or shift of midline structures. No extra-axial fluid collection. Hector-white differentiation is preserved. No CT evidence of large vessel vascular distribution of acute infarct, acute ischemia or hemorrhage. No depressed or widely calvarial fracture. Paranasal sinuses are well aerated. Please note, MRI is more sensitive for the evaluation of acute or occult process is indicated. IMPRESSION: 1. No evidence of an acute intracranial process. All CT scans at this facility use dose modulation, iterative reconstruction, and/or weight based dosing when appropriate to reduce radiation dose to as low as reasonably achievable. Finalized by Aaron Prater MD on 03/06/2024 7:[address] angiogram chest Result Date: 03/06/2024 Narrative: CT CTA CHEST 03/06/2024 4:41 AM INDICATION: Pulmonary embolism (PE) suspected, high prob COMPARISON: None TECHNIQUE: Contrast-enhanced CT images of the chest were obtained. 3-D images were also post processed at a separate workstation to further define anatomy and potential pathology. All CT scans at this facility use dose modulation, iterative reconstruction, and/or weight based dosing when appropriate to reduce radiation dose to as low as reasonably achievable. FINDINGS: LUNGS/PLEURA: Mosaic attenuation throughout the lungs. Patchy posterior basilar airspace disease, possibly atelectasis. Few anterior predominant lung cysts and multiple smaller anterior and posterior lung cysts and questionable areas of reticulation. No definite pleural effusion. CENTRAL AIRWAYS: Patent trachea and mainstem bronchi. VASCULATURE: Mild atheromatous disease of the thoracic aorta without aneurysm. Main pulmonary artery is borderline enlarged. Evaluation limited of pulmonary arteries due to contrast bolus timing. No definite large pulmonary embolism. HEART/PERICARDIUM: The heart is not enlarged. Trace pericardial effusion. Mild coronary artery calcified atheromatous disease. MEDIASTINUM: Prominent mediastinal and hilar lymph nodes. LOWER NECK: Unremarkable. CHEST WALL: Focal nodular area of the left breast measuring approximately 14 mm. UPPER ABDOMEN: Low attenuation areas of the liver, possibly cysts, however location can be seen with focal fatty infiltration. OSSEOUS STRUCTURES: Multiple chronic appearing right-sided rib fractures. IMPRESSION: 1. Limited exam without definite large pulmonary embolism. 2. Findings within the lungs as described, underlying interstitial lung disease could be considered. Nonemergent high-resolution chest CT with inspiration and expiration recommended. 3. Focal nodular area of the left breast. Further evaluation with nonemergent mammogram recommended. 4. Nonspecific low attenuation areas of the liver, possibly cysts, however location can be seen with focal fatty infiltration. Further evaluation with MRI could be obtained as clinically indicated. Finalized by Amadou Land DO on 03/06/2024 5:40 AM X-ray chest 1 view Result Date: 03/06/2024 Narrative: HISTORY: Shortness of breath COMPARISON: Chest x-ray 03/02/2021 FINDINGS: Portable AP upright view of the chest was performed. Cardiac silhouette is within normal limits. Lungs demonstrate no focal airspace consolidation or significant vascular congestion. No pleural fluid collection or pneumothorax. Healed right rib fractures. IMPRESSION: * No acute abnormality. Finalized by Gume Jiang MD on 03/06/2024 12:56 AM HOSPITAL PROBLEM LIST Principal Problem: Acute hypoxic respiratory failure ([facility]) Active Problems: Pulmonary emphysema ([facility]) Anxiety Hypothyroidism Type 2 diabetes mellitus ([facility]) Essential hypertension Paroxysmal atrial fibrillation ([facility]) ASSESSMENT & PLAN Acute hypoxic respiratory failure Pulmonary Emphysema Dyspnea -CXR negative for acute abnormality -D-dimer 2232, CTA negative for PE, but did reveal focal nodular area of the left breast. Recommend mammogram at discharge -Echo pending -troponin negative -BNP 48 -Lactate 2.0 -RPP pending -procalcitonin pending -PRN xopenex ordered -currently 4L NC, wean as tolerated -Encourage incentive spirometry use. Paroxysmal Atrial fibrillation Hx pulmonary embolism -Cardiology consulted -Currently on Cardizem drip -not rate controlled -currently on Lovenox, no anticoagulation at home Altered mental status Seizure-like activity -CT brain negative -EEG ordered -no history of seizure per patient -currently alert and oriented -Blood alcohol level of 0.14 on arrival, -hyponatremia, 130 today Essential hypertension -currently hypotensive hold blood pressure meds for now -normal saline 125 mL/hr Diabetes mellitus, type 2 -Takes metformin home -Check A1c -consistent carb diet -adequate blood sugar control Anxiety -resume home meds Hypothyroidism -resume Synthroid Chart reviewed. Admission orders placed and home medications reconciled. DVT/VTE prophylaxis: SCD and pharmacologic prophylaxis, enoxaparin. GI prophylaxis: add pantoprazole. DC planning: TBD. Christopher Zavaleta APRN-OPERATIONS OFFICER [employer]FLOAT 03/06/2024 9:42 AM [facility] Internal Medicine 7AM-7PM (all facilities): EpicChat or page through [employer]. 7PM-7AM ([facility], [facility] Psychiat[facility] and Inpatient Rehab): EpicChat or page, [phone]. 7PM-7AM ([place], [place], [place], [place] and [facility] Rehab): Stevan or page through [employer]. Physician Attestation: I have reviewed the above note authored by the Advance Practice Provider (CLAY) including history, review of systems, physical examination, medical decision making and agree with the assessment & plan. I have personally performed a face to face diagnostic evaluation on this patient. I have reviewed all laboratory findings and imaging reports/films. I have independently evaluated the patient and repeated mcdonald portions of the physical exam. I agree with the CLAY plan as above, unless otherwise noted. NENO LANE MD documented in this encounter [facility] 03-06-2024 Physician Emergency department Note Associated Order(s): Critical Care Images from the original note were not included. History Chief Complaint Patient presents with Alcohol Intoxication Alcohol Intoxication This is a 58-year-old female brought in by family for an episode of unresponsiveness. Patient has been drinking alcohol all night. Patient and friends and family describe multiple shots, multiple drinks multiple beers. Patient remembers going to sleep and next thing she remembers is being here in the hospital around the way. Family members reports some foaming at the mouth. The patient denies headache. Denies seizure history. Patient regularly drinks alcohol. Only symptom currently is shortness of breath. Denies any chest pain. Denies recent cough. Reports that she was emphysema and COPD and still smokes. She also has a remote history of a PE but not on any current anticoagulation. Family denies any trauma. Patient denies any palpitations, dizziness or near-syncope or presyncope episode that happened today or even recently. Problem List Items Addressed This Visit None Past Medical History: Diagnosis Date Abnormal Pap smear of cervix Anxiety Arthritis Chronic pain disorder Depression Diabetes mellitus type 2, controlled (CMS-HCC) Emphysema (CMS-HCC) Fatty liver Fibromyalgia, primary GERD (gastroesophageal reflux disease) Hyperlipidemia Hypertension Hyperthyroidism Hypothyroid Low back pain Low back pain Lupus Lupus Neck pain Neck pain Numbness Obesity JOVANA (obstructive sleep apnea) Pulmonary embolism (CMS-HCC) Rheumatoid arthritis (CMS-HCC) TIA (transient ischemic attack) Visual impairment glasses Weakness Past Surgical History: Procedure Laterality Date ANKLE FRACTURE SURGERY BACK SURGERY 06/2020 CHOLECYSTECTOMY COLONOSCOPY N/A 08/21/2018 Performed by Brian West MD at [facility] EGD N/A 08/21/2018 Performed by Brian West MD at [facility] HYSTERECTOMY INJECTION BLOCK NERVE MEDIAL BRANCH Bilat T 5/6,6/7 Bilateral 11/02/2022 Performed by Jeremías Quintero MD at [facility] INJECTION BLOCK NERVE MEDIAL BRANCH: bilat L 1/2 & 3/4 Bilateral 08/17/2022 Performed by Jeremías Quintero MD at [facility] INJECTION BLOCK SACROILIAC JOINT Bilateral 06/07/2023 Performed by Jeremías Quintero MD at [facility] REPAIR HERNIA INGUINAL MESH Right 12/14/2019 Performed by Brian West MD at [facility] TONSILLECTOMY Travel Screening Question Response Have you been in contact with someone who was sick? No / Unsure Do you have any of the following new or worsening symptoms? Shortness of breath Have you traveled internationally or domestically in the last month? No Travel History Travel since 02/04/24 No documented travel since 02/04/24 History reviewed. No pertinent family history. Social History Substance and Sexual Activity Drug Use Never Social History Tobacco Use Smoking status: Former Smokeless tobacco: Never Substance Use Topics Alcohol use: Yes Drug use: Never Review of Systems All other systems are reviewed and are negative except as noted. Physical Exam ED Triage Vitals Temp Heart Rate Resp BP SpO2 -- 03/05/24235103/05/24235103/05/24235103/05/242355 92 23 119/75 91 % Temp Source Heart Rate Source Patient Position BP Location FiO2 (%) 03/05/24235103/05/24235103/05/24235103/05/242351 -- Oral Monitor Semi-fowlers Left arm Vitals: 03/05/24235503/06/24 0000 03/06/24 0015 03/06/24 0030 BP: 121/73 TempSrc: Pulse: 92 89 108 Resp: 15 18 14 SpO2: 91% 92% 98% 94% MAP (mmHg): 88 Height: Weight: Physical Exam Vitals and nursing note reviewed. Exam conducted with a mower operator present. Constitutional: General: She is awake. She is not in acute distress. Appearance: Normal appearance. She is well-developed. She is not ill-appearing or toxic-appearing. Comments: Intoxicated HENT: Head: Normocephalic and atraumatic. Nose: Nose normal. Mouth/Throat: Mouth: Mucous membranes are moist. Pharynx: Oropharynx is clear. Eyes: Extraocular Movements: Extraocular movements intact. Conjunctiva/sclera: Conjunctivae normal. Pupils: Pupils are equal, round, and reactive to light. Pupils are equal. Neck: Trachea: Trachea and phonation normal. Cardiovascular: Rate and Rhythm: Tachycardia present. Rhythm irregularly irregular. Pulses: Normal pulses. Radial pulses are 2+ on the right side and 2+ on the left side. Dorsalis pedis pulses are 2+ on the right side and 2+ on the left side. Heart sounds: Normal heart sounds, S1 normal and S2 normal. Pulmonary: Effort: Pulmonary effort is normal. No respiratory distress. Breath sounds: Normal breath sounds. No stridor. No wheezing. Abdominal: General: Abdomen is flat. There is no distension. Palpations: Abdomen is soft. Musculoskeletal: General: No deformity or signs of injury. Cervical back: Normal range of motion and neck supple. Right lower leg: No edema. Left lower leg: No edema. Comments: No reproducible chest wall tenderness Skin: General: Skin is warm and dry. Capillary Refill: Capillary refill takes less than 2 seconds. Neurological: General: No focal deficit present. Mental Status: She is alert and oriented to person, place, and time. Cranial Nerves: No cranial nerve deficit. Sensory: No sensory deficit. Motor: Motor function is intact. Psychiatric: Mood and Affect: Mood normal. Behavior: Behavior normal. Procedure Critical Care Performed by: Joe Dick MD Authorized by: Joe Dick MD Critical care provider statement: Critical care time (minutes): 31 Critical care time was exclusive of: Separately billable procedures and treating other patients Critical care was necessary to treat or prevent imminent or life-threatening deterioration of the following conditions: Cardiac failure and respiratory failure Critical care was time spent personally by me on the following activities: Development of treatment plan with patient or surrogate, evaluation of patient's response to treatment, examination of patient, obtaining history from patient or surrogate, ordering and performing treatments and interventions, ordering and review of laboratory studies, ordering and review of radiographic studies, pulse oximetry, re-evaluation of patient's condition and review of old charts I assumed direction of critical care for this patient from another provider in my specialty: no Care discussed with: admitting provider Re-Evaluation Re-Evaluation ED Course ED Course as of 03/06/24 0656 SatMar 06, 2024 0112 Ethanol Lvl(!): 0.14 Acutely intoxicated demonstrated by physical exam [SB] 0112 Sodium(!): 130 Hypovolemic hyponatremia [SB] 0112 Potassium(!): 3.1 Will replete [SB] 0112 Magnesium(!): 1.3 Will replete [SB] 0112 Troponin I, High Sensitivity: 4 No ischemia [SB] 0112 White Blood Cells: 9.5 No reactive leukocytosis [SB] 0112 Hemoglobin: 12.6 No anemia [SB] 0112 X-ray chest 1 view No acute cardiopulmonary process [SB] 0230 D-dimer(!): 2,232 Ordered CTA at [place]. Will give a 1 time dose of Lovenox prior to transfer [SB] 0255 Patient appears to go into tachyarrhythmias and back into normal sinus rhythm on the monitor. EKG does show what appears to be AFib. It was irregular. Patient is already on Lovenox to cover her for her elevated D-dimer and possible PE which is covering her for her AFib. Likely paroxysmal. CHADS-VASc score greater than 2. Would benefit from anticoagulation. Currently rate controlled on the monitor 101. [SB] ED Course User Index [SB] Joe Dick MD Clinical Impressions as of 03/06/24 0656 Acute hypoxic respiratory failure (CMS-HCC) COPD exacerbation (CMS-HCC) Atrial fibrillation, new onset (CMS-HCC) Breast nodule Liver cyst Alcoholic intoxication without complication (CMS-HCC) MDM Medical Decision Making This is a 58 y.o. female presenting for Alcohol Intoxication. On arrival patient's height is 165.1 cm (5' 5 ) and weight is 72.6 kg (160 lb). Her oral temperature is 37 C (98.6 F). Her blood pressure is 100/74 and her pulse is 155 (abnormal). Her respiration is 11 and oxygen saturation is 95%. . History provided by patient and and friend . . Physical exam is patient is mildly intoxicated. Heart rate irregularly irregular tachycardic. Lungs are clear nonlabored. Mild tachypnea. No focal neurologic deficit. No deformities to extremities.. Workup and treatment plan includes EKG, basic laboratory studies, chest x-ray. D-dimer. Troponins.. 12-lead ECG performed and interpreted by myself as atrial fibrillation. Rate 146. QRS 73, QTC 460. Irregularly irregular. No signs or concerns for ischemia. Change when compared to prior 07/2020 . . Differential Diagnoses The differential diagnosis associated with the patient's presentation includes but not limited to alcohol intoxication, atrial fibrillation, COPD exacerbation, pneumonia Consideration of Admission/Observation Escalation of care including admission/observation was Considered. Patient hypoxic, new onset AFib requiring anticoagulation and rate control with Cardizem drip Discussion with Other Healthcare Providers Management of the patient was discussed with the following healthcare providers. Brittany Solorzano accepting for Dr. Lane Independent Interpretation I performed an independent interpretation of the following: Plain x-rays: My interpretation is no acute cardiopulmonary process. CTA chest: My interpretation is no saddle embolus or right heart strain Discussion of Findings with Radiology There were no discussions with Radiology about test interpretation. Discussion with Independent Historian Clinical information was obtained from independent historian. History obtained from or confirmed by: spouse and friend Review of External (Non-ED) Record External record reviewed: na Tests Considered But Not Performed There were no test considered but not performed. Chronic Condition Affecting Care Patient's care was impacted by:CHF/COPD and other: Tobacco abuse, depression Social Determinants of Health Significantly Affecting Care Patient's care significantly limited by social determinants of health included: Alcoholism and drug addiction in family Patient's CHADS-VASc score greater than 2. Will need longer anticoagulation but is good until 2:00 p.m. later today. Will need to be admitted to the hospital. They would like CT head before admission. Patient agreeable plan. Patient was not making much mucus. No pneumonia or reactive airway process seen on imaging. Will hold off antibiotics at this time. Normal white count. RESULTS Labs: Labs Reviewed COMPREHENSIVE METABOLIC PANEL - Abnormal; Notable for the following components: Result Value Sodium 130 (*) Potassium, Bld 3.1 (*) CO2 20 (*) Albumin 2.9 (*) All other components within normal limits ETHANOL - Abnormal; Notable for the following components: Ethanol Lvl 0.14 (*) All other components within normal limits MAGNESIUM - Abnormal; Notable for the following components: Magnesium 1.3 (*) All other components within normal limits D-DIMER - Abnormal; Notable for the following components: D-dimer 2,232 (*) All other components within normal limits CBC WITH AUTO DIFFERENTIAL TROPONIN I, HIGH SENSITIVITY TROP I, HIGH SENSITIVITY 1 HOUR DRUG SCREEN, URINE B-TYPE NATRIURETIC PEPTIDE LACTATE W/ REFLEX POCT NURSING URINE MACROSCOPIC UA POCT NURSING URINE MACROSCOPIC UA Radiology: CT angiogram chest Result Date: 03/06/2024 CT CTA CHEST 03/06/2024 4:41 AM INDICATION: Pulmonary embolism (PE) suspected, high prob COMPARISON: None TECHNIQUE: Contrast-enhanced CT images of the chest were obtained. 3-D images were also post processed at a separate workstation to further define anatomy and potential pathology. All CT scans at this facility use dose modulation, iterative reconstruction, and/or weight based dosing when appropriate to reduce radiation dose to as low as reasonably achievable. FINDINGS: LUNGS/PLEURA: Mosaic attenuation throughout the lungs. Patchy posterior basilar airspace disease, possibly atelectasis. Few anterior predominant lung cysts and multiple smaller anterior and posterior lung cysts and questionable areas of reticulation. No definite pleural effusion. CENTRAL AIRWAYS: Patent trachea and mainstem bronchi. VASCULATURE: Mild atheromatous disease of the thoracic aorta without aneurysm. Main pulmonary artery is borderline enlarged. Evaluation limited of pulmonary arteries due to contrast bolus timing. No definite large pulmonary embolism. HEART/PERICARDIUM: The heart is not enlarged. Trace pericardial effusion. Mild coronary artery calcified atheromatous disease. MEDIASTINUM: Prominent mediastinal and hilar lymph nodes. LOWER NECK: Unremarkable. CHEST WALL: Focal nodular area of the left breast measuring approximately 14 mm. UPPER ABDOMEN: Low attenuation areas of the liver, possibly cysts, however location can be seen with focal fatty infiltration. OSSEOUS STRUCTURES: Multiple chronic appearing right-sided rib fractures. IMPRESSION: 1. Limited exam without definite large pulmonary embolism. 2. Findings within the lungs as described, underlying interstitial lung disease could be considered. Nonemergent high-resolution chest CT with inspiration and expiration recommended. 3. Focal nodular area of the left breast. Further evaluation with nonemergent mammogram recommended. 4. Nonspecific low attenuation areas of the liver, possibly cysts, however location can be seen with focal fatty infiltration. Further evaluation with MRI could be obtained as clinically indicated. Finalized by Amadou Land DO on 03/06/2024 5:40 AM X-ray chest 1 view Result Date: 03/06/2024 HISTORY: Shortness of breath COMPARISON: Chest x-ray 03/02/2021 FINDINGS: Portable AP upright view of the chest was performed. Cardiac silhouette is within normal limits. Lungs demonstrate no focal airspace consolidation or significant vascular congestion. No pleural fluid collection or pneumothorax. Healed right rib fractures. IMPRESSION: * No acute abnormality. Finalized by Gume Jiang MD on 03/06/2024 12:56 AM NURSING NOTES AND VITALS REVIEWED The nursing notes within the ED encounter and vital signs as below have been reviewed. BP 100/74 Pulse (!) 155 Temp 37 C (98.6 F) (Oral) Resp 11 Ht 165.1 cm (5' 5 ) Wt 72.6 kg (160 lb) SpO2 95% BMI 26.63 kg/m ---- PROGRESS NOTES ---- The plan of care has been discussed with patient including today s results, in addition to providing specific details regarding counseling pertaining to the diagnosis and prognosis. All questions were answered at this time and they are agreeable with the plan ADDITIONAL PROVIDER NOTES At this time the patient has objective evidence of an acute process requiring hospitalization or inpatient management. Medications sodium chloride 0.9 % flush 3 mL (has no administration in time range) sodium chloride 0.9 % flush 10 mL (10 mL intravenous Given 03/06/24 05) dilTIAZem (CARDIZEM) infusion 125 mg/125 mL in sodium chloride 0.7% (1 mg/mL premix) (5 mg/hr intravenous New Bag 03/06/24 0647) magnesium oxide (MAGOX) tablet 400 mg (400 mg oral Given 03/06/24209) potassium chloride (KLOR-CON M 20) CR tablet 40 mEq (40 mEq oral Given 03/06/24209) ipratropium-albuteroL (DUONEB) 0.5 mg-3 mg(2.5 mg base)/3 mL nebulizer solution 3 mL (3 mL nebulization Given 03/06/24 0150) enoxaparin (LOVENOX) syringe 70 mg (70 mg subcutaneous Given 03/06/24 0239) dilTIAZem CD (CARDIZEM CD) 24 hr capsule 180 mg (180 mg oral Given 03/06/24 0318) morphine injection 4 mg (4 mg intravenous Given 03/06/24 0404) sodium chloride 0.9 % radiology injection (80 mL intravenous Given 03/06/24 0522) iohexoL (OMNIPAQUE) 350 mg iodine/mL injection 100 mL (100 mL intravenous Given 03/06/24 0521) methylPREDNISolone sod suc(PF) (Solu-MEDROL) injection 125 mg (125 mg intravenous Given 03/06/24 0644) Medication List Medications Continued This Visit amitriptyline 10 mg tablet Quantity: 30 tablet Refills: 2 For diagnoses: Fibromyalgia Signed by: Dr. Suarez One capsule at 8 PM each night Commonly known as: ELAVIL ARIPiprazole 10 mg tablet Refills: 0 Dose: 10 mg Commonly known as: ABILIFY aspirin 325 mg tablet Refills: 0 Dose: 325 mg bumetanide 2 mg tablet Refills: 0 Dose: 2 mg Commonly known as: BUMEX busPIRone 15 mg tablet Refills: 0 Dose: 15 mg Commonly known as: BUSPAR DULoxetine 60 mg capsule Refills: 0 Dose: 60 mg Commonly known as: CYMBALTA escitalopram 20 mg tablet Refills: 0 Dose: 20 mg Commonly known as: LEXAPRO gabapentin 400 mg capsule Refills: 0 Dose: 400 mg Commonly known as: NEURONTIN hydrOXYzine 50 mg capsule Refills: 0 Dose: 50 mg Commonly known as: VISTARIL levothyroxine 75 MCG tablet Refills: 0 Dose: 75 mcg Commonly known as: SYNTHROID, LEVOTHROID lisinopriL 10 mg tablet Refills: 0 Dose: 10 mg Commonly known as: PRINIVIL,ZESTRIL meloxicam 15 mg tablet Quantity: 30 tablet Refills: 2 For diagnoses: Fibromyalgia Signed by: Dr. Suarez One tablet daily with food Commonly known as: MOBIC metFORMIN 500 mg tablet Refills: 0 Dose: 1 tablet Commonly known as: GLUCOPHAGE methocarbamoL 500 mg tablet Quantity: 30 tablet Refills: 5 For diagnoses: Fibromyalgia Dose: 500 mg Signed by: Dr. Suarez 500 mg, oral, Bedtime Commonly known as: ROBAXIN omeprazole 40 mg capsule Refills: 0 Dose: 40 mg Commonly known as: PriLOSEC simvastatin 10 mg tablet Refills: 0 Dose: 10 mg Commonly known as: ZOCOR zolpidem 5 mg tablet Refills: 0 Dose: 5 mg Commonly known as: AMBIEN None Diagnosis: 1. Acute hypoxic respiratory failure (CMS-HCC) 2. COPD exacerbation (CMS-HCC) 3. Atrial fibrillation, new onset (CMS-HCC) 4. Breast nodule 5. Liver cyst Disposition: Patient's disposition: Admit Patient's condition is stable. Critical Care time: 31 Attestation No Additional Attestations Joe Dcik MD 03/06/24 0114 Joe Dick MD 03/06/24 0653 [facility] 03-06-2024 Emergency department Note Associated Order(s): Critical Care Images from the original note were not included. History Chief Complaint Patient presents with Alcohol Intoxication Alcohol Intoxication This is a 58-year-old female brought in by family for an episode of unresponsiveness. Patient has been drinking alcohol all night. Patient and friends and family describe multiple shots, multiple drinks multiple beers. Patient remembers going to sleep and next thing she remembers is being here in the hospital around the way. Family members reports some foaming at the mouth. The patient denies headache. Denies seizure history. Patient regularly drinks alcohol. Only symptom currently is shortness of breath. Denies any chest pain. Denies recent cough. Reports that she was emphysema and COPD and still smokes. She also has a remote history of a PE but not on any current anticoagulation. Family denies any trauma. Patient denies any palpitations, dizziness or near-syncope or presyncope episode that happened today or even recently. Problem List Items Addressed This Visit None Past Medical History: Diagnosis Date Abnormal Pap smear of cervix Anxiety Arthritis Chronic pain disorder Depression Diabetes mellitus type 2, controlled (CMS-HCC) Emphysema (CMS-HCC) Fatty liver Fibromyalgia, primary GERD (gastroesophageal reflux disease) Hyperlipidemia Hypertension Hyperthyroidism Hypothyroid Low back pain Low back pain Lupus Lupus Neck pain Neck pain Numbness Obesity JOVANA (obstructive sleep apnea) Pulmonary embolism (CMS-HCC) Rheumatoid arthritis (CMS-HCC) TIA (transient ischemic attack) Visual impairment glasses Weakness Past Surgical History: Procedure Laterality Date ANKLE FRACTURE SURGERY BACK SURGERY 06/2020 CHOLECYSTECTOMY COLONOSCOPY N/A 08/21/2018 Performed by Brian West MD at [facility] EGD N/A 08/21/2018 Performed by Brian West MD at [facility] HYSTERECTOMY INJECTION BLOCK NERVE MEDIAL BRANCH Bilat T 5/6,6/7 Bilateral 11/02/2022 Performed by Jeremías Quintero MD at [facility] INJECTION BLOCK NERVE MEDIAL BRANCH: bilat L 1/2 & 3/4 Bilateral 08/17/2022 Performed by Jeremías Quintero MD at [facility] IN[facility] BLOCK SACROILIAC JOINT Bilateral 06/07/2023 Performed by Jeremías Quintero MD at [facility]PA[facility] HERNIA INGUINAL MESH Right 12/14/2019 Performed by Brian West MD at [facility] TONSILLECTOMY Travel Screening Question Response Have you been in contact with someone who was sick? No / Unsure Do you have any of the following new or worsening symptoms? Shortness of breath Have you traveled internationally or domestically in the last month? No Travel History Travel since 02/04/24 No documented travel since 02/04/24 History reviewed. No pertinent family history. Social History Substance and Sexual Activity Drug Use Never Social History Tobacco Use Smoking status: Former Smokeless tobacco: Never Substance Use Topics Alcohol use: Yes Drug use: Never Review of Systems All other systems are reviewed and are negative except as noted. Physical Exam ED Triage Vitals Temp Heart Rate Resp BP SpO2 -- 03/05/24235103/05/24235103/05/24235103/05/242355 92 23 119/75 91 % Temp Source Heart Rate Source Patient Position BP Location FiO2 (%) 03/05/24235103/05/24235103/05/24235103/05/242351 -- Oral Monitor Semi-fowlers Left arm Vitals: 03/05/24 2356 03/06/24 0000 03/06/24 0015 03/06/24 0030 BP: 121/73 TempSrc: Pulse: 92 89 108 Resp: 15 18 14 SpO2: 91% 92% 98% 94% MAP (mmHg): 88 Height: Weight: Physical Exam Vitals and nursing note reviewed. Exam conducted with a mower operator present. Constitutional: General: She is awake. She is not in acute distress. Appearance: Normal appearance. She is well-developed. She is not ill-appearing or toxic-appearing. Comments: Intoxicated HENT: Head: Normocephalic and atraumatic. Nose: Nose normal. Mouth/Throat: Mouth: Mucous membranes are moist. Pharynx: Oropharynx is clear. Eyes: Extraocular Movements: Extraocular movements intact. Conjunctiva/sclera: Conjunctivae normal. Pupils: Pupils are equal, round, and reactive to light. Pupils are equal. Neck: Trachea: Trachea and phonation normal. Cardiovascular: Rate and Rhythm: Tachycardia present. Rhythm irregularly irregular. Pulses: Normal pulses. Radial pulses are 2+ on the right side and 2+ on the left side. Dorsalis pedis pulses are 2+ on the right side and 2+ on the left side. Heart sounds: Normal heart sounds, S1 normal and S2 normal. Pulmonary: Effort: Pulmonary effort is normal. No respiratory distress. Breath sounds: Normal breath sounds. No stridor. No wheezing. Abdominal: General: Abdomen is flat. There is no distension. Palpations: Abdomen is soft. Musculoskeletal: General: No deformity or signs of injury. Cervical back: Normal range of motion and neck supple. Right lower leg: No edema. Left lower leg: No edema. Comments: No reproducible chest wall tenderness Skin: General: Skin is warm and dry. Capillary Refill: Capillary refill takes less than 2 seconds. Neurological: General: No focal deficit present. Mental Status: She is alert and oriented to person, place, and time. Cranial Nerves: No cranial nerve deficit. Sensory: No sensory deficit. Motor: Motor function is intact. Psychiatric: Mood and Affect: Mood normal. Behavior: Behavior normal. Procedure Critical Care Performed by: Joe Dick MD Authorized by: Joe Dick MD Critical care provider statement: Critical care time (minutes): 31 Critical care time was exclusive of: Separately billable procedures and treating other patients Critical care was necessary to treat or prevent imminent or life-threatening deterioration of the following conditions: Cardiac failure and respiratory failure Critical care was time spent personally by me on the following activities: Development of treatment plan with patient or surrogate, evaluation of patient's response to treatment, examination of patient, obtaining history from patient or surrogate, ordering and performing treatments and interventions, ordering and review of laboratory studies, ordering and review of radiographic studies, pulse oximetry, re-evaluation of patient's condition and review of old charts I assumed direction of critical care for this patient from another provider in my specialty: no Care discussed with: admitting provider Re-Evaluation Re-Evaluation ED Course ED Course as of 03/06/24 0656 SatMar 06, 2024 0112 Ethanol Lvl(!): 0.14 Acutely intoxicated demonstrated by physical exam [SB] 0112 Sodium(!): 130 Hypovolemic hyponatremia [SB] 0112 Potassium(!): 3.1 Will replete [SB] 0112 Magnesium(!): 1.3 Will replete [SB] 0112 Troponin I, High Sensitivity: 4 No ischemia [SB] 0112 White Blood Cells: 9.5 No reactive leukocytosis [SB] 0112 Hemoglobin: 12.6 No anemia [SB] 0112 X-ray chest 1 view No acute cardiopulmonary process [SB] 0230 D-dimer(!): 2,232 Ordered CTA at [facility]. Will give a 1 time dose of Lovenox prior to transfer [SB] 0255 Patient appears to go into tachyarrhythmias and back into normal sinus rhythm on the monitor. EKG does show what appears to be AFib. It was irregular. Patient is already on Lovenox to cover her for her elevated D-dimer and possible PE which is covering her for her AFib. Likely paroxysmal. CHADS-VASc score greater than 2. Would benefit from anticoagulation. Currently rate controlled on the monitor 101. [SB] ED Course User Index [SB] Joe Dick MD Clinical Impressions as of 03/06/24 0656 Acute hypoxic respiratory failure (CMS-HCC) COPD exacerbation (CMS-HCC) Atrial fibrillation, new onset (CMS-HCC) Breast nodule Liver cyst Alcoholic intoxication without complication (CMS-HCC) MDM Medical Decision Making This is a 58 y.o. female presenting for Alcohol Intoxication. On arrival patient's height is 165.1 cm (5' 5 ) and weight is 72.6 kg (160 lb). Her oral temperature is 37 C (98.6 F). Her blood pressure is 100/74 and her pulse is 155 (abnormal). Her respiration is 11 and oxygen saturation is 95%. . History provided by patient and and friend . . Physical exam is patient is mildly intoxicated. Heart rate irregularly irregular tachycardic. Lungs are clear nonlabored. Mild tachypnea. No focal neurologic deficit. No deformities to extremities.. Workup and treatment plan includes EKG, basic laboratory studies, chest x-ray. D-dimer. Troponins.. 12-lead ECG performed and interpreted by myself as atrial fibrillation. Rate 146. QRS 73, QTC 460. Irregularly irregular. No signs or concerns for ischemia. Change when compared to prior 07/2020 . . Differential Diagnoses The differential diagnosis associated with the patient's presentation includes but not limited to alcohol intoxication, atrial fibrillation, COPD exacerbation, pneumonia Consideration of Admission/Observation Escalation of care including admission/observation was Considered. Patient hypoxic, new onset AFib requiring anticoagulation and rate control with Cardizem drip Discussion with Other Healthcare Providers Management of the patient was discussed with the following healthcare providers. Brittany Solorzano accepting for Dr. Lane Independent Interpretation I performed an independent interpretation of the following: Plain x-rays: My interpretation is no acute cardiopulmonary process. CTA chest: My interpretation is no saddle embolus or right heart strain Discussion of Findings with Radiology There were no discussions with Radiology about test interpretation. Discussion with Independent Historian Clinical information was obtained from independent historian. History obtained from or confirmed by: spouse and friend Review of External (Non-ED) Record External record reviewed: na Tests Considered But Not Performed There were no test considered but not performed. Chronic Condition Affecting Care Patient's care was impacted by:CHF/COPD and other: Tobacco abuse, depression Social Determinants of Health Significantly Affecting Care Patient's care significantly limited by social determinants of health included: Alcoholism and drug addiction in family Patient's CHADS-VASc score greater than 2. Will need longer anticoagulation but is good until 2:00 p.m. later today. Will need to be admitted to the hospital. They would like CT head before admission. Patient agreeable plan. Patient was not making much mucus. No pneumonia or reactive airway process seen on imaging. Will hold off antibiotics at this time. Normal white count. RESULTS Labs: Labs Reviewed COMPREHENSIVE METABOLIC PANEL - Abnormal; Notable for the following components: Result Value Sodium 130 (*) Potassium, Bld 3.1 (*) CO2 20 (*) Albumin 2.9 (*) All other components within normal limits ETHANOL - Abnormal; Notable for the following components: Ethanol Lvl 0.14 (*) All other components within normal limits MAGNESIUM - Abnormal; Notable for the following components: Magnesium 1.3 (*) All other components within normal limits D-DIMER - Abnormal; Notable for the following components: D-dimer 2,232 (*) All other components within normal limits CBC WITH AUTO DIFFERENTIAL TROPONIN I, HIGH SENSITIVITY TROP I, HIGH SENSITIVITY 1 HOUR DRUG SCREEN, URINE B-TYPE NATRIURETIC PEPTIDE LACTATE W/ REFLEX POCT NURSING URINE MACROSCOPIC UA POCT NURSING URINE MACROSCOPIC UA Radiology: CT angiogram chest Result Date: 03/06/2024 CT CTA CHEST 03/06/2024 4:41 AM INDICATION: Pulmonary embolism (PE) suspected, high prob COMPARISON: None TECHNIQUE: Contrast-enhanced CT images of the chest were obtained. 3-D images were also post processed at a separate workstation to further define anatomy and potential pathology. All CT scans at this facility use dose modulation, iterative reconstruction, and/or weight based dosing when appropriate to reduce radiation dose to as low as reasonably achievable. FINDINGS: LUNGS/PLEURA: Mosaic attenuation throughout the lungs. Patchy posterior basilar airspace disease, possibly atelectasis. Few anterior predominant lung cysts and multiple smaller anterior and posterior lung cysts and questionable areas of reticulation. No definite pleural effusion. CENTRAL AIRWAYS: Patent trachea and mainstem bronchi. VASCULATURE: Mild atheromatous disease of the thoracic aorta without aneurysm. Main pulmonary artery is borderline enlarged. Evaluation limited of pulmonary arteries due to contrast bolus timing. No definite large pulmonary embolism. HEART/PERICARDIUM: The heart is not enlarged. Trace pericardial effusion. Mild coronary artery calcified atheromatous disease. MEDIASTINUM: Prominent mediastinal and hilar lymph nodes. LOWER NECK: Unremarkable. CHEST WALL: Focal nodular area of the left breast measuring approximately 14 mm. UPPER ABDOMEN: Low attenuation areas of the liver, possibly cysts, however location can be seen with focal fatty infiltration. OSSEOUS STRUCTURES: Multiple chronic appearing right-sided rib fractures. IMPRESSION: 1. Limited exam without definite large pulmonary embolism. 2. Findings within the lungs as described, underlying interstitial lung disease could be considered. Nonemergent high-resolution chest CT with inspiration and expiration recommended. 3. Focal nodular area of the left breast. Further evaluation with nonemergent mammogram recommended. 4. Nonspecific low attenuation areas of the liver, possibly cysts, however location can be seen with focal fatty infiltration. Further evaluation with MRI could be obtained as clinically indicated. Finalized by Amadou Land DO on 03/06/2024 5:40 AM X-ray chest 1 view Result Date: 03/06/2024 HISTORY: Shortness of breath COMPARISON: Chest x-ray 03/02/2021 FINDINGS: Portable AP upright view of the chest was performed. Cardiac silhouette is within normal limits. Lungs demonstrate no focal airspace consolidation or significant vascular congestion. No pleural fluid collection or pneumothorax. Healed right rib fractures. IMPRESSION: * No acute abnormality. Finalized by Gume Jiang MD on 03/06/2024 12:56 AM NURSING NOTES AND VITALS REVIEWED The nursing notes within the ED encounter and vital signs as below have been reviewed. BP 100/74 Pulse (!) 155 Temp 37 C (98.6 F) (Oral) Resp 11 Ht 165.1 cm (5' 5 ) Wt 72.6 kg (160 lb) SpO2 95% BMI 26.63 kg/m ---- PROGRESS NOTES ---- The plan of care has been discussed with patient including today s results, in addition to providing specific details regarding counseling pertaining to the diagnosis and prognosis. All questions were answered at this time and they are agreeable with the plan ADDITIONAL PROVIDER NOTES At this time the patient has objective evidence of an acute process requiring hospitalization or inpatient management. Medications sodium chloride 0.9 % flush 3 mL (has no administration in time range) sodium chloride 0.9 % flush 10 mL (10 mL intravenous Given 03/06/24 5618) dilTIAZem (CARDIZEM) infusion 125 mg/125 mL in sodium chloride 0.7% (1 mg/mL premix) (5 mg/hr intravenous New Bag 03/06/24 0661) magnesium oxide (MAGOX) tablet 400 mg (400 mg oral Given 03/06/24209) potassium chloride (KLOR-CON M 20) CR tablet 40 mEq (40 mEq oral Given 03/06/24209) ipratropium-albuteroL (DUONEB) 0.5 mg-3 mg(2.5 mg base)/3 mL nebulizer solution 3 mL (3 mL nebulization Given 03/06/24 0150) enoxaparin (LOVENOX) syringe 70 mg (70 mg subcutaneous Given 03/06/24 023) dilTIAZem CD (CARDIZEM CD) 24 hr capsule 180 mg (180 mg oral Given 03/06/24 031) morphine injection 4 mg (4 mg intravenous Given 03/06/24 0404) sodium chloride 0.9 % radiology injection (80 mL intravenous Given 03/06/24 05) iohexoL (OMNIPAQUE) 350 mg iodine/mL injection 100 mL (100 mL intravenous Given 03/06/24 05) methylPREDNISolone sod suc(PF) (Solu-MEDROL) injection 125 mg (125 mg intravenous Given 03/06/24 0644) Medication List Medications Continued This Visit amitriptyline 10 mg tablet Quantity: 30 tablet Refills: 2 For diagnoses: Fibromyalgia Signed by: Dr. Suarez One capsule at 8 PM each night Commonly known as: ELAVIL ARIPiprazole 10 mg tablet Refills: 0 Dose: 10 mg Commonly known as: ABILIFY aspirin 325 mg tablet Refills: 0 Dose: 325 mg bumetanide 2 mg tablet Refills: 0 Dose: 2 mg Commonly known as: BUMEX busPIRone 15 mg tablet Refills: 0 Dose: 15 mg Commonly known as: BUSPAR DULoxetine 60 mg capsule Refills: 0 Dose: 60 mg Commonly known as: CYMBALTA escitalopram 20 mg tablet Refills: 0 Dose: 20 mg Commonly known as: LEXAPRO gabapentin 400 mg capsule Refills: 0 Dose: 400 mg Commonly known as: NEURONTIN hydrOXYzine 50 mg capsule Refills: 0 Dose: 50 mg Commonly known as: VISTARIL levothyroxine 75 MCG tablet Refills: 0 Dose: 75 mcg Commonly known as: SYNTHROID, LEVOTHROID lisinopriL 10 mg tablet Refills: 0 Dose: 10 mg Commonly known as: PRINIVIL,ZESTRIL meloxicam 15 mg tablet Quantity: 30 tablet Refills: 2 For diagnoses: Fibromyalgia Signed by: Dr. Suarez One tablet daily with food Commonly known as: MOBIC metFORMIN 500 mg tablet Refills: 0 Dose: 1 tablet Commonly known as: GLUCOPHAGE methocarbamoL 500 mg tablet Quantity: 30 tablet Refills: 5 For diagnoses: Fibromyalgia Dose: 500 mg Signed by: Dr. Suarez 500 mg, oral, Bedtime Commonly known as: ROBAXIN omeprazole 40 mg capsule Refills: 0 Dose: 40 mg Commonly known as: PriLOSEC simvastatin 10 mg tablet Refills: 0 Dose: 10 mg Commonly known as: ZOCOR zolpidem 5 mg tablet Refills: 0 Dose: 5 mg Commonly known as: AMBIEN None Diagnosis: 1. Acute hypoxic respiratory failure (CMS-HCC) 2. COPD exacerbation (CMS-HCC) 3. Atrial fibrillation, new onset (CMS-HCC) 4. Breast nodule 5. Liver cyst Disposition: Patient's disposition: Admit Patient's condition is stable. Critical Care time: 31 Attestation No Additional Attestations Joe Dick MD 03/06/24 0114 Joe Dick MD 03/06/24 0653 documented in this encounter [facility] 02-03-2024 Telephone encounter Note Sent flagyl and diflucan to [facility] [place], will need an appointment if symptoms persist [facility] 02-03-2024 Miscellaneous Notes Sent flagyl and diflucan to [facility] [place], will need an appointment if symptoms persist Pt calling in and states she is still having vaginal discharge and wondering if you would send another pill in for it? documented in this encounter [facility] 02-03-2024 Telephone encounter Note Pt calling in and states she is still having vaginal discharge and wondering if you would send another pill in for it? [facility] 01-16-2024 Telephone encounter Note Refills sent. [facility] 01-16-2024 Miscellaneous Notes Refills sent. documented in this encounter [facility] 01-07-2024 Telephone encounter Note Vm left 10:06 Pt left vm stating that she missed your call. Please return call to patient [facility] 01-07-2024 Miscellaneous Notes Vm left 10:06 Pt left vm stating that she missed your call. Please return call to patient MyChart message: Positive for bacterial vaginosis and candidiasis, flagyl and diflucan sent to pharmacy documented in this encounter [facility] 01-07-2024 Telephone encounter Note MyChart message: Positive for bacterial vaginosis and candidiasis, flagyl and diflucan sent to pharmacy [facility] 01-02-2024 Telephone encounter Note Patient called needs refill on inhahler. Verified phone and pharm [facility] 08-29-2024 Miscellaneous Notes Patient called needs refill on inhahler. Verified phone and pharm documented in this encounter [facility] 12-30-2023 History of Present illness Narrative Chandni Baron is a 58 y.o. female presents with chief complaint of Vaginitis/Bacterial Vaginosis HPI: HPI Initially thought it was a yeast infection, was treated with diflucan, continued to experience symptoms then was started on flagyl for BV. Continues to experience white chalky looking drainage. Denies any itching. Patient is getting remarried this Saturday. Her daughter is very upset about this and stopped talking to her again. Had a cough a couple weeks ago that has lingered, Denies any wheezing or feeling SOB. No sputum production. SUBJECTIVE: MEDICATIONS: Current Outpatient Medications Medication Instructions albuterol HFA 90 mcg/act inhaler 1 puff, Inhalation, Every 4 hours PRN amitriptyline (Elavil) 25 MG tablet TAKE 1 TABLET BY MOUTH EVERY DAY AT BEDTIME FOR 90 DAYS ARIPiprazole (ABILIFY) 10 mg, Oral, Every morning busPIRone (BUSPAR) 15 mg, Oral, 2 times daily cholecalciferol (Vitamin D3) 25 MCG (1000 UT) tablet Oral, Every morning DULoxetine (CYMBALTA) 60 mg, Oral, 2 times daily, Do not crush or chew. escitalopram (Lexapro) 20 MG tablet TAKE 1 TABLET EVERY MORNING ferrous sulfate 325 (65 Fe) MG tablet TAKE 1 TABLET BY MOUTH EVERY DAY FOR 90 DAYS Fluticasone-Salmeterol (Wixela Inhub) 250-50 MCG/ACT aerosol powder 1 Inhalation, Inhalation, 2 times daily gabapentin (Neurontin) 400 MG capsule TAKE 1 CAPSULE IN THE MORNING, 1 CAPSULE IN THE EVENING, AND 1 CAPSULE BEFORE BEDTIME. hydrOXYzine pamoate (Vistaril) 50 MG capsule TAKE 1 CAPSULE EVERY 8 HOURS ibuprofen (IBU) 800 mg, Oral, 3 times daily PRN levothyroxine (Synthroid, Levoxyl) 75 MCG tablet TAKE 1 TABLET EVERY MORNING BEFORE A MEAL lisinopril 5 mg, Oral, Daily metFORMIN (GLUCOPHAGE) 500 mg, Oral, 2 times daily with meals methocarbamol (Robaxin) 500 MG tablet TAKE 1 TABLET AT BEDTIME omeprazole (PRILOSEC) 40 mg, Oral, Daily before breakfast, Do not crush or chew. simvastatin (ZOCOR) 10 mg, Oral, Nightly REVIEW OF SYMPTOMS: Review of Systems Respiratory: Positive for cough. OBJECTIVE: Visit Vitals BP 130/80 (BP Location: Left arm, Patient Position: Sitting, BP Cuff Size: Adult) Pulse 87 Ht 5' 5 Wt 140 lb 12.8 oz SpO2 95% BMI 23.43 kg/m Smoking Status Some Days BSA 1.71 m Physical Exam Vitals reviewed. Constitutional: Appearance: Normal appearance. HENT: Head: Normocephalic and atraumatic. Ears: Comments: B/L TM: Dull, slight fluid noted but no bulging or erythema Nose: No rhinorrhea. Right Turbinates: Swollen. Left Turbinates: Swollen. Mouth/Throat: Mouth: Mucous membranes are moist. Pharynx: Oropharynx is clear. Eyes: Pupils: Pupils are equal, round, and reactive to light. Cardiovascular: Rate and Rhythm: Normal rate and regular rhythm. Pulses: Normal pulses. Heart sounds: Normal heart sounds. Pulmonary: Effort: Pulmonary effort is normal. Breath sounds: Normal breath sounds. Musculoskeletal: Cervical back: Normal range of motion and neck supple. Skin: General: Skin is warm and dry. Capillary Refill: Capillary refill takes less than 2 seconds. Findings: No rash. Neurological: General: No focal deficit present. Mental Status: She is alert and oriented to person, place, and time. ASSESSMENT AND PLAN: Assessment/Plan Diagnoses and all orders for this visit: Vaginal discharge - SURESWAB(R) ADVANCED VAGINITIS PLUS, TMA; Future -Obtain sureswab today in office Iron deficiency anemia, unspecified iron deficiency anemia type - Iron + transferrin + TIBC; Future - CBC and differential; Future -Check iron studies. Subacute cough - XR chest 2 views; Future documented in this encounter [facility] 12-26-2023 Telephone encounter Note Approving, but needs appt for additional refills. [facility] 12-26-2023 Miscellaneous Notes Approving, but needs appt for additional refills. documented in this encounter [facility] 12-23-2023 Telephone encounter Note Vm left 4:54pm Pt got a missed call. [facility] 12-23-2023 Miscellaneous Notes Vm left 4:54pm Pt got a missed call. Ask pt why she cancelled her retnia dorothy ? Patient needs to have done. Is she scheduled with her eye doctor instead ? documented in this encounter [facility] 12-23-2023 Telephone encounter Note Ask pt why she cancelled her retnia dorothy ? Patient needs to have done. Is she scheduled with her eye doctor instead ? [facility] 05-22-2023 History of Present illness Narrative [facility] [address] [place] [address] Patient: Chandni Baron Sex: female : 1965 Age: 57 y.o. PCP: Jocelyn Walden MD 05/22/2023 Chandni Baron is here for a(n) follow up. Chief Complaint Patient presents with Back Pain HPI: Back surgery by Dr Mckeon 06/2020. Water therapy (, water aerobics) provides relief when in the water, once gets out of the water, muscles tighten and pain returns 08/17/22 Thong L1/2, 3/4 MBB with 100% continued relief (c/o upper back pain only) 11/02/22 Thong T 5/6 6/7 MBB w/75% relief for 2 days Back Pain This is a chronic problem. The current episode started more than 1 year ago (06/2020). The problem occurs constantly. The problem has been gradually worsening since onset. The pain is present in the thoracic spine and lumbar spine (cervical). The quality of the pain is described as aching, burning and cramping. Radiates to: Rt shoulder, RUE, left buttock. The pain is at a severity of 9/10 (Thoracic 6/10, Lumbar 3/10). The pain is severe. The pain is The same all the time. Exacerbated by: activity, sitting, standing, walking, stairs, bending, lifting, lying, twisting, leaning on cart, pushing/pulling, cough/sneeze, transitioning. Stiffness is present All day. Associated symptoms include leg pain (just under left buttock), numbness (left buttock), tingling (left buttock) and weakness (bilat shoulders). Pertinent negatives include no abdominal pain, chest pain or fever. Treatments tried: Dex back and body with moderate relief; meloxicam, ibuprofen, lidocaine, heat, voltaren gel with no relief. The treatment provided mild relief. Shoulder Pain The pain is present in the right shoulder and left shoulder. This is a chronic problem. Episode onset: 2021. The problem occurs constantly. The problem has been gradually worsening. Quality: shooting. The pain is at a severity of 8/10. The pain is moderate. Associated symptoms include a limited range of motion, numbness (left buttock) and tingling (left buttock). Pertinent negatives include no fever. The symptoms are aggravated by activity, cold, contact, heat and standing. She has tried oral narcotics, OTC ointments, NSAIDS, heat, acetaminophen and OTC pain meds for the symptoms. The treatment provided mild relief. The effect of pain on patient's ADLS: Severe Impairment. Past Medical History: Diagnosis Date Abnormal Pap smear of cervix Anxiety Arthritis Chronic pain disorder Depression Diabetes mellitus type 2, controlled ([facility]) Emphysema Fatty liver Fibromyalgia, primary GERD (gastroesophageal reflux disease) Hyperlipidemia Hypertension Hyperthyroidism Hypothyroid Low back pain Low back pain Lupus ([facility]) Lupus ([facility]) Neck pain Neck pain Numbness Obesity JOVANA (obstructive sleep apnea) Pulmonary embolism ([facility]) Rheumatoid arthritis ([facility]) TIA (transient ischemic attack) Visual impairment glasses Weakness Past Surgical History: Procedure Laterality Date ANKLE FRACTURE SURGERY BACK SURGERY 06/2020 CHOLECYSTECTOMY COLONOSCOPY N/A 08/21/2018 Performed by Brian West MD at [facility] EGD N/A 08/21/2018 Performed by Brian West MD at [facility] HYSTERECTOMY INJECTION BLOCK NERVE MEDIAL BRANCH Bilat T 5/6,6/7 Bilateral 11/02/2022 Performed by Jeremías Quintero MD at [facility] INJECTION BLOCK NERVE MEDIAL BRANCH: bilat L 1/2 & 3/4 Bilateral 08/17/2022 Performed by Jeremías Quintero MD at [facility] REPAIR HERNIA INGUINAL MESH Right 12/14/2019 Performed by Brian West MD at [facility] TONSILLECTOMY Allergies Allergen Reactions Penicillins Rash History reviewed. No pertinent family history. Social History Socioeconomic History Marital status: Spouse name: Not on file Number of children: Not on file Years of education: Not on file Highest education level: Not on file Occupational History Not on file Tobacco Use Smoking status: Former Smokeless tobacco: Never Substance and Sexual Activity Alcohol use: Yes Drug use: Never Sexual activity: Not on file Other Topics Concern Not on file Social History Narrative Not on file Social Determinants of Health Financial Resource Strain: Not on file Food Insecurity: No Food Insecurity (05/22/2023) Hunger Screening Food Insecurity - Worry: Never True Food Insecurity - Inability: Never True Transportation Needs: Not on file Physical Activity: Not on file Stress: Not on file Social Connections: Not on file Interpersonal Safety: Not on file Review of Systems Constitutional: Negative for chills and fever. HENT: Negative for congestion, rhinorrhea and sore throat. Respiratory: Negative for cough and shortness of breath. Cardiovascular: Negative for chest pain. Gastrointestinal: Negative for abdominal pain, nausea and vomiting. Musculoskeletal: Positive for back pain. Skin: Negative. Neurological: Positive for tingling (left buttock), weakness (bilat shoulders) and numbness (left buttock). Psychiatric/Behavioral: Negative. Vital Signs: BP 100/73 (BP Site: Left Arm, BP Postition: Sitting) Pulse 85 SpO2 94% Physical Exam: GENERAL - Healthy patient that appears stated age. HEENT - Normocephalic / Atraumatic, Extraoccular movements intact, trachea midline, thyroid within normal limits. CV - pulse regular, Warm extremities with appropriate color of nailbeds. RESP - No obvious wheezing, No Shortness of Breath, No overexertion response to exam maneuvers. COORDINATION - remains intact. PSYCH - Alert and Oriented x4, Attentive and appropriate, constitutionally normal, displays normal mood and affect per situation, answered questions appropriately during examination, demonstrated appropriate attention during discussion, demonstrated appropriate cognitive reasoning and understanding of the medical condition by asking appropriate questions regarding the diagnosis and risks/benefits/alternatives of treatment modalities. No obvious deficits in memory, reasoning, or intellect. Lumbar: SKIN - No rashes or bruising in the area of the patient s pain. LYMPH NODES - demonstrate no obvious enlargement. EXTREMITIES - Lower extremities are warm, with minimal edema and palpable pulses. Tenderness to palpation noted in the lumbar spine and paraspinal musculature. Pain is elicited with flexion, extension, and lateral rotation of the lumbar spine. Range of motion is diminished with these motions due to pain. Facet palpation is noted to be painful and facet loading maneuvers elicit pain that is concordant with the patient s normal pain complaints. Some muscle spasm is noted in the overlying musculature. STRENGTH - noted to be 5 out of 5 all muscle groups bilateral lower extremities including muscles involving hip flexion and abduction, knee flexion and extension, as well as foot dorsiflexion and plantarflexion. No notable atrophy, fasciculations or spasm. SENSORY - No notable sensory deficits in the bilateral lower extremities to touch or pinprick in all dermatomal distributions. Straight Leg Raise is negative bilaterally. Tenderness to palpation is noted over the Bilateral Left greater than Right Sacroiliac Joint: Fabere sign (Kennedy's Test) is significantly positive, as is compression and distraction of the sacroiliac joints, which is consistent with some of the patient's normal pain. Gait is normal. Assessment/Treatment Plan: Chandni was seen today for back pain. Diagnoses and all orders for this visit: Disorder of sacrum - Case request operating room: INJECTION BLOCK SACROILIAC JOINT Bilateral SI Joint Lumbar spondylosis Lumbosacral spondylosis without myelopathy Bilateral Sacroiliac Joint Injection - under fluoroscopy with the use of contrast dye (unless contraindicated) It is hopeful that the described procedure will provide symptomatic pain relief. It is felt to be medically necessary noting that the patient has tried and failed more conservative modalities of therapy and this is the next most appropriate step. The procedure was described in detail to the patient as well as the potential benefits of pain reduction alongside risks of the procedure and alternatives. Risks were described as including, but not limited to bleeding, infection, nerve damage, spinal cord injury, paralysis, stroke, dural puncture headache, and medication reaction. The patient expressed understanding regarding the risks and benefits and wishes to proceed. Diagnostic SI injections should provide information to confirm that the noted SI Joint arthropathy is the patient s most significant pain generator. If this provides significant but only temporary pain relief, the patient may in the future be a candidate for radiofrequency denervation of the SI joint to provide pain relief for approximately 1 year. Follow up 2 weeks after procedure The medications prescribed have been reviewed for medication interactions/contraindications and/or for upcoming procedures: continue current medication regimen without any changes. DISCUSSION: Treatment options discussed with patient and all questions answered to patient's satisfaction. Discussed the rules and regulations surrounding prescription of opioids and compliance at length. Failure to follow the rules and regulation will result in tapering and discontinuation of medications if applicable. Prescribed medication that requires intensive monitoring for toxicity We do not currently prescribe any controlled substance from this practice. Treatment plans discussed but not opted for at this time: Repeat SI joint and/or medial branch block injections. Patient would like to proceed with the current outlined treatment plan before moving forward with any other options. The spine model was demonstrated and MRI was reviewed and used to explain the condition. Chronic conditions not treated during this visit that affected my overall medical decision making: Comorbidity- Obesity The patient does have a comorbid condition of obesity. This will be taken into account in that obesity will contribute to certain pain conditions. It can contribute to pain from degenerative disc disease as well as osteoarthritis of the joints. Many neuropathic symptoms are also amplified due to axial spine loading. Special benefits will also need to be given to procedures. Many procedures are technically more difficult in the light of severe obesity. I will also consider the possibility of undiagnosed obstructive sleep apnea (which often accompanies obesity) when prescribing any narcotic medications. I will weigh the risks and benefits and fully discuss them with the patient for these reasons. Comorbidity- Anxiety The patient describes a significant issue with anxiety. Although treatment is helpful with this regard, the patient is likely need special accommodation due to this condition. For this reason, necessary procedures will likely need to be performed under sedation to decrease procedural anxiety. Comorbidity- Depression The patient has an ongoing issue with depression and currently feels these symptoms are under control and further feels that appropriate pain management would also help these symptoms. The patient is optimistic about the treatment plan we have laid out. We will continue to monitor these symptoms and remain cogniscent that they may affect the patients perceived improvement from the treatment and willingness to pursue further treatment. At this time the patient appears to be mentally and emotionally stable to undergo procedural and medical therapy. If any warning signs become present, I may refer the patient to a mental health professional for further evaluation. OARRS: Reviewed. Scribe Statement: Scribed for and in the presence of BRODY BERGER PA-C by Ana María Erwin CNA. Provider Statement: I, BRODY BERGER PA-C, personally performed the services described in the documentation, as scribed by Ana María Erwin CNA in my presence, and it is both accurate and complete. Ana María Erwin CNA 05/22/23 1102 Brody Berger PA-C 05/22/23 1107 documented in this encounter [facility] 05-22-2023 Instructions Ana María Erwin CNA - 05/22/2023 10:30 AM EST Facet Injection / Medial Branch Block (MBB) / Sacroiliac (SI) Joint Injection A facet injection and sacroiliac joint injection are injections of local anesthetic and steroid into a joint in the spine. A medial branch block is similar, but the medication is placed outside the joint space near the nerve that supplies the joint called the medial branch (steroid may or may not be used). You may require multiple injections depending upon how many joints are involved. How Long Will This Procedure Last? The extent and duration of pain relief may depend on the amount of inflammation and how many areas are involved. Other coexisting factors may be responsible for your pain. If your pain goes away for a short time, but then returns, you may be a candidate for radiofrequency ablation (RFA). Activity Be active. Attempt activities and movements that typically cause pain to see if it feels better while doing them. We will give you a pain diary. Please fill this out as directed by your nurse in pre-op. This will help your doctor determine the effectiveness of the injection, and how to proceed. Bring the pain diary with you to your follow-up appointment. Medications You should not take your pain medications for 4-6 hours before or after the injection in order to properly diagnose if the injection provides adequate relief. Resume your routine medications after your procedure. You may resume blood thinners per your regular schedule after the procedure. If you received sedation: If you received sedation for your procedure, you may feel sleepy or not yourself for several hours today. For the next 24 hours avoid activities that requires alertness or coordination. This includes: Driving or operating heavy machinery Using power tools Consuming alcohol Do not make important or complex decisions or sign legal documents in the next 24 hours. Other Instructions: If you feel severe pain at the injection site with swelling and redness, increased leg weakness, a fever of 101 or higher, headache (or worsening headache), changes in vision or urinary retention: Please call the office at , or have someone take you to the nearest emergency room. Tell the emergency room staff that you recently had a spine injection. A doctor must evaluate you for bleeding and injection complications. If you lose control over bowel, bladder, or legs: Go to the nearest emergency room. documented in this encounter [facility] Evaluation note No assessment information [facility] Work Phone: Evaluation note Diagnosis Disorder of sacrum- Primary Disorders of sacrum Lumbar spondylosis Lumbosacral spondylosis without myelopathy Lumbosacral spondylosis without myelopathy Disorder of sacrum- Primary Disorders of sacrum Disorder of sacrum Disorders of sacrum documented in this encounter [facility]* Diagnosis Type 2 diabetes mellitus with diabetic peripheral angiopathy without gangrene, without long-term current use of insulin ([facility]) documented in this encounter [facility]* Diagnosis Lumbosacral spondylosis without myelopathy documented in this encounter [facility]* Diagnosis Wellness examination- Primary Primary insomnia Persistent disorder of initiating or maintaining sleep Simple chronic bronchitis ([facility]) Simple chronic bronchitis Essential hypertension ([facility]) Unspecified essential hypertension Raynaud's disease without gangrene Type 2 diabetes mellitus with diabetic peripheral angiopathy without gangrene, without long-term current use of insulin ([facility]) Diverticular disease of colon Diverticulosis of colon (without mention of hemorrhage) Gastroesophageal reflux disease without esophagitis Esophageal reflux Hepatic steatosis Other chronic nonalcoholic liver disease Fibromyalgia Unspecified myalgia and myositis Acquired hypothyroidism ([facility]) Unspecified hypothyroidism Anxiety Anxiety state, unspecified H/O hysterectomy for benign disease Mixed hyperlipidemia (CMS/HCC) Mixed hyperlipidemia Moderate episode of recurrent major depressive disorder ([facility]) Spondylolisthesis of lumbar region Encounter for screening mammogram for malignant neoplasm of breast Systemic lupus erythematosus, unspecified SLE type, unspecified organ involvement status ([facility]) Morbid obesity ([facility]) Morbid obesity Systemic lupus erythematosus arthritis ([facility]) Encounter for wellness examination- Primary Essential hypertension ([facility]) Unspecified essential hypertension Type 2 diabetes mellitus with diabetic peripheral angiopathy without gangrene, without long-term current use of insulin ([facility]) Mixed hyperlipidemia ([facility]) Mixed hyperlipidemia Olecranon bursitis of right elbow Encounter for immunization Encounter for screening mammogram for malignant neoplasm of breast Grief ([facility]) Adjustment disorder with depressed mood Personal history of nicotine dependence Systemic lupus erythematosus, unspecified SLE type, unspecified organ involvement status ([facility]) Chronic obstructive pulmonary disease, unspecified ([facility]) Thromboangiitis obliterans (Buerger's disease) ([facility]) COPD (chronic obstructive pulmonary disease) with chronic bronchitis ([facility]) Primary insomnia Persistent disorder of initiating or maintaining sleep Cervical radiculopathy Brachial neuritis or radiculitis nos Raynaud's disease without gangrene Diverticular disease of colon Diverticulosis of colon (without mention of hemorrhage) Gastritis without bleeding, unspecified chronicity, unspecified gastritis type Hepatic steatosis Other chronic nonalcoholic liver disease Fibromyalgia Unspecified myalgia and myositis Lumbosacral spondylosis without myelopathy Spondylolisthesis of lumbar region Thoracic spondylosis without myelopathy Systemic lupus erythematosus arthritis (CMS/HCC) Acquired hypothyroidism ([facility]/HCC) Unspecified hypothyroidism Anxiety Anxiety state, unspecified H/O hysterectomy for benign disease Moderate episode of recurrent major depressive disorder (CMS/HCC) Cervical spine pain Chronic obstructive pulmonary disease, unspecified (CMS/HCC) COPD (chronic obstructive pulmonary disease) with chronic bronchitis (CMS/HCC) documented in this encounter [facility] HealthcareEvaluation note* Diagnosis Paroxysmal atrial fibrillation (CMS-HCC)- Primary Atrial fibrillation Acute hypoxic respiratory failure (CMS-HCC) COPD exacerbation (CMS-HCC) Obstructive chronic bronchitis with exacerbation Atrial fibrillation, new onset (CMS-HCC) Breast nodule Other (abnormal) findings on radiological examination of breast Liver cyst Other specified disorders of liver Alcoholic intoxication without complication (CMS-HCC) Atrial fibrillation by electrocardiography (CMS-HCC) Seizure-like activity (CMS-HCC) Pulmonary emphysema (CMS-HCC) Other emphysema Anxiety Anxiety state, unspecified Hypothyroidism Unspecified hypothyroidism Type 2 diabetes mellitus (CMS-HCC) Essential hypertension Unspecified essential hypertension documented [facility] Diagnosis Wellness examination- Primary Primary insomnia Persistent disorder of initiating or maintaining sleep Simple chronic bronchitis (CMS/HCC) Simple chronic bronchitis Essential hypertension (CMS/HCC) Unspecified essential hypertension Raynaud's disease without gangrene Type 2 diabetes mellitus with diabetic peripheral angiopathy without gangrene, without long-term current use of insulin (CMS/HCC) Diverticular disease of colon Diverticulosis of colon (without mention of hemorrhage) Gastroesophageal reflux disease without esophagitis Esophageal reflux Hepatic steatosis Other chronic nonalcoholic liver disease Fibromyalgia Unspecified myalgia and myositis Acquired hypothyroidism (CMS/HCC) Unspecified hypothyroidism Anxiety Anxiety state, unspecified H/O hysterectomy for benign disease Mixed hyperlipidemia (CMS/HCC) Mixed hyperlipidemia Moderate episode of recurrent major depressive disorder (CMS/HCC) Spondylolisthesis of lumbar region Encounter for screening mammogram for malignant neoplasm of breast Systemic lupus erythematosus, unspecified SLE type, unspecified organ involvement status (CMS/HCC) Morbid obesity (CMS/HCC) Morbid obesity Systemic lupus erythematosus arthritis (CMS/HCC) Encounter for wellness examination- Primary Essential hypertension (CMS/HCC) Unspecified essential hypertension Type 2 diabetes mellitus with diabetic peripheral angiopathy without gangrene, without long-term current use of insulin (CMS/HCC) Mixed hyperlipidemia (CMS/HCC) Mixed hyperlipidemia Olecranon bursitis of right elbow Encounter for immunization Encounter for screening mammogram for malignant neoplasm of breast Grief (CMS/HCC) Adjustment disorder with depressed mood Personal history of nicotine dependence Systemic lupus erythematosus, unspecified SLE type, unspecified organ involvement status (CMS/HCC) Chronic obstructive pulmonary disease, unspecified (CMS/HCC) Thromboangiitis obliterans (Buerger's disease) (CMS/HCC) COPD (chronic obstructive pulmonary disease) with chronic bronchitis (CMS/HCC) Primary insomnia Persistent disorder of initiating or maintaining sleep Cervical radiculopathy Brachial neuritis or radiculitis nos Raynaud's disease without gangrene Diverticular disease of colon Diverticulosis of colon (without mention of hemorrhage) Gastritis without bleeding, unspecified chronicity, unspecified gastritis type Hepatic steatosis Other chronic nonalcoholic liver disease Fibromyalgia Unspecified myalgia and myositis Lumbosacral spondylosis without myelopathy Spondylolisthesis of lumbar region Thoracic spondylosis without myelopathy Systemic lupus erythematosus arthritis (CMS/HCC) Acquired hypothyroidism (CMS/HCC) Unspecified hypothyroidism Anxiety Anxiety state, unspecified H/O hysterectomy for benign disease Moderate episode of recurrent major depressive disorder (CMS/HCC) Cervical spine pain Hospital discharge follow-up- Primary Other follow-up examination Paroxysmal atrial fibrillation (CMS/HCC) Atrial fibrillation Seizure-like activity (CMS/HCC) Hypokalemia Hypopotassemia Acquired hypothyroidism (CMS/HCC) Unspecified hypothyroidism Essential hypertension (CMS/HCC) Unspecified essential hypertension COPD exacerbation (CMS/HCC) Obstructive chronic bronchitis with exacerbation Type 2 diabetes mellitus with diabetic peripheral angiopathy without gangrene, without long-term current use of insulin (CMS/HCC) Anxiety Anxiety state, unspecified Pulmonary emphysema, unspecified emphysema type (CMS/HCC) Weight loss Loss of weight documented in this encounter [facility] HealthcareEvaluation note* Diagnosis Wellness examination- Primary Primary insomnia Persistent disorder of initiating or maintaining sleep Simple chronic bronchitis (CMS/HCC) Simple chronic bronchitis Essential hypertension (CMS/HCC) Unspecified essential hypertension Raynaud's disease without gangrene Type 2 diabetes mellitus with diabetic peripheral angiopathy without gangrene, without long-term current use of insulin (CMS/HCC) Diverticular disease of colon Diverticulosis of colon (without mention of hemorrhage) Gastroesophageal reflux disease without esophagitis Esophageal reflux Hepatic steatosis Other chronic nonalcoholic liver disease Fibromyalgia Unspecified myalgia and myositis Acquired hypothyroidism (CMS/HCC) Unspecified hypothyroidism Anxiety Anxiety state, unspecified H/O hysterectomy for benign disease Mixed hyperlipidemia (CMS/HCC) Mixed hyperlipidemia Moderate episode of recurrent major depressive disorder ([facility]) Spondylolisthesis of lumbar region Encounter for screening mammogram for malignant neoplasm of breast Systemic lupus erythematosus, unspecified SLE type, unspecified organ involvement status ([facility]) Morbid obesity ([facility]/HCC) Morbid obesity Systemic lupus erythematosus arthritis ([facility]) Encounter for wellness examination- Primary Essential hypertension ([facility]) Unspecified essential hypertension Type 2 diabetes mellitus with diabetic peripheral angiopathy without gangrene, without long-term current use of insulin ([facility]) Mixed hyperlipidemia ([facility]) Mixed hyperlipidemia Olecranon bursitis of right elbow Encounter for immunization Encounter for screening mammogram for malignant neoplasm of breast Grief ([facility]) Adjustment disorder with depressed mood Personal history of nicotine dependence Systemic lupus erythematosus, unspecified SLE type, unspecified organ involvement status ([facility]) Chronic obstructive pulmonary disease, unspecified ([facility]) Thromboangiitis obliterans (Buerger's disease) ([facility]) COPD (chronic obstructive pulmonary disease) with chronic bronchitis ([facility]) Primary insomnia Persistent disorder of initiating or maintaining sleep Cervical radiculopathy Brachial neuritis or radiculitis nos Raynaud's disease without gangrene Diverticular disease of colon Diverticulosis of colon (without mention of hemorrhage) Gastritis without bleeding, unspecified chronicity, unspecified gastritis type Hepatic steatosis Other chronic nonalcoholic liver disease Fibromyalgia Unspecified myalgia and myositis Lumbosacral spondylosis without myelopathy Spondylolisthesis of lumbar region Thoracic spondylosis without myelopathy Systemic lupus erythematosus arthritis ([facility]) Acquired hypothyroidism ([facility]) Unspecified hypothyroidism Anxiety Anxiety state, unspecified H/O hysterectomy for benign disease Moderate episode of recurrent major depressive disorder ([facility]) Cervical spine pain Nasal congestion- Primary Other diseases of nasal cavity and sinuses Chronic obstructive pulmonary disease, unspecified COPD type ([facility]) documented in this encounter [facility]* Diagnosis Wellness examination- Primary Primary insomnia Persistent disorder of initiating or maintaining sleep Simple chronic bronchitis ([facility]/HCC) Simple chronic bronchitis Essential hypertension ([facility]) Unspecified essential hypertension Raynaud's disease without gangrene Type 2 diabetes mellitus with diabetic peripheral angiopathy without gangrene, without long-term current use of insulin ([facility]) Diverticular disease of colon Diverticulosis of colon (without mention of hemorrhage) Gastroesophageal reflux disease without esophagitis Esophageal reflux Hepatic steatosis Other chronic nonalcoholic liver disease Fibromyalgia Unspecified myalgia and myositis Acquired hypothyroidism (CMS/HCC) Unspecified hypothyroidism Anxiety Anxiety state, unspecified H/O hysterectomy for benign disease Mixed hyperlipidemia ([facility]/HCC) Mixed hyperlipidemia Moderate episode of recurrent major depressive disorder (CMS/HCC) Spondylolisthesis of lumbar region Encounter for screening mammogram for malignant neoplasm of breast Systemic lupus erythematosus, unspecified SLE type, unspecified organ involvement status ([facility]) Morbid obesity ([facility]/HCC) Morbid obesity Systemic lupus erythematosus arthritis ([facility]) Encounter for wellness examination- Primary Essential hypertension ([facility]) Unspecified essential hypertension Type 2 diabetes mellitus with diabetic peripheral angiopathy without gangrene, without long-term current use of insulin ([facility]) Mixed hyperlipidemia ([facility]) Mixed hyperlipidemia Olecranon bursitis of right elbow Encounter for immunization Encounter for screening mammogram for malignant neoplasm of breast Grief ([facility]) Adjustment disorder with depressed mood Personal history of nicotine dependence Systemic lupus erythematosus, unspecified SLE type, unspecified organ involvement status ([facility]) Chronic obstructive pulmonary disease, unspecified ([facility]) Thromboangiitis obliterans (Buerger's disease) ([facility]) COPD (chronic obstructive pulmonary disease) with chronic bronchitis ([facility]) Primary insomnia Persistent disorder of initiating or maintaining sleep Cervical radiculopathy Brachial neuritis or radiculitis nos Raynaud's disease without gangrene Diverticular disease of colon Diverticulosis of colon (without mention of hemorrhage) Gastritis without bleeding, unspecified chronicity, unspecified gastritis type Hepatic steatosis Other chronic nonalcoholic liver disease Fibromyalgia Unspecified myalgia and myositis Lumbosacral spondylosis without myelopathy Spondylolisthesis of lumbar region Thoracic spondylosis without myelopathy Systemic lupus erythematosus arthritis (CMS/HCC) Acquired hypothyroidism ([facility]) Unspecified hypothyroidism Anxiety Anxiety state, unspecified H/O hysterectomy for benign disease Moderate episode of recurrent major depressive disorder ([facility]) Cervical spine pain Cervical radiculopathy Brachial neuritis or radiculitis nos Cervical spine pain documented in this encounter [facility]* Diagnosis Wellness examination- Primary Primary insomnia Persistent disorder of initiating or maintaining sleep Simple chronic bronchitis ([facility]/HCC) Simple chronic bronchitis Essential hypertension ([facility]) Unspecified essential hypertension Raynaud's disease without gangrene Type 2 diabetes mellitus with diabetic peripheral angiopathy without gangrene, without long-term current use of insulin (CMS/HCC) Diverticular disease of colon Diverticulosis of colon (without mention of hemorrhage) Gastroesophageal reflux disease without esophagitis Esophageal reflux Hepatic steatosis Other chronic nonalcoholic liver disease Fibromyalgia Unspecified myalgia and myositis Acquired hypothyroidism (CMS/HCC) Unspecified hypothyroidism Anxiety Anxiety state, unspecified H/O hysterectomy for benign disease Mixed hyperlipidemia (CMS/HCC) Mixed hyperlipidemia Moderate episode of recurrent major depressive disorder (CMS/HCC) Spondylolisthesis of lumbar region Encounter for screening mammogram for malignant neoplasm of breast Systemic lupus erythematosus, unspecified SLE type, unspecified organ involvement status (CMS/HCC) Morbid obesity ([facility]/HCC) Morbid obesity Systemic lupus erythematosus arthritis ([facility]) Encounter for wellness examination- Primary Essential hypertension ([facility]/HCC) Unspecified essential hypertension Type 2 diabetes mellitus with diabetic peripheral angiopathy without gangrene, without long-term current use of insulin (CMS/HCC) Mixed hyperlipidemia ([facility]) Mixed hyperlipidemia Olecranon bursitis of right elbow Encounter for immunization Encounter for screening mammogram for malignant neoplasm of breast Grief ([facility]) Adjustment disorder with depressed mood Personal history of nicotine dependence Systemic lupus erythematosus, unspecified SLE type, unspecified organ involvement status ([facility]/HCC) Chronic obstructive pulmonary disease, unspecified ([facility]/HCC) Thromboangiitis obliterans (Buerger's disease) ([facility]) COPD (chronic obstructive pulmonary disease) with chronic bronchitis ([facility]) Primary insomnia Persistent disorder of initiating or maintaining sleep Cervical radiculopathy Brachial neuritis or radiculitis nos Raynaud's disease without gangrene Diverticular disease of colon Diverticulosis of colon (without mention of hemorrhage) Gastritis without bleeding, unspecified chronicity, unspecified gastritis type Hepatic steatosis Other chronic nonalcoholic liver disease Fibromyalgia Unspecified myalgia and myositis Lumbosacral spondylosis without myelopathy Spondylolisthesis of lumbar region Thoracic spondylosis without myelopathy Systemic lupus erythematosus arthritis (CMS/HCC) Acquired hypothyroidism ([facility]/HCC) Unspecified hypothyroidism Anxiety Anxiety state, unspecified H/O hysterectomy for benign disease Moderate episode of recurrent major depressive disorder (CMS/HCC) Cervical spine pain Gastroesophageal reflux disease without esophagitis Esophageal reflux documented in this encounter [facility]* Diagnosis Wellness examination- Primary Primary insomnia Persistent disorder of initiating or maintaining sleep Simple chronic bronchitis ([facility]/HCC) Simple chronic bronchitis Essential hypertension ([facility]/HCC) Unspecified essential hypertension Raynaud's disease without gangrene Type 2 diabetes mellitus with diabetic peripheral angiopathy without gangrene, without long-term current use of insulin ([facility]/HCC) Diverticular disease of colon Diverticulosis of colon (without mention of hemorrhage) Gastroesophageal reflux disease without esophagitis Esophageal reflux Hepatic steatosis Other chronic nonalcoholic liver disease Fibromyalgia Unspecified myalgia and myositis Acquired hypothyroidism ([facility]/HCC) Unspecified hypothyroidism Anxiety Anxiety state, unspecified H/O hysterectomy for benign disease Mixed hyperlipidemia (CMS/HCC) Mixed hyperlipidemia Moderate episode of recurrent major depressive disorder ([facility]) Spondylolisthesis of lumbar region Encounter for screening mammogram for malignant neoplasm of breast Systemic lupus erythematosus, unspecified SLE type, unspecified organ involvement status ([facility]/HCC) Morbid obesity ([facility]/HCC) Morbid obesity Systemic lupus erythematosus arthritis ([facility]) Encounter for wellness examination- Primary Essential hypertension ([facility]) Unspecified essential hypertension Type 2 diabetes mellitus with diabetic peripheral angiopathy without gangrene, without long-term current use of insulin ([facility]/HCC) Mixed hyperlipidemia ([facility]) Mixed hyperlipidemia Olecranon bursitis of right elbow Encounter for immunization Encounter for screening mammogram for malignant neoplasm of breast Grief ([facility]) Adjustment disorder with depressed mood Personal history of nicotine dependence Systemic lupus erythematosus, unspecified SLE type, unspecified organ involvement status ([facility]) Chronic obstructive pulmonary disease, unspecified ([facility]) Thromboangiitis obliterans (Buerger's disease) ([facility]) COPD (chronic obstructive pulmonary disease) with chronic bronchitis ([facility]) Primary insomnia Persistent disorder of initiating or maintaining sleep Cervical radiculopathy Brachial neuritis or radiculitis nos Raynaud's disease without gangrene Diverticular disease of colon Diverticulosis of colon (without mention of hemorrhage) Gastritis without bleeding, unspecified chronicity, unspecified gastritis type Hepatic steatosis Other chronic nonalcoholic liver disease Fibromyalgia Unspecified myalgia and myositis Lumbosacral spondylosis without myelopathy Spondylolisthesis of lumbar region Thoracic spondylosis without myelopathy Systemic lupus erythematosus arthritis (CMS/HCC) Acquired hypothyroidism ([facility]/HCC) Unspecified hypothyroidism Anxiety Anxiety state, unspecified H/O hysterectomy for benign disease Moderate episode of recurrent major depressive disorder (CMS/HCC) Cervical spine pain Moderate episode of recurrent major depressive disorder (CMS/HCC) Lumbosacral spondylosis without myelopathy Anxiety Anxiety state, unspecified Episode of recurrent major depressive disorder, unspecified depression episode severity (CMS/HCC) documented in this encounter [facility]* Diagnosis Moderate episode of recurrent major depressive disorder (HCC) (CMS/HCC) documented in this encounter [facility]* Diagnosis Vaginal discharge- Primary Leukorrhea, not specified as infective Iron deficiency anemia, unspecified iron deficiency anemia type Subacute cough documented in this encounter [facility]* Diagnosis Cervical radiculopathy Brachial neuritis or radiculitis nos Cervical spine pain documented in this encounter [facility]* Diagnosis Bacterial vaginosis Unspecified vaginitis and vulvovaginitis Candidiasis documented in this encounter [facility]* Diagnosis COPD (chronic obstructive pulmonary disease) with chronic bronchitis ([facility]/HCC) documented in this encounter [facility]* Diagnosis COPD (chronic obstructive pulmonary disease) with chronic bronchitis ([facility]/HCC) documented in this encounter [facility]* Diagnosis Bacterial vaginosis- Primary Unspecified vaginitis and vulvovaginitis Lumbosacral spondylosis without myelopathy Anxiety Anxiety state, unspecified Episode of recurrent major depressive disorder, unspecified depression episode severity ([facility]/HCC) Candidiasis documented in this encounter [facility] Discharge instructions* Attachments The following attachments cannot be sent through Care Everywhere. * Oxygen Therapy Discharge Instructions, Adult ([place]) [facility] SystemInstructionsNot on file [facility] Advance Directives Advance Directive Response Recorded Date/ Time Advance Directives No February 29, 2020 3:31pm Date Activated Date Inactivated Comments 03/06/2024 10:17 AM Date Activated Date Inactivated Comments 03/06/2024 10:17 AM 03/07/2024 8:37 PM Chief Complaint and Reason for Visit Chief Complaint M89.9 Lesion of vertebra Z78.0 Spondylolisthesis, M43.16 Assessments No Assessments Information Available Family History Relationship Condition Age at Onset Recorded Date/T cristiana brother Cholangiocarcinoma Unknown Not Specified Chronic obstructive pulmonary disease Un known father Myocardial infarction Unknown Coronary artery disease Unknown Summary Purpose Reason for Referral Specialty Diagnoses / Procedures Referred By Karyna fu Referred To Contact Diagnoses Disorder of sacrum Procedures Case request operating room: INJECTION BLOCK SACROILIAC JOINT Bilateral SI Joint Brody Berger PA-C [address] [place] [address] Referral ID Status Reason Start Date Expiration Date V isits Requested Visits Authorized [id number] Pending Review 05/22/2023 05/21/2024 1 1 Additional Source Comments INFORMATION SOURCE (unrecogn ized section and content) DATE CREATED AUTHOR 08/15/2021 [facility] DATE CREATED AUTHOR AUTHOR'S ORGANIZ ATION 10/06/2021 [facility] dical Specialist DATE CREATED AUTHOR AUTHOR'S ORGANIZ ATION 01/23/2023 [facility] DATE CREATED AUTHOR AUTHOR'S ORGANIZ ATION 03/14/2024 [facility] DATE CREATED AUTHOR AUTHOR'S ORGANIZ ATION 03/18/2024 [facility] dical Specialists [facility] DATE CREATED AUTHOR AUTHOR'S ORGANIZ ATION 05/04/2024 [facility] Goals (unrecognized section and content) Goals may be documented in a n alternate sectionNot on filedocumented as of this encounterNot on filedocumented as of this encounterNot on filedocumented as of this encounterNot on filedocumented as of this encounter Reason for Visit (unrecogniz ed section and content) Reason Comments Back Pain Reason Comments Med Refill Reason Comments Alcohol Intoxication Specialty Diagnoses / Procedures Referred By Karyna fu Referred To Contact Diagnoses Tachycardia A-fib ([facility]) Acute hypoxic respiratory failure ([facility]) [facility] [place] - Emergency [address] [place] [address] Phone: tel: fax: Referral ID Status Reason Start Date Expiration Date Visits Re quested Visits Authorized [id number] 1 1 Reason Comments ER Follow-up Reason Comments Follow-up Patient presents tod ay for cough and congestion. Patient thinks she might have bronchitis. Reason Comments Med Refill Reason Comments Vaginitis/Bacterial Vaginosis Reason Onset Date Comments Med Refill 01/02/2024 Care Teams (unrecognized sec tion and content) Bag Worker Relationship Specialty Start Date End Date Jocelyn Walden MD [address] [place] [address] PCP - General Family Medicine 08/21/18 Bag Worker Relationship Specialty Start Date End Date Jocelyn aWlden MD [address] [place] [address] PCP - [employer] 06/06/22 Yoselin Alegria NP [address] [place] [address] PCP - [facility] 08/04/22 Jocelyn Walden MD [address] [place] [address] PCP - General Family Medicine 09/11/22 Jocelyn Clement, RN Registered Nurse Family Medicine 06/06/23 Bag Worker Relationship Specialty Start Date End Date Jocelyn Walden MD [address] [place] [address] PCP - [facility] 06/06/22 Jocelyn Walden MD [address] [place] [address] PCP - General Family Medicine 09/11/22 Bag Worker Relationship Specialty Start Date End Date Jocelyn Walden MD [address] [place] [address] PCP - [employer] 06/06/22 Jocelyn Walden MD [address] [place] [address] PCP - General Family Medicine 09/11/22 Bag Worker Relationship Specialty Start Date End Date Yoselin AlegriaJENSEN-OPERATIONS OFFICER [employer] [address] [place] [address] PCP - General Nurse Practitioner 03/06/24 Bag Worker Relationship Specialty Start Date End Date Jocelyn Walden MD [address] [place] [address] PCP - [facility] 06/06/22 Jocelyn Walden MD [address] [place] [address] PCP - General Family Medicine 09/11/22 Bag Worker Relationship Specialty Start Date End Date Jocelyn Walden MD [address] [place] [address] PCP - [employer] 06/06/22 Jocelyn Walden MD [address] [place] [address] PCP - General Family Medicine 09/11/22 Bag Worker Relationship Specialty Start Date End Date Jocelyn Walden MD [address] [place] [address] PCP - [facility] 06/06/22 Jocelyn Walden MD [address] [place] [address] PCP - General Family Medicine 09/11/22 Bag Worker Relationship Specialty Start Date End Date Jocelyn Walden MD [address] [place] [address] PCP - [facility] 06/06/22 Jocelyn Walden MD [address] [place] [address] PCP - General Family Medicine 09/11/22 Bag Worker Relationship Specialty Start Date End Date Jocelyn Walden MD [address] [place] [address] PCP - [facility] 06/06/22 Jocelyn Walden MD [address] [place] [address] PCP - General Family Medicine 09/11/22 Bag Worker Relationship Specialty Start Date End Date Jocelyn Walden MD [address] [place] [address] PCP - [facility] 06/06/22 Jocelyn Walden MD [address] [place] [address] PCP - General Family Medicine 09/11/22 Bag Worker Relationship Specialty Start Date End Date Jocelyn Walden MD [address] [place] [address] PCP - [facility] 06/06/22 Jocelyn Walden MD [address] [place] [address] PCP - General Family Medicine 09/11/22 Bag Worker Relationship Specialty Start Date End Date Jocelyn Walden MD [address] [place] [address] PCP - [facility] 06/06/22 Bag Worker Relationship Specialty Start Date End Date Jocelyn Walden MD [address] [place] [address] PCP - [facility] 06/06/22 Jocelyn Walden MD [address] [place] [address] PCP - General Family Medicine 09/11/22 Bag Worker Relationship Specialty Start Date End Date Jocelyn Walden MD [address] [place] [address] PCP - [facility] 06/06/22 Jocelyn Walden MD [address] [place] [address] PCP - General Family Medicine 09/11/22 Bag Worker Relationship Specialty Start Date End Date Jocelyn Walden MD [address] [place] [address] PCP - [facility] 06/06/22 Jocelyn Walden MD [address] [place] [address] PCP - General Family Medicine 09/11/22 Bag Worker Relationship Specialty Start Date End Date Jocelyn Walden MD [address] [place] [address] PCP - [facility] 06/06/22 Jocelyn Walden MD [address] [place] [address] PCP - General Family Medicine 09/11/22 Bag Worker Relationship Specialty Start Date End Date Jocelyn Walden MD [address] [place] [address] PCP - [facility] 06/06/22 Jocelyn Walden MD [address] [place] [address] PCP - General Family Medicine 09/11/22 Bag Worker Relationship Specialty Start Date End Date Jocelyn Walden MD [address] [place] [address] PCP - [facility] 06/06/22 Jocelyn Walden MD [address] [place] [address] PCP - General Family Medicine 09/11/22 Bag Worker Relationship Specialty Start Date End Date Jocelyn Walden MD [address] [place] [address] PCP - [facility] 06/06/22 Jocelyn Walden MD [address] [place] [address] PCP - General Family Medicine 09/11/22 Bag Worker Relationship Specialty Start Date End Date Jocelyn Walden MD [address] [place] [address] PCP - [facility] 06/06/22 Jocelyn Walden MD [address] [place] [address] PCP - General Family Medicine 09/11/22 Bag Worker Relationship Specialty Start Date End Date Jocelyn Walden MD [address] [place] [address] PCP - [employer] 06/06/22 Jocelyn Walden MD [address] [place] [address] PCP - General Family Medicine 09/11/22 Bag Worker Relationship Specialty Start Date End Date [facility] [address] [place] [address] PCP - General Nurse Practitioner 03/06/24 Bag Worker Relationship Specialty Start Date End Date [facility] [address] [place] [address] PCP - General Nurse Practitioner 03/06/24 Scheduled Active and Recently Administ ered Medications (unrecognized section and content) Medication Order 03/05/2024 03/06/2024 03/07/2024 amitriptyline (ELAVIL) tablet 10 mg 10 mg, oral, Nightly, First dose on Sat03/06/24 at 2200 2246 (Given - Provider: Rosangela Kearney RN) 2200 (Due) ARIPiprazole (ABILIFY) tablet 10 mg 10 mg, oral, Daily, First dose on Sat03/06/24 at 1045, Look-alike/sound-alike medication - verify indication for use. 1136 (Given - Provider: Deanna Farris RN) 1034 (Given - Provider: Courtney Sam, SUDHAKAR) aspirin EC tablet 325 mg 325 mg, oral, Daily, First dose on Sat03/06/24 at 1045, Do not crush or chew. 1136 (Given - Provider: Deanna Farris, SUDHAKAR) 1035 (Given - Provider: Courtney Sam, SUDHAKAR) atorvastatin (LIPITOR) tablet 10 mg 10 mg, oral, Nightly, First dose on Sat03/06/24 at 2200, Look-alike/sound-alike medication - verify indication for use. 2246 (Given - Provider: Rosangela Kearney RN) 2200 (Due) busPIRone (BUSPAR) tablet 15 mg 15 mg, oral, 2 times daily, First dose on Sat03/06/24 at 1045, Look-alike/sound-alike medication - verify indication for use. Avoid grapefruit juice. 1136 (Given - Provider: Deanna Farris RN)2046 (Given - Provider: Rosangela Kearney RN) 1034 (Given - Provider: Courtney Sam RN)2100 (Due) dilTIAZem CD (CARDIZEM CD) 24 hr capsule 180 mg (COMPLETED) 180 mg, oral, Once, On Sat03/06/24 at 0315, For 1 dose, Look-alike/sound-alike medication - verify indication for use. Do not crush or chew. 0318 (Given - Provider: Socorro Edmonds RN) dilTIAZem CD (CARDIZEM CD) 24 hr capsule 180 mg 180 mg, oral, Daily, First dose (after last reorder) on Sat03/06/24 at 1300, Hold for systolic blood pressure less than 100 or heart rate less than 60 Look-alike/sound-alike medication - verify indication for use. Do not crush or chew. 1329 (Given - Provider: Deanna Farris RN) 1035 (Given - Provider: Courtney Sam RN) DULoxetine (CYMBALTA) DR capsule 60 mg 60 mg, oral, 2 times daily, First dose on Sat03/06/24 at 1045, Look-alike/sound-alike medication - verify indication for use. Swallow whole-do not crush or chew. Although the residential framing carpenter does not recommend opening the capsule to facilitate administration, the contents of capsule may be sprinkled on applesauce or in apple juice and swallowed (without chewing) immediately; do not sprinkle contents on chocolate pudding. 1136 (Given - Provider: Deanna Farris RN)2046 (Given - Provider: Rosangela Kearney RN) 1034 (Given - Provider: Courtney Sam RN)2100 (Due) enoxaparin (LOVENOX) syringe 60 mg 60 mg (rounded from 57.7 mg = 1 mg/kg 57.7 kg), subcutaneous, Every 12 hours, First dose (after last reorder) on Sat03/07/24 at 1800, Scheduling/ADT, Look-alike/sound-alike medication - verify indication for use. 1755 (Given - Provid er: Deanna Farris RN) enoxaparin (LOVENOX) syringe 70 mg (COMPLETED) 70 mg (rounded from 72.6 mg = 1 mg/kg 72.6 kg), subcutaneous, Once, On Sat03/06/24 at 0235, For 1 dose, Look-alike/sound-alike medication - verify indication for use. 0239 (Given - Provider: Socorro Edmonds RN) enoxaparin (LOVENOX) syringe 70 mg (CANCELED) 70 mg (rounded from 72.6 mg = 1 mg/kg 72.6 kg), subcutaneous, Every 12 hours, First dose on Sat03/06/24 at 1030, Scheduling/ADT, Look-alike/sound-alike medication - verify indication for use. 1136 (Given - Provider: Deanna Farris RN)1819 (Given - Provider: Deanna Farris RN) 0550 (Given - Provider: Rosangela Kearney RN) escitalopram (LEXAPRO) tablet 20 mg 20 mg, oral, Daily, First dose on Sat03/06/24 at 1045, Look-alike/sound-alike medication - verify indication for use. 1136 (Given - Provider: Deanna Farris RN) 1034 (Given - Provider: Courtney Sam RN) gabapentin (NEURONTIN) capsule 400 mg 400 mg, oral, 3 times daily, First dose on Sat03/06/24 at 1400, Look-alike/sound-alike medication - verify indication for use. 1329 (Given - Provider: Deanna Farris RN)2246 (Given - Provider: Rosangela Kearney, SUDHAKAR) 0547 (Given - Provider: Rosangela Kearney, RN)1345 (Given - Provider: Deanna Farris RN)2200 (Due) insulin lispro (HumaLOG) injection 2-10 Units 2-10 Units, subcutaneous, 3 times daily with meals, First dose on 03/07/24 at 1200, Daytime hyperglycemia dosing. For blood glucose 151-200 mg/dL, give 2 units. For blood glucose 201-250 mg/dL, give 4 units. For blood glucose 251-300 mg/dL, give 6 units. For blood glucose 301-350 mg/dL, give 8 units. For blood glucose 351-400 mg/dL, give 10 units. Give even if NPO or meals skipped. Do NOT give more often then every 4 hours when NPO. Notify prescriber if blood glucose greater than 400 mg/dL. Look-alike/sound-alike medication - verify indication for use. Prime with 2 units of insulin prior to administration. Prandial/supplemental Insulin. Pre-filled pens stable 28 days at room temperature. Insulin lispro should be administered within 15 minutes before or immediately after a meal. 1342 (Given - Provid er: Deanna Farris RN)1700 (Not Given - Provider: Deanna Farris RN - Reason: Order parameters not met) insulin lispro (HumaLOG) injection 2-8 Units 2-8 Units, subcutaneous, Nightly, First dose on Sat03/07/24 at 2200, Bedtime hyperglycemia dosing. For blood glucose 201-250 mg/dL, give 2 units. For blood glucose 251-300 mg/dL, give 4 units. For blood glucose 301-350 mg/dL, give 6 units. For blood glucose 351-400 mg/dL, give 8 units. Give even if NPO or meals skipped. Do NOT give more often then every 4 hours when NPO. Notify prescriber if blood glucose greater than 400 mg/dL. Look-alike/sound-alike medication - verify indication for use. Prime with 2 units of insulin prior to administration. Prandial/supplemental Insulin. Pre-filled pens stable 28 days at room temperature. Insulin lispro should be administered within 15 minutes before or immediately after a meal. 2200 (Due) ipratropium-albuteroL (DUONEB) 0.5 mg-3 mg(2.5 mg base)/3 mL nebulizer solution 3 mL (COMPLETED) 3 mL, nebulization, Once, On Sat03/06/24 at 0130, For 1 dose, Implement INPATIENT/ED Bronchodilator Clinical Practice Guidelines? Yes 0150 (Given - Provider: Freda Mccauley RCP) levothyroxine (SYNTHROID, LEVOTHROID) tablet 75 mcg 75 mcg, oral, Daily, First dose on Sat03/06/24 at 1045, Look-alike/sound-alike medication. Verify indication for use Administer on empty stomach at least ONE hour before or TWO hours after food Enteral Feeding: For 7 days or less of tube feeding- do NOT hold tube feedings, after 7 days- hold tube feedings ONE hour before and ONE hour after administration DOES NOT APPLY TO NEONATES Monitor thyroid function tests weekly 1136 (Given - Provider: Deanna Farris, SUDHAKAR) 0550 (Given - Provider: Rosangela Kearney, RN) magnesium oxide (MAGOX) tablet 400 mg (COMPLETED) 400 mg, oral, Once, On Sat03/06/24 at 0115, For 1 dose 0210 (Given - Provider: Socorro Edmonds, SUDHAKAR) methylPREDNISolone sod suc(PF) (Solu-MEDROL) injection 125 mg (COMPLETED) 125 mg, intravenous, Once, On Sat03/06/24 at 0630, For 1 dose, May alter blood glucose or insulin requirements. Look-alike/sound-alike medication - verify indication for use. 0644 (Given - Provider: Socorro Edmonds, SUDHAKAR) morphine injection 4 mg (COMPLETED) 4 mg, intravenous, Once, On Sat03/06/24 at 0355, For 1 dose, Look-alike/sound-alike medication - verify indication for use. 0404 (Given - Provider: Socorro Edmonds, SUDHAKAR) pantoprazole (PROTONIX) EC tablet 40 mg 40 mg, oral, Daily, First dose on Sat03/06/24 at 1030, Look-alike/sound-alike medication - verify indication for use. If patient is receiving enteral feeding, consider alternative PPI or continue IV pantoprazole until the delayed-release tablet can be taken orally, Indication: GERD 1136 (Given - Provider: Deanna Farris, SUDHAKAR) 0547 (Given - Provider: Rosangela Kearney, SUDHAKAR) potassium chloride (KLOR-CON M 20) CR tablet 40 mEq (COMPLETED) 40 mEq, oral, Once, On Sat03/06/24 at 0115, For 1 dose, Do not crush or chew. 0210 (Given - Provider: Socorro Edmonds RN) sodium chloride 0.9 % bolus (COMPLETED) 1,000 mL, intravenous, at 984 mL/hr, Administer over 61 Minutes, Once, On Sat03/06/24 at 0705, For 1 dose 0703 (New Bag - Provider: Rosa Easton, RN)0906 (Stop Bag - Provider: Rosa Easton, RN) Continuous Medication Order 03/05/2024 03/06/2024 03/07/2024 dilTIAZem (CARDIZEM) infusion 125 mg/125 mL in sodium chloride 0.7% (1 mg/mL premix) 5-15 mg/hr (5-15 mL/hr), intravenous, Continuous, Starting on Sat03/06/24 at 0635, Initiate diltiazem infusion at 5 mg/hr. Titrate by 5 mg/hr every 15 minutes to achieve heart rate less than 110 hold if sbp<100. Max rate 15 mg/hr. Look-alike/sound-alike medication - verify indication for use. 0647 (New Bag - Provider: Socorro Edmonds, SUDHAKAR)0739 (Paused - Provider: Deanna Farris RN)0749 (Restarted - Provider: Deanna Farris, RN)0750 (Paused - Provider: Deanna Farris, RN)0758 (Restarted - Provider: Deanna Farris, SUDHAKAR)0921 (Paused - Provider: Deanna Farris, RN)0923 (Restarted - Provider: Deanna Farris, RN)0931 (Paused - Provider: Deanna Farris, RN)0934 (Restarted - Provider: Deanna Farris, RN)0935 (Continue to Inpatient Floor - Provider: Abril Mota RN)1015 (Stop Bag - Provider: Deanna Farris, RN)1141 (Restarted - Provider: Deanna Farris, RN)1300 (Stop Bag - Provider: Deanna Farris, SUDHAKAR) sodium chloride 0.9 % infusion 125 mL/hr, intravenous, Continuous, Starting on Sat03/06/24 at 1130, For 1 day 1128 (New Bag - Provider: Deanna Farris, SUDHAKAR)1132 (Rate/Dose Verify - Provider: Deanna Farris RN)1132 (Paused - Provider: Deanna Farris RN)1135 (Restarted - Provider: Deanna Farris, RN)1135 (Paused - Provider: Deanna Farris, RN)1135 (Paused - Provider: Deanna Farris, RN)1138 (Restarted - Provider: Deanna Farris, RN)1212 (Paused - Provider: Deanna Farris, RN)1215 (Restarted - Provider: Deanna Farris, RN)1231 (Paused - Provider: Deanna Farris, RN)1235 (Restarted - Provider: Deanna Farris, RN)1344 (Paused - Provider: Deanna Farris, RN)1344 (Paused - Provider: Deanna Farris, RN)1351 (Paused - Provider: Deanna Farris, RN)1407 (Restarted - Provider: Deanna Farris RN)1421 (Paused - Provider: Deanna Farris, RN)1423 (Restarted - Provider: Deanna Farris, RN)1856 (Rate/Dose Verify - Provider: Deanna Farris RN)2003 (Restarted - Provider: Rosangela Kearney RN)204 (New Bag - Provider: Rosangela Kearney RN)2049 (Rate/Dose Verify - Provider: Rosangela Kearney RN)2050 (Rate/Dose Verify - Provider: Rosangela Kearney RN) 0042 (Rate/Dose Verify - Provider: Rosangela Kearney RN)0438 (Rate/Dose Verify - Provider: Rosangela Kearney RN)0451 (Restarted - Provider: Rosangela Kearney RN)0530 (Stop Bag - Provider: Judi Pompa RN)0534 (New Bag - Provider: Judi Pompa RN)0535 (Rate/Dose Verify - Provider: Rosangela Kearney RN)0707 (Rate/Dose Verify - Provider: Rosangela Kearney RN) PRN Medication Order 03/05/2024 03/06/2024 03/07/2024 acetaminophen (TYLENOL) tablet 650 mg 650 mg, oral, Every 4 hours PRN, headaches, temperature greater than 38 C, mild pain - pain scale 1-3, Starting on Sat03/06/24 at 1017, Scheduling/ADT, [Warning: Total Acetaminophen not to exceed more than 4 grams (4000 mg) in 24 hours] 1642 (Given - Provid er: Deanna Farris RN) calcium gluconate 3,000 mg in sodium chloride 0.9 % 100 mL IVPB 3,000 mg, intravenous, at 43.3 mL/hr, Administer over 3 Hours, As needed, ionized calcium 3.5 to 3.9 mg/dL, Starting on Sat03/06/24 at 1017, Scheduling/ADT, IV Administration of calcium via a central or deep vein preferred. Avoid administration in small hand veins VESICANT (RED) calcium gluconate 4,000 mg in sodium chloride 0.9 % 250 mL IVPB 4,000 mg, intravenous, at 72.5 mL/hr, Administer over 4 Hours, As needed, ionized calcium 3.4 mg/dL or less, Starting on Sat03/06/24 at 1017, Scheduling/ADT, IV administration of calcium via a central or deep vein is preferred. Avoid administration in small hand veins. VESICANT (RED) calcium gluconate IVPB 2000 mg/100 mL (20 mg/mL premix) 2,000 mg, intravenous, at 50 mL/hr, Administer over 2 Hours, As needed, ionized calcium 4 to 4.3 mg/dL, Starting on Sat03/06/24 at 1017, Scheduling/ADT, IV Administration of calcium via a central or deep vein preferred. Avoid administration in small hand veins VESICANT (RED) dextrose (GLUTOSE) 40 % gel 15 g 15 g, oral, As needed, low blood sugar, blood glucose less than 70 mg/dL, Starting on Sat03/06/24 at 1017, Scheduling/ADT, If patient conscious and taking PO. If blood glucose is not greater than 70 mg/dL after initial treatment, repeat treatment. dextrose 5 % (D5W) infusion 100 mL/hr, intravenous, Continuous PRN, blood glucose less than 70 mg/dL, Starting on Sat03/06/24 at 1017, Scheduling/ADT, Use immediately following dextrose 50% or glucagon treatment for patients who are unconscious or NPO. Contact prescriber for additional orders. If blood glucose is not greater than 70 mg/dL after initial treatment, repeat treatment. dextrose 50 % in water (D50W) 50% solution 25 mL 25 mL, intravenous, As needed, low blood sugar, blood glucose less than 70 mg/dL and unconscious or NPO with IV access, Starting on Sat03/06/24 at 1017, Scheduling/ADT, Push over 1-3 minutes STAT. If conscious and not NPO, immediately follow with meal tray or high protein (7 grams) snack if tray not available. If NPO, initiate 5% dextrose in water at 100 mL/hr and contact prescriber for additional orders. If blood glucose is not greater than 70 mg/dL after initial treatment, repeat treatment. VESICANT (RED) Warning: HYPERTONIC solution. glucagon HCL injection 1 mg 1 mg, intramuscular, As needed, low blood sugar, blood glucose less than 70 mg/dL and unconscious or NPO without IV access., Starting on Sat03/06/24 at 1017, Scheduling/ADT, If conscious and not NPO, immediately follow with meal tray or high protein (7Grams) snack if tray not available. If NPO, initiate IV 5% Dextrose/Water at 100 mL/hr and contact prescriber for additional orders. If blood glucose is not greater than 70 mg/dL after initial treatment, repeat treatment. iohexoL (OMNIPAQUE) 350 mg iodine/mL injection 100 mL (COMPLETED) 100 mL, intravenous, Once in imaging, contrast, Starting on Sat03/06/24 at 0441, For 1 dose, VESICANT (RED) 0521 (Given - Provider: Tiki Mckinnon - Comment: [id number]/04/2027) levalbuterol (XOPENEX) nebulizer solution 1.25 mg 1.25 mg, nebulization, Every 6 hours PRN, wheezing, shortness of breath, Starting on Sat03/06/24 at 1017, Scheduling/ADT, Ordered in place of albuterol due to: tachycardia, Implement INPATIENT/ED Bronchodilator Clinical Practice Guidelines? Yes magnesium sulfate IVPB 2000 mg/50 mL in iso-osmotic water (40 mg/mL premix) 2,000 mg, intravenous, at 25 mL/hr, Administer over 120 Minutes, As needed, Magnesium level 1.7 to 1.9 mg/dL, or Ionized Magnesium level 0.45 to 0.5 mmol/L., Starting on Sat03/06/24 at 1017, Scheduling/ADT, Recheck magnesium level 4 hours after infusion complete. With each magnesium result continue the replacement orders as needed. 1529 (New Bag - Provider: Deanna Farris, RN)1718 (Stop Bag - Provider: Deanna Farris, RN)172 (Stop Bag - Provider: Deanna Farris, RN)172 (Stop Bag - Provider: Deanna Farris, RN)172 (Stop Bag - Provider: Deanna Farris, RN) magnesium sulfate IVPB 4000 mg/100 mL in iso-osmotic water (40 mg/mL premix) 4,000 mg, intravenous, at 25 mL/hr, Administer over 240 Minutes, As needed, Magnesium level 1.6 mg/dL or less, or Ionized Magnesium level 0.44 mmol/L or less, Starting on Sat03/06/24 at 1017, Scheduling/ADT, Recheck magnesium level 4 hours after infusion complete. With each magnesium result continue the replacement orders as needed. ondansetron ODT (ZOFRAN ODT) disintegrating tablet 4 mg 4 mg, buccal, Every 6 hours PRN, nausea, vomiting, Starting on Sat03/06/24 at 1017, Scheduling/ADT potassium chloride (K-TAB,KLOR-CON) CR tablet 30-40 mEq(Linked Group 1) 30-40 mEq, oral, As needed, potassium supplementation, Starting on Sat03/06/24 at 1017, Scheduling/ADT, Progress to oral potassium replacement when patient tolerating oral intake. If dose administered, recheck potassium level 4 hours after last dose. For potassium level 3.4 to 3.8 mmol/L and GFR 30 mL/min or greater=30 mEq. For potassium level 3.1 to 3.3 mmol/L and GFR 30 mL/min or greater=40 mEq. For potassium level 3 mmol/L or less and GFR 30 mL/min or greater=40 mEq. Do not crush or chew. potassium chloride (KAYCIEL) 20 mEq/15 mL solution 30-40 mEq(Linked Group 1) 30-40 mEq, oral, As needed, potassium supplementation, Starting on Sat03/06/24 at 1017, Scheduling/ADT, Progress to oral potassium replacement when patient tolerating oral intake. If dose administered, recheck potassium level 4 hours after last dose. For potassium level 3.4 to 3.8 mmol/L and GFR 30 mL/min or greater=30 mEq. For potassium level 3.1 to 3.3 mmol/L and GFR 30 mL/min or greater=40 mEq. For potassium level 3 mmol/L or less and GFR 30 mL/min or greater=40 mEq. Must dilute before use - Mix in 3-8 ounces of water or juice before administration When administering in feeding tube, flush before and after per policy and monitor potassium levels sennosides-docusate sodium (SENOKOT-S) 8.6-50 mg 1 tablet 1 tablet, oral, Every 12 hours PRN, constipation, Starting on Sat03/06/24 at 1017, Scheduling/ADT sodium chloride 0.9 % flush 10 mL 10 mL, intravenous, As needed, line care, Starting on Sat03/06/24 at 0441 0523 (Given - Provider: Tiki Mckinnon) sodium chloride 0.9 % flush 3 mL 3 mL, intravenous, As needed, line care, before and after each intermittent use, Starting on Sat03/06/24 at 0021 sodium chloride 0.9 % radiology injection (COMPLETED) 80 mL, intravenous, Once in imaging, pre/post contrast, Starting on Sat03/06/24 at 0441, For 1 dose 0522 (Given - Provider: Tiki Mckinnon) Linked Groups Order Group 1: potassium chloride (K-TAB,KLOR-CON) CR tablet 30-40 mEqJump to med 30-40 mEq, oral, As needed, potassium supplementation, Starting on Sat03/06/24 at 1017, Scheduling/ADT, Progress to oral potassium replacement when patient tolerating oral intake. If dose administered, recheck potassium level 4 hours after last dose. For potassium level 3.4 to 3.8 mmol/L and GFR 30 mL/min or greater=30 mEq. For potassium level 3.1 to 3.3 mmol/L and GFR 30 mL/min or greater=40 mEq. For potassium level 3 mmol/L or less and GFR 30 mL/min or greater=40 mEq. Do not crush or chew. Or potassium chloride (KAYCIEL) 20 mEq/15 mL solution 30-40 mEqJump to med 30-40 mEq, oral, As needed, potassium supplementation, Starting on Sat03/06/24 at 1017, Scheduling/ADT, Progress to oral potassium replacement when patient tolerating oral intake. If dose administered, recheck potassium level 4 hours after last dose. For potassium level 3.4 to 3.8 mmol/L and GFR 30 mL/min or greater=30 mEq. For potassium level 3.1 to 3.3 mmol/L and GFR 30 mL/min or greater=40 mEq. For potassium level 3 mmol/L or less and GFR 30 mL/min or greater=40 mEq. Must dilute before use - Mix in 3-8 ounces of water or juice before administration When administering in feeding tube, flush before and after per policy and monitor potassium levels FOR RECORDS PERTAINING TO PATIENTS WHO ARE OR HAVE BEEN ENROLLED IN A CHEMICAL DEPENDENCY/SUBSTANCEABUSE PROGRAM, SOME INFORMATION MAY BE OMITTED. This clinical summary was aggregated from multiple sources. Caution should be exercised in using it in the provision of clinical care. This summary normalizes information from multiple sources, and as a consequence, information in this document may materially change the coding, format and clinical context of patient data. In addition, data may be omitted in some cases. CLINICAL DECISIONS SHOULD BE BASED ON THE PRIMARY CLINICAL RECORDS. [employer] provides no warranty or guarantee of the accuracy or completeness of information in this document.
[2024-05-06 07:11] LABS: Basophils Absolute Auto 0.1 10^3/uL (0.0-0.1); Basophils Percent Auto 1.1 % (0.2-2.0); Eosinophils Absolute Auto 0.5 10^3/uL (0.0-0.7); Eosinophils Percent Auto 5.1 % (0.9-7.0); Hematocrit 40.7 % (36.0-48.0); Hemoglobin 12.8 g/dL (12.0-16.0); Immature Granulocytes Abs Auto 0.02 10^3/uL (0.00-0.03); Immature Granulocytes Pct Auto 0.2 % (0.0-0.5); Lymphocytes Absolute Auto 1.2 10^3/uL (1.2-3.8); Lymphocytes Percent Auto 13.4 % (20.5-60.0); Mean Corpuscular HGB Conc 31.4 g/dL (29.9-35.2); Mean Corpuscular Hemoglobin 29.3 pg (26.7-34.0); Mean Corpuscular Volume 93.1 fL (81.0-99.0); Mean Platelet Volume 8.9 fL (9.5-13.5); Monocytes Absolute Auto 0.7 10^3/uL (0.3-0.8); Monocytes Percent Auto 7.3 % (1.7-12.0); Neutrophils Absolute Auto 6.5 10^3/uL (1.4-6.5); Neutrophils Percent Auto 72.9 % (43.0-75.0); Platelet Count 287 10^3/uL (150-450); Red Blood Count 4.37 10^6/uL (4.20-5.40); Red Cell Distribution Width 14.6 % (11.0-15.0); White Blood Count 8.9 10^3/uL (4.0-11.0)
[2024-05-06 07:28] LABS: INR 0.98; Prothrombin Time 10.4 sec (9.0-11.6)
[2024-05-06 07:34] LABS: Lactate/Lactic Acid 0.6 mmol/L (0.4-2.0)
[2024-05-06 07:40] LABS: Alanine Aminotransferase 19 U/L (14-59); Albumin Globulin Ratio 0.8; Alkaline Phosphatase 105 U/L (46-116); Aspartate Amino Transferase 22 U/L (15-37); BUN Creatinine Ratio 26.3; Bilirubin Total 0.3 mg/dL (0.2-1.0); Calcium 9.5 mg/dL (8.5-10.1); Carbon Dioxide 24.1 mmol/L (21.0-32.0); Chloride 105 mmol/L (98-107); Estimated GFR (African America 59 (>=60 mL/min/1.73m^2); Estimated GFR (Non-African Ame 49 (>=60 mL/min/1.73m^2); Ethanol <3 mg/dL; Glucose 103 mg/dL (74-106); Potassium 4.1 mmol/L (3.5-5.1); Sodium 139 mmol/L (136-145); Thyroid Stimulating Hormone 5.207 uIU/mL (0.358-3.740); Troponin I High Sensitivity 4.2 pg/mL (4.0-51.3)
[2024-05-06 07:53] LABS: Amphetamine Screen Urine NEGATIVE (NEGATIVE); Barbiturates Screen Urine NEGATIVE (NEGATIVE); Benzodiazepines Screen Urine NEGATIVE (NEGATIVE); Buprenorphine Screen Urine NEGATIVE (NEGATIVE); Cannabinoid Screen Urine NEGATIVE (NEGATIVE); Cocaine Screen Urine NEGATIVE (NEGATIVE); Methadone Screen Urine NEGATIVE (NEGATIVE); Methamphetamines Screen Urine NEGATIVE (NEGATIVE); Opiate Screen Urine POSITIVE (NEGATIVE); Oxycodone Screen Urine NEGATIVE (NEGATIVE); Phencyclidine Screen Urine NEGATIVE (NEGATIVE); Tricyclic Antidepressant Urine POSITIVE (NEGATIVE)
[2024-05-06 08:41] LABS: Ammonia 15 umol/L (11-32)
[2024-05-06] MEDS: 0.9 % SODIUM CHLORIDE 1,000 ML 500 ML IV (09:27)
== END 2024-05-06 12:47 | disposition home or self-care (01) ==
PROVIDERS: Emergency Provider Student in an Organized Health Care Education/Training Program; PCP Nurse Practitioner
DX: R41.82 Altered mental status, unspecified (principal); F11.90 Opioid use, unspecified, uncomplicated; M50.321 Other cervical disc degeneration at C4-C5 level; Z79.899 Other long term (current) drug therapy
CPT/HCPCS: 36415; 70450; 71045; 72125; 80053; 80307; 80320; 82140; 83605; 84443; 84484; 85025; 85610; 87040; 87804; 87811; 93005; 99285